=== PATIENT | male | born 1950 | race Caucasian/White ===

== ENCOUNTER 2022-04-08 01:41 | Outpatient (CLI) | payer MEDICARE, MEDICAID, SELFPAY | END 2022-04-08 01:42 | disposition home or self-care (01) | LOC: AMB 04-16 12:33 | PROVIDERS: Visit Provider Family Medicine | DX: R53.1 Weakness (principal) | CPT/HCPCS: A0998 ==

== ENCOUNTER 2022-04-08 03:18 | Outpatient (CLI) | payer MEDICARE, MEDICAID, SELFPAY | END 2022-04-08 03:19 | disposition home or self-care (01) | LOC: AMB 04-16 12:37 | PROVIDERS: Visit Provider Family Medicine | DX: R53.1 Weakness (principal) | CPT/HCPCS: A0998 ==

== ENCOUNTER 2025-03-13 16:02 | Outpatient (CLI) | payer OTHER, SELFPAY | END 2025-03-13 16:03 | disposition home or self-care (01) | LOC: AMB 04-16 15:12 | PROVIDERS: Visit Provider Student in an Organized Health Care Education/Training Program | DX: S89.92XA Unspecified injury of left lower leg, initial encounter (principal); W07.XXXA Fall from chair, initial encounter; Y92.128 Other place in nursing home as the place of occurrence of the external cause | CPT/HCPCS: A0425; A0427 ==

== ENCOUNTER 2025-03-13 16:38 | Inpatient (IN) | payer OTHER, SELFPAY ==
--- OUTSIDE RECORDS SUMMARY | 2021-06-16 18:00 | XMS_ITS | CCD ---
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 Name Role Phone Beto Corie WHITE Primary Care Provider Jeannine vailable Unavailable Chronic Care Management Unavaila ble Summary Purpose DataExchange Insurance Providers Payer name Policy type / Coverage type Covered republican ID Effective Begin Date Effective End Date [place] [id number] Unknown [id number] 1 [place] Medicare Part B [id number] Unknown [id number] Family History Family History data not found Allergies, Adverse Reactions, Alerts Substance Reaction Codes Entered Date Inactivated Date Status NO KNOWN ALLERGIES Unknown 04/25/2021 No Inactiv e Date Active Past Medical History Illness Codes Condition Status Onset Date Resolved Date Alcohol abuse, uncomplicated ICD-10: F10 .10 ICD-9: 305.00 Active 06/12/2021 12/31/2021 Bifascicular block ICD-10: I45.2 ICD-9: 426.53 Active 06/12/2021 07/28/2023 Episode of recurrent major depressive disorder, unspecified depression episode severity ICD-10: F33.9 ICD-9: 296.30 Active 06/12/2021 07/30/2021 Essential hypertension ICD-10: I10 ICD-9: 401.9 Active 06/12/2021 07/30/2021 Hx of ventricular tachycardia ICD-10: Z86.79 ICD-9: V12.59 Active 06/12/2021 11/26/2021 Hypercholesteremia ICD-10: E78.00 ICD-9: 272.0 Active 06/12/2021 07/30/2021 Preventative health care ICD-10: Z00.00 ICD-9: V70.0 Active 06/12/2021 12/31/2021 Primary osteoarthritis of both knees ICD-10: M17.0 ICD-9: 715.16 Active 06/12/2021 07/30/2021 PTSD (post-traumatic stress disorder) ICD-10: F43.10 ICD-9: 309.81 Active 06/12/2021 07/28/2023 Tobacco use disorder ICD-10: F17.200 ICD-9: 305.1 Active 06/12/2021 07/30/2021 Ventricular tachycardia ICD-10: I47.2 ICD-9: 427.1 Active 06/12/2021 09/24/2021 Problems Condition Codes Effective Dates Condition St atus Alcohol abuse, uncomplicated ICD-10: F10 .10 ICD-9: 305.00 06/12/2021 Active Bifascicular block ICD-10: I45.2 ICD-9: 426.53 06/12/2021 Active Episode of recurrent major depressive disorder, unspecified depression episode severity ICD-10: F33.9 ICD-9: 296.30 06/12/2021 Active Essential hypertension ICD-10: I10 ICD-9: 401.9 06/12/2021 Active Hx of ventricular tachycardia ICD-10: Z8 6.79 ICD-9: V12.59 06/12/2021 Active Hypercholesteremia ICD-10: E78.00 ICD-9: 272.0 06/12/2021 Active Preventative health care ICD-10: Z00.00 ICD-9: V70.0 06/12/2021 Active Primary osteoarthritis of both knees ICD -10: M17.0 ICD-9: 715.16 06/12/2021 Active PTSD (post-traumatic stress disorder) ICD-10: F43.10 ICD-9: 309.81 06/12/2021 Active Tobacco use disorder ICD-10: F17.200 ICD-9: 305.1 06/12/2021 Active Ventricular tachycardia ICD-10: I47.2 ICD-9: 427.1 06/12/2021 Active Medications Medication Codes Instructions Start Date Stop Date Status Fill Instructions loperamide 2 mg capsule RxNorm: 851754 Take 1 Capsule(s) Oral Q2H every 2 hours as needed for diarrhea Give 2 tabs after first loose stool and then 1 tab after each loose stool. Not to exceed 8 tabs in 24 hours 06/18/19 22 No Stop Date Active citalopram 20 mg tablet RxNorm: 884794 Take 1 Tablet(s) Oral QD every day 06/18/19 22 023 Inactive losartan 50 mg tablet RxNorm: 405671 Give 1 Tablet(s) Oral QD 06/18/19 22 022 Inactive atorvastatin 20 mg tablet RxNorm: 786503 Take 1 Tablet(s) Oral QD 06/18/19 22 022 Inactive Calcium Antacid 200 mg calcium (500 mg) chewable tablet RxNorm: 673015 Chew 2-4 Tablet(s) Oral as needed Take 2-4 tabs by mouth as needed between meals and at bedtime as needed for heartburn or upset stomach 06/18/19 No Stop Date Active Robitussin Cough-Chest Congestion DM 5 mg-100 mg/5 mL oral liquid RxNorm: 8953064 Take 5-10 Milliliter(s) Oral Q4H every four hours QID - Four Times Daily as needed Take 5-10ml by mouth every 4 hours as needed for cough or congestion. Not to exceed 6 doses in 24 hours 06/18/19 No Stop Date Active ibuprofen 600 mg tablet RxNorm: 753306 Take 1 Tablet(s) Oral QHS every night at bedtime 06/18/19 023 Inactive Aspirin Low Dose 81 mg tablet,delayed release RxNorm: 551653 Take 1 Tablet(s) Oral QD QD - Daily with food 06/18/19 023 Inactive ibuprofen 600 mg tablet RxNorm: 459350 Take 1 and 1/2 Tablet(s) Oral QD as needed Take at least 6 hours from scheduled dose 06/18/19 22 023 Inactive acetaminophen 325 mg capsule RxNorm: 232957 Take 1-2 Tablet(s) Oral Q4-6H every 4-6 hours as needed for pain and elevated temperature. Not to exceed 4000mg in 24 hours 06/18/19 No Stop Date Active hydrochlorothiazide 25 mg tablet RxNorm: 240392 Take 1 Tablet(s) Oral QD 06/18/19 22 022 Inactive aluminum-mag hydroxide-simethicone 200 mg-200 mg-20 mg/5 mL oral susp RxNorm: 863208 Take 5-10 Milliliter(s) Oral QD as needed for nausea one time daily between and at bedtime as needed for heartburn and/ or upset stomach 06/18/19 No Stop Date Active Milk of Magnesia 400 mg/5 mL oral suspension RxNorm: 697630 Take 15-30 Milliliter(s) Oral as needed Take 15-30ml by mouth daily (preferably at bedtime) as needed for constipation. Recommend 8 oz of water after each use. 06/18/19 No Stop Date Active Medication Administered No Medication Administered data Immunizations Vaccine Codes Dose Date Status Covid-19 (Adult) CVX: 02/24/2021 Influenza Unknown 02/24/2021 Covid-19 (Adult) CVX: 207 05/30/2020 Covid-19 (Adult) CVX: 207 05/02/2020 Pneumococcal CVX: 33 04/04/2019 Influenza Unknown 02/01/2019 Pneumococcal CVX: 133 03/30/2018 Medical Equipment No Medical Equipment data Assessments Condition Codes Effective Dates Notes Preventative health care ICD-10: Z00.00 ICD-9: V70.0 06/12/2021 No note found Essential hypertension ICD-10: I10 ICD-9: 401.9 06/12/2021 No note found PTSD (post-traumatic stress disorder) IC D-10: F43.10 ICD-9: 309.81 06/12/2021 No note found Bifascicular block ICD-10: I45.2 ICD-9: 426.53 06/12/2021 No note found Ventricular tachycardia ICD-10: I47.2 ICD-9: 427.1 06/12/2021 No note found Alcohol abuse, uncomplicated ICD-10: F10 .10 ICD-9: 305.00 06/12/2021 No note found Hypercholesteremia ICD-10: E78.00 ICD-9: 272.0 06/12/2021 No note found Episode of recurrent major d epressive disorder, unspecified depression episode severity ICD-10: F33.9 ICD-9: 296.30 06/12/2021 No note found Tobacco use disorder ICD-10: F17.200 ICD-9: 305.1 06/12/2021 No note found Hx of ventricular tachycardia ICD-10: Z8 6.79 ICD-9: V12.59 06/12/2021 No note found Primary osteoarthritis of both knees ICD -10: M17.0 ICD-9: 715.16 06/12/2021 No note found Reason For Visit No Reason For Visit data Results Observation Observation Code Item Item Code Result Date Service Location Lipid Panel (LP) LIPIDPAN CHOLESTEROL, TOTAL 04834-1 167 mg/dL 06/21/19 22 Unknown Lipid Panel (LP) LIPIDPAN HDL CHOLESTEROL 2085-9 30.8 mg /dL 06/21/19 22 Unknown Lipid Panel (LP) LIPIDPAN LDL CHOLESTEROL CALCULATED 33582-7 108 ppm 06/21/19 22 Unknown Lipid Panel (LP) LIPIDPAN TRIGLYCERIDES 2571-8 139.2 mg/dL 06/21/19 22 Unknown Lipid Panel (LP) LIPIDPAN VLDL Cholestero l Calculated 28 ppm 06/21/19 22 Unknown CBC with Differential / Platelets CBCDIFF Baso (Absolute) 0.14 x10E3/uL 06/21/19 22 Unknown CBC with Differential / Platelets CBCDIFF Basos 1.80 % 06/21/19 22 Unknown CBC with Differential / Platelets CBCDIFF Eos 7.8 % 06/21/19 22 Unknown CBC with Differential / Platelets CBCDIFF Eos (Absolute) 0.62 x10E3/uL 06/21/19 22 Unknown CBC with Differential / Platelets CBCDIFF Hematocrit 4544-3 44.5 % 06/21/19 22 Unknown CBC with Differential / Platelets CBCDIFF Hemoglobin 718-7 14.8 g/dL 06/21/19 22 Unknown CBC with Differential / Platelets CBCDIFF LYMPHOCYTES 24.8 % 06/21/19 22 Unknown CBC with Differential / Platelets CBCDIFF Lymphocytes (Absolute) 1.97 x10E3/uL 06/21/19 22 Unknown CBC with Differential / Platelets CBCDIFF MCH 30.7 pg 06/21/19 22 Unknown CBC with Differential / Platelets CBCDIFF MCHC 33.3 g/dL 06/21/19 22 Unknown CBC with Differential / Platelets CBCDIFF MCV 787-2 92.3 % 06/21/19 22 Unknown CBC with Differential / Platelets CBCDIFF Monocytes 8.6 % 06/21/19 22 Unknown CBC with Differential / Platelets CBCDIFF Monocytes (Absolute) 0.68 x10E3/uL 06/21/19 22 Unknown CBC with Differential / Platelets CBCDIFF MPV 18443-4 9.9 fL 06/21/19 22 Unknown CBC with Differential / Platelets CBCDIFF Neutrophils 56.60 % 06/21/19 Unknown CBC with Differential / Platelets CBCDIFF Neutrophils (Absolute) 4.50 x10E3/uL 06/21/19 22 Unknown CBC with Differential / Platelets CBCDIFF Platelets 777-3 272 x10E3/uL 06/21/19 22 Unknown CBC with Differential / Platelets CBCDIFF RBC 4.82 x10^6/UL 06/21/19 22 Unknown CBC with Differential / Platelets CBCDIFF RDW 13.0 %binding 06/21/19 Unknown CBC with Differential / Platelets CBCDIFF WBC 6690-2 7.94 x10E3/uL 06/21/19 22 Unknown Vitamin B12 VITAB12 Vitamin B12 2132-9 283 pg/mL 22 Unknown Hemoglobin A1c HEMOGLOBA Hemoglobin A1c 52021-0 5.7 %A1c 06/21/19 22 Unknown TSH TSH TSH 55568-8 2.18 uIU/mL 06/21/19 22 Unknown Vitamin D, 25-Hydroxy VITAD25 Vitamin D, 25-Hydroxy 81953-2 9 ng/mL 06/21/19 22 Unknown Complete Metabolic Panel (CMP) CMP A/G Ratio 1.7 ppm 06/21/19 22 Unknown Complete Metabolic Panel (CMP) CMP Albumin 1751-7 4.6 g/dL 06/21/19 22 Unknown Complete Metabolic Panel (CMP) CMP Alkaline Phosphatase 99 U/L 06/21/19 22 Unknown Complete Metabolic Panel (CMP) CMP ALT (SGPT) 15 U/L 06/21/19 22 Unknown Complete Metabolic Panel (CMP) CMP AST (SGOT) 21.1 U/L 06/21/19 22 Unknown Complete Metabolic Panel (CMP) CMP BILIRUBIN, TOTAL 1975-2 0.6 mg/dL 06/21/19 22 Unknown Complete Metabolic Panel (CMP) CMP Blood Urea Nitrogen (BUN) 23 mg/dL 06/21/19 22 Unknown Complete Metabolic Panel (CMP) CMP BUN/CREATININE RATIO 20.35 ratio 06/21/19 22 Unknown Complete Metabolic Panel (CMP) CMP Calcium (Ca) 25197-1 9.7 mg/dL 06/21/19 22 Unknown Complete Metabolic Panel (CMP) CMP Carbon Dioxide (ECO2) 30 mEq/L 06/21/19 22 Unknown Complete Metabolic Panel (CMP) CMP Chloride (Cl) 2075-0 99 mmol/L 06/21/19 22 Unknown Complete Metabolic Panel (CMP) CMP Creatinine 2160-0 1.13 mg/dL 06/21/19 22 Unknown Complete Metabolic Panel (CMP) CMP eGFR 69.00 mL/min/1.7 3m2 06/21/19 22 Unknown Complete Metabolic Panel (CMP) CMP eGFR 45832-2 83.00 mL/min/1.7 3m2 06/21/19 22 Unknown Complete Metabolic Panel (CMP) CMP Globulin, Total 2.7 ppm 06/21/19 22 Unknown Complete Metabolic Panel (CMP) CMP Glucose 86 mg/dL 06/21/19 22 Unknown Complete Metabolic Panel (CMP) CMP Potassium (K) 2823-3 4.1 mmol/L 06/21/19 22 Unknown Complete Metabolic Panel (CMP) CMP PROTEIN, TOTAL 2885-2 7.4 g/dL 06/21/19 22 Unknown Complete Metabolic Panel (CMP) CMP Sodium (Na) 2951-2 134 mmol/L 06/21/19 22 Unknown PDFReport PDFReport PDFReport 06/20/19 22 Unknown PHQ-9 81263-5 PHQ9 03590-4 0 06/18/19 22 Unknown PHQ-9 71181-2 PHQ9 08830-4 0 06/18/19 22 Unknown SLUMS SLUMS 45440-6 28 06/18/19 22 Unknown Mini-cog Mini-cog 92708-5 5 06/18/19 22 Unknown Review of Systems No Review of Systems data Physical Exam No Physical Exam data Procedures Procedure Codes Date BEHAV CHNG SMOKING 3-[address]: 2 04103958 CPT-4: 43088 06/12/[address]: 107961749 CPT-4: 50099 06/12/2021 SYS BP LESS 140 CPT-4: G8752 06/12/2021 REAL BP LESS 90 CPT-4: G8754 06/12/2021 FXNL STATUS ASSESSED CPT-4: 1170F 06/12/2021 AMNT PAIN NOTED PAIN PRSNT CPT-4: 1125F 06/12 FALL RISK ASSESSMENT DOCD CPT-4: 3288F 2021 Medicare Annual Wellness Vis it (AWV), Subsequent SNOMED CT: 636027404784300 CPT-4: G0439 06/12/2021 TOBACCO OXIDE FURNACE TENDER NO CHARGE CPT-4: G0436 2021 Vital Signs Date Vital 06/12/2021 Blood Pressure 1: 120/70 Code: 8480-6 Heart Rate 1: 101 bpm Code: 8867-4 Height: 5'10 Code: 8302-2 Respiratory Rate: 18 bpm SpO2: 97% Temperature: 36.2 (C) / 97.1 (F) History of Present Illness No History of Present Illness data Advance Directives No Advance Directive data Encounters Encounter Performer Location Location Address Codes Date (02581) [facility] Diagnosis: Tobacco use disorder[ICD10: F17.200] Diagnosis: Episode of recurrent major depressive disorder, unspecified depression episode severity[ICD10: F33.9] Diagnosis: Bifascicular block[ICD10: I45.2] Diagnosis: Ventricular tachycardia[ICD10: I47.2] Diagnosis: Hx of ventricular tachycardia[ICD10: Z86.79] Diagnosis: Hypercholesteremia[IC D10: E78.00] Diagnosis: PTSD (post-traumatic stress disorder)[ICD10: F43.10] Diagnosis: Alcohol abuse, uncomplicated[ICD10: F10.10] Diagnosis: Essential hypertension[ICD10: I10] Diagnosis: Primary osteoarthritis of both knees[ICD10: M17.0] Diagnosis: Preventative health care[ICD10: Z00.00] Татьяна [address] [address] CPT-4: 31024 06/12/2021 Plan of Care Planned Activity Notes Codes Status Date Patient Education: Patient Medication Summary Completed 06/12/2021 Patient Education: Influenza Vaccine Completed 06/12/2021 Patient Education: Smoking Cessation Completed 06/12/2021 Health Concerns Section Concern Status Date (E87.1-276.1) Hyponatremia Active 11/30 (D69.2-287.2) Senile purpura Active 01/2024 (E55.9-268.9) Vitamin D deficiency Active 07/28/2023 (E78.00-272.0) Hypercholesteremia Active 07/28/2023 (F10.21-303.93) Alcohol dependence in remission Active 07/28/2023 (F17.200-305.1) Tobacco use disorder Active 07/28/2023 (F33.9-296.30) Episode of re current major depressive disorder, unspecified depression episode severity Active 07/28/2023 (F43.10-309.81) PTSD (post-traumatic stress diso rder) Active 07/28/2023 (G44.229-339.12) Chronic tension-type headache, not intractable Active 07/28/2023 (G81.94-342.92) 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 Active 07/28/2023 (G89.29-) Other chronic pain Active 01/2024 (I12.9-403.90) Hypertensive chronic kidney disease with stage 1 through stage 4 chronic kidney disease, or unspecified chronic kidney disease Active 07/28/2023 (J41.0-491.0) Smokers' cough Active 01/2024 (J44.9-496) COPD (chronic obstructive pulmonary disease) Active 07/28/2023 (M17.0-715.16) Primary osteoarthritis of both kn ees Active 07/28/2023 (M25.512-719.41) Chronic left shoulder pain Acti ve 07/28/2023 (N18.2-585.2) Stage 2 chronic kidney disease Act damaris 07/28/2023 (Z00.00-V70.9) Adult general medical exam Active 07/28/2023 (Z13.31-V79.0) Encounter for screening for depre ssion Active 07/28/2023 (Z13.39-V79.8) Encounter for screening examination for other mental health and behavioral disorders Active 07/28/2023 (Z13.9-V82.9) Encounter for screening, unspecifi ed Active 07/28/2023 (Z71.89-V65.49) ACP (advance care planning) Acti ve 07/28/2023 No Related Observations Available Goals Section Goals Value Date COPD is a chronic and progre ssive condition with a guarded prognosis. The treatment goal is to minimize episodes of exacerbation, and the desired outcome is stable respiratory functioning allowing for optimal quality of life. The prognosis is guarded due to the progressive nature of the disease. The patient or their caregiver should notify the primary care team for symptoms of COPD exacerbation including increased difficulty breathing, increased frequency of cough, or increased sputum production. Unknown 07/19/2024 Treatment Goal: Optimize hetal n control, enhance physical / social functioning and comfortDesired Outcome: Quality of life, limited use of narcotics, increased use of non-pharmacologic measures Prognosis: goodThe patient or their caregiver should notify the primary care team of symptoms such as: acute change in pain characteristics Unknown 07/19/2024 Treatment Goal: Optimize hetal n control, enhance physical / social functioning and comfortDesired Outcome: Quality of life, limited use of narcotics, increased use of non-pharmacologic measures Prognosis: goodThe patient or their caregiver should notify the primary care team of symptoms such as: acute change in pain characteristics Unknown 07/19/2024 Treatment Goal: Remain at cu rrent functional status Desired Outcome: Minimal functional decline Prognosis: Good The patient or their caregiver should notify the primary care team of symptoms such as: functional decline warranting PT/OT referral consideration Unknown 07/19/2024 Treatment Goal: Remain in re mission/sobrietyDesired Outcome: No relapse in substance use/abuse.Prognosis: difficult to determine at this timeThe patient or their caregiver should notify the primary care team of symptoms such as: change in behaviors, personality, elopement from GH. Unknown 07/19/2024 Treatment Goal: Maintain appropriate lipid levels, given patient's age, through diet control and medication if warranted.Desired Outcome: Tolerate statin with no/minimal side effects. Reduce risk of cardiovascular complications by controlling lipid levels.Prognosis: GoodThe patient or their caregiver should notify the primary care team of symptoms such as: myalgias Unknown Treatment Goal: Stable physical functional status.Desired Outcome: Maintain mobility, minimal pain with least effective dose of medicationPrognosis: GoodThe patient or their caregiver should notify the primary care team of symptoms such as: increased pain, acute change in mobility, unwillingness to participate in baseline activity Unknown 07/19/2024 Treatment Goal: Maintain blo od pressure at or below goal of 140/90. Avoid hypotension to minimize fall risk.Desired Outcome: BP within goal range, with no adverse side effects Prognosis: Good. The patient or their caregiver should notify the primary care team of symptoms such as: chest pain, palpitations, shortness of breath, lightheadedness, lower extremity edema, falls. Unknown 01/26/2024 Treatment Goal: Minimal depr essive symptoms and optimal daily functioning.Desired Outcome: Improved mood and quality of life on lowest effective dose(s) of anti-depressant Prognosis: GoodThe patient or their caregiver should notify the primary care team of symptoms such as: increased sadness, isolation, reports of suicidal thoughts, self harm. Unknown 01/26/2024 Treatment Goal: Maintain normal vitamin D levelsDesired Outcome: Appropriate serum levels, natural vitamin D when weather permitsPrognosis: GoodThe patient or their caregiver should notify the primary care team of symptoms such as: fatigue, depression S&S Unknown 12/2023 Treatment Goal: Maintain stable renal function. Avoid JOSE LUIS episodes.Desired Outcome: Control BP as appropriate for age,.Avoid nephrotoxic medications. Renal dose medications as appropriate.Prognosis: GoodThe patient or their caregiver should notify the primary care team of symptoms such as: signs of dehydration, fluid overload, urinary changes. Unknown 01/26/2024 Serum sodium WNL. Unknown 12/01/2023 - follow with psych, take me dication as prescribed Unknown 07/28/2023 - medical decisions to be made with Kike and yogesh snowden. Unknown 07/28/2023 - Minimal depressive symptoms and optimal daily functioning. Unknown 07/28/2023 - monitor skin, be aware of bruises and stages of healing Unknown 07/28/2023 - quit smoking Unknown 07/28/2023 - remain up to date on patient wishes Unknown 07/28/2023 - remain up to date on recom mended preventive care Unknown 07/28/2023 - smoking cessation Unknown 07/28/2023 Optimize pain control while minimizing med side effects. Enhance physical / social functioning and comfort Unknown 07/28/2023 Optimize pain control while minimizing med side effects. Enhance physical / social functioning and comfort Unknown 07/28/2023
--- OUTSIDE RECORDS SUMMARY | 2021-07-29 18:00 | XMS_ITS | CCD ---
Author Name Татьяна Figueredo PA-C Address [address] [place] [address] Phone Organization [facility] Phone Care Team Providers Care Game Attendant Name Role Phone Beto Corie WHITE Primary Care Provider Jeannine vailable Unavailable Chronic Care Management Unavaila ble Summary Purpose DataExchange Insurance Providers Payer name Policy type / Coverage type Covered republican ID Effective Begin Date Effective End Date Medicare [place] Medicare Part B [id number] Unknown [id number] [place] Medicare Part B [id number] Unknown [id number] Family History Family History data not found Social History Social History Element Codes Description Effec tive Dates Tobacco history SNOMED CT: 95120724 Current ever y day smoker half pack- 1 pack/daily Started smoking at age 18 06/17/[address]: 790646685 No Alcohol Consumption Hx of consumption 06/17/2021 Allergies, Adverse Reactions, Alerts Substance Reaction Codes Entered Date Inactivated Date Status NO KNOWN ALLERGIES Unknown 04/25/2021 No Inactiv e Date Active * NO KNOWN FOOD ALLERGIES Unknown 06/12/2021 No Inactive Date Active * NO KNOWN ENVIRONMENTAL ALLERGIES Unknown 06/12/2021 No Inactive Date Active Past Medical History Illness Codes Condition Status Onset Date Resolved Date Chronic tension-type headache, not intractable ICD-10: G44.229 ICD-9: 339.12 Active 07/30/2021 08/27/2021 Episode of recurrent major depressive disorder, unspecified depression episode severity ICD-10: F33.9 ICD-9: 296.30 Active 07/30/2021 08/27/2021 Essential hypertension ICD-10: I10 ICD-9: 401.9 Active 07/30/2021 08/27/2021 Hypercholesteremia ICD-10: E78.00 ICD-9: 272.0 Active 07/30/2021 07/29/2022 Primary osteoarthritis of both knees ICD-10: M17.0 ICD-9: 715.16 Active 07/30/2021 08/27/2021 Tobacco use disorder ICD-10: F17.200 ICD-9: 305.1 Active 07/30/2021 08/27/2021 Alcohol abuse, uncomplicated ICD-10: F10 .10 ICD-9: 305.00 Active 06/12/2021 12/31/2021 Bifascicular block ICD-10: I45.2 ICD-9: 426.53 Active 06/12/2021 07/28/2023 Hx of ventricular tachycardia ICD-10: Z86.79 ICD-9: V12.59 Active 06/12/2021 11/26/2021 Preventative health care ICD-10: Z00.00 ICD-9: V70.0 Active 06/12/2021 12/31/2021 PTSD (post-traumatic stress disorder) ICD-10: F43.10 ICD-9: 309.81 Active 06/12/2021 07/28/2023 Ventricular tachycardia ICD-10: I47.2 ICD-9: 427.1 Active 06/12/2021 09/24/2021 Problems Condition Codes Effective Dates Condition St atus Chronic tension-type headach e, not intractable ICD-10: G44.229 ICD-9: 339.12 07/30/2021 Active Episode of recurrent major depressive disorder, unspecified depression episode severity ICD-10: F33.9 ICD-9: 296.30 07/30/2021 Active Essential hypertension ICD-10: I10 ICD-9: 401.9 07/30/2021 Active Hypercholesteremia ICD-10: E78.00 ICD-9: 272.0 07/30/2021 Active Primary osteoarthritis of both knees ICD -10: M17.0 ICD-9: 715.16 07/30/2021 Active Tobacco use disorder ICD-10: F17.200 ICD-9: 305.1 07/30/2021 Active Alcohol abuse, uncomplicated ICD-10: F10 .10 ICD-9: 305.00 06/12/2021 Active Bifascicular block ICD-10: I45.2 ICD-9: 426.53 06/12/2021 Active Hx of ventricular tachycardia ICD-10: Z8 6.79 ICD-9: V12.59 06/12/2021 Active Preventative health care ICD-10: Z00.00 ICD-9: V70.0 06/12/2021 Active PTSD (post-traumatic stress disorder) ICD-10: F43.10 ICD-9: 309.81 06/12/2021 Active Ventricular tachycardia ICD-10: I47.2 ICD-9: 427.1 06/12/2021 Active Medications Medication Codes Instructions Start Date Stop Date Status Fill Instructions Vitamin D2 1,250 mcg (50,000 unit) capsule RxNorm: 6481381 Take 1 Capsule(s) Oral QW once a week TAKE ONCE CAPSULE ONCE WEEKLY 07/31/19 22 023 Inactive or whatever % is covered by insurance loperamide 2 mg capsule RxNorm: 736187 Take 1 Capsule(s) Oral Q2H every 2 hours as needed for diarrhea Give 2 tabs after first loose stool and then 1 tab after each loose stool. Not to exceed 8 tabs in 24 hours 06/18/19 No Stop Date Active citalopram 20 mg tablet RxNorm: 379705 Take 1 Tablet(s) Oral QD every day 06/18/19 22 023 Inactive losartan 50 mg tablet RxNorm: 429009 Give 1 Tablet(s) Oral QD 06/18/19 22 022 Inactive atorvastatin 20 mg tablet RxNorm: 912514 Take 1 Tablet(s) Oral QD 06/18/19 22 022 Inactive Calcium Antacid 200 mg calcium (500 mg) chewable tablet RxNorm: 898940 Chew 2-4 Tablet(s) Oral as needed Take 2-4 tabs by mouth as needed between meals and at bedtime as needed for heartburn or upset stomach 06/18/19 No Stop Date Active Robitussin Cough-Chest Congestion DM 5 mg-100 mg/5 mL oral liquid RxNorm: 8236854 Take 5-10 Milliliter(s) Oral Q4H every four hours QID - Four Times Daily as needed Take 5-10ml by mouth every 4 hours as needed for cough or congestion. Not to exceed 6 doses in 24 hours 06/18/19 22 No Stop Date Active ibuprofen 600 mg tablet RxNorm: 322533 Take 1 Tablet(s) Oral QHS every night at bedtime 06/18/19 22 023 Inactive Aspirin Low Dose 81 mg tablet,delayed release RxNorm: 494729 Take 1 Tablet(s) Oral QD QD - Daily with food 06/18/19 22 023 Inactive ibuprofen 600 mg tablet RxNorm: 493037 Take 1 and 1/2 Tablet(s) Oral QD as needed Take at least 6 hours from scheduled dose 06/18/19 22 023 Inactive acetaminophen 325 mg capsule RxNorm: 047903 Take 1-2 Tablet(s) Oral Q4-6H every 4-6 hours as needed for pain and elevated temperature. Not to exceed 4000mg in 24 hours 06/18/19 No Stop Date Active hydrochlorothiazide 25 mg tablet RxNorm: 791453 Take 1 Tablet(s) Oral QD 06/18/19 22 022 Inactive aluminum-mag hydroxide-simethicone 200 mg-200 mg-20 mg/5 mL oral susp RxNorm: 032066 Take 5-10 Milliliter(s) Oral QD as needed for nausea one time daily between and at bedtime as needed for heartburn and/ or upset stomach 06/18/19 No Stop Date Active Milk of Magnesia 400 mg/5 mL oral suspension RxNorm: 979953 Take 15-30 Milliliter(s) Oral as needed Take 15-30ml by mouth daily (preferably at bedtime) as needed for constipation. Recommend 8 oz of water after each use. 06/18/19 No Stop Date Active Medication Administered No Medication Administered data Immunizations Vaccine Codes Dose Date Status Covid-19 (Adult) CVX: 207 02/24/2021 Influenza Unknown 02/24/2021 Covid-19 (Adult) CVX: 207 05/30/2020 Covid-19 (Adult) CVX: 207 05/02/2020 Pneumococcal CVX: 33 04/04/2019 Influenza Unknown 02/01/2019 Pneumococcal CVX: 133 03/30/2018 Medical Equipment No Medical Equipment data Assessments Condition Codes Effective Dates Notes Chronic tension-type headach e, not intractable ICD-10: G44.229 ICD-9: 339.12 07/30/2021 No note found Episode of recurrent major d epressive disorder, unspecified depression episode severity ICD-10: F33.9 ICD-9: 296.30 07/30/2021 No note found Essential hypertension ICD-10: I10 ICD-9: 401.9 07/30/2021 No note found Primary osteoarthritis of both knees ICD -10: M17.0 ICD-9: 715.16 07/30/2021 No note found Hypercholesteremia ICD-10: E78.00 ICD-9: 272.0 07/30/2021 No note found Tobacco use disorder ICD-10: F17.200 ICD-9: 305.1 07/30/2021 No note found Reason For Visit No Reason For Visit data Review of Systems No Review of Systems data Physical Exam No Physical Exam data Procedures Procedure Codes Date BEHAV CHNG SMOKING 3-[address]: 2 76071777 CPT-4: 88908 07/30/[address]: 004956584 CPT-4: 33423 07/30/2021 SYS BP LESS 140 CPT-4: G8752 07/30/2021 REAL BP LESS 90 CPT-4: G8754 07/30/2021 TOBACCO MOLDER SWEEP NO CHARGE CPT-4: G0436 2021 BEHAV CHNG SMOKING 3-[address]: 2 72660050 CPT-4: 98401 06/12/2021 Vital Signs Date Vital 07/30/2021 Blood Pressure 1: 111/70 Code: 8480-6 Heart Rate 1: 81 bpm Code: 8867-4 Respiratory Rate: 18 bpm SpO2: 96% Temperature: 36.5 (C) / 97.7 (F) History of Present Illness No History of Present Illness data Advance Directives No Advance Directive data Encounters Encounter Performer Location Location Address Codes Date (78184) DOMICIL VISIT EST PAT Diagnosis: Episode of recurrent major depressive disorder, unspecified depression episode severity[ICD10: F33.9] Diagnosis: Essential hypertension[ICD10: I10] Diagnosis: Tobacco use disorder[ICD10: F17.200] Diagnosis: Hypercholesteremia[IC D10: E78.00] Diagnosis: Primary osteoarthritis of both knees[ICD10: M17.0] Diagnosis: Chronic tension-type headache, not intractable[ICD10: G44.229] Татьяна Figueredo [address] [address] CPT-4: 70811 07/30/2021 Plan of Care Planned Activity Notes Codes Status Date Patient Education: Patient Medication Summary Completed 07/30/2021 Patient Education: Influenza Vaccine Completed 07/30/2021 Patient Education: Smoking Cessation Completed 07/30/2021 Health Concerns Section Concern Status Date (E87.1-276.1) [...] - medical decisions to be made with Colin snowden. Unknown 07/28/2023 - Minimal depressive symptoms [...]
--- OUTSIDE RECORDS SUMMARY | 2021-08-28 18:00 | XMS_ITS | CCD ---
Author Name Татьяна Figueredo PA-C Address [address] [place] [address] Phone Organization [facility] Phone Care Team Providers Care Trench Pipe Layer Helper Name Role Phone Bteo Corie WHITE Primary Care Provider Jeannine vailable Unavailable Chronic Care Management Unavaila ble Summary Purpose DataExchange Insurance Providers Payer name Policy type / Coverage type Covered republican ID Effective Begin Date Effective End Date Medicare [place] Medicare Part B [id number] Unknown [id number] 1 [place] Medicare Part B [id number] Unknown [id number] Family History Family History data not found Social History Social History Element Codes Description Effec tive Dates Tobacco history SNOMED CT: 72569572 Current ever y day smoker half pack- 1 pack/daily Started smoking at age 18 06/17/[address]: 399290293 No Alcohol Consumption Hx of consumption 06/17/2021 [...] not intractable ICD-10: G44.229 ICD-9: 339.12 Active 08/27/2021 11/05/2021 Episode of recurrent major depressive disorder, unspecified depression episode severity ICD-10: F33.9 ICD-9: 296.30 Active 08/27/2021 09/24/2021 Essential hypertension ICD-10: I10 ICD-9: 401.9 Active 08/27/2021 09/24/2021 Primary osteoarthritis of both knees ICD-10: M17.0 ICD-9: 715.16 Active 08/27/2021 09/24/2021 Tobacco use disorder ICD-10: F17.200 ICD-9: 305.1 Active 08/27/2021 09/24/2021 Hypercholesteremia ICD-10: E78.00 ICD-9: 272.0 Active 07/30/2021 07/29/2022 Alcohol abuse, uncomplicated ICD-10: F10 .10 ICD-9: [...] e, not intractable ICD-10: G44.229 ICD-9: 339.12 08/27/2021 Active Episode of recurrent major depressive disorder, unspecified depression episode severity ICD-10: F33.9 ICD-9: 296.30 08/27/2021 Active Essential hypertension ICD-10: I10 ICD-9: 401.9 08/27/2021 Active Primary osteoarthritis of both knees ICD -10: M17.0 ICD-9: 715.16 08/27/2021 Active Tobacco use disorder ICD-10: F17.200 ICD-9: 305.1 08/27/2021 Active Hypercholesteremia ICD-10: E78.00 ICD-9: 272.0 07/30/2021 Active Alcohol abuse, uncomplicated ICD-10: F10 [...] D2 1,250 mcg (50,000 unit) capsule RxNorm: 5117643 Take 1 Capsule(s) Oral QW once a week TAKE ONCE CAPSULE ONCE WEEKLY 07/31/19 22 023 Inactive or whatever % is covered by insurance loperamide 2 mg capsule RxNorm: 371387 Take 1 Capsule(s) Oral Q2H every 2 hours as needed for diarrhea Give 2 tabs after first loose stool and then 1 tab after each loose stool. Not to exceed 8 tabs in 24 hours 06/18/19 No Stop Date Active citalopram 20 mg tablet RxNorm: 844592 Take 1 Tablet(s) Oral QD every day 06/18/19 22 023 Inactive losartan 50 mg tablet RxNorm: 020459 Give 1 Tablet(s) Oral QD 06/18/19 22 022 Inactive atorvastatin 20 mg tablet RxNorm: 831405 Take 1 Tablet(s) Oral QD 06/18/19 22 022 Inactive Calcium Antacid 200 mg calcium (500 mg) chewable tablet RxNorm: 346302 Chew 2-4 Tablet(s) Oral as needed Take 2-4 tabs by mouth as needed between meals and at bedtime as needed for heartburn or upset stomach 06/18/19 No Stop Date Active Robitussin Cough-Chest Congestion DM 5 mg-100 mg/5 mL oral liquid RxNorm: 0339876 Take 5-10 Milliliter(s) Oral Q4H every four hours QID - Four Times Daily as needed Take 5-10ml by mouth every 4 hours as needed for cough or congestion. Not to exceed 6 doses in 24 hours 06/18/19 22 No Stop Date Active ibuprofen 600 mg tablet RxNorm: 019047 Take 1 Tablet(s) Oral QHS every night at bedtime 06/18/19 22 023 Inactive Aspirin Low Dose 81 mg tablet,delayed release RxNorm: 703193 Take 1 Tablet(s) Oral QD QD - Daily with food 06/18/19 22 023 Inactive ibuprofen 600 mg tablet RxNorm: 712296 Take 1 and 1/2 Tablet(s) Oral QD as needed Take at least 6 hours from scheduled dose 06/18/19 22 023 Inactive acetaminophen 325 mg capsule RxNorm: 299295 Take 1-2 Tablet(s) Oral Q4-6H every 4-6 hours as needed for pain and elevated temperature. Not to exceed 4000mg in 24 hours 06/18/19 No Stop Date Active hydrochlorothiazide 25 mg tablet RxNorm: 100366 Take 1 Tablet(s) Oral QD 06/18/19 22 022 Inactive aluminum-mag hydroxide-simethicone 200 mg-200 mg-20 mg/5 mL oral susp RxNorm: 512741 Take 5-10 Milliliter(s) Oral QD as needed for nausea one time daily between and at bedtime as needed for heartburn and/ or upset stomach 06/18/19 No Stop Date Active Milk of Magnesia 400 mg/5 mL oral suspension RxNorm: 935980 Take 15-30 Milliliter(s) Oral as needed Take [...] data Assessments Condition Codes Effective Dates Notes Episode of recurrent major d epressive disorder, unspecified depression episode severity ICD-10: F33.9 ICD-9: 296.30 08/27/2021 No note found Essential hypertension ICD-10: I10 ICD-9: 401.9 08/27/2021 No note found Chronic tension-type headach e, not intractable ICD-10: G44.229 ICD-9: 339.12 08/27/2021 No note found Primary osteoarthritis of both knees ICD -10: M17.0 ICD-9: 715.16 08/27/2021 No note found Tobacco use disorder ICD-10: F17.200 ICD-9: 305.1 08/27/2021 No note found Reason For Visit No Reason For Visit data Review of Systems No Review of Systems data Physical Exam No Physical Exam data Procedures Procedure Codes Date BEHAV CHNG SMOKING 3-[address]: 2 75983689 CPT-4: 61483 08/27/2021 SYS BP LESS 140 CPT-4: G8752 08/27/2021 REAL BP LESS 90 CPT-4: G8754 08/27/[address]: 508850345 CPT-4: 83435 08/27/2021 TOBACCO MEAT SELECTOR NO CHARGE CPT-4: G0436 2021 BEHAV CHNG SMOKING 3-[address]: 2 92111593 CPT-4: 75712 07/30/2021 BEHAV CHNG SMOKING 3-[address]: 2 02333606 CPT-4: 15771 06/12/2021 Vital Signs Date Vital 08/27/2021 Blood Pressure 1: 129/83 Code: 8480-6 BMI: 25.5 Code: 88241-9 Heart Rate 1: 95 bpm Code: 8867-4 Height: 5'10 Code: 8302-2 SpO2: 93% Temperature: 36.3 (C) / 97.3 (F) Weight: 177 lbs 6 oz Code: 3141-9 History of Present Illness No History of Present Illness data Advance Directives No Advance Directive data Encounters Encounter Performer Location Location Address Codes Date (35822) DOMICIL VISIT EST PAT Diagnosis: Chronic tension-type headache, not intractable[ICD10: G44.229] Diagnosis: Essential hypertension[ICD10: I10] Diagnosis: Tobacco use disorder[ICD10: F17.200] Diagnosis: Primary osteoarthritis of both knees[ICD10: M17.0] Diagnosis: Episode of recurrent major depressive disorder, unspecified depression episode severity[ICD10: F33.9] Татьяна Figueredo [address] [address] CPT-4: 68995 08/27/2021 Plan of Care Planned Activity Notes Codes Status Date Patient Education: Patient Medication Summary Completed 08/27/2021 Patient Education: Influenza Vaccine Completed 08/27/2021 Patient Education: Smoking Cessation Completed 08/27/2021 Health Concerns Section Concern Status Date (E87.1-276.1) [...]
--- OUTSIDE RECORDS SUMMARY | 2021-09-25 18:00 | XMS_ITS | CCD ---
Author Name Татьяна Figueredo PA-C Address [address] [place] [address] Phone Organization [facility] Phone Care Team Providers Care Concrete Journeyman Name Role Phone Beto Croie WHITE Primary Care Provider Jeannine vailable Unavailable Chronic Care Management Unavaila ble Summary Purpose DataExchange Insurance Providers Payer name Policy type / Coverage type Covered green party ID Effective Begin Date Effective End Date Medicare [place] Part [place] [id number] Unknown [id number] 1 [place] Medicare Part B [id number] Unknown [id number] Family History Family History data not found Social History Social History Element Codes Description Effec tive Dates Tobacco history SNOMED CT: 65144339 Current ever y day smoker half pack- 1 pack/daily Started smoking at age 18 06/17/[address]: 821999974 No Alcohol Consumption Hx of consumption 06/17/2021 Allergies, Adverse Reactions, Alerts Substance Reaction Codes Entered Date Inactivated Date Status NO KNOWN ALLERGIES Unknown 04/25/2021 No Inactiv e Date Active * NO KNOWN FOOD ALLERGIES Unknown 06/12/2021 No Inactive Date Active * NO KNOWN ENVIRONMENTAL ALLERGIES Unknown 06/12/2021 No Inactive Date Active Past Medical History Illness Codes Condition Status Onset Date Resolved Date Episode of recurrent major depressive disorder, unspecified depression episode severity ICD-10: F33.9 ICD-9: 296.30 Active 09/24/2021 11/05/2021 Essential hypertension ICD-10: I10 ICD-9: 401.9 Active 09/24/2021 11/05/2021 Primary osteoarthritis of both knees ICD-10: M17.0 ICD-9: 715.16 Active 09/24/2021 11/05/2021 Tobacco use disorder ICD-10: F17.200 ICD-9: 305.1 Active 09/24/2021 11/05/2021 Ventricular tachycardia ICD-10: I47.2 ICD-9: 427.1 Active 09/24/2021 02/25/2022 Chronic tension-type headache, not intractable ICD-10: G44.229 ICD-9: 339.12 Active 08/27/2021 11/05/2021 Hypercholesteremia ICD-10: E78.00 ICD-9: 272.0 Active 07/30/2021 07/29/2022 Alcohol abuse, uncomplicated ICD-10: F10 .10 ICD-9: 305.00 Active 06/12/2021 12/31/2021 Bifascicular block ICD-10: I45.2 ICD-9: 426.53 Active 06/12/2021 07/28/2023 Hx of ventricular tachycardia ICD-10: Z86.79 ICD-9: V12.59 Active 06/12/2021 11/26/2021 Preventative health care ICD-10: Z00.00 ICD-9: V70.0 Active 06/12/2021 12/31/2021 PTSD (post-traumatic stress disorder) ICD-10: F43.10 ICD-9: 309.81 Active 06/12/2021 07/28/2023 Problems Condition Codes Effective Dates Condition St atus Episode of recurrent major depressive disorder, unspecified depression episode severity ICD-10: F33.9 ICD-9: 296.30 09/24/2021 Active Essential hypertension ICD-10: I10 ICD-9: 401.9 09/24/2021 Active Primary osteoarthritis of both knees ICD -10: M17.0 ICD-9: 715.16 09/24/2021 Active Tobacco use disorder ICD-10: F17.200 ICD-9: 305.1 09/24/2021 Active Ventricular tachycardia ICD-10: I47.2 ICD-9: 427.1 09/24/2021 Active Chronic tension-type headach e, not intractable ICD-10: G44.229 ICD-9: 339.12 08/27/2021 Active Hypercholesteremia ICD-10: E78.00 ICD-9: 272.0 07/30/2021 Active Alcohol abuse, uncomplicated ICD-10: F10 .10 ICD-9: 305.00 06/12/2021 Active Bifascicular block ICD-10: I45.2 ICD-9: 426.53 06/12/2021 Active Hx of ventricular tachycardia ICD-10: Z8 6.79 ICD-9: V12.59 06/12/2021 Active Preventative health care ICD-10: Z00.00 ICD-9: V70.0 06/12/2021 Active PTSD (post-traumatic stress disorder) ICD-10: F43.10 ICD-9: 309.81 06/12/2021 Active Medications Medication Codes Instructions Start Date Stop Date Status Fill Instructions Vitamin D2 1,250 mcg (50,000 unit) capsule RxNorm: 2524945 Take 1 Capsule(s) Oral QW once a week TAKE ONCE CAPSULE ONCE WEEKLY 07/31/19 22 023 Inactive or whatever % is covered by insurance loperamide 2 mg capsule RxNorm: 758454 Take 1 Capsule(s) Oral Q2H every 2 hours as needed for diarrhea Give 2 tabs after first loose stool and then 1 tab after each loose stool. Not to exceed 8 tabs in 24 hours 06/18/19 No Stop Date Active citalopram 20 mg tablet RxNorm: 427384 Take 1 Tablet(s) Oral QD every day 06/18/19 22 023 Inactive losartan 50 mg tablet RxNorm: 005711 Give 1 Tablet(s) Oral QD 06/18/19 22 022 Inactive atorvastatin 20 mg tablet RxNorm: 500763 Take 1 Tablet(s) Oral QD 06/18/19 22 022 Inactive Calcium Antacid 200 mg calcium (500 mg) chewable tablet RxNorm: 955706 Chew 2-4 Tablet(s) Oral as needed Take 2-4 tabs by mouth as needed between meals and at bedtime as needed for heartburn or upset stomach 06/18/19 No Stop Date Active Robitussin Cough-Chest Congestion DM 5 mg-100 mg/5 mL oral liquid RxNorm: 1293759 Take 5-10 Milliliter(s) Oral Q4H every four hours QID - Four Times Daily as needed Take 5-10ml by mouth every 4 hours as needed for cough or congestion. Not to exceed 6 doses in 24 hours 06/18/19 22 No Stop Date Active ibuprofen 600 mg tablet RxNorm: 338861 Take 1 Tablet(s) Oral QHS every night at bedtime 06/18/19 22 023 Inactive Aspirin Low Dose 81 mg tablet,delayed release RxNorm: 048898 Take 1 Tablet(s) Oral QD QD - Daily with food 06/18/19 22 023 Inactive ibuprofen 600 mg tablet RxNorm: 561818 Take 1 and 1/2 Tablet(s) Oral QD as needed Take at least 6 hours from scheduled dose 06/18/19 22 023 Inactive acetaminophen 325 mg capsule RxNorm: 737582 Take 1-2 Tablet(s) Oral Q4-6H every 4-6 hours as needed for pain and elevated temperature. Not to exceed 4000mg in 24 hours 06/18/19 No Stop Date Active aluminum-mag hydroxide-simethicone 200 mg-200 mg-20 mg/5 mL oral susp RxNorm: 141324 Take 5-10 Milliliter(s) Oral QD as needed for nausea one time daily between and at bedtime as needed for heartburn and/ or upset stomach 06/18/19 No Stop Date Active Milk of Magnesia 400 mg/5 mL oral suspension RxNorm: 122477 Take 15-30 Milliliter(s) Oral as needed Take 15-30ml by mouth daily (preferably at bedtime) as needed for constipation. Recommend 8 oz of water after each use. 06/18/19 No Stop Date Active hydrochlorothiazide 25 mg tablet RxNorm: 606517 Take 1 Tablet(s) Oral QD 06/18/19 22 022 Inactive Medication Administered No Medication Administered data Immunizations Vaccine Codes Dose Date Status Covid-19 (Adult) CVX: 207 02/24/2021 Influenza Unknown 02/24/2021 Covid-19 (Adult) CVX: 207 05/30/2020 Covid-19 (Adult) CVX: 207 05/02/2020 Pneumococcal CVX: 33 04/04/2019 Influenza Unknown 02/01/2019 Pneumococcal CVX: 133 03/30/2018 Medical Equipment No Medical Equipment data Assessments Condition Codes Effective Dates Notes Ventricular tachycardia ICD-10: I47.2 ICD-9: 427.1 09/24/2021 No note found Episode of recurrent major d epressive disorder, unspecified depression episode severity ICD-10: F33.9 ICD-9: 296.30 09/24/2021 No note found Primary osteoarthritis of both knees ICD -10: M17.0 ICD-9: 715.16 09/24/2021 No note found Tobacco use disorder ICD-10: F17.200 ICD-9: 305.1 09/24/2021 No note found Essential hypertension ICD-10: I10 ICD-9: 401.9 09/24/2021 No note found Reason For Visit No Reason For Visit data Results Observation Observation Code Item Item Code Result Date S ervice Location PHQ-9 94887-3 PHQ9 32587-9 0 09/24/2021 Unknown PHQ-9 69287-5 PHQ9 80506-0 0 09/24/2021 Unknown Review of Systems No Review of Systems data Physical Exam No Physical Exam data Procedures Procedure Codes Date BEHAV CHNG SMOKING 3-[address]: 2 33066090 CPT-4: 68319 09/24/[address]: 404447842 CPT-4: 14782 09/24/2021 SYS BP LESS 140 CPT-4: G8752 09/24/2021 REAL BP LESS 90 CPT-4: G8754 09/24/2021 PT INELIG NEG SCRN DEPRES SNOMED CT: 428 [id number] CPT-4: G8510 09/24/2021 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 NO CHARGE CPT-4: G0436 2021 BEHAV CHNG SMOKING 3-[address]: 2 60438047 CPT-4: 73881 08/27/2021 BEHAV CHNG SMOKING 3-[address]: 2 26787733 CPT-4: 19504 07/30/2021 BEHAV CHNG SMOKING 3-[address]: 2 00205322 CPT-4: 02480 06/12/2021 Vital Signs Date Vital 09/24/2021 Blood Pressure 1: 116/67 Code: 8480-6 BMI: 25.7 Code: 59317-9 Heart Rate 1: 75 bpm Code: 8867-4 Height: 5'10 Code: 8302-2 Respiratory Rate: 16 bpm SpO2: 97% Temperature: 36.3 (C) / 97.3 (F) Weight: 179 lbs 6 oz Code: 3141-9 History of Present Illness No History of Present Illness data Advance Directives No Advance Directive data Encounters Encounter Performer Location Location Address Codes Date (78153) DOMICIL VISIT EST PAT Diagnosis: Essential hypertension[ICD10: I10] Diagnosis: Episode of recurrent major depressive disorder, unspecified depression episode severity[ICD10: F33.9] Diagnosis: Primary osteoarthritis of both knees[ICD10: M17.0] Diagnosis: Tobacco use disorder[ICD10: F17.200] Diagnosis: Ventricular tachycardia[ICD10: I47.2] Татьянаlacie Figueredo [address] [address] CPT-4: 88612 09/24/2021 Plan of Care Planned Activity Notes Codes Status Date Patient Education: Patient Medication Summary Completed 09/24/2021 Patient Education: Influenza Vaccine Completed 09/24/2021 Patient Education: Smoking Cessation Completed 09/24/2021 Health Concerns Section Concern Status Date (E87.1-276.1) [...]
--- OUTSIDE RECORDS SUMMARY | 2021-10-20 18:00 | XMS_ITS | CCD ---
Author Organization Unknown Care Team Providers Care Microsoft Dynamics Ax Developer Name Role Phone Gogebicgrazyna LOMELINitoCorie Primary Care Provider Jeannine vailable Unavailable Chronic Care Management Unavaila ble Summary Purpose DataExchange Insurance Providers Payer name Policy type / Coverage type Covered alliance party ID Effective Begin Date Effective End Date Medicare [place] Medicare Part B [id number] Unknown [id number] 1 [place] Medicare Part B [id number] Unknown 2022 Family History Family History data not found Social History Social History Element Codes Description Effec tive Dates Tobacco history SNOMED CT: 22073139 Current ever y day smoker half pack- 1 pack/daily Started smoking at age 18 06/17/[address]: 027803842 No Alcohol Consumption Hx of consumption 06/17/2021 [...] Start Date Stop Date Status Fill Instructions atorvastatin 20 mg tablet RxNorm: 419165 Take 1 Tablet(s) Oral QD 10/22/19 22 022 Inactive 2ND REQUEST FOR REFILLS 10/21/21 NEED TODAY PLEASE- THANK YOU losartan 50 mg tablet RxNorm: 723048 Take 1 Tablet(s) Oral QD 10/22/19 22 022 Inactive 2ND REQUEST FOR REFILLS 10/21/21 NEED TODAY PLEASE- THANK YOU Vitamin D2 1,250 mcg (50,000 unit) capsule RxNorm: 0630961 Take 1 Capsule(s) Oral QW once a week TAKE ONCE CAPSULE ONCE WEEKLY 07/31/19 22 023 Inactive or whatever % is covered by insurance loperamide 2 mg capsule RxNorm: 620418 Take 1 Capsule(s) Oral Q2H every 2 hours as needed for diarrhea Give 2 tabs after first loose stool and then 1 tab after each loose stool. Not to exceed 8 tabs in 24 hours 06/18/19 No Stop Date Active citalopram 20 mg tablet RxNorm: 377487 Take 1 Tablet(s) Oral QD every day 06/18/19 22 023 Inactive losartan 50 mg tablet RxNorm: 472331 Give 1 Tablet(s) Oral QD 06/18/19 22 022 Inactive atorvastatin 20 mg tablet RxNorm: 488149 Take 1 Tablet(s) Oral QD 06/18/19 22 022 Inactive Calcium Antacid 200 mg calcium (500 mg) chewable tablet RxNorm: 736765 Chew 2-4 Tablet(s) Oral as needed Take 2-4 tabs by mouth as needed between meals and at bedtime as needed for heartburn or upset stomach 06/18/19 No Stop Date Active Robitussin Cough-Chest Congestion DM 5 mg-100 mg/5 mL oral liquid RxNorm: 5113695 Take 5-10 Milliliter(s) Oral Q4H every four hours QID - Four Times Daily as needed Take 5-10ml by mouth every 4 hours as needed for cough or congestion. Not to exceed 6 doses in 24 hours 06/18/19 No Stop Date Active ibuprofen 600 mg tablet RxNorm: 133823 Take 1 Tablet(s) Oral QHS every night at bedtime 06/18/19 22 023 Inactive Aspirin Low Dose 81 mg tablet,delayed release RxNorm: 679573 Take 1 Tablet(s) Oral QD QD - Daily with food 06/18/19 22 023 Inactive ibuprofen 600 mg tablet RxNorm: 355060 Take 1 and 1/2 Tablet(s) Oral QD as needed Take at least 6 hours from scheduled dose 06/18/19 22 023 Inactive acetaminophen 325 mg capsule RxNorm: 222323 Take 1-2 Tablet(s) Oral Q4-6H every 4-6 hours as needed for pain and elevated temperature. Not to exceed 4000mg in 24 hours 06/18/19 No Stop Date Active aluminum-mag hydroxide-simethicone 200 mg-200 mg-20 mg/5 mL oral susp RxNorm: 407858 Take 5-10 Milliliter(s) Oral QD as needed for nausea one time daily between and at bedtime as needed for heartburn and/ or upset stomach 06/18/19 No Stop Date Active Milk of Magnesia 400 mg/5 mL oral suspension RxNorm: 256330 Take 15-30 Milliliter(s) Oral as needed Take 15-30ml by mouth daily (preferably at bedtime) as needed for constipation. Recommend 8 oz of water after each use. 06/18/19 22 No Stop Date Active hydrochlorothiazide 25 mg tablet RxNorm: 519441 Take 1 Tablet(s) Oral QD 06/18/19 22 022 Inactive Medication Administered No Medication Administered data Immunizations Vaccine Codes Dose Date Status Covid-19 (Adult) Unknown 09/25/2021 Covid-19 (Adult) CVX: 207 02/24/2021 Influenza Unknown 02/24/2021 Covid-19 (Adult) CVX: 207 05/30/2020 Covid-19 (Adult) CVX: 207 05/02/2020 Pneumococcal CVX: 33 04/04/2019 Influenza Unknown 02/01/2019 Pneumococcal CVX: 133 03/30/2018 Medical Equipment No Medical Equipment data Assessments No Assessment data Reason For Visit No Reason For Visit data Review of Systems No Review of Systems data Physical Exam No Physical Exam data Procedures Procedure Codes Date BEHAV CHNG SMOKING 3-[address]: 2 39036635 CPT-4: 68080 09/24/2021 BEHAV CHNG SMOKING 3-[address]: 2 88224311 CPT-4: 73671 08/27/2021 BEHAV CHNG SMOKING 3-[address]: 2 38312482 CPT-4: 69172 07/30/2021 BEHAV CHNG SMOKING 3-[address]: 2 48141139 CPT-4: 33413 06/12/2021 History of Present Illness No History of Present Illness data Advance Directives No Advance Directive data Health Concerns Section Concern Status Date (E87.1-276.1) [...]
--- OUTSIDE RECORDS SUMMARY | 2021-11-05 18:00 | XMS_ITS | CCD ---
Author Name Татьяна Figueredo PA-C Address [address] [place] [address] Phone Organization [facility] Phone Care Team Providers Care Wood Car Builder Name Role Phone Beto Corie WHITE Primary Care Provider Jeannine vailable Unavailable Chronic Care Management Unavaila ble Summary Purpose DataExchange Insurance Providers Payer name Policy type / Coverage type Covered alliance party ID Effective Begin Date Effective End Date [place] Medicare Part B [id number] Unknown [id number] 1 [place] Medicare Part B [id number] Unknown [id number] Family History Family History data not found Social History Social History Element Codes Description Effec tive Dates Tobacco history SNOMED CT: 85027222 Current ever y day smoker half pack- 1 pack/daily Started smoking at age 18 06/17/[address]: 291320887 No Alcohol Consumption Hx of consumption 06/17/2021 [...] not intractable ICD-10: G44.229 ICD-9: 339.12 Active 11/05/2021 11/26/2021 Episode of recurrent major depressive disorder, unspecified depression episode severity ICD-10: F33.9 ICD-9: 296.30 Active 11/05/2021 11/26/2021 Essential hypertension ICD-10: I10 ICD-9: 401.9 Active 11/05/2021 11/26/2021 Primary osteoarthritis of both knees ICD-10: M17.0 ICD-9: 715.16 Active 11/05/2021 01/28/2022 Tobacco use disorder ICD-10: F17.200 ICD-9: 305.1 Active 11/05/2021 11/26/2021 Ventricular tachycardia ICD-10: I47.2 ICD-9: 427.1 Active 09/24/2021 02/25/2022 Hypercholesteremia ICD-10: E78.00 ICD-9: 272.0 Active 07/30/2021 [...] e, not intractable ICD-10: G44.229 ICD-9: 339.12 11/05/2021 Active Episode of recurrent major depressive disorder, unspecified depression episode severity ICD-10: F33.9 ICD-9: 296.30 11/05/2021 Active Essential hypertension ICD-10: I10 ICD-9: 401.9 11/05/2021 Active Primary osteoarthritis of both knees ICD -10: M17.0 ICD-9: 715.16 11/05/2021 Active Tobacco use disorder ICD-10: F17.200 ICD-9: 305.1 11/05/2021 Active Ventricular tachycardia ICD-10: I47.2 ICD-9: 427.1 09/24/2021 Active Hypercholesteremia ICD-10: E78.00 ICD-9: 272.0 07/30/2021 [...] Fill Instructions atorvastatin 20 mg tablet RxNorm: 305915 Take 1 Tablet(s) Oral QD 10/22/19 22 022 Inactive 2ND REQUEST FOR REFILLS 10/21/21 NEED TODAY PLEASE- THANK YOU losartan 50 mg tablet RxNorm: 643073 Take 1 Tablet(s) Oral QD 10/22/19 22 022 Inactive 2ND REQUEST FOR REFILLS 10/21/21 NEED TODAY PLEASE- THANK YOU Vitamin D2 1,250 mcg (50,000 unit) capsule RxNorm: 1294162 Take 1 Capsule(s) Oral QW once a week TAKE ONCE CAPSULE ONCE WEEKLY 07/31/19 22 023 Inactive or whatever % is covered by insurance loperamide 2 mg capsule RxNorm: 724122 Take 1 Capsule(s) Oral Q2H every 2 hours as needed for diarrhea Give 2 tabs after first loose stool and then 1 tab after each loose stool. Not to exceed 8 tabs in 24 hours 06/18/19 No Stop Date Active citalopram 20 mg tablet RxNorm: 482020 Take 1 Tablet(s) Oral QD every day 06/18/19 22 023 Inactive Calcium Antacid 200 mg calcium (500 mg) chewable tablet RxNorm: 508849 Chew 2-4 Tablet(s) Oral as needed Take 2-4 tabs by mouth as needed between meals and at bedtime as needed for heartburn or upset stomach 06/18/19 No Stop Date Active Robitussin Cough-Chest Congestion DM 5 mg-100 mg/5 mL oral liquid RxNorm: 4023849 Take 5-10 Milliliter(s) Oral Q4H every four hours QID - Four Times Daily as needed Take 5-10ml by mouth every 4 hours as needed for cough or congestion. Not to exceed 6 doses in 24 hours 06/18/19 No Stop Date Active ibuprofen 600 mg tablet RxNorm: 767583 Take 1 Tablet(s) Oral QHS every night at bedtime 06/18/19 023 Inactive Aspirin Low Dose 81 mg tablet,delayed release RxNorm: 458737 Take 1 Tablet(s) Oral QD QD - Daily with food 06/18/19 023 Inactive ibuprofen 600 mg tablet RxNorm: 403300 Take 1 and 1/2 Tablet(s) Oral QD as needed Take at least 6 hours from scheduled dose 06/18/19 023 Inactive acetaminophen 325 mg capsule RxNorm: 164664 Take 1-2 Tablet(s) Oral Q4-6H every 4-6 hours as needed for pain and elevated temperature. Not to exceed 4000mg in 24 hours 06/18/19 No Stop Date Active aluminum-mag hydroxide-simethicone 200 mg-200 mg-20 mg/5 mL oral susp RxNorm: 132421 Take 5-10 Milliliter(s) Oral QD as needed for nausea one time daily between and at bedtime as needed for heartburn and/ or upset stomach 06/18/19 No Stop Date Active Milk of Magnesia 400 mg/5 mL oral suspension RxNorm: 002946 Take 15-30 Milliliter(s) Oral as needed Take 15-30ml by mouth daily (preferably at bedtime) as needed for constipation. Recommend 8 oz of water after each use. 06/18/19 No Stop Date Active losartan 50 mg tablet RxNorm: 164986 Give 1 Tablet(s) Oral QD 06/18/19 22 022 Inactive atorvastatin 20 mg tablet RxNorm: 952632 Take 1 Tablet(s) Oral QD 06/18/19 22 022 Inactive hydrochlorothiazide 25 mg tablet RxNorm: 746921 Take 1 Tablet(s) Oral QD 06/18/19 022 Inactive Medication Administered No Medication Administered data Immunizations Vaccine Codes Dose Date Status Covid-19 (Adult) Unknown 09/25/2021 Covid-19 (Adult) CVX: 207 02/24/2021 Influenza Unknown 02/24/2021 Covid-19 (Adult) CVX: 207 05/30/2020 Covid-19 (Adult) CVX: 207 05/02/2020 Pneumococcal CVX: 33 04/04/2019 Influenza Unknown 02/01/2019 Pneumococcal CVX: 133 03/30/2018 Medical Equipment No Medical Equipment data Assessments Condition Codes Effective Dates Notes Essential hypertension ICD-10: I10 ICD-9: 401.9 11/05/2021 No note found Chronic tension-type headach e, not intractable ICD-10: G44.229 ICD-9: 339.12 11/05/2021 No note found Episode of recurrent major d epressive disorder, unspecified depression episode severity ICD-10: F33.9 ICD-9: 296.30 11/05/2021 No note found Tobacco use disorder ICD-10: F17.200 ICD-9: 305.1 11/05/2021 No note found Primary osteoarthritis of both knees ICD -10: M17.0 ICD-9: 715.16 11/05/2021 No note found Reason For Visit No Reason For Visit data Review of Systems No Review of Systems data Physical Exam No Physical Exam data Procedures Procedure Codes Date BEHAV CHNG SMOKING 3-[address]: 2 31418830 CPT-4: 11225 11/05/[address]: 222870521 CPT-4: 72302 11/05/2021 SYS BP LESS 140 CPT-4: G8752 11/05/2021 REAL BP LESS 90 CPT-4: G8754 11/05/2021 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 CPT-4: G0436 2021 BEHAV CHNG SMOKING 3-[address]: 2 41946445 CPT-4: 73903 09/24/2021 BEHAV CHNG SMOKING 3-[address]: 2 93029369 CPT-4: 86412 08/27/2021 BEHAV CHNG SMOKING 3-[address]: 2 09467553 CPT-4: 99077 07/30/2021 BEHAV CHNG SMOKING 3-[address]: 2 41879049 CPT-4: 35964 06/12/2021 Vital Signs Date Vital 11/05/2021 Blood Pressure 1: 125/77 Code: 8480-6 BMI: 25.3 Code: 05268-4 Heart Rate 1: 71 bpm Code: 8867-4 Height: 5'10 Code: 8302-2 Respiratory Rate: 16 bpm Temperature: 36.2 (C) / 97.2 (F) Weight: 176 lbs 2 oz Code: 3141-9 History of Present Illness No History of Present Illness data Advance Directives No Advance Directive data Encounters Encounter Performer Location Location Address Codes Date (04369) DOMICIL VISIT EST PAT Diagnosis: Chronic tension-type headache, not intractable[ICD10: G44.229] Diagnosis: Episode of recurrent major depressive disorder, unspecified depression episode severity[ICD10: F33.9] Diagnosis: Essential hypertension[ICD10: I10] Diagnosis: Tobacco use disorder[ICD10: F17.200] Diagnosis: Primary osteoarthritis of both knees[ICD10: M17.0] Татьяна Figueredo [address] [address] CPT-4: 36414 11/05/2021 Plan of Care Planned Activity Notes Codes Status Date Patient Education: Patient Medication Summary Completed 11/05/2021 Patient Education: Influenza Vaccine Completed 11/05/2021 Patient Education: Smoking Cessation Completed 11/05/2021 Appointment: Татьяна Figueredo WPtel: [address] [place], [place] [id number] F/U 09/24/2021 Health Concerns Section Concern Status Date [...]
--- OUTSIDE RECORDS SUMMARY | 2021-11-26 18:00 | XMS_ITS | CCD ---
Author Name Татьяна Figueredo PA-C Address [address] [place] [address] Phone Organization [facility] Phone Care Team Providers Care Student Development Coordinator Name Role Phone Beto Corie WHITE Primary Care Provider Jeannine vailable Unavailable Chronic Care Management Unavaila ble Summary Purpose DataExchange Insurance Providers Payer name Policy type / Coverage type Covered libertarian ID Effective Begin Date Effective End Date Medicare [place] Medicare Part B [id number] Unknown [id number] 1 Medicaid [place] Medicare Part B [id number] Unknown [id number] Family History Family History data not found Social History Social History Element Codes Description Effec tive Dates Tobacco history SNOMED CT: 59968309 Current ever y day smoker half pack- 1 pack/daily Started smoking at age 18 06/17/[address]: 057162105 No Alcohol Consumption Hx of consumption 06/17/2021 [...] not intractable ICD-10: G44.229 ICD-9: 339.12 Active 11/26/2021 07/29/2022 Episode of recurrent major depressive disorder, unspecified depression episode severity ICD-10: F33.9 ICD-9: 296.30 Active 11/26/2021 12/31/2021 Essential hypertension ICD-10: I10 ICD-9: 401.9 Active 11/26/2021 12/31/2021 Hx of ventricular tachycardia ICD-10: Z86.79 ICD-9: V12.59 Active 11/26/2021 04/23/2022 Tobacco use disorder ICD-10: F17.200 ICD-9: 305.1 Active 11/26/2021 12/31/2021 Primary osteoarthritis of both knees ICD-10: M17.0 ICD-9: 715.16 Active 11/05/2021 01/28/2022 Ventricular tachycardia ICD-10: I47.2 ICD-9: 427.1 Active 09/24/2021 02/25/2022 Hypercholesteremia ICD-10: E78.00 ICD-9: 272.0 Active 07/30/2021 07/29/2022 Alcohol abuse, uncomplicated ICD-10: F10 .10 ICD-9: 305.00 Active 06/12/2021 12/31/2021 Bifascicular block ICD-10: I45.2 ICD-9: 426.53 Active 06/12/2021 07/28/2023 Preventative health care ICD-10: Z00.00 ICD-9: V70.0 Active 06/12/2021 12/31/2021 PTSD (post-traumatic stress disorder) ICD-10: F43.10 ICD-9: 309.81 Active 06/12/2021 07/28/2023 Problems Condition Codes Effective Dates Condition St atus Chronic tension-type headach e, not intractable ICD-10: G44.229 ICD-9: 339.12 11/26/2021 Active Episode of recurrent major depressive disorder, unspecified depression episode severity ICD-10: F33.9 ICD-9: 296.30 11/26/2021 Active Essential hypertension ICD-10: I10 ICD-9: 401.9 11/26/2021 Active Hx of ventricular tachycardia ICD-10: Z8 6.79 ICD-9: V12.59 11/26/2021 Active Tobacco use disorder ICD-10: F17.200 ICD-9: 305.1 11/26/2021 Active Primary osteoarthritis of both knees ICD -10: M17.0 ICD-9: 715.16 11/05/2021 Active Ventricular tachycardia ICD-10: I47.2 ICD-9: 427.1 09/24/2021 Active Hypercholesteremia ICD-10: E78.00 ICD-9: 272.0 07/30/2021 Active Alcohol abuse, uncomplicated ICD-10: F10 .10 ICD-9: 305.00 06/12/2021 Active Bifascicular block ICD-10: I45.2 ICD-9: 426.53 06/12/2021 Active Preventative health care ICD-10: Z00.00 ICD-9: V70.0 06/12/2021 Active PTSD (post-traumatic stress disorder) ICD-10: F43.10 ICD-9: 309.81 06/12/2021 Active Medications Medication Codes Instructions Start Date Stop Date Status Fill Instructions atorvastatin 20 mg tablet RxNorm: 281105 Take 1 Tablet(s) Oral QD 10/22/19 22 022 Inactive 2ND REQUEST FOR REFILLS 10/21/21 NEED TODAY PLEASE- THANK YOU losartan 50 mg tablet RxNorm: 645770 Take 1 Tablet(s) Oral QD 10/22/19 22 022 Inactive 2ND REQUEST FOR REFILLS 10/21/21 NEED TODAY PLEASE- THANK YOU Vitamin D2 1,250 mcg (50,000 unit) capsule RxNorm: 2888948 Take 1 Capsule(s) Oral QW once a week TAKE ONCE CAPSULE ONCE WEEKLY 07/31/19 22 023 Inactive or whatever % is covered by insurance loperamide 2 mg capsule RxNorm: 466910 Take 1 Capsule(s) Oral Q2H every 2 hours as needed for diarrhea Give 2 tabs after first loose stool and then 1 tab after each loose stool. Not to exceed 8 tabs in 24 hours 06/18/19 No Stop Date Active citalopram 20 mg tablet RxNorm: 290868 Take 1 Tablet(s) Oral QD every day 06/18/19 22 023 Inactive Calcium Antacid 200 mg calcium (500 mg) chewable tablet RxNorm: 899761 Chew 2-4 Tablet(s) Oral as needed Take 2-4 tabs by mouth as needed between meals and at bedtime as needed for heartburn or upset stomach 06/18/19 No Stop Date Active Robitussin Cough-Chest Congestion DM 5 mg-100 mg/5 mL oral liquid RxNorm: 5100917 Take 5-10 Milliliter(s) Oral Q4H every four hours QID - Four Times Daily as needed Take 5-10ml by mouth every 4 hours as needed for cough or congestion. Not to exceed 6 doses in 24 hours 06/18/19 No Stop Date Active ibuprofen 600 mg tablet RxNorm: 315498 Take 1 Tablet(s) Oral QHS every night at bedtime 06/18/19 023 Inactive Aspirin Low Dose 81 mg tablet,delayed release RxNorm: 805437 Take 1 Tablet(s) Oral QD QD - Daily with food 06/18/19 023 Inactive ibuprofen 600 mg tablet RxNorm: 466427 Take 1 and 1/2 Tablet(s) Oral QD as needed Take at least 6 hours from scheduled dose 06/18/19 023 Inactive acetaminophen 325 mg capsule RxNorm: 817270 Take 1-2 Tablet(s) Oral Q4-6H every 4-6 hours as needed for pain and elevated temperature. Not to exceed 4000mg in 24 hours 06/18/19 No Stop Date Active aluminum-mag hydroxide-simethicone 200 mg-200 mg-20 mg/5 mL oral susp RxNorm: 449873 Take 5-10 Milliliter(s) Oral QD as needed for nausea one time daily between and at bedtime as needed for heartburn and/ or upset stomach 06/18/19 No Stop Date Active Milk of Magnesia 400 mg/5 mL oral suspension RxNorm: 656267 Take 15-30 Milliliter(s) Oral as needed Take 15-30ml by mouth daily (preferably at bedtime) as needed for constipation. Recommend 8 oz of water after each use. 06/18/19 No Stop Date Active losartan 50 mg tablet RxNorm: 819378 Give 1 Tablet(s) Oral QD 06/18/19 22 022 Inactive atorvastatin 20 mg tablet RxNorm: 699166 Take 1 Tablet(s) Oral QD 06/18/19 22 022 Inactive hydrochlorothiazide 25 mg tablet RxNorm: 578766 Take 1 Tablet(s) Oral QD 06/18/19 022 [...] Notes Essential hypertension ICD-10: I10 ICD-9: 401.9 11/26/2021 No note found Hx of ventricular tachycardia ICD-10: Z8 6.79 ICD-9: V12.59 11/26/2021 No note found Episode of recurrent major d epressive disorder, unspecified depression episode severity ICD-10: F33.9 ICD-9: 296.30 11/26/2021 No note found Chronic tension-type headach e, not intractable ICD-10: G44.229 ICD-9: 339.12 11/26/2021 No note found Tobacco use disorder ICD-10: F17.200 ICD-9: 305.1 11/26/2021 No note found Reason For Visit No Reason For Visit data Review of Systems No Review of Systems data Physical Exam No Physical Exam data Procedures Procedure Codes Date BEHAV CHNG SMOKING 3-[address]: 2 31269975 CPT-4: 24205 11/26/2021 SYS BP LESS 140 CPT-4: G8752 11/26/2021 REAL BP LESS 90 CPT-4: G8754 11/26/[address]: 789600301 CPT-4: 97982 11/26/2021 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 CPT-4: G0436 2021 BEHAV CHNG SMOKING 3-[address]: 2 76913595 CPT-4: 47973 11/05/2021 BEHAV CHNG SMOKING 3-[address]: 2 64370732 CPT-4: 01773 09/24/2021 BEHAV CHNG SMOKING 3-[address]: 2 26885366 CPT-4: 11022 08/27/2021 BEHAV CHNG SMOKING 3-[address]: 2 56604946 CPT-4: 17580 07/30/2021 BEHAV CHNG SMOKING 3-[address]: 2 41576528 CPT-4: 16091 06/12/2021 Vital Signs Date Vital 11/26/2021 Blood Pressure 1: 116/81 Code: 8480-6 BMI: 25.3 Code: 97720-0 Heart Rate 1: 64 bpm Code: 8867-4 Height: 5'10 Code: 8302-2 Respiratory Rate: 18 bpm Temperature: 36.2 (C) / 97.2 (F) Weight: 176 lbs 2 oz Code: 3141-9 History of Present Illness No History of Present Illness data Advance Directives No Advance Directive data Encounters Encounter Performer Location Location Address Codes Date (61308) DOMICIL VISIT EST PAT Diagnosis: Episode of recurrent major depressive disorder, unspecified depression episode severity[ICD10: F33.9] Diagnosis: Essential hypertension[ICD10: I10] Diagnosis: Tobacco use disorder[ICD10: F17.200] Diagnosis: Hx of ventricular tachycardia[ICD10: Z86.79] Diagnosis: Chronic tension-type headache, not intractable[ICD10: G44.229] Татьяна Figueredo [address] [address] CPT-4: 57333 11/26/2021 Plan of Care Planned Activity Notes Codes Status Date Patient Education: Patient Medication Summary Completed 11/26/2021 Patient Education: Influenza Vaccine Completed 11/26/2021 Patient Education: Smoking Cessation Completed 11/26/2021 Appointment: Татьяна Figueredo WPtel: [address] [place], [place] [phone] F/U 09/24/2021 Health Concerns Section Concern Status [...]
--- OUTSIDE RECORDS SUMMARY | 2022-01-01 18:00 | XMS_ITS | CCD ---
Author Name Татьяна Figueredo PA-C Address [address] [place] [address] Phone Organization [facility] Phone Care Team Providers Care Plasterer Spot Name Role Phone Beto Corie WHITE Primary Care Provider Jeannine vailable Unavailable Chronic Care Management Unavaila ble Summary Purpose DataExchange Insurance Providers Payer name Policy type / Coverage type Covered constitution party ID Effective Begin Date Effective End Date Medicare ID Medicare Part B [id number] Unknown [id number] Medicaid ID Medicare Part B [id number] Unknown [id number] Family History Family History data not found Social History Social History Element Codes Description Effec tive Dates Tobacco history SNOMED CT: 60070704 Current ever y day smoker half pack- 1 pack/daily Started smoking at age 18 06/17/[address]: 243430921 No Alcohol Consumption Hx of consumption 06/17/2021 Allergies, Adverse Reactions, Alerts Substance Reaction Codes Entered Date Inactivated Date Status NO KNOWN ALLERGIES Unknown 04/25/2021 No Inactiv e Date Active * NO KNOWN FOOD ALLERGIES Unknown 06/12/2021 No Inactive Date Active * NO KNOWN ENVIRONMENTAL ALLERGIES Unknown 06/12/2021 No Inactive Date Active Past Medical History Illness Codes Condition Status Onset Date Resolved Date 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 ICD-9: 303.93 Active 12/31/2021 02/24/2023 Chronic left shoulder pain ICD-10: M25.5 12 ICD-9: 719.41 Active 12/31/2021 01/28/2022 Encounter for screening for malignant neoplasm of colon ICD-10: Z12.11 ICD-9: V76.51 Active 12/31/2021 02/25/2022 Encounter for screening for malignant neoplasm of rectum ICD-10: Z12.12 ICD-9: V76.41 Active 12/31/2021 07/28/2023 Episode of recurrent major depressive disorder, unspecified depression episode severity ICD-10: F33.9 ICD-9: 296.30 Active 12/31/2021 02/25/2022 Essential hypertension ICD-10: I10 ICD-9: 401.9 Active 12/31/2021 01/28/2022 Other chronic pain ICD-10: G89.29 Active 12/31/2021 Preventative health care ICD-10: Z00.00 ICD-9: V70.0 Active 12/31/2021 06/24/2022 Senile purpura ICD-10: D69.2 ICD-9: 287.2 Active 12/31/2021 04/28/2023 Smokers' cough ICD-10: J41.0 ICD-9: 491.0 Active 12/31/2021 12/30/2022 Tobacco use disorder ICD-10: F17.200 ICD-9: 305.1 Active 12/31/2021 01/28/2022 Alcohol abuse, uncomplicated ICD-10: F10 .10 ICD-9: 305.00 Resolved 12/31/2021 Unknown Chronic tension-type headache, not intractable ICD-10: G44.229 ICD-9: 339.12 Active 11/26/2021 07/29/2022 Hx of ventricular tachycardia ICD-10: Z86.79 ICD-9: V12.59 Active 11/26/2021 04/23/2022 Primary osteoarthritis of both knees ICD-10: M17.0 ICD-9: 715.16 Active 11/05/2021 01/28/2022 Ventricular tachycardia ICD-10: I47.2 ICD-9: 427.1 Active 09/24/2021 02/25/2022 Hypercholesteremia ICD-10: E78.00 ICD-9: 272.0 Active 07/30/2021 07/29/2022 Bifascicular block ICD-10: I45.2 ICD-9: 426.53 Active 06/12/2021 07/28/2023 PTSD (post-traumatic stress disorder) ICD-10: F43.10 ICD-9: 309.81 Active 06/12/2021 07/28/2023 Problems Condition Codes Effective Dates Condition St atus 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 ICD-9: 303.93 12/31/2021 Active Chronic left shoulder pain ICD-10: M25.5 12 ICD-9: 719.41 12/31/2021 Active Encounter for screening for malignant neoplasm of colon ICD-10: Z12.11 ICD-9: V76.51 12/31/2021 Active Encounter for screening for malignant neoplasm of rectum ICD-10: Z12.12 ICD-9: V76.41 12/31/2021 Active Episode of recurrent major depressive disorder, unspecified depression episode severity ICD-10: F33.9 ICD-9: 296.30 12/31/2021 Active Essential hypertension ICD-10: I10 ICD-9: 401.9 12/31/2021 Active Other chronic pain ICD-10: G89.29 12/31/2021 Active Preventative health care ICD-10: Z00.00 ICD-9: V70.0 12/31/2021 Active Senile purpura ICD-10: D69.2 ICD-9: 287.2 12/31/2021 Active Smokers' cough ICD-10: J41.0 ICD-9: 491.0 12/31/2021 Active Tobacco use disorder ICD-10: F17.200 ICD-9: 305.1 12/31/2021 Active Alcohol abuse, uncomplicated ICD-10: F10 .10 ICD-9: 305.00 12/31/2021 Resolved Chronic tension-type headach e, not intractable ICD-10: G44.229 ICD-9: 339.12 11/26/2021 Active Hx of ventricular tachycardia ICD-10: Z8 6.79 ICD-9: V12.59 11/26/2021 Active Primary osteoarthritis of both knees ICD -10: M17.0 ICD-9: 715.16 11/05/2021 Active Ventricular tachycardia ICD-10: I47.2 ICD-9: 427.1 09/24/2021 Active Hypercholesteremia ICD-10: E78.00 ICD-9: 272.0 07/30/2021 Active Bifascicular block ICD-10: I45.2 ICD-9: 426.53 06/12/2021 Active PTSD (post-traumatic stress disorder) ICD-10: F43.10 ICD-9: 309.81 06/12/2021 Active Medications Medication Codes Instructions Start Date Stop Date Status Fill Instructions diclofenac 1 % topical gel RxNorm: 483622 apply 0.5g topically to left shoulder nightly 01/01/20 22 022 Inactive diclofenac 1 % topical gel RxNorm: 809869 Apply 0.5 Gram(s) Topical QHS every night at bedtime apply 0.5g topically to left shoulder nightly 01/01/20 22 022 Inactive atorvastatin 20 mg tablet RxNorm: 471344 Take 1 Tablet(s) Oral QD 10/22/19 22 022 Inactive 2ND REQUEST FOR REFILLS 10/21/21 NEED TODAY PLEASE- THANK YOU losartan 50 mg tablet RxNorm: 785376 Take 1 Tablet(s) Oral QD 10/22/19 22 022 Inactive 2ND REQUEST FOR REFILLS 10/21/21 NEED TODAY PLEASE- THANK YOU Vitamin D2 1,250 mcg (50,000 unit) capsule RxNorm: 4159030 Take 1 Capsule(s) Oral QW once a week TAKE ONCE CAPSULE ONCE WEEKLY 07/31/19 22 023 Inactive or whatever % is covered by insurance loperamide 2 mg capsule RxNorm: 185544 Take 1 Capsule(s) Oral Q2H every 2 hours as needed for diarrhea Give 2 tabs after first loose stool and then 1 tab after each loose stool. Not to exceed 8 tabs in 24 hours 06/18/19 No Stop Date Active citalopram 20 mg tablet RxNorm: 631706 Take 1 Tablet(s) Oral QD every day 06/18/19 22 023 Inactive Calcium Antacid 200 mg calcium (500 mg) chewable tablet RxNorm: 368079 Chew 2-4 Tablet(s) Oral as needed Take 2-4 tabs by mouth as needed between meals and at bedtime as needed for heartburn or upset stomach 06/18/19 No Stop Date Active Robitussin Cough-Chest Congestion DM 5 mg-100 mg/5 mL oral liquid RxNorm: 8109384 Take 5-10 Milliliter(s) Oral Q4H every four hours QID - Four Times Daily as needed Take 5-10ml by mouth every 4 hours as needed for cough or congestion. Not to exceed 6 doses in 24 hours 06/18/19 No Stop Date Active ibuprofen 600 mg tablet RxNorm: 510043 Take 1 Tablet(s) Oral QHS every night at bedtime 06/18/19 22 023 Inactive Aspirin Low Dose 81 mg tablet,delayed release RxNorm: 977690 Take 1 Tablet(s) Oral QD QD - Daily with food 06/18/19 22 023 Inactive ibuprofen 600 mg tablet RxNorm: 779627 Take 1 and 1/2 Tablet(s) Oral QD as needed Take at least 6 hours from scheduled dose 06/18/19 22 023 Inactive acetaminophen 325 mg capsule RxNorm: 023408 Take 1-2 Tablet(s) Oral Q4-6H every 4-6 hours as needed for pain and elevated temperature. Not to exceed 4000mg in 24 hours 06/18/19 No Stop Date Active aluminum-mag hydroxide-simethicone 200 mg-200 mg-20 mg/5 mL oral susp RxNorm: 818733 Take 5-10 Milliliter(s) Oral QD as needed for nausea one time daily between and at bedtime as needed for heartburn and/ or upset stomach 06/18/19 No Stop Date Active Milk of Magnesia 400 mg/5 mL oral suspension RxNorm: 297874 Take 15-30 Milliliter(s) Oral as needed Take 15-30ml by mouth daily (preferably at bedtime) as needed for constipation. Recommend 8 oz of water after each use. 06/18/19 No Stop Date Active losartan 50 mg tablet RxNorm: 631916 Give 1 Tablet(s) Oral QD 06/18/19 22 022 Inactive atorvastatin 20 mg tablet RxNorm: 489226 Take 1 Tablet(s) Oral QD 06/18/19 22 022 Inactive hydrochlorothiazide 25 mg tablet RxNorm: 098933 Take 1 Tablet(s) Oral QD 06/18/19 22 [...] data Assessments Condition Codes Effective Dates Notes Encounter for screening for malignant neoplasm of rectum ICD-10: Z12.12 ICD-9: V76.41 12/31/2021 No note found Preventative health care ICD-10: Z00.00 ICD-9: V70.0 12/31/2021 No note found Tobacco use disorder ICD-10: F17.200 ICD-9: 305.1 12/31/2021 No note found Encounter for screening for malignant neoplasm of colon ICD-10: Z12.11 ICD-9: V76.51 12/31/2021 No note found Smokers' cough ICD-10: J41.0 ICD-9: 491.0 12/31/2021 No note found Senile purpura ICD-10: D69.2 ICD-9: 287.2 12/31/2021 No note found Essential hypertension ICD-10: I10 ICD-9: 401.9 12/31/2021 No note found Episode of recurrent major d epressive disorder, unspecified depression episode severity ICD-10: F33.9 ICD-9: 296.30 12/31/2021 No note found Chronic left shoulder pain ICD-10: M25.5 12 ICD-9: 719.41 12/31/2021 No note found 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 ICD-9: 303.93 12/31/2021 No note found Other chronic pain ICD-10: G89.29 12/31/2021 No note found Alcohol abuse, uncomplicated ICD-10: F10 .10 ICD-9: 305.00 12/31/2021 No note found Reason For Visit No Reason For Visit data Results Observation Observation Code Item Item Code Result Date Service Location CBC without Differential / Platelets [facility] Hematocrit 4544-3 43.0 % 01/11/20 22 Unknown CBC without Differential / Platelets [facility] Hemoglobin 718-7 14.4 g/dL 01/11/20 22 Unknown CBC without Differential / Platelets [facility] MCH 30.8 pg 01/11/20 22 Unknown CBC without Differential / Platelets [facility] RBC 4.68 x10^6/UL 01/11/20 22 Unknown CBC without Differential / Platelets [facility] MCHC 33.5 g/dL 01/11/20 22 Unknown CBC without Differential / Platelets [facility] MCV 787-2 91.9 % 01/11/20 22 Unknown CBC without Differential / Platelets [facility] Platelets 777-3 250 x10E3/uL 01/11/20 22 Unknown CBC without Differential / Platelets [facility] RDW 13.2 %binding 01/11/20 22 Unknown CBC without Differential / Platelets [facility] WBC 6690-2 5.79 x10E3/uL 01/11/20 22 Unknown Prostat Specific Antigen (PSA), Total PSA Prostate Specific Antigen (PSA), Total 22666-1 0.74 ng/mL 01/11/20 22 Unknown Basic Metabolic Panel (BMP) BMP Blood Urea Nitrogen (BUN) 21 mg/dL 01/11/20 22 Unknown Basic Metabolic Panel (BMP) BMP BUN/CREATININE RATIO 21.01 ratio 01/11/20 22 Unknown Basic Metabolic Panel (BMP) BMP Calcium (Ca) 90673-5 9.7 mg/dL 01/11/20 22 Unknown Basic Metabolic Panel (BMP) BMP Carbon Dioxide (ECO2) 24 mmol/L 01/11/20 22 Unknown Basic Metabolic Panel (BMP) BMP Chloride (Cl) 2075-0 108 mmol/L 01/11/20 22 Unknown Basic Metabolic Panel (BMP) BMP Creatinine 2160-0 0.99 mg/dL 01/11/20 22 Unknown Basic Metabolic Panel (BMP) BMP eGFR 80.00 mL/min/1.7 3m2 01/11/20 22 Unknown Basic Metabolic Panel (BMP) BMP eGFR 23333-5 96.00 mL/min/1.7 3m2 01/11/20 22 Unknown Basic Metabolic Panel (BMP) BMP Glucose 87 mg/dL 01/11/20 22 Unknown Basic Metabolic Panel (BMP) BMP Potassium (K) 2823-3 4.7 mmol/L 01/11/20 22 Unknown Basic Metabolic Panel (BMP) BMP Sodium (Na) 2951-2 140 mmol/L 01/11/20 22 Unknown PDFReport PDFReport PDFReport 01/10/20 22 Unknown Review of Systems No Review of Systems data Physical Exam No Physical Exam data Procedures Procedure Codes Date BEHAV CHNG SMOKING 3-[address]: 2 98703904 CPT-4: 60574 12/31/2021 BEHAV CHNG SMOKING > [address]: 2 11590543 CPT-4: 13055 12/31/[address]: 762641249 CPT-4: 07533 12/31/[address]: 644533291 CPT-4: 73845 12/31/2021 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 2021 BEHAV CHNG SMOKING 3-[address]: 2 01417776 CPT-4: 52772 11/26/2021 BEHAV CHNG SMOKING 3-[address]: 2 83811607 CPT-4: 27640 11/05/2021 BEHAV CHNG SMOKING 3-[address]: 2 65768610 CPT-4: 49986 09/24/2021 BEHAV CHNG SMOKING 3-[address]: 2 11000567 CPT-4: 22988 08/27/2021 BEHAV CHNG SMOKING 3-[address]: 2 06352860 CPT-4: 44274 07/30/2021 BEHAV CHNG SMOKING 3-[address]: 2 85839801 CPT-4: 72277 06/12/2021 Vital Signs Date Vital 12/31/2021 Blood Pressure 1: 134/78 Code: 8480-6 BMI: 25.4 Code: 14506-0 Heart Rate 1: 73 bpm Code: 8867-4 Height: 5'10 Code: 8302-2 Temperature: 36.2 (C) / 97.1 (F) Weight: 177 lbs Code: 3141-9 History of Present Illness No History of Present Illness data Advance Directives No Advance Directive data Encounters Encounter Performer Location Location Address Codes Date (34947) DOMICIL VISIT EST PAT Diagnosis: Senile purpura[ICD10: D69.2] Diagnosis: Preventative health care[ICD10: Z00.00] Diagnosis: Episode of recurrent major depressive disorder, unspecified depression episode severity[ICD10: F33.9] Diagnosis: Essential hypertension[ICD10: I10] Diagnosis: Tobacco use disorder[ICD10: F17.200] Diagnosis: Chronic left shoulder pain[ICD10: M25.512] Diagnosis: Other chronic pain[ICD10: G89.29] Diagnosis: Encounter for screening for malignant neoplasm of rectum[ICD10: Z12.12] Diagnosis: Encounter for screening for malignant neoplasm of colon[ICD10: Z12.11] Diagnosis: Alcohol dependence in remission[ICD10: F10.21] Diagnosis: Alcohol abuse, uncomplicated[ICD10: F10.10] Diagnosis: Smokers' cough[ICD10: J41.0] Татьяна Figueredo [address] [address] CPT-4: 26084 12/31/2021 Plan of Care Planned Activity Notes Codes Status Date Patient Education: Patient Medication Summary Completed 12/31/2021 Patient Education: Influenza Vaccine Completed 12/31/2021 Patient Education: Smoking Cessation Completed 12/31/2021 Care Plan: Cologuard Ordered 12/18 Appointment: Татьяна Figueredo WPtel: [address] [place], [place] [phone] F/U 09/24/2021 Health Concerns Section Concern Status [...] to be made with Kike and yogesh snodwen. Unknown 07/28/2023 - Minimal depressive symptoms and [...]
--- OUTSIDE RECORDS SUMMARY | 2022-01-28 18:00 | XMS_ITS | CCD ---
Author Name Татьяна Figueredo PA-C Address [address] [place] [address] [facility] Phone Care Team Providers Care Flight Follower Name Role Phone Toombs Corie WHITE Primary Care Provider Jeannine vailable Unavailable Chronic Care Management Unavaila ble Summary Purpose DataExchange Insurance Providers Payer name Policy type / Coverage type Covered republican ID Effective Begin Date Effective End Date Medicare [place] Medicare Part B [id number] Unknown [id number] [address] [place] Medicare Part B [id number] Unknown [id number] Family History Family History data not found Social History Social History Element Codes Description Effec tive Dates Tobacco history SNOMED CT: 11623062 Current ever y day smoker half pack- 1 pack/daily Started smoking at age 18 06/17/[address]: 782283459 No Alcohol Consumption Hx of consumption 06/17/2021 Allergies, Adverse Reactions, Alerts Substance Reaction Codes Entered Date Inactivated Date Status NO KNOWN ALLERGIES Unknown 04/25/2021 No Inactiv e Date Active * NO KNOWN FOOD ALLERGIES Unknown 06/12/2021 No Inactive Date Active * NO KNOWN ENVIRONMENTAL ALLERGIES Unknown 06/12/2021 No Inactive Date Active Past Medical History Illness Codes Condition Status Onset Date Resolved Date Chronic left shoulder pain ICD-10: M25.5 12 ICD-9: 719.41 Active 01/28/2022 07/28/2023 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 ICD-10: G81.94 ICD-9: 342.92 Active 01/28/2022 04/06/2022 Hypertensive chronic kidney disease with stage 1 through stage 4 chronic kidney disease, or unspecified chronic kidney disease ICD-10: I12.9 ICD-9: 403.90 Active 01/28/2022 02/25/2022 Onychogryposis ICD-10: L60.2 ICD-9: 703.8 Active 01/28/2022 07/28/2023 Primary osteoarthritis of both knees ICD-10: M17.0 ICD-9: 715.16 Active 01/28/2022 02/25/2022 Stage 2 chronic kidney disease ICD-10: N18.2 ICD-9: 585.2 Active 01/28/2022 06/24/2022 Tobacco use disorder ICD-10: F17.200 ICD-9: 305.1 Active 01/28/2022 07/29/2022 Essential hypertension ICD-10: I10 ICD-9: 401.9 Resolved 01/28/2022 Unknown 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 ICD-9: 303.93 Active 12/31/2021 02/24/2023 Encounter for screening for malignant neoplasm of colon ICD-10: Z12.11 ICD-9: V76.51 Active 12/31/2021 02/25/2022 Encounter for screening for malignant neoplasm of rectum ICD-10: Z12.12 ICD-9: V76.41 Active 12/31/2021 07/28/2023 Episode of recurrent major depressive disorder, unspecified depression episode severity ICD-10: F33.9 ICD-9: 296.30 Active 12/31/2021 02/25/2022 Other chronic pain ICD-10: G89.29 Active 12/31/2021 Preventative health care ICD-10: Z00.00 ICD-9: V70.0 Active 12/31/2021 06/24/2022 Senile purpura ICD-10: D69.2 ICD-9: 287.2 Active 12/31/2021 04/28/2023 Smokers' cough ICD-10: J41.0 ICD-9: 491.0 Active 12/31/2021 12/30/2022 Alcohol abuse, uncomplicated ICD-10: F10 .10 ICD-9: 305.00 Resolved 12/31/2021 Unknown Chronic tension-type headache, not intractable ICD-10: G44.229 ICD-9: 339.12 Active 11/26/2021 07/29/2022 Hx of ventricular tachycardia ICD-10: Z86.79 ICD-9: V12.59 Active 11/26/2021 04/23/2022 Ventricular tachycardia ICD-10: I47.2 ICD-9: 427.1 Active 09/24/2021 02/25/2022 Hypercholesteremia ICD-10: E78.00 ICD-9: 272.0 Active 07/30/2021 07/29/2022 Bifascicular block ICD-10: I45.2 ICD-9: 426.53 Active 06/12/2021 07/28/2023 PTSD (post-traumatic stress disorder) ICD-10: F43.10 ICD-9: 309.81 Active 06/12/2021 07/28/2023 Problems Condition Codes Effective Dates Condition St atus Chronic left shoulder pain ICD-10: M25.5 12 ICD-9: 719.41 01/28/2022 Active Hemiparesis of left nondomin ant side due to non-cerebrovascular etiology ICD-10: G81.94 ICD-9: 342.92 01/28/2022 Active Hypertensive chronic kidney disease with stage 1 through stage 4 chronic kidney disease, or unspecified chronic kidney disease ICD-10: I12.9 ICD-9: 403.90 01/28/2022 Active Onychogryposis ICD-10: L60.2 ICD-9: 703.8 01/28/2022 Active Primary osteoarthritis of both knees ICD -10: M17.0 ICD-9: 715.16 01/28/2022 Active Stage 2 chronic kidney disease ICD-10: N 18.2 ICD-9: 585.2 01/28/2022 Active Tobacco use disorder ICD-10: F17.200 ICD-9: 305.1 01/28/2022 Active Essential hypertension ICD-10: I10 ICD-9: 401.9 01/28/2022 Resolved 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 ICD-9: 303.93 12/31/2021 Active Encounter for screening for malignant neoplasm of colon ICD-10: Z12.11 ICD-9: V76.51 12/31/2021 Active Encounter for screening for malignant neoplasm of rectum ICD-10: Z12.12 ICD-9: V76.41 12/31/2021 Active Episode of recurrent major depressive disorder, unspecified depression episode severity ICD-10: F33.9 ICD-9: 296.30 12/31/2021 Active Other chronic pain ICD-10: G89.29 12/31/2021 Active Preventative health care ICD-10: Z00.00 ICD-9: V70.0 12/31/2021 Active Senile purpura ICD-10: D69.2 ICD-9: 287.2 12/31/2021 Active Smokers' cough ICD-10: J41.0 ICD-9: 491.0 12/31/2021 Active Alcohol abuse, uncomplicated ICD-10: F10 .10 ICD-9: 305.00 12/31/2021 Resolved Chronic tension-type headach e, not intractable ICD-10: G44.229 ICD-9: 339.12 11/26/2021 Active Hx of ventricular tachycardia ICD-10: Z8 6.79 ICD-9: V12.59 11/26/2021 Active Ventricular tachycardia ICD-10: I47.2 ICD-9: 427.1 09/24/2021 Active Hypercholesteremia ICD-10: E78.00 ICD-9: 272.0 07/30/2021 Active Bifascicular block ICD-10: I45.2 ICD-9: 426.53 06/12/2021 Active PTSD (post-traumatic stress disorder) ICD-10: F43.10 ICD-9: 309.81 06/12/2021 Active Medications Medication Codes Instructions Start Date Stop Date Status Fill Instructions diclofenac 1 % topical gel RxNorm: 785166 apply 0.5g topically to left shoulder nightly 01/01/20 22 022 Inactive diclofenac 1 % topical gel RxNorm: 346979 Apply 0.5 Gram(s) Topical QHS every night at bedtime apply 0.5g topically to left shoulder nightly 01/01/20 22 Inactive atorvastatin 20 mg tablet RxNorm: 731858 Take 1 Tablet(s) Oral QD 10/22/19 22 022 Inactive 2ND REQUEST FOR REFILLS 10/21/21 NEED TODAY PLEASE- THANK YOU losartan 50 mg tablet RxNorm: 917947 Take 1 Tablet(s) Oral QD 10/22/19 22 022 Inactive 2ND REQUEST FOR REFILLS 10/21/21 NEED TODAY PLEASE- THANK YOU Vitamin D2 1,250 mcg (50,000 unit) capsule RxNorm: 9493595 Take 1 Capsule(s) Oral QW once a week TAKE ONCE CAPSULE ONCE WEEKLY 07/31/19 22 023 Inactive or whatever % is covered by insurance loperamide 2 mg capsule RxNorm: 251130 Take 1 Capsule(s) Oral Q2H every 2 hours as needed for diarrhea Give 2 tabs after first loose stool and then 1 tab after each loose stool. Not to exceed 8 tabs in 24 hours 06/18/19 22 No Stop Date Active citalopram 20 mg tablet RxNorm: 176330 Take 1 Tablet(s) Oral QD every day 06/18/19 22 023 Inactive Calcium Antacid 200 mg calcium (500 mg) chewable tablet RxNorm: 456413 Chew 2-4 Tablet(s) Oral as needed Take 2-4 tabs by mouth as needed between meals and at bedtime as needed for heartburn or upset stomach 06/18/19 No Stop Date Active Robitussin Cough-Chest Congestion DM 5 mg-100 mg/5 mL oral liquid RxNorm: 5286919 Take 5-10 Milliliter(s) Oral Q4H every four hours QID - Four Times Daily as needed Take 5-10ml by mouth every 4 hours as needed for cough or congestion. Not to exceed 6 doses in 24 hours 06/18/19 No Stop Date Active ibuprofen 600 mg tablet RxNorm: 847009 Take 1 Tablet(s) Oral QHS every night at bedtime 06/18/19 22 023 Inactive Aspirin Low Dose 81 mg tablet,delayed release RxNorm: 012085 Take 1 Tablet(s) Oral QD QD - Daily with food 06/18/19 22 023 Inactive ibuprofen 600 mg tablet RxNorm: 172647 Take 1 and 1/2 Tablet(s) Oral QD as needed Take at least 6 hours from scheduled dose 06/18/19 22 023 Inactive acetaminophen 325 mg capsule RxNorm: 902566 Take 1-2 Tablet(s) Oral Q4-6H every 4-6 hours as needed for pain and elevated temperature. Not to exceed 4000mg in 24 hours 06/18/19 22 No Stop Date Active aluminum-mag hydroxide-simethicone 200 mg-200 mg-20 mg/5 mL oral susp RxNorm: 113117 Take 5-10 Milliliter(s) Oral QD as needed for nausea one time daily between and at bedtime as needed for heartburn and/ or upset stomach 06/18/19 No Stop Date Active Milk of Magnesia 400 mg/5 mL oral suspension RxNorm: 216395 Take 15-30 Milliliter(s) Oral as needed Take 15-30ml by mouth daily (preferably at bedtime) as needed for constipation. Recommend 8 oz of water after each use. 06/18/19 No Stop Date Active losartan 50 mg tablet RxNorm: 406558 Give 1 Tablet(s) Oral QD 06/18/19 22 Inactive atorvastatin 20 mg tablet RxNorm: 666496 Take 1 Tablet(s) Oral QD 06/18/19 22 022 Inactive hydrochlorothiazide 25 mg tablet RxNorm: 998750 Take 1 Tablet(s) Oral QD 06/18/19 22 Inactive Medication Administered No Medication Administered data Immunizations Vaccine Codes Dose Date Status Covid-19 (Adult) Unknown 01/27/2022 Covid-19 (Adult) Unknown 09/25/2021 Covid-19 (Adult) CVX: 207 02/24/2021 Influenza Unknown 02/24/2021 Covid-19 (Adult) CVX: 207 05/30/2020 Covid-19 (Adult) CVX: 207 05/02/2020 Pneumococcal CVX: 33 04/04/2019 Influenza Unknown 02/01/2019 Pneumococcal CVX: 133 03/30/2018 Medical Equipment No Medical Equipment data Assessments Condition Codes Effective Dates Notes Chronic left shoulder pain ICD-10: M25.5 12 ICD-9: 719.41 01/28/2022 No note found Hemiparesis of left nondomin ant side due to non-cerebrovascular etiology ICD-10: G81.94 ICD-9: 342.92 01/28/2022 No note found Primary osteoarthritis of both knees ICD -10: M17.0 ICD-9: 715.16 01/28/2022 No note found Hypertensive chronic kidney disease with stage 1 through stage 4 chronic kidney disease, or unspecified chronic kidney disease ICD-10: I12.9 ICD-9: 403.90 01/28/2022 No note found Stage 2 chronic kidney disease ICD-10: N 18.2 ICD-9: 585.2 01/28/2022 No note found Tobacco use disorder ICD-10: F17.200 ICD-9: 305.1 01/28/2022 No note found Onychogryposis ICD-10: L60.2 ICD-9: 703.8 01/28/2022 No note found Reason For Visit No Reason For Visit data Review of Systems No Review of Systems data Physical Exam No Physical Exam data Procedures Procedure Codes Date BEHAV CHNG SMOKING 3-[address]: 2 83465942 CPT-4: 57323 01/28/2022 SYS BP LESS 140 CPT-4: G8752 01/28/2022 REAL BP LESS 90 CPT-4: G8754 01/28/[address]: 887875756 CPT-4: 37923 01/28/2022 Toenail Debridement CPT-4: 70049 01/28/2022 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: 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 2021 AAA Screening US CPT-4: 20099 01/06/2022 BEHAV CHNG SMOKING 3-[address]: 2 81531554 CPT-4: 34015 12/31/2021 BEHAV CHNG SMOKING > [address]: 2 55899518 CPT-4: 98735 12/31/2021 BEHAV CHNG SMOKING 3-[address]: 2 41945749 CPT-4: 17256 11/26/2021 BEHAV CHNG SMOKING 3-[address]: 2 47667918 CPT-4: 62939 11/05/2021 BEHAV CHNG SMOKING 3-[address]: 2 92645842 CPT-4: 55598 09/24/2021 BEHAV CHNG SMOKING 3-[address]: 2 72649670 CPT-4: 21662 08/27/2021 BEHAV CHNG SMOKING 3-[address]: 2 06173339 CPT-4: 51623 07/30/2021 BEHAV CHNG SMOKING 3-[address]: 2 12299045 CPT-4: 80167 06/12/2021 Vital Signs Date Vital 01/28/2022 Blood Pressure 1: 134/88 Code: 8480-6 BMI: 25.0 Code: 20618-8 Heart Rate 1: 87 bpm Code: 8867-4 Height: 5'10 Code: 8302-2 SpO2: 98% Temperature: 36.3 (C) / 97.3 (F) Weight: 174 lbs 2 oz Code: 3141-9 History of Present Illness No History of Present Illness data Advance Directives No Advance Directive data Encounters Encounter Performer Location Location Address Codes Date (51589) DOMICIL VISIT EST PAT Diagnosis: Primary osteoarthritis of both knees[ICD10: M17.0] Diagnosis: Tobacco use disorder[ICD10: F17.200] Diagnosis: 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[ICD10: G81.94] Diagnosis: Hypertensive chronic kidney disease with stage 1 through stage 4 chronic kidney disease, or unspecified chronic kidney disease[ICD10: I12.9] Diagnosis: Stage 2 chronic kidney disease[ICD10: N18.2] Diagnosis: Chronic left shoulder pain[ICD10: M25.512] Diagnosis: Onychogryposis[ICD10: L60.2] Татьяна Figueredo [address] [address] CPT-4: 95305 01/28/2022 Plan of Care Planned Activity Notes Codes Status Date Patient Education: Patient Medication Summary Completed 01/28/2022 Patient Education: Influenza Vaccine Completed 01/28/2022 Patient Education: Smoking Cessation Completed 01/28/2022 Appointment: Татьяна Figueredo WPtel: [address] [place], [place] [phone] F/U 09/24/2021 Health Concerns Section Concern Status [...]
--- OUTSIDE RECORDS SUMMARY | 2022-02-24 18:00 | XMS_ITS | CCD ---
Author Name Татьяна Figueredo PA-C Address [address] [place] [address] Phone Organization [facility] Phone Care Team Providers Care Teletype Or Varitype Keyboard Operator Name Role Phone Beto Corie WHITE Primary Care Provider Jeannine vailable Unavailable Chronic Care Management Unavaila ble Summary Purpose DataExchange Insurance Providers Payer name Policy type / Coverage type Covered libertarian ID Effective Begin Date Effective End Date [place] Medicare Part B [id number] Unknown [id number] 1 Medicaid [place] Medicare Part B [id number] Unknown [id number] Family History Family History data not found Social History Social History Element Codes Description Effec tive Dates Tobacco history SNOMED CT: 60884159 Current ever y day smoker half pack- 1 pack/daily Started smoking at age 18 06/17/[address]: 361508093 No Alcohol Consumption Hx of consumption 06/17/2021 Allergies, Adverse Reactions, Alerts Substance Reaction Codes Entered Date Inactivated Date Status NO KNOWN ALLERGIES Unknown 04/25/2021 No Inactiv e Date Active * NO KNOWN FOOD ALLERGIES Unknown 06/12/2021 No Inactive Date Active * NO KNOWN ENVIRONMENTAL ALLERGIES Unknown 06/12/2021 No Inactive Date Active Past Medical History Illness Codes Condition Status Onset Date Resolved Date Encounter for screening for malignant neoplasm of colon ICD-10: Z12.11 ICD-9: V76.51 Active 02/25/2022 05/06/2022 Episode of recurrent major depressive disorder, unspecified depression episode severity ICD-10: F33.9 ICD-9: 296.30 Active 02/25/2022 08/26/2022 Hypertensive chronic kidney disease with stage 1 through stage 4 chronic kidney disease, or unspecified chronic kidney disease ICD-10: I12.9 ICD-9: 403.90 Active 02/25/2022 06/24/2022 Primary osteoarthritis of both knees ICD-10: M17.0 ICD-9: 715.16 Active 02/25/2022 07/28/2023 Ventricular tachycardia ICD-10: I47.2 ICD-9: 427.1 Active 02/25/2022 04/23/2022 Chronic left shoulder pain ICD-10: M25.5 12 ICD-9: 719.41 Active 01/28/2022 07/28/2023 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 ICD-10: G81.94 ICD-9: 342.92 Active 01/28/2022 04/06/2022 Onychogryposis ICD-10: L60.2 ICD-9: 703.8 Active 01/28/2022 07/28/2023 Stage 2 chronic kidney disease ICD-10: N18.2 ICD-9: 585.2 Active 01/28/2022 06/24/2022 Tobacco use disorder ICD-10: F17.200 ICD-9: 305.1 Active 01/28/2022 07/29/2022 Essential hypertension ICD-10: I10 ICD-9: 401.9 Resolved 01/28/2022 Unknown 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 ICD-9: 303.93 Active 12/31/2021 02/24/2023 Encounter for screening for malignant neoplasm of rectum ICD-10: Z12.12 ICD-9: V76.41 Active 12/31/2021 07/28/2023 Other chronic pain ICD-10: G89.29 Active 12/31/2021 [...] ICD-10: Z86.79 ICD-9: V12.59 Active 11/26/2021 04/23/2022 Hypercholesteremia ICD-10: E78.00 ICD-9: 272.0 Active 07/30/2021 07/29/2022 Bifascicular block ICD-10: I45.2 ICD-9: 426.53 Active 06/12/2021 07/28/2023 PTSD (post-traumatic stress disorder) ICD-10: F43.10 ICD-9: 309.81 Active 06/12/2021 07/28/2023 Problems Condition Codes Effective Dates Condition St atus Encounter for screening for malignant neoplasm of colon ICD-10: Z12.11 ICD-9: V76.51 02/25/2022 Active Episode of recurrent major depressive disorder, unspecified depression episode severity ICD-10: F33.9 ICD-9: 296.30 02/25/2022 Active Hypertensive chronic kidney disease with stage 1 through stage 4 chronic kidney disease, or unspecified chronic kidney disease ICD-10: I12.9 ICD-9: 403.90 02/25/2022 Active Primary osteoarthritis of both knees ICD -10: M17.0 ICD-9: 715.16 02/25/2022 Active Ventricular tachycardia ICD-10: I47.2 ICD-9: 427.1 02/25/2022 Active Chronic left shoulder pain ICD-10: M25.5 12 ICD-9: 719.41 01/28/2022 Active Hemiparesis of left nondomin ant side due to non-cerebrovascular etiology ICD-10: G81.94 ICD-9: 342.92 01/28/2022 Active Onychogryposis ICD-10: L60.2 ICD-9: 703.8 01/28/2022 Active Stage 2 chronic kidney disease ICD-10: N 18.2 ICD-9: 585.2 01/28/2022 Active Tobacco use disorder ICD-10: F17.200 ICD-9: 305.1 01/28/2022 Active Essential hypertension ICD-10: I10 ICD-9: 401.9 01/28/2022 Resolved 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 ICD-9: 303.93 12/31/2021 Active Encounter for screening for malignant neoplasm of rectum ICD-10: Z12.12 ICD-9: V76.41 12/31/2021 Active Other chronic pain ICD-10: G89.29 [...] ICD-10: Z8 6.79 ICD-9: V12.59 11/26/2021 Active Hypercholesteremia ICD-10: E78.00 ICD-9: 272.0 07/30/2021 Active Bifascicular block ICD-10: I45.2 ICD-9: 426.53 06/12/2021 Active PTSD (post-traumatic stress disorder) ICD-10: F43.10 ICD-9: 309.81 06/12/2021 Active Medications Medication Codes Instructions Start Date Stop Date Status Fill Instructions diclofenac 1 % topical gel RxNorm: 392035 apply 0.5g topically to left shoulder nightly 01/01/20 22 Inactive diclofenac 1 % topical gel RxNorm: 052985 Apply 0.5 Gram(s) Topical QHS every night at bedtime apply 0.5g topically to left shoulder nightly 01/01/20 22 Inactive atorvastatin 20 mg tablet RxNorm: 981823 Take 1 Tablet(s) Oral QD 10/22/19 22 022 Inactive 2ND REQUEST FOR REFILLS 10/21/21 NEED TODAY PLEASE- THANK YOU losartan 50 mg tablet RxNorm: 966652 Take 1 Tablet(s) Oral QD 10/22/19 22 Inactive 2ND REQUEST FOR REFILLS 10/21/21 NEED TODAY PLEASE- THANK YOU Vitamin D2 1,250 mcg (50,000 unit) capsule RxNorm: 1680961 Take 1 Capsule(s) Oral QW once a week TAKE ONCE CAPSULE ONCE WEEKLY 07/31/19 22 023 Inactive or whatever % is covered by insurance loperamide 2 mg capsule RxNorm: 803918 Take 1 Capsule(s) Oral Q2H every 2 hours as needed for diarrhea Give 2 tabs after first loose stool and then 1 tab after each loose stool. Not to exceed 8 tabs in 24 hours 06/18/19 22 No Stop Date Active citalopram 20 mg tablet RxNorm: 413360 Take 1 Tablet(s) Oral QD every day 06/18/19 22 023 Inactive Calcium Antacid 200 mg calcium (500 mg) chewable tablet RxNorm: 665343 Chew 2-4 Tablet(s) Oral as needed Take 2-4 tabs by mouth as needed between meals and at bedtime as needed for heartburn or upset stomach 06/18/19 No Stop Date Active Robitussin Cough-Chest Congestion DM 5 mg-100 mg/5 mL oral liquid RxNorm: 0330342 Take 5-10 Milliliter(s) Oral Q4H every four hours QID - Four Times Daily as needed Take 5-10ml by mouth every 4 hours as needed for cough or congestion. Not to exceed 6 doses in 24 hours 06/18/19 No Stop Date Active ibuprofen 600 mg tablet RxNorm: 489700 Take 1 Tablet(s) Oral QHS every night at bedtime 06/18/19 22 023 Inactive Aspirin Low Dose 81 mg tablet,delayed release RxNorm: 890051 Take 1 Tablet(s) Oral QD QD - Daily with food 06/18/19 22 023 Inactive ibuprofen 600 mg tablet RxNorm: 181527 Take 1 and 1/2 Tablet(s) Oral QD as needed Take at least 6 hours from scheduled dose 06/18/19 22 023 Inactive acetaminophen 325 mg capsule RxNorm: 390331 Take 1-2 Tablet(s) Oral Q4-6H every 4-6 hours as needed for pain and elevated temperature. Not to exceed 4000mg in 24 hours 06/18/19 22 No Stop Date Active aluminum-mag hydroxide-simethicone 200 mg-200 mg-20 mg/5 mL oral susp RxNorm: 752912 Take 5-10 Milliliter(s) Oral QD as needed for nausea one time daily between and at bedtime as needed for heartburn and/ or upset stomach 06/18/19 No Stop Date Active Milk of Magnesia 400 mg/5 mL oral suspension RxNorm: 492025 Take 15-30 Milliliter(s) Oral as needed Take 15-30ml by mouth daily (preferably at bedtime) as needed for constipation. Recommend 8 oz of water after each use. 06/18/19 No Stop Date Active losartan 50 mg tablet RxNorm: 741462 Give 1 Tablet(s) Oral QD 06/18/19 22 Inactive atorvastatin 20 mg tablet RxNorm: 884435 Take 1 Tablet(s) Oral QD 06/18/19 22 022 Inactive hydrochlorothiazide 25 mg tablet RxNorm: 984192 Take 1 Tablet(s) Oral QD 06/18/19 22 [...] data Assessments Condition Codes Effective Dates Notes Primary osteoarthritis of both knees ICD -10: M17.0 ICD-9: 715.16 02/25/2022 No note found Hypertensive chronic kidney disease with stage 1 through stage 4 chronic kidney disease, or unspecified chronic kidney disease ICD-10: I12.9 ICD-9: 403.90 02/25/2022 No note found Ventricular tachycardia ICD-10: I47.2 ICD-9: 427.1 02/25/2022 No note found Episode of recurrent major d epressive disorder, unspecified depression episode severity ICD-10: F33.9 ICD-9: 296.30 02/25/2022 No note found Encounter for screening for malignant neoplasm of colon ICD-10: Z12.11 ICD-9: V76.51 02/25/2022 No note found Reason For Visit No Reason For Visit data Review of Systems No Review of Systems data Physical Exam No Physical Exam data Procedures Procedure Codes Date SYS BP LESS 140 CPT-4: G8752 02/25/2022 REAL BP LESS 90 CPT-4: G8754 02/25/2022 BEHAV CHNG SMOKING 3-[address]: 2 91256200 CPT-4: 10676 01/28/2022 AAA Screening US CPT-4: 67310 01/06/2022 BEHAV CHNG SMOKING 3-[address]: 2 93668778 CPT-4: 77145 12/31/2021 BEHAV CHNG SMOKING > [address]: 2 77055084 CPT-4: 32056 12/31/2021 BEHAV CHNG SMOKING 3-[address]: 2 05673911 CPT-4: 41867 11/26/2021 BEHAV CHNG SMOKING 3-[address]: 2 89196983 CPT-4: 56430 11/05/2021 BEHAV CHNG SMOKING 3-[address]: 2 70746878 CPT-4: 03902 09/24/2021 BEHAV CHNG SMOKING 3-[address]: 2 38794385 CPT-4: 87346 08/27/2021 BEHAV CHNG SMOKING 3-[address]: 2 82297889 CPT-4: 92536 07/30/2021 BEHAV CHNG SMOKING 3-[address]: 2 35397488 CPT-4: 61573 06/12/2021 Vital Signs Date Vital 02/25/2022 Blood Pressure 1: 130/76 Code: 8 480-6 Heart Rate 1: 81 bpm Code: 8867-4 History of Present Illness No History of Present Illness data Advance Directives No Advance Directive data Encounters Encounter Performer Location Location Address Codes Date (98729) DOMICIL VISIT EST PAT / modifier Diagnosis: Encounter for screening for malignant neoplasm of colon[ICD10: Z12.11] Diagnosis: Episode of recurrent major depressive disorder, unspecified depression episode severity[ICD10: F33.9] Diagnosis: Hypertensive chronic kidney disease with stage 1 through stage 4 chronic kidney disease, or unspecified chronic kidney disease[ICD10: I12.9] Diagnosis: Ventricular tachycardia[ICD10: I47.2] Diagnosis: Primary osteoarthritis of both knees[ICD10: M17.0] Татьяна Figueredo [address] [address] CPT-4: 39051 02/25/2022 Plan of Care Planned Activity Notes Codes Status Date Appointment: Татьяна Figueredo WPtel: [address] [place], [place] [phone] F/U 09/24/2021 Health Concerns Section Concern Status [...]
--- OUTSIDE RECORDS SUMMARY | 2022-04-05 18:00 | XMS_ITS | CCD ---
Author Name Dm Estrada MD her Address [address] [place] [address] Phone Organization [facility] Phone Care Team Providers Care Chairman And Chief Executive Officer Name Role Phone Beto Corie WHITE Primary Care Provider Jeannine vailable Unavailable Chronic Care Management Unavaila ble Summary Purpose DataExchange Insurance Providers Payer name Policy type / Coverage type Covered republican ID Effective Begin Date Effective End Date Medicare [place] Medicare Part B [id number] Unknown [id number] 1 [place] Medicare Part B [id number] Unknown [id number] Family History Family History data not found Social History Social History Element Codes Description Effec tive Dates Tobacco history SNOMED CT: 39586338 Current ever y day smoker half pack- 1 pack/daily Started smoking at age 18 06/17/[address]: 574465002 No Alcohol Consumption Hx of consumption 06/17/2021 Allergies, Adverse Reactions, Alerts Substance Reaction Codes Entered Date Inactivated Date Status NO KNOWN ALLERGIES Unknown 04/25/2021 No Inactiv e Date Active * NO KNOWN FOOD ALLERGIES Unknown 06/12/2021 No Inactive Date Active * NO KNOWN ENVIRONMENTAL ALLERGIES Unknown 06/12/2021 No Inactive Date Active Past Medical History Illness Codes Condition Status Onset Date Resolved Date 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 ICD-10: G81.94 ICD-9: 342.92 Active 04/06/2022 02/24/2023 Encounter for screening for malignant neoplasm [...] M25.5 12 ICD-9: 719.41 Active 01/28/2022 07/28/2023 Onychogryposis ICD-10: L60.2 ICD-9: 703.8 Active 01/28/2022 [...] Condition Codes Effective Dates Condition [facility] Hemiparesis of left nondomin ant side due to non-cerebrovascular etiology ICD-10: G81.94 ICD-9: 342.92 04/06/2022 Active Encounter for screening for malignant neoplasm [...] ICD-10: M25.5 12 ICD-9: 719.41 01/28/2022 Active Onychogryposis ICD-10: L60.2 ICD-9: 703.8 [...] Instructions diclofenac 1 % topical gel RxNorm: 508458 apply 0.5g topically to left shoulder nightly 01/01/20 22 022 Inactive diclofenac 1 % topical gel RxNorm: 671070 Apply 0.5 Gram(s) Topical QHS every night at bedtime apply 0.5g topically to left shoulder nightly 01/01/20 22 Inactive atorvastatin 20 mg tablet RxNorm: 206708 Take 1 Tablet(s) Oral QD 10/22/19 22 Inactive 2ND REQUEST FOR REFILLS 10/21/21 NEED TODAY PLEASE- THANK YOU losartan 50 mg tablet RxNorm: 196591 Take 1 Tablet(s) Oral QD 10/22/19 22 Inactive 2ND REQUEST FOR REFILLS 10/21/21 NEED TODAY PLEASE- THANK YOU Vitamin D2 1,250 mcg (50,000 unit) capsule RxNorm: 3761258 Take 1 Capsule(s) Oral QW once a week TAKE ONCE CAPSULE ONCE WEEKLY 07/31/19 22 023 Inactive or whatever % is covered by insurance loperamide 2 mg capsule RxNorm: 573826 Take 1 Capsule(s) Oral Q2H every 2 hours as needed for diarrhea Give 2 tabs after first loose stool and then 1 tab after each loose stool. Not to exceed 8 tabs in 24 hours 06/18/19 22 No Stop Date Active citalopram 20 mg tablet RxNorm: 473344 Take 1 Tablet(s) Oral QD every day 06/18/19 22 023 Inactive Calcium Antacid 200 mg calcium (500 mg) chewable tablet RxNorm: 582288 Chew 2-4 Tablet(s) Oral as needed Take 2-4 tabs by mouth as needed between meals and at bedtime as needed for heartburn or upset stomach 06/18/19 No Stop Date Active Robitussin Cough-Chest Congestion DM 5 mg-100 mg/5 mL oral liquid RxNorm: 3471015 Take 5-10 Milliliter(s) Oral Q4H every four hours QID - Four Times Daily as needed Take 5-10ml by mouth every 4 hours as needed for cough or congestion. Not to exceed 6 doses in 24 hours 06/18/19 No Stop Date Active ibuprofen 600 mg tablet RxNorm: 145416 Take 1 Tablet(s) Oral QHS every night at bedtime 06/18/19 22 023 Inactive Aspirin Low Dose 81 mg tablet,delayed release RxNorm: 792047 Take 1 Tablet(s) Oral QD QD - Daily with food 06/18/19 22 023 Inactive ibuprofen 600 mg tablet RxNorm: 612425 Take 1 and 1/2 Tablet(s) Oral QD as needed Take at least 6 hours from scheduled dose 06/18/19 22 023 Inactive acetaminophen 325 mg capsule RxNorm: 551064 Take 1-2 Tablet(s) Oral Q4-6H every 4-6 hours as needed for pain and elevated temperature. Not to exceed 4000mg in 24 hours 06/18/19 22 No Stop Date Active aluminum-mag hydroxide-simethicone 200 mg-200 mg-20 mg/5 mL oral susp RxNorm: 191642 Take 5-10 Milliliter(s) Oral QD as needed for nausea one time daily between and at bedtime as needed for heartburn and/ or upset stomach 06/18/19 No Stop Date Active Milk of Magnesia 400 mg/5 mL oral suspension RxNorm: 934464 Take 15-30 Milliliter(s) Oral as needed Take 15-30ml by mouth daily (preferably at bedtime) as needed for constipation. Recommend 8 oz of water after each use. 06/18/19 No Stop Date Active losartan 50 mg tablet RxNorm: 552390 Give 1 Tablet(s) Oral QD 06/18/19 22 Inactive atorvastatin 20 mg tablet RxNorm: 682162 Take 1 Tablet(s) Oral QD 06/18/19 22 022 Inactive hydrochlorothiazide 25 mg tablet RxNorm: 140255 Take 1 Tablet(s) Oral QD 06/18/19 22 [...] data Assessments Condition Codes Effective Dates Notes Hemiparesis of left nondomin ant side due to non-cerebrovascular etiology ICD-10: G81.94 ICD-9: 342.92 04/06/2022 No note found Reason For Visit No Reason For Visit data Review of Systems No Review of Systems data Physical Exam No Physical Exam data Procedures Procedure Codes Date BEHAV CHNG SMOKING 3-[address]: 2 21075887 CPT-4: 83864 01/28/2022 AAA Screening US CPT-4: 03346 01/06/2022 BEHAV CHNG SMOKING 3-[address]: 2 36639100 CPT-4: 87973 12/31/2021 BEHAV CHNG SMOKING > [address]: 2 23294516 CPT-4: 16919 12/31/2021 BEHAV CHNG SMOKING 3-[address]: 2 86797046 CPT-4: 90375 11/26/2021 BEHAV CHNG SMOKING 3-[address]: 2 13755159 CPT-4: 74712 11/05/2021 BEHAV CHNG SMOKING 3-[address]: 2 94967822 CPT-4: 24676 09/24/2021 BEHAV CHNG SMOKING 3-[address]: 2 10960289 CPT-4: 45474 08/27/2021 BEHAV CHNG SMOKING 3-[address]: 2 48352875 CPT-4: 45143 07/30/2021 BEHAV CHNG SMOKING 3-[address]: 2 32086718 CPT-4: 78059 06/12/2021 History of Present Illness No History of Present Illness data Advance Directives No Advance Directive data Encounters Encounter Performer Location Location Address Codes Date (92976) DOMICIL VISIT EST PAT Diagnosis: Hemiparesis of left nondominant side due to non-cerebrovascula r etiology[ICD10: G81.94] Norma Bell[address] [address] CPT-4: 76190 04/06/2022 Plan of Care Planned Activity Notes Codes Status Date Appointment: Татьяна Figueredo WPtel: [address] [place], [place] [phone] F/U 09/24/2021 Health Concerns Section Concern Status [...]
--- OUTSIDE RECORDS SUMMARY | 2022-04-22 18:00 | XMS_ITS | CCD ---
Author Name Vikas Reddy PA-C Address [address] [place] [address] Phone Organization [facility] Phone Care Team Providers Care Inspector Subassembly Name Role Phone [place] Corie WHITE Primary Care Provider Jeannine vailable Unavailable Chronic Care Management Unavaila ble Summary Purpose DataExchange Insurance Providers Payer name Policy type / Coverage type Covered constitution party ID Effective Begin Date Effective End Date Medicare [place] Medicare Part B [id number] Unknown [id number] 1 Medicaid [place] Medicare Part B [id number] Unknown [id number] Family History Family History data not found Social History Social History Element Codes Description Effec tive Dates Tobacco history SNOMED CT: 98524096 Current ever y day smoker half pack- 1 pack/daily Started smoking at age 18 06/17/[address]: 796974880 No Alcohol Consumption Hx of consumption 06/17/2021 Allergies, Adverse Reactions, Alerts Substance Reaction Codes Entered Date Inactivated Date Status NO KNOWN ALLERGIES Unknown 04/25/2021 No Inactiv e Date Active * NO KNOWN FOOD ALLERGIES Unknown 06/12/2021 No Inactive Date Active * NO KNOWN ENVIRONMENTAL ALLERGIES Unknown 06/12/2021 No Inactive Date Active Past Medical History Illness Codes Condition Status Onset Date Resolved Date Personal history of other diseases of the circulatory system ICD-10: Z86.79 ICD-9: V12.59 Active 04/23/2022 07/28/2023 Ventricular tachycardia ICD-10: I47.2 ICD-9: 427.1 Resolved 04/23/2022 Unknown Hemiparesis of left nondominant side due to [...] ICD-10: M17.0 ICD-9: 715.16 Active 02/25/2022 07/28/2023 Chronic left shoulder pain ICD-10: M25.5 12 [...] ICD-10: G44.229 ICD-9: 339.12 Active 11/26/2021 07/29/2022 Hypercholesteremia ICD-10: E78.00 ICD-9: 272.0 Active 07/30/2021 07/29/2022 Bifascicular block ICD-10: I45.2 ICD-9: 426.53 Active 06/12/2021 07/28/2023 PTSD (post-traumatic stress disorder) ICD-10: F43.10 ICD-9: 309.81 Active 06/12/2021 07/28/2023 Problems Condition Codes Effective Dates Condition [facility] Personal history of other di seases of the circulatory system ICD-10: Z86.79 ICD-9: V12.59 04/23/2022 Active Ventricular tachycardia ICD-10: I47.2 ICD-9: 427.1 04/23/2022 Resolved Hemiparesis of left nondomin ant side due [...] ICD -10: M17.0 ICD-9: 715.16 02/25/2022 Active Chronic left shoulder pain ICD-10: [...] intractable ICD-10: G44.229 ICD-9: 339.12 11/26/2021 Active Hypercholesteremia ICD-10: E78.00 ICD-9: 272.0 07/30/2021 Active Bifascicular block ICD-10: I45.2 ICD-9: 426.53 06/12/2021 Active PTSD (post-traumatic stress disorder) ICD-10: F43.10 ICD-9: 309.81 06/12/2021 Active Medications Medication Codes Instructions Start Date Stop Date Status Fill Instructions diclofenac 1 % topical gel RxNorm: 291986 apply 0.5g topically to left shoulder nightly 01/01/20 22 022 Inactive diclofenac 1 % topical gel RxNorm: 504585 Apply 0.5 Gram(s) Topical QHS every night at bedtime apply 0.5g topically to left shoulder nightly 01/01/20 22 Inactive atorvastatin 20 mg tablet RxNorm: 533184 Take 1 Tablet(s) Oral QD 10/22/19 22 022 Inactive 2ND REQUEST FOR REFILLS 10/21/21 NEED TODAY PLEASE- THANK YOU losartan 50 mg tablet RxNorm: 325801 Take 1 Tablet(s) Oral QD 10/22/19 22 022 Inactive 2ND REQUEST FOR REFILLS 10/21/21 NEED TODAY PLEASE- THANK YOU Vitamin D2 1,250 mcg (50,000 unit) capsule RxNorm: 2522258 Take 1 Capsule(s) Oral QW once a week TAKE ONCE CAPSULE ONCE WEEKLY 07/31/19 22 023 Inactive or whatever % is covered by insurance loperamide 2 mg capsule RxNorm: 821680 Take 1 Capsule(s) Oral Q2H every 2 hours as needed for diarrhea Give 2 tabs after first loose stool and then 1 tab after each loose stool. Not to exceed 8 tabs in 24 hours 06/18/19 No Stop Date Active citalopram 20 mg tablet RxNorm: 195710 Take 1 Tablet(s) Oral QD every day 06/18/19 22 023 Inactive Calcium Antacid 200 mg calcium (500 mg) chewable tablet RxNorm: 083016 Chew 2-4 Tablet(s) Oral as needed Take 2-4 tabs by mouth as needed between meals and at bedtime as needed for heartburn or upset stomach 06/18/19 No Stop Date Active Robitussin Cough-Chest Congestion DM 5 mg-100 mg/5 mL oral liquid RxNorm: 6206549 Take 5-10 Milliliter(s) Oral Q4H every four hours QID - Four Times Daily as needed Take 5-10ml by mouth every 4 hours as needed for cough or congestion. Not to exceed 6 doses in 24 hours 06/18/19 No Stop Date Active ibuprofen 600 mg tablet RxNorm: 335283 Take 1 Tablet(s) Oral QHS every night at bedtime 06/18/19 22 023 Inactive Aspirin Low Dose 81 mg tablet,delayed release RxNorm: 331194 Take 1 Tablet(s) Oral QD QD - Daily with food 06/18/19 22 023 Inactive ibuprofen 600 mg tablet RxNorm: 652381 Take 1 and 1/2 Tablet(s) Oral QD as needed Take at least 6 hours from scheduled dose 06/18/19 22 023 Inactive acetaminophen 325 mg capsule RxNorm: 189055 Take 1-2 Tablet(s) Oral Q4-6H every 4-6 hours as needed for pain and elevated temperature. Not to exceed 4000mg in 24 hours 06/18/19 No Stop Date Active aluminum-mag hydroxide-simethicone 200 mg-200 mg-20 mg/5 mL oral susp RxNorm: 098446 Take 5-10 Milliliter(s) Oral QD as needed for nausea one time daily between and at bedtime as needed for heartburn and/ or upset stomach 06/18/19 No Stop Date Active Milk of Magnesia 400 mg/5 mL oral suspension RxNorm: 193666 Take 15-30 Milliliter(s) Oral as needed Take 15-30ml by mouth daily (preferably at bedtime) as needed for constipation. Recommend 8 oz of water after each use. 06/18/19 No Stop Date Active losartan 50 mg tablet RxNorm: 275400 Give 1 Tablet(s) Oral QD 06/18/19 22 022 Inactive atorvastatin 20 mg tablet RxNorm: 915337 Take 1 Tablet(s) Oral QD 06/18/19 22 022 Inactive hydrochlorothiazide 25 mg tablet RxNorm: 006194 Take 1 Tablet(s) Oral QD 06/18/19 22 [...] data Assessments Condition Codes Effective Dates Notes Personal history of other di seases of the circulatory system ICD-10: Z86.79 ICD-9: V12.59 04/23/2022 No note found Reason For Visit No Reason For Visit data Review of Systems No Review of Systems data Physical Exam No Physical Exam data Procedures Procedure Codes Date BEHAV CHNG SMOKING 3-[address]: 2 34277706 CPT-4: 11540 01/28/2022 AAA Screening US CPT-4: 87922 01/06/2022 BEHAV CHNG SMOKING 3-[address]: 2 93740331 CPT-4: 97374 12/31/2021 BEHAV CHNG SMOKING > [address]: 2 34278737 CPT-4: 49980 12/31/2021 BEHAV CHNG SMOKING 3-[address]: 2 02431470 CPT-4: 55522 11/26/2021 BEHAV CHNG SMOKING 3-[address]: 2 37377580 CPT-4: 12422 11/05/2021 BEHAV CHNG SMOKING 3-[address]: 2 52397603 CPT-4: 67004 09/24/2021 BEHAV CHNG SMOKING 3-[address]: 2 64173757 CPT-4: 94093 08/27/2021 BEHAV CHNG SMOKING 3-[address]: 2 43692160 CPT-4: 74564 07/30/2021 BEHAV CHNG SMOKING 3-[address]: 2 04560931 CPT-4: 58801 06/12/2021 History of Present Illness No History of Present Illness data Advance Directives No Advance Directive data Plan of Care Planned Activity Notes Codes Status Date Appointment: Татьяна Figueredo WPtel: [address] [place], [place] [phone] F/U 09/24/2021 Health Concerns Section Concern Status [...] pain characteristics Unknown 07/19/2024 Treatment Goal: Optimize hetla n control, enhance physical / social functioning [...]
--- OUTSIDE RECORDS SUMMARY | 2022-05-18 18:00 | XMS_ITS | CCD ---
Author Name Dm Estrada MD her Address [address] [place] [address] Phone Organization [facility] Phone Care Team Providers Care Diversity Intern Name Role Phone Beto Corie WHITE Primary Care Provider Jeannine vailable Unavailable Chronic Care Management Unavaila ble Summary Purpose DataExchange Insurance Providers Payer name Policy type / Coverage type Covered green party ID Effective Begin Date Effective End Date Medicare [place] Medicare Part B [id number] Unknown [id number] 1 Medicaid [place] Medicare Part B [id number] Unknown [id number] Family History Family History data not found Social History Social History Element Codes Description Effec tive Dates Tobacco history SNOMED CT: 67987324 Current ever y day smoker half pack- 1 pack/daily Started smoking at age 18 06/17/[address]: 885596833 No Alcohol Consumption Hx of consumption 06/17/2021 Allergies, Adverse Reactions, Alerts Substance Reaction Codes Entered Date Inactivated Date Status NO KNOWN ALLERGIES Unknown 04/25/2021 No Inactiv e Date Active * NO KNOWN FOOD ALLERGIES Unknown 06/12/2021 No Inactive Date Active * NO KNOWN ENVIRONMENTAL ALLERGIES Unknown 06/12/2021 No Inactive Date Active Past Medical History Illness Codes Condition Status Onset Date Resolved Date COPD (chronic obstructive pulmonary disease) ICD-10: J44.9 ICD-9: 496 Active 05/06/2022 06/24/2022 Encounter for screening for malignant neoplasm of colon ICD-10: Z12.11 ICD-9: V76.51 Active 05/06/2022 07/28/2023 Personal history of other diseases of the circulatory system ICD-10: Z86.79 ICD-9: V12.59 Active 04/23/2022 07/28/2023 Ventricular tachycardia ICD-10: I47.2 ICD-9: 427.1 Resolved 04/23/2022 Unknown 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 ICD-10: G81.94 ICD-9: 342.92 Active 04/06/2022 02/24/2023 Episode of recurrent major depressive disorder, unspecified [...] Condition Codes Effective Dates Condition [facility] COPD (chronic obstructive pu lmonary disease) ICD-10: J44.9 ICD-9: 496 05/06/2022 Active Encounter for screening for malignant neoplasm of colon ICD-10: Z12.11 ICD-9: V76.51 05/06/2022 Active Personal history of other di seases of the circulatory system ICD-10: Z86.79 ICD-9: V12.59 04/23/2022 Active Ventricular tachycardia ICD-10: I47.2 ICD-9: 427.1 04/23/2022 Resolved Hemiparesis of left nondomin ant side due to non-cerebrovascular etiology ICD-10: G81.94 ICD-9: 342.92 04/06/2022 Active Episode of recurrent major depressive disorder, [...] Instructions diclofenac 1 % topical gel RxNorm: 214578 apply 0.5g topically to left shoulder nightly 01/01/20 22 022 Inactive diclofenac 1 % topical gel RxNorm: 972360 Apply 0.5 Gram(s) Topical QHS every night at bedtime apply 0.5g topically to left shoulder nightly 01/01/20 22 Inactive atorvastatin 20 mg tablet RxNorm: 180292 Take 1 Tablet(s) Oral QD 10/22/19 22 07/05/2 022 Inactive 2ND REQUEST FOR REFILLS 10/21/21 NEED TODAY PLEASE- THANK YOU losartan 50 mg tablet RxNorm: 196537 Take 1 Tablet(s) Oral QD 10/22/19 22 022 Inactive 2ND REQUEST FOR REFILLS 10/21/21 NEED TODAY PLEASE- THANK YOU Vitamin D2 1,250 mcg (50,000 unit) capsule RxNorm: 2969929 Take 1 Capsule(s) Oral QW once a week TAKE ONCE CAPSULE ONCE WEEKLY 07/31/19 22 023 Inactive or whatever % is covered by insurance loperamide 2 mg capsule RxNorm: 268788 Take 1 Capsule(s) Oral Q2H every 2 hours as needed for diarrhea Give 2 tabs after first loose stool and then 1 tab after each loose stool. Not to exceed 8 tabs in 24 hours 06/18/19 No Stop Date Active citalopram 20 mg tablet RxNorm: 369976 Take 1 Tablet(s) Oral QD every day 06/18/19 023 Inactive Calcium Antacid 200 mg calcium (500 mg) chewable tablet RxNorm: 786927 Chew 2-4 Tablet(s) Oral as needed Take 2-4 tabs by mouth as needed between meals and at bedtime as needed for heartburn or upset stomach 06/18/19 No Stop Date Active Robitussin Cough-Chest Congestion DM 5 mg-100 mg/5 mL oral liquid RxNorm: 6737648 Take 5-10 Milliliter(s) Oral Q4H every four hours QID - Four Times Daily as needed Take 5-10ml by mouth every 4 hours as needed for cough or congestion. Not to exceed 6 doses in 24 hours 06/18/19 No Stop Date Active ibuprofen 600 mg tablet RxNorm: 230649 Take 1 Tablet(s) Oral QHS every night at bedtime 06/18/19 023 Inactive Aspirin Low Dose 81 mg tablet,delayed release RxNorm: 702204 Take 1 Tablet(s) Oral QD QD - Daily with food 06/18/19 22 023 Inactive ibuprofen 600 mg tablet RxNorm: 399538 Take 1 and 1/2 Tablet(s) Oral QD as needed Take at least 6 hours from scheduled dose 06/18/19 22 023 Inactive acetaminophen 325 mg capsule RxNorm: 410440 Take 1-2 Tablet(s) Oral Q4-6H every 4-6 hours as needed for pain and elevated temperature. Not to exceed 4000mg in 24 hours 06/18/19 No Stop Date Active aluminum-mag hydroxide-simethicone 200 mg-200 mg-20 mg/5 mL oral susp RxNorm: 231651 Take 5-10 Milliliter(s) Oral QD as needed for nausea one time daily between and at bedtime as needed for heartburn and/ or upset stomach 06/18/19 No Stop Date Active Milk of Magnesia 400 mg/5 mL oral suspension RxNorm: 544894 Take 15-30 Milliliter(s) Oral as needed Take 15-30ml by mouth daily (preferably at bedtime) as needed for constipation. Recommend 8 oz of water after each use. 06/18/19 No Stop Date Active losartan 50 mg tablet RxNorm: 651376 Give 1 Tablet(s) Oral QD 06/18/19 022 Inactive atorvastatin 20 mg tablet RxNorm: 862459 Take 1 Tablet(s) Oral QD 06/18/19 022 Inactive hydrochlorothiazide 25 mg tablet RxNorm: 586435 Take 1 Tablet(s) Oral QD 06/18/19 022 [...] data Assessments Condition Codes Effective Dates Notes COPD (chronic obstructive pu lmonary disease) ICD-10: J44.9 ICD-9: 496 05/06/2022 No note found Encounter for screening for malignant neoplasm of colon ICD-10: Z12.11 ICD-9: V76.51 05/06/2022 No note found Reason For Visit No Reason For Visit data Review of Systems No Review of Systems data Physical Exam No Physical Exam data Procedures Procedure Codes Date SYS BP LESS 140 CPT-4: G8752 05/06/2022 REAL BP LESS 90 CPT-4: G8754 05/06/2022 TOBACCO SCALP TREATMENT SPECIALIST NO CHARGE CPT-4: G0436 2022 BEHAV CHNG SMOKING 3-[address]: 2 73725888 CPT-4: 74053 01/28/2022 AAA Screening US CPT-4: 11595 01/06/2022 BEHAV CHNG SMOKING 3-[address]: 2 30165999 CPT-4: 86850 12/31/2021 BEHAV CHNG SMOKING > [address]: 2 90880933 CPT-4: 87870 12/31/2021 BEHAV CHNG SMOKING 3-[address]: 2 38137956 CPT-4: 46978 11/26/2021 BEHAV CHNG SMOKING 3-[address]: 2 75404081 CPT-4: 75446 11/05/2021 BEHAV CHNG SMOKING 3-[address]: 2 81080963 CPT-4: 31728 09/24/2021 BEHAV CHNG SMOKING 3-[address]: 2 18837377 CPT-4: 17400 08/27/2021 BEHAV CHNG SMOKING 3-[address]: 2 46344613 CPT-4: 78172 07/30/2021 BEHAV CHNG SMOKING 3-[address]: 2 34866806 CPT-4: 31503 06/12/2021 Vital Signs Date Vital 05/06/2022 Blood Pressure 1: 12 Code: 8480-6 Heart Rate 1: 78 bpm Code: 8867-4 SpO2: 94% History of Present Illness No History of Present Illness data Advance Directives No Advance Directive data Encounters Encounter Performer Location Location Address Codes Date () Home or Residence Visit Est Pt - Moderate Level, 40 mins Diagnosis: COPD (chronic obstructive pulmonary disease)[ICD10: J44.9] Diagnosis: Encounter for screening for malignant neoplasm of colon[ICD10: Z12.11] Norma Estrada [address] [address] CPT-4: 69759 05/06/2022 Plan of Care Planned Activity Notes Codes Status Date Patient Education: Patient Medication Summary Completed 05/06/2022 Patient Education: Influenza Vaccine Completed 05/06/2022 Patient Education: Smoking Cessation Completed 05/06/2022 Appointment: Татьяна Figueredo WPtel: [address] F/U 09/24/2021 Health Concerns Section Concern Status [...]
--- OUTSIDE RECORDS SUMMARY | 2022-06-24 18:00 | XMS_ITS | CCD ---
Author Name Татьяна Figueredo PA-C Address [address] [facility] [address] [place] [address] Phone Organization [facility] Phone Care Team Providers Care Pairer Inspector Name Role Phone Beto oCrie WHITE Primary Care Provider Jeannine vailable Unavailable Chronic Care Management Unavaila ble Summary Purpose DataExchange Insurance Providers Payer name Policy type / Coverage type Covered republican ID Effective Begin Date Effective End Date [place] Part B [id number] Unknown [id number] 1 [place] B [id number] Unknown [id number] Family History Family History data not found Social History Social History Element Codes Description Effec tive Dates Tobacco history SNOMED CT: 83187310 Current ever y day smoker half pack- 1 pack/daily Started smoking at age 18 06/17/[address]: 227449250 No Alcohol Consumption Hx of consumption 06/17/2021 [...] pulmonary disease) ICD-10: J44.9 ICD-9: 496 Active 06/24/2022 12/30/2022 Hypertensive chronic kidney disease with stage 1 through stage 4 chronic kidney disease, or unspecified chronic kidney disease ICD-10: I12.9 ICD-9: 403.90 Active 06/24/2022 07/29/2022 Preventative health care ICD-10: Z00.00 ICD-9: V70.0 Active 06/24/2022 07/28/2023 Stage 2 chronic kidney disease ICD-10: N18.2 ICD-9: 585.2 Active 06/24/2022 07/29/2022 Encounter for screening for malignant neoplasm of [...] ICD-10: F33.9 ICD-9: 296.30 Active 02/25/2022 08/26/2022 Primary osteoarthritis of both knees ICD-10: M17.0 ICD-9: 715.16 Active 02/25/2022 07/28/2023 Chronic left shoulder pain ICD-10: M25.5 12 ICD-9: 719.41 Active 01/28/2022 07/28/2023 Onychogryposis ICD-10: L60.2 ICD-9: 703.8 Active 01/28/2022 07/28/2023 Tobacco use disorder ICD-10: F17.200 ICD-9: 305.1 Active 01/28/2022 07/29/2022 Essential hypertension ICD-10: I10 ICD-9: 401.9 Resolved 01/28/2022 Unknown 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 ICD-9: 303.93 Active 12/31/2021 02/24/2023 Encounter for screening for malignant neoplasm of rectum ICD-10: Z12.12 ICD-9: V76.41 Active 12/31/2021 07/28/2023 Other chronic pain ICD-10: G89.29 Active 12/31/2021 Senile purpura ICD-10: D69.2 ICD-9: 287.2 Active [...] pu lmonary disease) ICD-10: J44.9 ICD-9: 496 06/24/2022 Active Hypertensive chronic kidney disease with stage 1 through stage 4 chronic kidney disease, or unspecified chronic kidney disease ICD-10: I12.9 ICD-9: 403.90 06/24/2022 Active Preventative health care ICD-10: Z00.00 ICD-9: V70.0 06/24/2022 Active Stage 2 chronic kidney disease ICD-10: N 18.2 ICD-9: 585.2 06/24/2022 Active Encounter for screening for malignant neoplasm [...] severity ICD-10: F33.9 ICD-9: 296.30 02/25/2022 Active Primary osteoarthritis of both knees ICD -10: M17.0 ICD-9: 715.16 02/25/2022 Active Chronic left shoulder pain ICD-10: M25.5 12 ICD-9: 719.41 01/28/2022 Active Onychogryposis ICD-10: L60.2 ICD-9: 703.8 01/28/2022 Active Tobacco use disorder ICD-10: F17.200 ICD-9: 305.1 01/28/2022 Active Essential hypertension ICD-10: I10 ICD-9: 401.9 01/28/2022 Resolved 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 ICD-9: 303.93 12/31/2021 Active Encounter for screening for malignant neoplasm of rectum ICD-10: Z12.12 ICD-9: V76.41 12/31/2021 Active Other chronic pain ICD-10: G89.29 12/31/2021 Active Senile purpura ICD-10: D69.2 ICD-9: [...] Start Date Stop Date Status Fill Instructions Shingrix (PF) 50 mcg/0.5 mL intramuscular suspension, kit RxNorm: 7833196 ADMINISTER 2-DOSE SERIES PER CDC GUIDELINES Take UAD per CDC guidelines 06/26/19 23 023 Inactive diclofenac 1 % topical gel RxNorm: 502420 apply 0.5g topically to left shoulder nightly 01/01/20 22 022 Inactive diclofenac 1 % topical gel RxNorm: 470391 Apply 0.5 Gram(s) Topical QHS every night at bedtime apply 0.5g topically to left shoulder nightly 01/01/20 22 022 Inactive atorvastatin 20 mg tablet RxNorm: 198472 Take 1 Tablet(s) Oral QD 10/22/19 22 022 Inactive 2ND REQUEST FOR REFILLS 10/21/21 NEED TODAY PLEASE- THANK YOU losartan 50 mg tablet RxNorm: 897525 Take 1 Tablet(s) Oral QD 10/22/19 22 022 Inactive 2ND REQUEST FOR REFILLS 10/21/21 NEED TODAY PLEASE- THANK YOU Vitamin D2 1,250 mcg (50,000 unit) capsule RxNorm: 1446304 Take 1 Capsule(s) Oral QW once a week TAKE ONCE CAPSULE ONCE WEEKLY 07/31/19 22 023 Inactive or whatever % is covered by insurance loperamide 2 mg capsule RxNorm: 717334 Take 1 Capsule(s) Oral Q2H every 2 hours as needed for diarrhea Give 2 tabs after first loose stool and then 1 tab after each loose stool. Not to exceed 8 tabs in 24 hours 06/18/19 No Stop Date Active citalopram 20 mg tablet RxNorm: 657099 Take 1 Tablet(s) Oral QD every day 06/18/19 023 Inactive Calcium Antacid 200 mg calcium (500 mg) chewable tablet RxNorm: 298021 Chew 2-4 Tablet(s) Oral as needed Take 2-4 tabs by mouth as needed between meals and at bedtime as needed for heartburn or upset stomach 06/18/19 No Stop Date Active Robitussin Cough-Chest Congestion DM 5 mg-100 mg/5 mL oral liquid RxNorm: 5734362 Take 5-10 Milliliter(s) Oral Q4H every four hours QID - Four Times Daily as needed Take 5-10ml by mouth every 4 hours as needed for cough or congestion. Not to exceed 6 doses in 24 hours 06/18/19 No Stop Date Active ibuprofen 600 mg tablet RxNorm: 739719 Take 1 Tablet(s) Oral QHS every night at bedtime 06/18/19 22 023 Inactive Aspirin Low Dose 81 mg tablet,delayed release RxNorm: 547253 Take 1 Tablet(s) Oral QD QD - Daily with food 06/18/19 22 023 Inactive ibuprofen 600 mg tablet RxNorm: 918057 Take 1 and 1/2 Tablet(s) Oral QD as needed Take at least 6 hours from scheduled dose 06/18/19 22 023 Inactive acetaminophen 325 mg capsule RxNorm: 515850 Take 1-2 Tablet(s) Oral Q4-6H every 4-6 hours as needed for pain and elevated temperature. Not to exceed 4000mg in 24 hours 06/18/19 No Stop Date Active aluminum-mag hydroxide-simethicone 200 mg-200 mg-20 mg/5 mL oral susp RxNorm: 801005 Take 5-10 Milliliter(s) Oral QD as needed for nausea one time daily between and at bedtime as needed for heartburn and/ or upset stomach 06/18/19 No Stop Date Active Milk of Magnesia 400 mg/5 mL oral suspension RxNorm: 148667 Take 15-30 Milliliter(s) Oral as needed Take 15-30ml by mouth daily (preferably at bedtime) as needed for constipation. Recommend 8 oz of water after each use. 06/18/19 No Stop Date Active losartan 50 mg tablet RxNorm: 913984 Give 1 Tablet(s) Oral QD 06/18/19 22 022 Inactive atorvastatin 20 mg tablet RxNorm: 438100 Take 1 Tablet(s) Oral QD 06/18/19 22 022 Inactive hydrochlorothiazide 25 mg tablet RxNorm: 140016 Take 1 Tablet(s) Oral QD 06/18/19 22 [...] pu lmonary disease) ICD-10: J44.9 ICD-9: 496 06/24/2022 No note found Hypertensive chronic kidney disease with stage 1 through stage 4 chronic kidney disease, or unspecified chronic kidney disease ICD-10: I12.9 ICD-9: 403.90 06/24/2022 No note found Preventative health care ICD-10: Z00.00 ICD-9: V70.0 06/24/2022 No note found Stage 2 chronic kidney disease ICD-10: N 18.2 ICD-9: 585.2 06/24/2022 No note found Reason For Visit No Reason For Visit data Results Observation Observation Code Item Item Code Result Date Service Location TSH Reflex to FT4 TSHRFT4 TSH 53707-6 2.00 uIU/mL 06/28/19 Unknown Hemoglobin A1c HEMOGLOBA Hemoglobin A1c 01296-9 5.7 %A1c 06/28/19 Unknown Lipid Panel (LP) LIPIDPAN CHOLESTEROL, TOTAL 42056-6 141 mg/dL 06/28/19 Unknown Lipid Panel (LP) LIPIDPAN HDL CHOLESTEROL 2085-9 35.4 mg /dL 06/28/19 Unknown Lipid Panel (LP) LIPIDPAN LDL CHOLESTEROL CALCULATED 62729-2 93 06/28/19 Unknown Lipid Panel (LP) LIPIDPAN TRIGLYCERIDES 2571-8 63 mg/dL 06/28/19 Unknown Lipid Panel (LP) LIPIDPAN VLDL Cholestero l Calculated 13 06/28/19 Unknown CBC with Differential / Platelets CBCDIFF Baso (Absolute) 0.05 x10E3/uL 06/28/19 Unknown CBC with Differential / Platelets CBCDIFF Basos 0.80 % 06/28/19 Unknown CBC with Differential / Platelets CBCDIFF Eos 6.1 % 06/28/19 Unknown CBC with Differential / Platelets CBCDIFF Eos (Absolute) 0.36 x10E3/uL 06/28/19 Unknown CBC with Differential / Platelets CBCDIFF Hematocrit 4544-3 45.4 % 06/28/19 Unknown CBC with Differential / Platelets CBCDIFF Hemoglobin 718-7 15.0 g/dL 06/28/19 Unknown CBC with Differential / Platelets CBCDIFF LYMPHOCYTES 30.3 % 06/28/19 Unknown CBC with Differential / Platelets CBCDIFF Lymphocytes (Absolute) 1.80 x10E3/uL 06/28/19 Unknown CBC with Differential / Platelets CBCDIFF MCH 31.3 pg 06/28/19 23 Unknown CBC with Differential / Platelets CBCDIFF MCHC 33.0 g/dL 06/28/19 Unknown CBC with Differential / Platelets CBCDIFF MCV 787-2 94.6 % 06/28/19 23 Unknown CBC with Differential / Platelets CBCDIFF Monocytes 9.6 % 06/28/19 Unknown CBC with Differential / Platelets CBCDIFF Monocytes (Absolute) 0.57 x10E3/uL 06/28/19 23 Unknown CBC with Differential / Platelets CBCDIFF MPV 12895-4 10.1 fL 06/28/19 Unknown CBC with Differential / Platelets CBCDIFF Neutrophils 53.00 % 06/28/19 Unknown CBC with Differential / Platelets CBCDIFF Neutrophils (Absolute) 3.16 x10E3/uL 06/28/19 23 Unknown CBC with Differential / Platelets CBCDIFF Platelets 777-3 245 x10E3/uL 06/28/19 23 Unknown CBC with Differential / Platelets CBCDIFF RBC 4.80 x10^6/UL 06/28/19 23 Unknown CBC with Differential / Platelets CBCDIFF RDW 13.3 %binding 06/28/19 Unknown CBC with Differential / Platelets CBCDIFF WBC 6690-2 5.95 x10E3/uL 06/28/19 23 Unknown Vitamin D, 25-Hydroxy VITAD25 Vitamin D, 25-Hydroxy 59087-6 94 ng/mL 06/28/19 23 Unknown Anti-HCV ANTIHCV Anti-HCV 0.06 index 06/28/19 23 Unknown HIV Combo HIVCOMBO HIV Combo 0.22 index 06/28/19 23 Unknown Vitamin B12 VITAB12 Vitamin B12 2132-9 409 pg/mL 23 Unknown PDFReport PDFReport PDFReport 06/27/19 23 Unknown SLUMS SLUMS 75346-4 22 06/26/19 23 Unknown PHQ-9 79696-6 PHQ9 86763-7 0 06/26/19 23 Unknown PHQ-9 00373-2 PHQ9 04288-9 0 06/26/19 23 Unknown Review of Systems No Review of Systems data Physical Exam No Physical Exam data Procedures Procedure Codes Date SYS BP LESS 140 CPT-4: G8752 06/24/2022 REAL BP LESS 90 CPT-4: G8754 06/24/2022 FXNL STATUS ASSESSED CPT-4: 1170F 06/24/2022 AMNT PAIN NOTED NONE PRSNT CPT-4: 1126F 06/24 FALL RISK ASSESSMENT DOCD CPT-4: 3288F 2022 Medicare Annual Wellness Vis it (AWV), Subsequent SNOMED CT: [id number] CPT-4: G0439 06/24/2022 PT INELIG NEG SCRN DEPRES SNOMED CT: 428 [id number] CPT-4: G8510 06/24/2022 [employer] NO CHARGE CPT-4: G0436 2022 BEHAV [facility]NG SMOKING 3-[address]: 2 45301898 CPT-4: 82252 01/28/2022 AAA Screening US CPT-4: 85205 01/06/2022 BEHAV CHNG SMOKING 3-[address]: 2 81026058 CPT-4: 16783 12/31/2021 BEHAV CHNG SMOKING > [address]: 2 44356243 CPT-4: 96094 12/31/2021 BEHAV CHNG SMOKING 3-[address]: 2 43057303 CPT-4: 45502 11/26/2021 BEHAV CHNG SMOKING 3-[address]: 2 64972258 CPT-4: 47966 11/05/2021 BEHAV CHNG SMOKING 3-[address]: 2 13842152 CPT-4: 76796 09/24/2021 BEHAV CHNG SMOKING 3-[address]: 2 83959548 CPT-4: 04604 08/27/2021 BEHAV CHNG SMOKING 3-[address]: 2 11656000 CPT-4: 49756 07/30/2021 BEHAV CHNG SMOKING 3-[address]: 2 03404747 CPT-4: 95379 06/12/2021 Vital Signs Date Vital 06/24/2022 Blood Pressure 1: 135/83 Code: 8480-6 BMI: 24.6 Code: 78548-3 Heart Rate 1: 68 bpm Code: 8867-4 Height: 5'10 Code: 8302-2 Weight: 171 lbs 6 oz Code: 3141-9 History of Present Illness No History of Present Illness data Advance Directives No Advance Directive data Encounters Encounter Performer Location Location Address Codes Date ([address]) Home or Residence Visit Est Pt - Moderate Level, 40 mins Diagnosis: COPD (chronic obstructive pulmonary disease)[ICD10: J44.9] Diagnosis: Hypertensive chronic kidney disease with stage 1 through stage 4 chronic kidney disease, or unspecified chronic kidney disease[ICD10: I12.9] Diagnosis: Preventative health care[ICD10: Z00.00] Diagnosis: Stage 2 chronic kidney disease[ICD10: N18.2] Татьяна Figueredo [address] [address] CPT-4: 55024 06/24/2022 Plan of Care Planned Activity Notes Codes Status Date Patient Education: Patient Medication Summary Completed 06/24/2022 Patient Education: Influenza Vaccine Completed 06/24/2022 Patient Education: Smoking Cessation Completed 06/24/2022 Appointment: Татьяна Figueredo WPtel: [address] [place], [place] [phone] F/U 09/24/2021 Health Concerns Section Concern Status [...]
--- OUTSIDE RECORDS SUMMARY | 2022-07-21 18:00 | XMS_ITS | CCD ---
Author Organization Unknown Care Team Providers Care Courtroom Reporter Name Role Phone Upshurgrazyna LOMELINitoCorie Primary Care Provider Jeannine vailable Unavailable Chronic Care Management Unavaila ble Summary Purpose DataExchange Insurance Providers Payer name Policy type / Coverage type Covered constitution party ID Effective Begin Date Effective End Date [employer] Commercial Insurance [id number] [place]kn own [place] [id number] Unk nown Family History Family History data not found Social History Social History Element Codes Description Effec tive Dates Tobacco history SNOMED CT: 68461866 Current ever y day smoker half pack- 1 pack/daily Started smoking at age 18 06/17/[address]: 652468380 No Alcohol Consumption Hx of consumption 06/17/2021 [...] Start Date Stop Date Status Fill Instructions cholecalciferol (vitamin D3) 1,250 mcg (50,000 unit) capsule RxNorm: 340317 TAKE 1 CAPSULE BY MOUTH WEEKLY ON Wednesday07/23/19 23 023 Inactive Shingrix (PF) 50 mcg/0.5 mL intramuscular suspension, kit RxNorm: 1866409 ADMINISTER 2-DOSE SERIES PER CDC GUIDELINES Take UAD per CDC guidelines 06/26/19 23 023 Inactive diclofenac 1 % topical gel RxNorm: 843136 apply 0.5g topically to left shoulder nightly 01/01/20 22 022 Inactive diclofenac 1 % topical gel RxNorm: 495535 Apply 0.5 Gram(s) Topical QHS every night at bedtime apply 0.5g topically to left shoulder nightly 01/01/20 22 022 Inactive atorvastatin 20 mg tablet RxNorm: 985263 Take 1 Tablet(s) Oral QD 10/22/19 22 022 Inactive 2ND REQUEST FOR REFILLS 10/21/21 NEED TODAY PLEASE- THANK YOU losartan 50 mg tablet RxNorm: 914954 Take 1 Tablet(s) Oral QD 10/22/19 22 022 Inactive 2ND REQUEST FOR REFILLS 10/21/21 NEED TODAY PLEASE- THANK YOU Vitamin D2 1,250 mcg (50,000 unit) capsule RxNorm: 8868479 Take 1 Capsule(s) Oral QW once a week TAKE ONCE CAPSULE ONCE WEEKLY 07/31/19 22 023 Inactive or whatever % is covered by insurance loperamide 2 mg capsule RxNorm: 485825 Take 1 Capsule(s) Oral Q2H every 2 hours as needed for diarrhea Give 2 tabs after first loose stool and then 1 tab after each loose stool. Not to exceed 8 tabs in 24 hours 06/18/19 No Stop Date Active citalopram 20 mg tablet RxNorm: 604522 Take 1 Tablet(s) Oral QD every day 06/18/19 22 023 Inactive Calcium Antacid 200 mg calcium (500 mg) chewable tablet RxNorm: 472551 Chew 2-4 Tablet(s) Oral as needed Take 2-4 tabs by mouth as needed between meals and at bedtime as needed for heartburn or upset stomach 06/18/19 No Stop Date Active Robitussin Cough-Chest Congestion DM 5 mg-100 mg/5 mL oral liquid RxNorm: 5750430 Take 5-10 Milliliter(s) Oral Q4H every four hours QID - Four Times Daily as needed Take 5-10ml by mouth every 4 hours as needed for cough or congestion. Not to exceed 6 doses in 24 hours 06/18/19 No Stop Date Active ibuprofen 600 mg tablet RxNorm: 837152 Take 1 Tablet(s) Oral QHS every night at bedtime 06/18/19 22 023 Inactive Aspirin Low Dose 81 mg tablet,delayed release RxNorm: 659880 Take 1 Tablet(s) Oral QD QD - Daily with food 06/18/19 22 023 Inactive ibuprofen 600 mg tablet RxNorm: 067584 Take 1 and 1/2 Tablet(s) Oral QD as needed Take at least 6 hours from scheduled dose 06/18/19 023 Inactive acetaminophen 325 mg capsule RxNorm: 924433 Take 1-2 Tablet(s) Oral Q4-6H every 4-6 hours as needed for pain and elevated temperature. Not to exceed 4000mg in 24 hours 06/18/19 No Stop Date Active aluminum-mag hydroxide-simethicone 200 mg-200 mg-20 mg/5 mL oral susp RxNorm: 088146 Take 5-10 Milliliter(s) Oral QD as needed for nausea one time daily between and at bedtime as needed for heartburn and/ or upset stomach 06/18/19 No Stop Date Active Milk of Magnesia 400 mg/5 mL oral suspension RxNorm: 831276 Take 15-30 Milliliter(s) Oral as needed Take 15-30ml by mouth daily (preferably at bedtime) as needed for constipation. Recommend 8 oz of water after each use. 06/18/19 No Stop Date Active losartan 50 mg tablet RxNorm: 106499 Give 1 Tablet(s) Oral QD 06/18/19 22 022 Inactive atorvastatin 20 mg tablet RxNorm: 678714 Take 1 Tablet(s) Oral QD 06/18/19 22 022 Inactive hydrochlorothiazide 25 mg tablet RxNorm: 292313 Take 1 Tablet(s) Oral QD 06/18/19 022 [...] Exam data Procedures Procedure Codes Date [facility] SMO[facility] 3-[address]: 2 05222171 CPT-4: 55711 01/28/2022 AAA Screening [place] CPT-4: 87087 01/06/2022 BEHAV CHNG SMOKING 3-[address]: 2 71011343 CPT-4: 09470 12/31/2021 BEHAV CHNG SMOKING > [address]: 2 12552444 CPT-4: 03611 12/31/2021 BEHAV CHNG SMOKING 3-[address]: 2 02944926 CPT-4: 53225 11/26/2021 BEHAV CHNG SMOKING 3-[address]: 2 02448738 CPT-4: 65881 11/05/2021 BEHAV CHNG SMOKING 3-[address]: 2 51394944 CPT-4: 34140 09/24/2021 BEHAV CHNG SMOKING 3-[address]: 2 45420663 CPT-4: 93157 08/27/2021 BEHAV CHNG SMOKING 3-[address]: 2 19565253 CPT-4: 32601 07/30/2021 BEHAV CHNG SMOKING 3-[address]: 2 36291700 CPT-4: 22884 06/12/2021 History of Present Illness No History [...]
--- OUTSIDE RECORDS SUMMARY | 2022-07-28 18:00 | XMS_ITS | CCD ---
Author Name Татьяна Figueredo PA-C Address [address] [place] [address] Phone Organization [facility] Phone Care Team Providers Care Judicial Clerk Name Role Phone Beto Corie WHITE Primary Care Provider Jeannine vailable Unavailable Chronic Care Management Unavaila ble Summary Purpose DataExchange Insurance Providers Payer name Policy type / Coverage type Covered libertarian ID Effective Begin Date Effective End Date Ucare Commercial Insurance [id number] Unkn own Medicaid [place] Commercial Insurance [id number] Unk nown Family History Family History data not found Social History Social History Element Codes Description Effec tive Dates Tobacco history SNOMED CT: 67842119 Current ever y day smoker half pack- 1 pack/daily Started smoking at age 18 06/17/[address]: 709527448 No Alcohol Consumption Hx of consumption 06/17/2021 [...] not intractable ICD-10: G44.229 ICD-9: 339.12 Active 07/29/2022 08/26/2022 Hypercholesteremia ICD-10: E78.00 ICD-9: 272.0 Active 07/29/2022 07/28/2023 Hypertensive chronic kidney disease with stage 1 through stage 4 chronic kidney disease, or unspecified chronic kidney disease ICD-10: I12.9 ICD-9: 403.90 Active 07/29/2022 08/26/2022 Stage 2 chronic kidney disease ICD-10: N18.2 ICD-9: 585.2 Active 07/29/2022 07/28/2023 Tobacco use disorder ICD-10: F17.200 ICD-9: 305.1 Active 07/29/2022 07/28/2023 Vitamin D deficiency ICD-10: E55.9 ICD-9: 268.9 Active 07/29/2022 07/28/2023 COPD (chronic obstructive pulmonary disease) ICD-10: J44.9 ICD-9: 496 Active 06/24/2022 12/30/2022 Preventative health care ICD-10: Z00.00 ICD-9: V70.0 Active 06/24/2022 07/28/2023 Encounter for screening for malignant neoplasm of [...] ICD-10: L60.2 ICD-9: 703.8 Active 01/28/2022 07/28/2023 Essential hypertension ICD-10: I10 ICD-9: 401.9 Resolved [...] F10 .10 ICD-9: 305.00 Resolved 12/31/2021 Unknown Bifascicular block ICD-10: I45.2 ICD-9: 426.53 Active 06/12/2021 07/28/2023 PTSD (post-traumatic stress disorder) ICD-10: F43.10 ICD-9: 309.81 Active 06/12/2021 07/28/2023 Problems Condition Codes Effective Dates Condition St atus Chronic tension-type headach e, not intractable ICD-10: G44.229 ICD-9: 339.12 07/29/2022 Active Hypercholesteremia ICD-10: E78.00 ICD-9: 272.0 07/29/2022 Active Hypertensive chronic kidney disease with stage 1 through stage 4 chronic kidney disease, or unspecified chronic kidney disease ICD-10: I12.9 ICD-9: 403.90 07/29/2022 Active Stage 2 chronic kidney disease ICD-10: N 18.2 ICD-9: 585.2 07/29/2022 Active Tobacco use disorder ICD-10: F17.200 ICD-9: 305.1 07/29/2022 Active Vitamin D deficiency ICD-10: E55.9 ICD-9: 268.9 07/29/2022 Active COPD (chronic obstructive pu lmonary disease) ICD-10: J44.9 ICD-9: 496 06/24/2022 Active Preventative health care ICD-10: Z00.00 ICD-9: V70.0 06/24/2022 Active Encounter for screening for malignant [...] Onychogryposis ICD-10: L60.2 ICD-9: 703.8 01/28/2022 Active Essential hypertension ICD-10: I10 ICD-9: [...] ICD-10: F10 .10 ICD-9: 305.00 12/31/2021 Resolved Bifascicular block ICD-10: I45.2 ICD-9: 426.53 06/12/2021 Active PTSD (post-traumatic stress disorder) ICD-10: F43.10 ICD-9: 309.81 06/12/2021 Active Medications Medication Codes Instructions Start Date Stop Date Status Fill Instructions Vitamin D2 1,250 mcg (50,000 unit) capsule RxNorm: 2955353 TAKE ONCE CAPSULE ONCE MONTHLY 07/30/19 23 025 Inactive d/c once weekly, start once monthly cholecalciferol (vitamin D3) 1,250 mcg (50,000 unit) capsule RxNorm: 847756 TAKE 1 CAPSULE BY MOUTH WEEKLY ON Wednesday07/23/19 23 023 Inactive Shingrix (PF) 50 mcg/0.5 mL intramuscular suspension, kit RxNorm: 8797978 ADMINISTER 2-DOSE SERIES PER CDC GUIDELINES Take UAD per CDC guidelines 06/26/19 023 Inactive diclofenac 1 % topical gel RxNorm: 001687 apply 0.5g topically to left shoulder nightly 01/01/20 22 022 Inactive diclofenac 1 % topical gel RxNorm: 122494 Apply 0.5 Gram(s) Topical QHS every night at bedtime apply 0.5g topically to left shoulder nightly 01/01/20 22 022 Inactive atorvastatin 20 mg tablet RxNorm: 619114 Take 1 Tablet(s) Oral QD 10/22/19 22 022 Inactive 2ND REQUEST FOR REFILLS 10/21/21 NEED TODAY PLEASE- THANK YOU losartan 50 mg tablet RxNorm: 479144 Take 1 Tablet(s) Oral QD 10/22/19 22 022 Inactive 2ND REQUEST FOR REFILLS 10/21/21 NEED TODAY PLEASE- THANK YOU Vitamin D2 1,250 mcg (50,000 unit) capsule RxNorm: 2934450 Take 1 Capsule(s) Oral QW once a week TAKE ONCE CAPSULE ONCE WEEKLY 07/31/19 22 023 Inactive or whatever % is covered by insurance loperamide 2 mg capsule RxNorm: 380789 Take 1 Capsule(s) Oral Q2H every 2 hours as needed for diarrhea Give 2 tabs after first loose stool and then 1 tab after each loose stool. Not to exceed 8 tabs in 24 hours 06/18/19 No Stop Date Active citalopram 20 mg tablet RxNorm: 623368 Take 1 Tablet(s) Oral QD every day 06/18/19 22 023 Inactive Calcium Antacid 200 mg calcium (500 mg) chewable tablet RxNorm: 327093 Chew 2-4 Tablet(s) Oral as needed Take 2-4 tabs by mouth as needed between meals and at bedtime as needed for heartburn or upset stomach 06/18/19 No Stop Date Active Robitussin Cough-Chest Congestion DM 5 mg-100 mg/5 mL oral liquid RxNorm: 6684872 Take 5-10 Milliliter(s) Oral Q4H every four hours QID - Four Times Daily as needed Take 5-10ml by mouth every 4 hours as needed for cough or congestion. Not to exceed 6 doses in 24 hours 06/18/19 No Stop Date Active ibuprofen 600 mg tablet RxNorm: 899633 Take 1 Tablet(s) Oral QHS every night at bedtime 06/18/19 22 023 Inactive Aspirin Low Dose 81 mg tablet,delayed release RxNorm: 152176 Take 1 Tablet(s) Oral QD QD - Daily with food 06/18/19 22 023 Inactive acetaminophen 325 mg capsule RxNorm: 447159 Take 1-2 Tablet(s) Oral Q4-6H every 4-6 hours as needed for pain and elevated temperature. Not to exceed 4000mg in 24 hours 06/18/19 No Stop Date Active aluminum-mag hydroxide-simethicone 200 mg-200 mg-20 mg/5 mL oral susp RxNorm: 641700 Take 5-10 Milliliter(s) Oral QD as needed for nausea one time daily between and at bedtime as needed for heartburn and/ or upset stomach 06/18/19 No Stop Date Active Milk of Magnesia 400 mg/5 mL oral suspension RxNorm: 245325 Take 15-30 Milliliter(s) Oral as needed Take 15-30ml by mouth daily (preferably at bedtime) as needed for constipation. Recommend 8 oz of water after each use. 06/18/19 No Stop Date Active losartan 50 mg tablet RxNorm: 678954 Give 1 Tablet(s) Oral QD 06/18/19 22 022 Inactive atorvastatin 20 mg tablet RxNorm: 304845 Take 1 Tablet(s) Oral QD 06/18/19 22 022 Inactive ibuprofen 600 mg tablet RxNorm: 283657 Take 1 and 1/2 Tablet(s) Oral QD as needed Take at least 6 hours from scheduled dose 06/18/19 22 023 Inactive hydrochlorothiazide 25 mg tablet RxNorm: 131982 Take 1 Tablet(s) Oral QD 06/18/19 22 [...] data Assessments Condition Codes Effective Dates Notes Stage 2 chronic kidney disease ICD-10: N 18.2 ICD-9: 585.2 07/29/2022 No note found Vitamin D deficiency ICD-10: E55.9 ICD-9: 268.9 07/29/2022 No note found Tobacco use disorder ICD-10: F17.200 ICD-9: 305.1 07/29/2022 No note found Chronic tension-type headach e, not intractable ICD-10: G44.229 ICD-9: 339.12 07/29/2022 No note found Hypertensive chronic kidney disease with stage 1 through stage 4 chronic kidney disease, or unspecified chronic kidney disease ICD-10: I12.9 ICD-9: 403.90 07/29/2022 No note found Hypercholesteremia ICD-10: E78.00 ICD-9: 272.0 07/29/2022 No note found Reason For Visit No Reason For Visit data Review of Systems No Review of Systems data Physical Exam No Physical Exam data Procedures Procedure Codes Date BEHAV CHNG SMOKING 3-[address]: 2 71571319 CPT-4: 49725 07/29/[address]: 185007376 CPT-4: 77671 07/29/2022 SYS BP LESS 140 CPT-4: G8752 07/29/2022 REAL BP LESS 90 CPT-4: G8754 07/29/2022 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 CPT-4: G0436 2022 BEHAV CHNG SMOKING 3-[address]: 2 40455994 CPT-4: 23058 01/28/2022 AAA Screening US CPT-4: 38101 01/06/2022 BEHAV CHNG SMOKING 3-[address]: 2 28905704 CPT-4: 51206 12/31/2021 BEHAV CHNG SMOKING > [address]: 2 36412533 CPT-4: 91353 12/31/2021 BEHAV CHNG SMOKING 3-[address]: 2 80134910 CPT-4: 13368 11/26/2021 BEHAV CHNG SMOKING 3-[address]: 2 48817424 CPT-4: 22493 11/05/2021 BEHAV CHNG SMOKING 3-[address]: 2 79258313 CPT-4: 39343 09/24/2021 BEHAV CHNG SMOKING 3-[address]: 2 50549482 CPT-4: 58807 08/27/2021 BEHAV CHNG SMOKING 3-[address]: 2 29094095 CPT-4: 03613 07/30/2021 BEHAV CHNG SMOKING 3-[address]: 2 51317466 CPT-4: 62181 06/12/2021 Vital Signs Date Vital 07/29/2022 Blood Pressure 1: 110/70 Code: 8480-6 BMI: 24.6 Code: 96573-0 Heart Rate 1: 87 bpm Code: 8867-4 Height: 5'10 Code: 8302-2 Temperature: 36.3 (C) / 97.3 (F) Weight: 171 lbs 6 oz Code: 3141-9 History of Present Illness No History of Present Illness data Advance Directives No Advance Directive data Encounters Encounter Performer Location Location Address Codes Date () Home or Residence Visit Est Pt - Moderate Level, 40 mins Diagnosis: Chronic tension-type headache, not intractable[ICD10: G44.229] Diagnosis: Hypertensive chronic kidney disease with stage 1 through stage 4 chronic kidney disease, or unspecified chronic kidney disease[ICD10: I12.9] Diagnosis: Tobacco use disorder[ICD10: F17.200] Diagnosis: Vitamin D deficiency[ICD10: E55.9] Diagnosis: Stage 2 chronic kidney disease[ICD10: N18.2] Diagnosis: Hypercholesteremia[I CD10: E78.00] Татьяна Figueredo [address] [address] CPT-4: 83261 07/29/2022 Plan of Care Planned Activity Notes Codes Status Date Patient Education: Patient Medication Summary Completed 07/29/2022 Patient Education: Influenza Vaccine Completed 07/29/2022 Patient Education: Smoking Cessation Completed 07/29/2022 Appointment: Татьяна Figueredo: [address] [place], [place] [id number] F/U 09/24/2021 Health Concerns Section Concern Status [...]
--- OUTSIDE RECORDS SUMMARY | 2022-08-25 18:00 | XMS_ITS | CCD ---
Author Name Татьяна Figueredo PA-C Address [address] [place] [address] Phone Organization [facility] Phone Care Team Providers Care Transformation Lead Name Role Phone Beto Corie WHITE Primary Care Provider Jeannine vailable Unavailable Chronic Care Management Unavaila ble Summary Purpose DataExchange Insurance Providers Payer name Policy type / Coverage type Covered republican ID Effective Begin Date Effective End Date U[employer] Commercial Insurance [id number] Unkn own Medicaid [place] Commercial Insurance [id number] Unk nown Family History Family History data not found Social History Social History Element Codes Description Effec tive Dates Tobacco history SNOMED CT: 63044193 Current ever y day smoker half pack- 1 pack/daily Started smoking at age 18 06/17/[address]: 607707340 No Alcohol Consumption Hx of consumption 06/17/2021 [...] not intractable ICD-10: G44.229 ICD-9: 339.12 Active 08/26/2022 07/28/2023 Episode of recurrent major depressive disorder, unspecified depression episode severity ICD-10: F33.9 ICD-9: 296.30 Active 08/26/2022 07/28/2023 Hypertensive chronic kidney disease with stage 1 through stage 4 chronic kidney disease, or unspecified chronic kidney disease ICD-10: I12.9 ICD-9: 403.90 Active 08/26/2022 10/28/2022 Hypercholesteremia ICD-10: E78.00 ICD-9: 272.0 Active 07/29/2022 07/28/2023 Stage 2 chronic kidney disease ICD-10: [...] ICD-10: G81.94 ICD-9: 342.92 Active 04/06/2022 02/24/2023 Primary osteoarthritis of both knees ICD-10: M17.0 [...] e, not intractable ICD-10: G44.229 ICD-9: 339.12 08/26/2022 Active Episode of recurrent major depressive disorder, unspecified depression episode severity ICD-10: F33.9 ICD-9: 296.30 08/26/2022 Active Hypertensive chronic kidney disease with stage 1 through stage 4 chronic kidney disease, or unspecified chronic kidney disease ICD-10: I12.9 ICD-9: 403.90 08/26/2022 Active Hypercholesteremia ICD-10: E78.00 ICD-9: 272.0 07/29/2022 Active Stage 2 chronic kidney disease [...] etiology ICD-10: G81.94 ICD-9: 342.92 04/06/2022 Active Primary osteoarthritis of both knees ICD [...] D2 1,250 mcg (50,000 unit) capsule RxNorm: 3836824 TAKE ONCE CAPSULE ONCE MONTHLY 07/30/19 23 025 Inactive d/c once weekly, start once monthly cholecalciferol (vitamin D3) 1,250 mcg (50,000 unit) capsule RxNorm: 694460 TAKE 1 CAPSULE BY MOUTH WEEKLY ON Wednesday07/23/19 23 023 Inactive Shingrix (PF) 50 mcg/0.5 mL intramuscular suspension, kit RxNorm: 7594989 ADMINISTER 2-DOSE SERIES PER CDC GUIDELINES Take UAD per CDC guidelines 06/26/19 023 Inactive diclofenac 1 % topical gel RxNorm: 279298 apply 0.5g topically to left shoulder nightly 01/01/20 22 022 Inactive diclofenac 1 % topical gel RxNorm: 737473 Apply 0.5 Gram(s) Topical QHS every night at bedtime apply 0.5g topically to left shoulder nightly 01/01/20 22 022 Inactive atorvastatin 20 mg tablet RxNorm: 350314 Take 1 Tablet(s) Oral QD 10/22/19 22 022 Inactive 2ND REQUEST FOR REFILLS 10/21/21 NEED TODAY PLEASE- THANK YOU losartan 50 mg tablet RxNorm: 523999 Take 1 Tablet(s) Oral QD 10/22/19 22 022 Inactive 2ND REQUEST FOR REFILLS 10/21/21 NEED TODAY PLEASE- THANK YOU Vitamin D2 1,250 mcg (50,000 unit) capsule RxNorm: 5210801 Take 1 Capsule(s) Oral QW once a week TAKE ONCE CAPSULE ONCE WEEKLY 07/31/19 22 023 Inactive or whatever % is covered by insurance loperamide 2 mg capsule RxNorm: 871634 Take 1 Capsule(s) Oral Q2H every 2 hours as needed for diarrhea Give 2 tabs after first loose stool and then 1 tab after each loose stool. Not to exceed 8 tabs in 24 hours 06/18/19 No Stop Date Active citalopram 20 mg tablet RxNorm: 621128 Take 1 Tablet(s) Oral QD every day 06/18/19 22 023 Inactive Calcium Antacid 200 mg calcium (500 mg) chewable tablet RxNorm: 227616 Chew 2-4 Tablet(s) Oral as needed Take 2-4 tabs by mouth as needed between meals and at bedtime as needed for heartburn or upset stomach 06/18/19 No Stop Date Active Robitussin Cough-Chest Congestion DM 5 mg-100 mg/5 mL oral liquid RxNorm: 6361176 Take 5-10 Milliliter(s) Oral Q4H every four hours QID - Four Times Daily as needed Take 5-10ml by mouth every 4 hours as needed for cough or congestion. Not to exceed 6 doses in 24 hours 06/18/19 No Stop Date Active ibuprofen 600 mg tablet RxNorm: 201520 Take 1 Tablet(s) Oral QHS every night at bedtime 06/18/19 22 023 Inactive Aspirin Low Dose 81 mg tablet,delayed release RxNorm: 320850 Take 1 Tablet(s) Oral QD QD - Daily with food 06/18/19 22 023 Inactive acetaminophen 325 mg capsule RxNorm: 238496 Take 1-2 Tablet(s) Oral Q4-6H every 4-6 hours as needed for pain and elevated temperature. Not to exceed 4000mg in 24 hours 06/18/19 No Stop Date Active aluminum-mag hydroxide-simethicone 200 mg-200 mg-20 mg/5 mL oral susp RxNorm: 899226 Take 5-10 Milliliter(s) Oral QD as needed for nausea one time daily between and at bedtime as needed for heartburn and/ or upset stomach 06/18/19 No Stop Date Active Milk of Magnesia 400 mg/5 mL oral suspension RxNorm: 575880 Take 15-30 Milliliter(s) Oral as needed Take 15-30ml by mouth daily (preferably at bedtime) as needed for constipation. Recommend 8 oz of water after each use. 06/18/19 No Stop Date Active losartan 50 mg tablet RxNorm: 640962 Give 1 Tablet(s) Oral QD 06/18/19 22 022 Inactive atorvastatin 20 mg tablet RxNorm: 996798 Take 1 Tablet(s) Oral QD 06/18/19 22 022 Inactive ibuprofen 600 mg tablet RxNorm: 576591 Take 1 and 1/2 Tablet(s) Oral QD as needed Take at least 6 hours from scheduled dose 06/18/19 22 023 Inactive hydrochlorothiazide 25 mg tablet RxNorm: 017593 Take 1 Tablet(s) Oral QD 06/18/19 22 [...] data Assessments Condition Codes Effective Dates Notes Hypertensive chronic kidney disease with stage 1 through stage 4 chronic kidney disease, or unspecified chronic kidney disease ICD-10: I12.9 ICD-9: 403.90 08/26/2022 No note found Episode of recurrent major d epressive disorder, unspecified depression episode severity ICD-10: F33.9 ICD-9: 296.30 08/26/2022 No note found Chronic tension-type headach e, not intractable ICD-10: G44.229 ICD-9: 339.12 08/26/2022 No note found Reason For Visit No Reason For Visit data Review of Systems No Review of Systems data Physical Exam No Physical Exam data Procedures Procedure Codes Date SYS BP LESS 140 CPT-4: G8752 08/26/2022 REAL BP LESS 90 CPT-4: G8754 08/26/2022 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 CPT-4: G0436 2022 BEHAV CHNG SMOKING 3-[address]: 2 80864910 CPT-4: 30376 07/29/2022 BEHAV CHNG SMOKING 3-[address]: 2 89076381 CPT-4: 90515 01/28/2022 AAA Screening CPT-4: 72783 01/06/2022 BEHAV CHNG SMOKING 3-[address]: 2 28883377 CPT-4: 71367 12/31/2021 BEHAV CHNG SMOKING > [address]: 2 51855766 CPT-4: 72132 12/31/2021 BEHAV CHNG SMOKING 3-[address]: 2 62222359 CPT-4: 57057 11/26/2021 BEHAV CHNG SMOKING 3-[address]: 2 18294631 CPT-4: 44909 11/05/2021 BEHAV CHNG SMOKING 3-[address]: 2 42300298 CPT-4: 36845 09/24/2021 BEHAV CHNG SMOKING 3-[address]: 2 13089238 CPT-4: 29204 08/27/2021 BEHAV CHNG SMOKING 3-[address]: 2 15073114 CPT-4: 21303 07/30/2021 BEHAV CHNG SMOKING 3-[address]: 2 63967622 CPT-4: 53555 06/12/2021 Vital Signs Date Vital 08/26/2022 Blood Pressure 1: 133/88 Code: 8480-6 Heart Rate 1: 67 bpm Code: 8867-4 Height: 5'10 Code: 8302-2 Respiratory Rate: 14 bpm Temperature: 36.3 (C) / 97.3 (F) Weight: Code: 3141-9 History of Present Illness No History of Present Illness data Advance Directives No Advance Directive data Encounters Encounter Performer Location Location Address Codes Date ([address]) Home or Residence Visit Est Pt - Moderate Level, 40 mins Diagnosis: Chronic tension-type headache, not intractable[ICD10: G44.229] Diagnosis: Episode of recurrent major depressive disorder, unspecified depression episode severity[ICD10: F33.9] Diagnosis: Hypertensive chronic kidney disease with stage 1 through stage 4 chronic kidney disease, or unspecified chronic kidney disease[ICD10: I12.9] Татьяна Figueredo [address] [address] CPT-4: 00870 08/26/2022 Plan of Care Planned Activity Notes Codes Status Date Patient Education: Patient Medication Summary Completed 08/26/2022 Patient Education: Influenza Vaccine Completed 08/26/2022 Patient Education: Smoking Cessation Completed 08/26/2022 Appointment: Татьяна Figueredo WPtel: [address] [place], [place] [phone] F/U 09/24/2021 Health Concerns Section Concern Status [...]
--- OUTSIDE RECORDS SUMMARY | 2022-10-01 18:00 | XMS_ITS | CCD ---
Author Organization Unknown Care Team Providers Care Atmospheric Technician Name Role Phone Vintongrazyna CRUMPMarjorieCamdenCorie Primary Care Provider Jeannine vailable Unavailable Chronic Care Management Unavaila ble Summary Purpose DataExchange Insurance Providers Payer name Policy type / Coverage type Covered constitution party ID Effective Begin Date Effective End Date Ucare Commercial Insurance [id number] Unkn own Medicaid [place] Commercial Insurance [id number] Unk nown Family History Family History data not found Social History Social History Element Codes Description Effec tive Dates Tobacco history SNOMED CT: 04970955 Current ever y day smoker half pack- 1 pack/daily Started smoking at age 18 06/17/[address]: 176605290 No Alcohol Consumption Hx of consumption 06/17/2021 [...] Start Date Stop Date Status Fill Instructions ibuprofen 400 mg tablet RxNorm: 409293 Take 1-1/2 Tablet(s) Oral QD as needed (at least 6 hours from scheduled dose) 10/01/19 23 024 Inactive Vitamin D2 1,250 mcg (50,000 unit) capsule RxNorm: 7043321 TAKE ONCE CAPSULE ONCE MONTHLY 07/30/19 23 025 Inactive d/c once weekly, start once monthly cholecalciferol (vitamin D3) 1,250 mcg (50,000 unit) capsule RxNorm: 980870 TAKE 1 CAPSULE BY MOUTH WEEKLY ON Wednesday07/23/19 23 023 Inactive Shingrix (PF) 50 mcg/0.5 mL intramuscular suspension, kit RxNorm: 0220303 ADMINISTER 2-DOSE SERIES PER CDC GUIDELINES Take UAD per CDC guidelines 06/26/19 23 023 Inactive diclofenac 1 % topical gel RxNorm: 432411 apply 0.5g topically to left shoulder nightly 01/01/20 22 022 Inactive diclofenac 1 % topical gel RxNorm: 263442 Apply 0.5 Gram(s) Topical QHS every night at bedtime apply 0.5g topically to left shoulder nightly 01/01/20 22 022 Inactive atorvastatin 20 mg tablet RxNorm: 623626 Take 1 Tablet(s) Oral QD 10/22/19 22 022 Inactive 2ND REQUEST FOR REFILLS 10/21/21 NEED TODAY PLEASE- THANK YOU losartan 50 mg tablet RxNorm: 002744 Take 1 Tablet(s) Oral QD 10/22/19 22 022 Inactive 2ND REQUEST FOR REFILLS 10/21/21 NEED TODAY PLEASE- THANK YOU Vitamin D2 1,250 mcg (50,000 unit) capsule RxNorm: 6764983 Take 1 Capsule(s) Oral QW once a week TAKE ONCE CAPSULE ONCE WEEKLY 07/31/19 22 023 Inactive or whatever % is covered by insurance loperamide 2 mg capsule RxNorm: 789823 Take 1 Capsule(s) Oral Q2H every 2 hours as needed for diarrhea Give 2 tabs after first loose stool and then 1 tab after each loose stool. Not to exceed 8 tabs in 24 hours 06/18/19 No Stop Date Active citalopram 20 mg tablet RxNorm: 029696 Take 1 Tablet(s) Oral QD every day 06/18/19 22 023 Inactive Calcium Antacid 200 mg calcium (500 mg) chewable tablet RxNorm: 840399 Chew 2-4 Tablet(s) Oral as needed Take 2-4 tabs by mouth as needed between meals and at bedtime as needed for heartburn or upset stomach 06/18/19 No Stop Date Active Robitussin Cough-Chest Congestion DM 5 mg-100 mg/5 mL oral liquid RxNorm: 4052971 Take 5-10 Milliliter(s) Oral Q4H every four hours QID - Four Times Daily as needed Take 5-10ml by mouth every 4 hours as needed for cough or congestion. Not to exceed 6 doses in 24 hours 06/18/19 No Stop Date Active ibuprofen 600 mg tablet RxNorm: 996614 Take 1 Tablet(s) Oral QHS every night at bedtime 06/18/19 22 023 Inactive Aspirin Low Dose 81 mg tablet,delayed release RxNorm: 800163 Take 1 Tablet(s) Oral QD QD - Daily with food 06/18/19 22 023 Inactive acetaminophen 325 mg capsule RxNorm: 864645 Take 1-2 Tablet(s) Oral Q4-6H every 4-6 hours as needed for pain and elevated temperature. Not to exceed 4000mg in 24 hours 06/18/19 No Stop Date Active aluminum-mag hydroxide-simethicone 200 mg-200 mg-20 mg/5 mL oral susp RxNorm: 037343 Take 5-10 Milliliter(s) Oral QD as needed for nausea one time daily between and at bedtime as needed for heartburn and/ or upset stomach 06/18/19 No Stop Date Active Milk of Magnesia 400 mg/5 mL oral suspension RxNorm: 140151 Take 15-30 Milliliter(s) Oral as needed Take 15-30ml by mouth daily (preferably at bedtime) as needed for constipation. Recommend 8 oz of water after each use. 06/18/19 No Stop Date Active losartan 50 mg tablet RxNorm: 414297 Give 1 Tablet(s) Oral QD 06/18/19 22 022 Inactive atorvastatin 20 mg tablet RxNorm: 536127 Take 1 Tablet(s) Oral QD 06/18/19 22 022 Inactive ibuprofen 600 mg tablet RxNorm: 330127 Take 1 and 1/2 Tablet(s) Oral QD as needed Take at least 6 hours from scheduled dose 06/18/19 22 023 Inactive hydrochlorothiazide 25 mg tablet RxNorm: 324300 Take 1 Tablet(s) Oral QD 06/18/19 22 [...] CHNG SMOKING 3-[address]: 2 78156512 CPT-4: 98330 07/29/2022 BEHAV CHNG SMOKING 3-[address]: 2 98774959 CPT-4: 85891 01/28/2022 AAA Screening CPT-4: 87733 01/06/2022 BEHAV CHNG SMOKING 3-[address]: 2 79252302 CPT-4: 36210 12/31/2021 BEHAV CHNG SMOKING > [address]: 2 07353603 CPT-4: 85850 12/31/2021 BEHAV CHNG SMOKING 3-[address]: 2 75194456 CPT-4: 36098 11/26/2021 BEHAV CHNG SMOKING 3-[address]: 2 70433945 CPT-4: 34316 11/05/2021 BEHAV CHNG SMOKING 3-[address]: 2 59959716 CPT-4: 01777 09/24/2021 BEHAV CHNG SMOKING 3-[address]: 2 09487162 CPT-4: 53551 08/27/2021 BEHAV CHNG SMOKING 3-[address]: 2 71094823 CPT-4: 04397 07/30/2021 BEHAV CHNG SMOKING 3-[address]: 2 83220854 CPT-4: 84719 06/12/2021 History of Present Illness No History [...]
--- OUTSIDE RECORDS SUMMARY | 2022-10-13 18:00 | XMS_ITS | CCD ---
Author Organization Unknown Care Team Providers Care Assembler Piano Name Role Phone Calhoungrazyna CRUMPMarjorieCamdenCorie Primary Care Provider Jeannine vailable Unavailable Chronic Care Management Unavaila ble Summary Purpose DataExchange Insurance Providers Payer name Policy type / Coverage type Covered green party ID Effective Begin Date Effective End Date Ucare Commercial Insurance [id number] Unkn own Medicaid [place] Commercial Insurance [id number] Unk nown Family History Family History data not found Social History Social History Element Codes Description Effec tive Dates Tobacco history SNOMED CT: 15369446 Current ever y day smoker half pack- 1 pack/daily Started smoking at age 18 06/17/[address]: 311620022 No Alcohol Consumption Hx of consumption 06/17/2021 [...] Fill Instructions atorvastatin 20 mg tablet RxNorm: 523566 Take 1 Tablet(s) Oral QD 10/15/19 23 024 Inactive 10/13/2022 PROACTIVE REFILL REQUEST FOR NEXT CYCLE PLEASE THANK YOU RX has/will before cycle date losartan 50 mg tablet RxNorm: 980110 Take 1 Tablet(s) Oral QD 10/15/19 23 023 Inactive 10/13/2022 PROACTIVE REFILL REQUEST FOR NEXT CYCLE PLEASE THANK YOU RX has/will before cycle date ibuprofen 400 mg tablet RxNorm: 117303 Take 1-1/2 Tablet(s) Oral QD as needed (at least 6 hours from scheduled dose) 10/01/19 23 024 Inactive Vitamin D2 1,250 mcg (50,000 unit) capsule RxNorm: 9330308 TAKE ONCE CAPSULE ONCE MONTHLY 07/30/19 23 025 Inactive d/c once weekly, start once monthly cholecalciferol (vitamin D3) 1,250 mcg (50,000 unit) capsule RxNorm: 119176 TAKE 1 CAPSULE BY MOUTH WEEKLY ON Wednesday07/23/19 23 023 Inactive Shingrix (PF) 50 mcg/0.5 mL intramuscular suspension, kit RxNorm: 2249650 ADMINISTER 2-DOSE SERIES PER CDC GUIDELINES Take UAD per CDC guidelines 06/26/19 23 023 Inactive diclofenac 1 % topical gel RxNorm: 307152 apply 0.5g topically to left shoulder nightly 01/01/20 22 022 Inactive diclofenac 1 % topical gel RxNorm: 196516 Apply 0.5 Gram(s) Topical QHS every night at bedtime apply 0.5g topically to left shoulder nightly 01/01/20 22 022 Inactive atorvastatin 20 mg tablet RxNorm: 661122 Take 1 Tablet(s) Oral QD 10/22/19 22 022 Inactive 2ND REQUEST FOR REFILLS 10/21/21 NEED TODAY PLEASE- THANK YOU losartan 50 mg tablet RxNorm: 757336 Take 1 Tablet(s) Oral QD 10/22/19 22 022 Inactive 2ND REQUEST FOR REFILLS 10/21/21 NEED TODAY PLEASE- THANK YOU Vitamin D2 1,250 mcg (50,000 unit) capsule RxNorm: 3478873 Take 1 Capsule(s) Oral QW once a week TAKE ONCE CAPSULE ONCE WEEKLY 07/31/19 22 023 Inactive or whatever % is covered by insurance loperamide 2 mg capsule RxNorm: 428993 Take 1 Capsule(s) Oral Q2H every 2 hours as needed for diarrhea Give 2 tabs after first loose stool and then 1 tab after each loose stool. Not to exceed 8 tabs in 24 hours 06/18/19 22 No Stop Date Active citalopram 20 mg tablet RxNorm: 146912 Take 1 Tablet(s) Oral QD every day 06/18/19 22 023 Inactive Calcium Antacid 200 mg calcium (500 mg) chewable tablet RxNorm: 753908 Chew 2-4 Tablet(s) Oral as needed Take 2-4 tabs by mouth as needed between meals and at bedtime as needed for heartburn or upset stomach 06/18/19 No Stop Date Active Robitussin Cough-Chest Congestion DM 5 mg-100 mg/5 mL oral liquid RxNorm: 3276699 Take 5-10 Milliliter(s) Oral Q4H every four hours QID - Four Times Daily as needed Take 5-10ml by mouth every 4 hours as needed for cough or congestion. Not to exceed 6 doses in 24 hours 06/18/19 22 No Stop Date Active ibuprofen 600 mg tablet RxNorm: 124713 Take 1 Tablet(s) Oral QHS every night at bedtime 06/18/19 22 023 Inactive Aspirin Low Dose 81 mg tablet,delayed release RxNorm: 958706 Take 1 Tablet(s) Oral QD QD - Daily with food 06/18/19 023 Inactive acetaminophen 325 mg capsule RxNorm: 446886 Take 1-2 Tablet(s) Oral Q4-6H every 4-6 hours as needed for pain and elevated temperature. Not to exceed 4000mg in 24 hours 06/18/19 22 No Stop Date Active aluminum-mag hydroxide-simethicone 200 mg-200 mg-20 mg/5 mL oral susp RxNorm: 127186 Take 5-10 Milliliter(s) Oral QD as needed for nausea one time daily between and at bedtime as needed for heartburn and/ or upset stomach 06/18/19 22 No Stop Date Active Milk of Magnesia 400 mg/5 mL oral suspension RxNorm: 509471 Take 15-30 Milliliter(s) Oral as needed Take 15-30ml by mouth daily (preferably at bedtime) as needed for constipation. Recommend 8 oz of water after each use. 06/18/19 22 No Stop Date Active losartan 50 mg tablet RxNorm: 322357 Give 1 Tablet(s) Oral QD 06/18/19 22 022 Inactive atorvastatin 20 mg tablet RxNorm: 807531 Take 1 Tablet(s) Oral QD 06/18/19 22 022 Inactive ibuprofen 600 mg tablet RxNorm: 726341 Take 1 and 1/2 Tablet(s) Oral QD as needed Take at least 6 hours from scheduled dose 06/18/19 22 023 Inactive hydrochlorothiazide 25 mg tablet RxNorm: 788042 Take 1 Tablet(s) Oral QD 06/18/19 22 [...] CHNG SMOKING 3-[address]: 2 62215560 CPT-4: 33643 07/29/2022 BEHAV CHNG SMOKING 3-[address]: 2 94195746 CPT-4: 12210 01/28/2022 AAA Screening US CPT-4: 05529 01/06/2022 BEHAV CHNG SMOKING 3-[address]: 2 42357682 CPT-4: 03194 12/31/2021 BEHAV CHNG SMOKING > [address]: 2 11994890 CPT-4: 17493 12/31/2021 BEHAV CHNG SMOKING 3-[address]: 2 86535051 CPT-4: 38093 11/26/2021 BEHAV CHNG SMOKING 3-[address]: 2 77771239 CPT-4: 88409 11/05/2021 BEHAV CHNG SMOKING 3-[address]: 2 58582122 CPT-4: 99316 09/24/2021 BEHAV CHNG SMOKING 3-[address]: 2 03140735 CPT-4: 93117 08/27/2021 BEHAV CHNG SMOKING 3-[address]: 2 59326219 CPT-4: 98420 07/30/2021 BEHAV CHNG SMOKING 3-[address]: 2 40614030 CPT-4: 14643 06/12/2021 History of Present Illness No History [...]
--- OUTSIDE RECORDS SUMMARY | 2022-10-28 18:00 | XMS_ITS | CCD ---
Author Name Татьяна Figueredo PA-C Address [address] [place] [address] Phone Organization [facility] Phone Care Team Providers Care Pulp House Supervisor Name Role Phone Beto Corie WHITE Primary Care Provider Jeannine vailable Unavailable Chronic Care Management Unavaila ble Summary Purpose DataExchange Insurance Providers Payer name Policy type / Coverage type Covered constitution party ID Effective Begin Date Effective End Date Ucare Commercial Insurance [id number] Unkn own Medicaid [place] Commercial Insurance [id number] Unk nown Family History Family History data not found Social History Social History Element Codes Description Effec tive Dates Tobacco history SNOMED CT: 79040321 Current ever y day smoker half pack- 1 pack/daily Started smoking at age 18 06/17/[address]: 736212828 No Alcohol Consumption Hx of consumption 06/17/2021 Allergies, Adverse Reactions, Alerts Substance Reaction Codes Entered Date Inactivated Date Status NO KNOWN ALLERGIES Unknown 04/25/2021 No Inactiv e Date Active * NO KNOWN FOOD ALLERGIES Unknown 06/12/2021 No Inactive Date Active * NO KNOWN ENVIRONMENTAL ALLERGIES Unknown 06/12/2021 No Inactive Date Active Past Medical History Illness Codes Condition Status Onset Date Resolved Date Hypertensive chronic kidney disease with stage 1 through stage 4 chronic kidney disease, or unspecified chronic kidney disease ICD-10: I12.9 ICD-9: 403.90 Active 10/28/2022 07/28/2023 Other chronic pain ICD-10: G89.29 Active 10/28/2022 Chronic tension-type headache, not intractable ICD-10: G44.229 ICD-9: 339.12 Active 08/26/2022 07/28/2023 Episode of recurrent major depressive disorder, unspecified depression episode severity ICD-10: F33.9 ICD-9: 296.30 Active 08/26/2022 07/28/2023 Hypercholesteremia ICD-10: E78.00 ICD-9: 272.0 Active 07/29/2022 [...] ICD-10: Z12.12 ICD-9: V76.41 Active 12/31/2021 07/28/2023 Senile purpura ICD-10: D69.2 ICD-9: 287.2 Active 12/31/2021 04/28/2023 Smokers' cough ICD-10: J41.0 ICD-9: 491.0 Active 12/31/2021 12/30/2022 Alcohol abuse, uncomplicated ICD-10: F10 .10 ICD-9: 305.00 Resolved 12/31/2021 Unknown Bifascicular block ICD-10: I45.2 ICD-9: 426.53 Active 06/12/2021 07/28/2023 PTSD (post-traumatic stress disorder) ICD-10: F43.10 ICD-9: 309.81 Active 06/12/2021 07/28/2023 Problems Condition Codes Effective Dates Condition St atus Hypertensive chronic kidney disease with stage 1 through stage 4 chronic kidney disease, or unspecified chronic kidney disease ICD-10: I12.9 ICD-9: 403.90 10/28/2022 Active Other chronic pain ICD-10: G89.29 10/28/2022 Active Chronic tension-type headach e, not intractable ICD-10: G44.229 ICD-9: 339.12 08/26/2022 Active Episode of recurrent major depressive disorder, unspecified depression episode severity ICD-10: F33.9 ICD-9: 296.30 08/26/2022 Active Hypercholesteremia ICD-10: E78.00 ICD-9: 272.0 [...] rectum ICD-10: Z12.12 ICD-9: V76.41 12/31/2021 Active Senile purpura ICD-10: D69.2 ICD-9: 287.2 12/31/2021 Active Smokers' cough ICD-10: J41.0 ICD-9: 491.0 12/31/2021 Active Alcohol abuse, uncomplicated ICD-10: F10 .10 ICD-9: 305.00 12/31/2021 Resolved Bifascicular block ICD-10: I45.2 ICD-9: 426.53 06/12/2021 Active PTSD (post-traumatic stress disorder) ICD-10: F43.10 ICD-9: 309.81 06/12/2021 Active Medications Medication Codes Instructions Start Date Stop Date Status Fill Instructions acetaminophen 500 mg tablet RxNorm: 681249 Take 1 Tablet(s) Oral QHS every night at bedtime 10/29/19 23 023 Inactive d/c ibuprofen atorvastatin 20 mg tablet RxNorm: 480640 Take 1 Tablet(s) Oral QD 10/15/19 23 024 Inactive 10/13/2022 PROACTIVE REFILL REQUEST FOR NEXT CYCLE PLEASE THANK YOU RX has/will before cycle date losartan 50 mg tablet RxNorm: 279836 Take 1 Tablet(s) Oral QD 10/15/19 23 023 Inactive 10/13/2022 PROACTIVE REFILL REQUEST FOR NEXT CYCLE PLEASE THANK YOU RX has/will before cycle date ibuprofen 400 mg tablet RxNorm: 876572 Take 1-1/2 Tablet(s) Oral QD as needed (at least 6 hours from scheduled dose) 10/01/19 23 024 Inactive Vitamin D2 1,250 mcg (50,000 unit) capsule RxNorm: 8794431 TAKE ONCE CAPSULE ONCE MONTHLY 07/30/19 23 025 Inactive d/c once weekly, start once monthly cholecalciferol (vitamin D3) 1,250 mcg (50,000 unit) capsule RxNorm: 597353 TAKE 1 CAPSULE BY MOUTH WEEKLY ON Wednesday07/23/19 23 023 Inactive Shingrix (PF) 50 mcg/0.5 mL intramuscular suspension, kit RxNorm: 9814540 ADMINISTER 2-DOSE SERIES PER CDC GUIDELINES Take UAD per CDC guidelines 06/26/19 23 023 Inactive diclofenac 1 % topical gel RxNorm: 897094 apply 0.5g topically to left shoulder nightly 01/01/20 22 022 Inactive diclofenac 1 % topical gel RxNorm: 136619 Apply 0.5 Gram(s) Topical QHS every night at bedtime apply 0.5g topically to left shoulder nightly 01/01/20 22 022 Inactive atorvastatin 20 mg tablet RxNorm: 942498 Take 1 Tablet(s) Oral QD 10/22/19 22 022 Inactive 2ND REQUEST FOR REFILLS 10/21/21 NEED TODAY PLEASE- THANK YOU losartan 50 mg tablet RxNorm: 396138 Take 1 Tablet(s) Oral QD 10/22/19 22 022 Inactive 2ND REQUEST FOR REFILLS 10/21/21 NEED TODAY PLEASE- THANK YOU Vitamin D2 1,250 mcg (50,000 unit) capsule RxNorm: 8875648 Take 1 Capsule(s) Oral QW once a week TAKE ONCE CAPSULE ONCE WEEKLY 07/31/19 22 023 Inactive or whatever % is covered by insurance loperamide 2 mg capsule RxNorm: 875029 Take 1 Capsule(s) Oral Q2H every 2 hours as needed for diarrhea Give 2 tabs after first loose stool and then 1 tab after each loose stool. Not to exceed 8 tabs in 24 hours 06/18/19 22 No Stop Date Active citalopram 20 mg tablet RxNorm: 965708 Take 1 Tablet(s) Oral QD every day 06/18/19 22 023 Inactive Calcium Antacid 200 mg calcium (500 mg) chewable tablet RxNorm: 462294 Chew 2-4 Tablet(s) Oral as needed Take 2-4 tabs by mouth as needed between meals and at bedtime as needed for heartburn or upset stomach 06/18/19 No Stop Date Active Robitussin Cough-Chest Congestion DM 5 mg-100 mg/5 mL oral liquid RxNorm: 6738435 Take 5-10 Milliliter(s) Oral Q4H every four hours QID - Four Times Daily as needed Take 5-10ml by mouth every 4 hours as needed for cough or congestion. Not to exceed 6 doses in 24 hours 06/18/19 No Stop Date Active Aspirin Low Dose 81 mg tablet,delayed release RxNorm: 998485 Take 1 Tablet(s) Oral QD QD - Daily with food 06/18/19 22 023 Inactive acetaminophen 325 mg capsule RxNorm: 538055 Take 1-2 Tablet(s) Oral Q4-6H every 4-6 hours as needed for pain and elevated temperature. Not to exceed 4000mg in 24 hours 06/18/19 22 No Stop Date Active aluminum-mag hydroxide-simethicone 200 mg-200 mg-20 mg/5 mL oral susp RxNorm: 888357 Take 5-10 Milliliter(s) Oral QD as needed for nausea one time daily between and at bedtime as needed for heartburn and/ or upset stomach 06/18/19 22 No Stop Date Active Milk of Magnesia 400 mg/5 mL oral suspension RxNorm: 527172 Take 15-30 Milliliter(s) Oral as needed Take 15-30ml by mouth daily (preferably at bedtime) as needed for constipation. Recommend 8 oz of water after each use. 06/18/19 No Stop Date Active losartan 50 mg tablet RxNorm: 018498 Give 1 Tablet(s) Oral QD 06/18/19 22 022 Inactive atorvastatin 20 mg tablet RxNorm: 851017 Take 1 Tablet(s) Oral QD 06/18/19 22 022 Inactive ibuprofen 600 mg tablet RxNorm: 261337 Take 1 Tablet(s) Oral QHS every night at bedtime 06/18/19 22 023 Inactive ibuprofen 600 mg tablet RxNorm: 205490 Take 1 and 1/2 Tablet(s) Oral QD as needed Take at least 6 hours from scheduled dose 06/18/19 Inactive hydrochlorothiazide 25 mg tablet RxNorm: 767919 Take 1 Tablet(s) Oral QD 06/18/19 022 [...] chronic kidney disease ICD-10: I12.9 ICD-9: 403.90 10/28/2022 No note found Other chronic pain ICD-10: G89.29 10/28/2022 No note found Reason For Visit No Reason For Visit data Review of Systems No Review of Systems data Physical Exam No Physical Exam data Procedures Procedure Codes Date SYS BP LESS 140 CPT-4: G8752 10/28/2022 REAL BP LESS 90 CPT-4: G8754 10/28/2022 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 CPT-4: G0436 2022 BEHAV CHNG SMOKING 3-[address]: 2 81707099 CPT-4: 27855 07/29/2022 BEHAV CHNG SMOKING 3-[address]: 2 68017788 CPT-4: 97363 01/28/2022 AAA Screening US CPT-4: 13304 01/06/2022 BEHAV CHNG SMOKING 3-[address]: 2 21089247 CPT-4: 79850 12/31/2021 BEHAV CHNG SMOKING > [address]: 2 51987588 CPT-4: 81830 12/31/2021 BEHAV CHNG SMOKING 3-[address]: 2 61502623 CPT-4: 78970 11/26/2021 BEHAV CHNG SMOKING 3-[address]: 2 88129455 CPT-4: 38204 11/05/2021 BEHAV CHNG SMOKING 3-[address]: 2 22112390 CPT-4: 19127 09/24/2021 BEHAV CHNG SMOKING 3-[address]: 2 56636323 CPT-4: 65439 08/27/2021 BEHAV CHNG SMOKING 3-[address]: 2 95644932 CPT-4: 28443 07/30/2021 BEHAV CHNG SMOKING 3-[address]: 2 72072113 CPT-4: 72507 06/12/2021 Vital Signs Date Vital 10/28/2022 Blood Pressure 1: 118/73 Code: 8480-6 BMI: 24.6 Code: 84326-1 Heart Rate 1: 73 bpm Code: 8867-4 Height: 5'10 Code: 8302-2 Weight: 171 lbs 3 oz Code: 3141-9 History of Present Illness No History of Present Illness data Advance Directives No Advance Directive data Encounters Encounter Performer Location Location Address Codes Date ([address]) Home or Residence Visit Est Pt - Moderate Level, 40 mins Diagnosis: Hypertensive chronic kidney disease with stage 1 through stage 4 chronic kidney disease, or unspecified chronic kidney disease[ICD10: I12.9] Diagnosis: Other chronic pain[ICD10: G89.29] Татьяна Figueredo [address] [address] CPT-4: 25382 10/28/2022 Plan of Care Planned Activity Notes Codes Status Date Patient Education: Patient Medication Summary Completed 10/28/2022 Patient Education: Influenza Vaccine Completed 10/28/2022 Patient Education: Smoking Cessation Completed 10/28/2022 Appointment: Figueredo Татьяна WPtel: [address] [place], [place] [id number] F/U 09/24/2021 Health Concerns Section Concern Status [...]
--- OUTSIDE RECORDS SUMMARY | 2022-11-25 18:00 | XMS_ITS | CCD ---
Author Organization Unknown Care Team Providers Care Product Development Technician Name Role Phone [facility]. Landrygrazyna CRUMPMarjorie Corie Primary Care Provider Jeannine vailable Unavailable Chronic Care Management Unavaila ble Summary Purpose DataExchange Insurance Providers Payer name Policy type / Coverage type Covered libertarian ID Effective Begin Date Effective End Date [employer] Commercial Insurance [id number] Unkn own Medicaid [place] Commercial Insurance [id number] Unk nown Family History Family History data not found Social History Social History Element Codes Description Effec tive Dates Tobacco history SNOMED CT: 69163028 Current ever y day smoker half pack- 1 pack/daily Started smoking at age 18 06/17/[address]: 981901622 No Alcohol Consumption Hx of consumption 06/17/2021 [...] Fill Instructions acetaminophen 500 mg tablet RxNorm: 730942 Take 1 Tablet(s) Oral QHS every night at bedtime 10/29/19 23 023 Inactive d/c ibuprofen atorvastatin 20 mg tablet RxNorm: 834636 Take 1 Tablet(s) Oral QD 10/15/19 23 024 Inactive 10/13/2022 PROACTIVE REFILL REQUEST FOR NEXT CYCLE PLEASE THANK YOU RX has/will before cycle date losartan 50 mg tablet RxNorm: 170053 Take 1 Tablet(s) Oral QD 10/15/19 23 023 Inactive 10/13/2022 PROACTIVE REFILL REQUEST FOR NEXT CYCLE PLEASE THANK YOU RX has/will before cycle date ibuprofen 400 mg tablet RxNorm: 361556 Take 1-1/2 Tablet(s) Oral QD as needed (at least 6 hours from scheduled dose) 10/01/19 23 024 Inactive Vitamin D2 1,250 mcg (50,000 unit) capsule RxNorm: 4414065 TAKE ONCE CAPSULE ONCE MONTHLY 07/30/19 23 025 Inactive d/c once weekly, start once monthly cholecalciferol (vitamin D3) 1,250 mcg (50,000 unit) capsule RxNorm: 319571 TAKE 1 CAPSULE BY MOUTH WEEKLY ON Wednesday07/23/19 23 023 Inactive Shingrix (PF) 50 mcg/0.5 mL intramuscular suspension, kit RxNorm: 8525679 ADMINISTER 2-DOSE SERIES PER CDC GUIDELINES Take UAD per CDC guidelines 06/26/19 23 023 Inactive diclofenac 1 % topical gel RxNorm: 176700 apply 0.5g topically to left shoulder nightly 01/01/20 22 022 Inactive diclofenac 1 % topical gel RxNorm: 355460 Apply 0.5 Gram(s) Topical QHS every night at bedtime apply 0.5g topically to left shoulder nightly 01/01/20 22 022 Inactive atorvastatin 20 mg tablet RxNorm: 837450 Take 1 Tablet(s) Oral QD 10/22/19 22 022 Inactive 2ND REQUEST FOR REFILLS 10/21/21 NEED TODAY PLEASE- THANK YOU losartan 50 mg tablet RxNorm: 984810 Take 1 Tablet(s) Oral QD 10/22/19 22 022 Inactive 2ND REQUEST FOR REFILLS 10/21/21 NEED TODAY PLEASE- THANK YOU Vitamin D2 1,250 mcg (50,000 unit) capsule RxNorm: 8420146 Take 1 Capsule(s) Oral QW once a week TAKE ONCE CAPSULE ONCE WEEKLY 07/31/19 22 023 Inactive or whatever % is covered by insurance loperamide 2 mg capsule RxNorm: 514801 Take 1 Capsule(s) Oral Q2H every 2 hours as needed for diarrhea Give 2 tabs after first loose stool and then 1 tab after each loose stool. Not to exceed 8 tabs in 24 hours 06/18/19 No Stop Date Active citalopram 20 mg tablet RxNorm: 299883 Take 1 Tablet(s) Oral QD every day 06/18/19 22 023 Inactive Calcium Antacid 200 mg calcium (500 mg) chewable tablet RxNorm: 414050 Chew 2-4 Tablet(s) Oral as needed Take 2-4 tabs by mouth as needed between meals and at bedtime as needed for heartburn or upset stomach 06/18/19 No Stop Date Active Robitussin Cough-Chest Congestion DM 5 mg-100 mg/5 mL oral liquid RxNorm: 7586272 Take 5-10 Milliliter(s) Oral Q4H every four hours QID - Four Times Daily as needed Take 5-10ml by mouth every 4 hours as needed for cough or congestion. Not to exceed 6 doses in 24 hours 06/18/19 No Stop Date Active Aspirin Low Dose 81 mg tablet,delayed release RxNorm: 350085 Take 1 Tablet(s) Oral QD QD - Daily with food 06/18/19 023 Inactive acetaminophen 325 mg capsule RxNorm: 663664 Take 1-2 Tablet(s) Oral Q4-6H every 4-6 hours as needed for pain and elevated temperature. Not to exceed 4000mg in 24 hours 06/18/19 No Stop Date Active aluminum-mag hydroxide-simethicone 200 mg-200 mg-20 mg/5 mL oral susp RxNorm: 571236 Take 5-10 Milliliter(s) Oral QD as needed for nausea one time daily between and at bedtime as needed for heartburn and/ or upset stomach 06/18/19 No Stop Date Active Milk of Magnesia 400 mg/5 mL oral suspension RxNorm: 737369 Take 15-30 Milliliter(s) Oral as needed Take 15-30ml by mouth daily (preferably at bedtime) as needed for constipation. Recommend 8 oz of water after each use. 06/18/19 22 No Stop Date Active losartan 50 mg tablet RxNorm: 475354 Give 1 Tablet(s) Oral QD 06/18/19 22 022 Inactive atorvastatin 20 mg tablet RxNorm: 554466 Take 1 Tablet(s) Oral QD 06/18/19 22 022 Inactive ibuprofen 600 mg tablet RxNorm: 575063 Take 1 Tablet(s) Oral QHS every night at bedtime 06/18/19 22 023 Inactive ibuprofen 600 mg tablet RxNorm: 825370 Take 1 and 1/2 Tablet(s) Oral QD as needed Take at least 6 hours from scheduled dose 06/18/19 22 023 Inactive hydrochlorothiazide 25 mg tablet RxNorm: 745986 Take 1 Tablet(s) Oral QD 06/18/19 22 [...] CHNG SMOKING 3-[address]: 2 19875789 CPT-4: 73870 07/29/2022 BEHAV CHNG SMOKING 3-[address]: 2 75370145 CPT-4: 75774 01/28/2022 AAA Screening US CPT-4: 16660 01/06/2022 BEHAV CHNG SMOKING 3-[address]: 2 05041333 CPT-4: 84844 12/31/2021 BEHAV CHNG SMOKING > [address]: 2 06561591 CPT-4: 63994 12/31/2021 BEHAV CHNG SMOKING 3-[address]: 2 71463859 CPT-4: 06172 11/26/2021 BEHAV CHNG SMOKING 3-[address]: 2 99763984 CPT-4: 13993 11/05/2021 BEHAV CHNG SMOKING 3-[address]: 2 24351350 CPT-4: 04075 09/24/2021 BEHAV CHNG SMOKING 3-[address]: 2 34148258 CPT-4: 06293 08/27/2021 BEHAV CHNG SMOKING 3-[address]: 2 91577035 CPT-4: 51577 07/30/2021 BEHAV CHNG SMOKING 3-[address]: 2 40525491 CPT-4: 14603 06/12/2021 History of Present Illness No History [...]
--- OUTSIDE RECORDS SUMMARY | 2022-12-31 18:00 | XMS_ITS | CCD ---
Author Organization Unknown Care Team Providers Care Hobber Name Role Phone Adairgrazyna CRUMPMarjorieCamdenCorie Primary Care Provider Jeannine vailable Unavailable Chronic Care Management Unavaila ble Summary Purpose DataExchange Insurance Providers Payer name Policy type / Coverage type Covered democrat ID Effective Begin Date Effective End Date [employer] Commercial Insurance [id number] Unkn own [place] Commercial Insurance [id number] Unk nown Family History Family History data not found Social History Social History Element Codes Description Effec tive Dates Tobacco history SNOMED CT: 83193477 Current ever y day smoker half pack- 1 pack/daily Started smoking at age 18 06/17/[address]: 504636234 No Alcohol Consumption Hx of consumption 06/17/2021 [...] pulmonary disease) ICD-10: J44.9 ICD-9: 496 Active 12/30/2022 04/28/2023 Smokers' cough ICD-10: J41.0 ICD-9: 491.0 Active 12/30/2022 07/28/2023 Hypertensive chronic kidney disease with stage [...] ICD-10: E55.9 ICD-9: 268.9 Active 07/29/2022 07/28/2023 Preventative health care ICD-10: Z00.00 ICD-9: [...] ICD-10: D69.2 ICD-9: 287.2 Active 12/31/2021 04/28/2023 Alcohol abuse, uncomplicated ICD-10: F10 .10 ICD-9: 305.00 Resolved 12/31/2021 Unknown Bifascicular block ICD-10: I45.2 ICD-9: 426.53 Active 06/12/2021 07/28/2023 PTSD (post-traumatic stress disorder) ICD-10: F43.10 ICD-9: 309.81 Active 06/12/2021 07/28/2023 Problems Condition Codes Effective Dates Condition St atus COPD (chronic obstructive pu lmonary disease) ICD-10: J44.9 ICD-9: 496 12/30/2022 Active Smokers' cough ICD-10: J41.0 ICD-9: 491.0 12/30/2022 Active Hypertensive chronic kidney disease with stage [...] deficiency ICD-10: E55.9 ICD-9: 268.9 07/29/2022 Active Preventative health care ICD-10: Z00.00 ICD-9: [...] purpura ICD-10: D69.2 ICD-9: 287.2 12/31/2021 Active Alcohol abuse, uncomplicated ICD-10: F10 .10 ICD-9: 305.00 12/31/2021 Resolved Bifascicular block ICD-10: I45.2 ICD-9: 426.53 06/12/2021 Active PTSD (post-traumatic stress disorder) ICD-10: F43.10 ICD-9: 309.81 06/12/2021 Active Medications Medication Codes Instructions Start Date Stop Date Status Fill Instructions citalopram 20 mg tablet RxNorm: 030691 Take 1 Tablet(s) Oral QD 01/02/20 23 024 Inactive 01/01/2023 PROACTIVE REFILL REQUEST FOR NEXT CYCLE PLEASE THANK YOU RX has/will before cycle date aspirin 81 mg tablet,delayed release RxNorm: 083417 TAKE 1 TABLET BY MOUTH DAILY WITH FOOD 01/02/20 023 Inactive 01/01/2023 PROACTIVE REFILL REQUEST FOR NEXT CYCLE PLEASE THANK YOU RX has/will before cycle date acetaminophen 500 mg tablet RxNorm: 821844 Take 1 Tablet(s) Oral QHS every night at bedtime 10/29/19 23 023 Inactive d/c ibuprofen atorvastatin 20 mg tablet RxNorm: 111830 Take 1 Tablet(s) Oral QD 10/15/19 23 024 Inactive 10/13/2022 PROACTIVE REFILL REQUEST FOR NEXT CYCLE PLEASE THANK YOU RX has/will before cycle date losartan 50 mg tablet RxNorm: 429839 Take 1 Tablet(s) Oral QD 10/15/19 23 023 Inactive 10/13/2022 PROACTIVE REFILL REQUEST FOR NEXT CYCLE PLEASE THANK YOU RX has/will before cycle date ibuprofen 400 mg tablet RxNorm: 982373 Take 1-1/2 Tablet(s) Oral QD as needed (at least 6 hours from scheduled dose) 10/01/19 23 024 Inactive Vitamin D2 1,250 mcg (50,000 unit) capsule RxNorm: 6555958 TAKE ONCE CAPSULE ONCE MONTHLY 07/30/19 23 025 Inactive d/c once weekly, start once monthly cholecalciferol (vitamin D3) 1,250 mcg (50,000 unit) capsule RxNorm: 121617 TAKE 1 CAPSULE BY MOUTH WEEKLY ON Wednesday07/23/19 23 023 Inactive Shingrix (PF) 50 mcg/0.5 mL intramuscular suspension, kit RxNorm: 7809701 ADMINISTER 2-DOSE SERIES PER CDC GUIDELINES Take UAD per CDC guidelines 06/26/19 23 023 Inactive diclofenac 1 % topical gel RxNorm: 724281 apply 0.5g topically to left shoulder nightly 01/01/20 22 022 Inactive diclofenac 1 % topical gel RxNorm: 241787 Apply 0.5 Gram(s) Topical QHS every night at bedtime apply 0.5g topically to left shoulder nightly 01/01/20 22 022 Inactive atorvastatin 20 mg tablet RxNorm: 005070 Take 1 Tablet(s) Oral QD 10/22/19 22 022 Inactive 2ND REQUEST FOR REFILLS 10/21/21 NEED TODAY PLEASE- THANK YOU losartan 50 mg tablet RxNorm: 200645 Take 1 Tablet(s) Oral QD 10/22/19 022 Inactive 2ND REQUEST FOR REFILLS 10/21/21 NEED TODAY PLEASE- THANK YOU Vitamin D2 1,250 mcg (50,000 unit) capsule RxNorm: 5693715 Take 1 Capsule(s) Oral QW once a week TAKE ONCE CAPSULE ONCE WEEKLY 07/31/19 22 023 Inactive or whatever % is covered by insurance loperamide 2 mg capsule RxNorm: 964764 Take 1 Capsule(s) Oral Q2H every 2 hours as needed for diarrhea Give 2 tabs after first loose stool and then 1 tab after each loose stool. Not to exceed 8 tabs in 24 hours 06/18/19 No Stop Date Active citalopram 20 mg tablet RxNorm: 457974 Take 1 Tablet(s) Oral QD every day 06/18/19 22 023 Inactive Calcium Antacid 200 mg calcium (500 mg) chewable tablet RxNorm: 042375 Chew 2-4 Tablet(s) Oral as needed Take 2-4 tabs by mouth as needed between meals and at bedtime as needed for heartburn or upset stomach 06/18/19 No Stop Date Active Robitussin Cough-Chest Congestion DM 5 mg-100 mg/5 mL oral liquid RxNorm: 1268197 Take 5-10 Milliliter(s) Oral Q4H every four hours QID - Four Times Daily as needed Take 5-10ml by mouth every 4 hours as needed for cough or congestion. Not to exceed 6 doses in 24 hours 06/18/19 No Stop Date Active Aspirin Low Dose 81 mg tablet,delayed release RxNorm: 933021 Take 1 Tablet(s) Oral QD QD - Daily with food 06/18/19 023 Inactive acetaminophen 325 mg capsule RxNorm: 604484 Take 1-2 Tablet(s) Oral Q4-6H every 4-6 hours as needed for pain and elevated temperature. Not to exceed 4000mg in 24 hours 06/18/19 22 No Stop Date Active aluminum-mag hydroxide-simethicone 200 mg-200 mg-20 mg/5 mL oral susp RxNorm: 557829 Take 5-10 Milliliter(s) Oral QD as needed for nausea one time daily between and at bedtime as needed for heartburn and/ or upset stomach 06/18/19 No Stop Date Active Milk of Magnesia 400 mg/5 mL oral suspension RxNorm: 956644 Take 15-30 Milliliter(s) Oral as needed Take 15-30ml by mouth daily (preferably at bedtime) as needed for constipation. Recommend 8 oz of water after each use. 06/18/19 No Stop Date Active losartan 50 mg tablet RxNorm: 647181 Give 1 Tablet(s) Oral QD 06/18/19 22 022 Inactive atorvastatin 20 mg tablet RxNorm: 747935 Take 1 Tablet(s) Oral QD 06/18/19 22 022 Inactive ibuprofen 600 mg tablet RxNorm: 748299 Take 1 Tablet(s) Oral QHS every night at bedtime 06/18/19 22 023 Inactive ibuprofen 600 mg tablet RxNorm: 991776 Take 1 and 1/2 Tablet(s) Oral QD as needed Take at least 6 hours from scheduled dose 06/18/19 22 023 Inactive hydrochlorothiazide 25 mg tablet RxNorm: 830960 Take 1 Tablet(s) Oral QD 06/18/19 22 [...] CHNG SMOKING 3-[address]: 2 20006578 CPT-4: 79405 07/29/2022 BEHAV CHNG SMOKING 3-[address]: 2 81375733 CPT-4: 00144 01/28/2022 AAA Screening CPT-4: 80520 01/06/2022 BEHAV CHNG SMOKING 3-[address]: 2 48003159 CPT-4: 41302 12/31/2021 BEHAV CHNG SMOKING > [address]: 2 33520535 CPT-4: 01542 12/31/2021 BEHAV CHNG SMOKING 3-[address]: 2 54578825 CPT-4: 89002 11/26/2021 BEHAV CHNG SMOKING 3-[address]: 2 32495171 CPT-4: 98320 11/05/2021 BEHAV CHNG SMOKING 3-[address]: 2 10468448 CPT-4: 99892 09/24/2021 BEHAV CHNG SMOKING 3-[address]: 2 68665893 CPT-4: 85008 08/27/2021 BEHAV CHNG SMOKING 3-[address]: 2 52905478 CPT-4: 88108 07/30/2021 BEHAV CHNG SMOKING 3-[address]: 2 96318395 CPT-4: 96157 06/12/2021 History of Present Illness No History [...]
--- OUTSIDE RECORDS SUMMARY | 2023-01-03 18:00 | XMS_ITS | CCD ---
Author Name Madi LEWIS Loco Address [address] [place] [address] Phone Organization [facility] Phone Care Team Providers Care Metal Neutralizer Name Role Phone Betograzyna LOMELINito Corie Primary Care Provider Jeannine vailable Unavailable Chronic Care Management Unavaila ble Summary Purpose DataExchange Insurance Providers Payer name Policy type / Coverage type Covered republican ID Effective Begin Date Effective End Date [employer] Commercial Insurance [id number] Unkn own Medicaid [place] Commercial Insurance [id number] Unk nown Family History Family History data not found Social History Social History Element Codes Description Effec tive Dates Tobacco history SNOMED CT: 04934903 Current ever y day smoker half pack- 1 pack/daily Started smoking at age 18 06/17/[address]: 810958524 No Alcohol Consumption Hx of consumption 06/17/2021 [...] Fill Instructions acetaminophen 500 mg tablet RxNorm: 139497 Take 1 Tablet(s) Oral QHS every night at bedtime 10/29/19 23 023 Inactive d/c ibuprofen atorvastatin 20 mg tablet RxNorm: 661489 Take 1 Tablet(s) Oral QD 10/15/19 23 024 Inactive 10/13/2022 PROACTIVE REFILL REQUEST FOR NEXT CYCLE PLEASE THANK YOU RX has/will before cycle date losartan 50 mg tablet RxNorm: 111719 Take 1 Tablet(s) Oral QD 10/15/19 23 023 Inactive 10/13/2022 PROACTIVE REFILL REQUEST FOR NEXT CYCLE PLEASE THANK YOU RX has/will before cycle date ibuprofen 400 mg tablet RxNorm: 195358 Take 1-1/2 Tablet(s) Oral QD as needed (at least 6 hours from scheduled dose) 10/01/19 23 024 Inactive Vitamin D2 1,250 mcg (50,000 unit) capsule RxNorm: 2797706 TAKE ONCE CAPSULE ONCE MONTHLY 07/30/19 23 025 Inactive d/c once weekly, start once monthly cholecalciferol (vitamin D3) 1,250 mcg (50,000 unit) capsule RxNorm: 710553 TAKE 1 CAPSULE BY MOUTH WEEKLY ON Wednesday07/23/19 23 023 Inactive Shingrix (PF) 50 mcg/0.5 mL intramuscular suspension, kit RxNorm: 2446319 ADMINISTER 2-DOSE SERIES PER CDC GUIDELINES Take UAD per CDC guidelines 06/26/19 23 023 Inactive diclofenac 1 % topical gel RxNorm: 662383 apply 0.5g topically to left shoulder nightly 01/01/20 22 022 Inactive diclofenac 1 % topical gel RxNorm: 010024 Apply 0.5 Gram(s) Topical QHS every night at bedtime apply 0.5g topically to left shoulder nightly 01/01/20 22 022 Inactive atorvastatin 20 mg tablet RxNorm: 537516 Take 1 Tablet(s) Oral QD 10/22/19 22 022 Inactive 2ND REQUEST FOR REFILLS 10/21/21 NEED TODAY PLEASE- THANK YOU losartan 50 mg tablet RxNorm: 342046 Take 1 Tablet(s) Oral QD 10/22/19 22 022 Inactive 2ND REQUEST FOR REFILLS 10/21/21 NEED TODAY PLEASE- THANK YOU Vitamin D2 1,250 mcg (50,000 unit) capsule RxNorm: 5490821 Take 1 Capsule(s) Oral QW once a week TAKE ONCE CAPSULE ONCE WEEKLY 07/31/19 22 023 Inactive or whatever % is covered by insurance loperamide 2 mg capsule RxNorm: 317446 Take 1 Capsule(s) Oral Q2H every 2 hours as needed for diarrhea Give 2 tabs after first loose stool and then 1 tab after each loose stool. Not to exceed 8 tabs in 24 hours 06/18/19 No Stop Date Active citalopram 20 mg tablet RxNorm: 505115 Take 1 Tablet(s) Oral QD every day 06/18/19 22 023 Inactive Calcium Antacid 200 mg calcium (500 mg) chewable tablet RxNorm: 776678 Chew 2-4 Tablet(s) Oral as needed Take 2-4 tabs by mouth as needed between meals and at bedtime as needed for heartburn or upset stomach 06/18/19 No Stop Date Active Robitussin Cough-Chest Congestion DM 5 mg-100 mg/5 mL oral liquid RxNorm: 3738699 Take 5-10 Milliliter(s) Oral Q4H every four hours QID - Four Times Daily as needed Take 5-10ml by mouth every 4 hours as needed for cough or congestion. Not to exceed 6 doses in 24 hours 06/18/19 No Stop Date Active Aspirin Low Dose 81 mg tablet,delayed release RxNorm: 684399 Take 1 Tablet(s) Oral QD QD - Daily with food 06/18/19 22 023 Inactive acetaminophen 325 mg capsule RxNorm: 598387 Take 1-2 Tablet(s) Oral Q4-6H every 4-6 hours as needed for pain and elevated temperature. Not to exceed 4000mg in 24 hours 06/18/19 No Stop Date Active aluminum-mag hydroxide-simethicone 200 mg-200 mg-20 mg/5 mL oral susp RxNorm: 836542 Take 5-10 Milliliter(s) Oral QD as needed for nausea one time daily between and at bedtime as needed for heartburn and/ or upset stomach 06/18/19 No Stop Date Active Milk of Magnesia 400 mg/5 mL oral suspension RxNorm: 162184 Take 15-30 Milliliter(s) Oral as needed Take 15-30ml by mouth daily (preferably at bedtime) as needed for constipation. Recommend 8 oz of water after each use. 06/18/19 No Stop Date Active losartan 50 mg tablet RxNorm: 257886 Give 1 Tablet(s) Oral QD 06/18/19 22 022 Inactive atorvastatin 20 mg tablet RxNorm: 521577 Take 1 Tablet(s) Oral QD 06/18/19 22 022 Inactive ibuprofen 600 mg tablet RxNorm: 228112 Take 1 Tablet(s) Oral QHS every night at bedtime 06/18/19 22 023 Inactive ibuprofen 600 mg tablet RxNorm: 473896 Take 1 and 1/2 Tablet(s) Oral QD as needed Take at least 6 hours from scheduled dose 06/18/19 023 Inactive hydrochlorothiazide 25 mg tablet RxNorm: 179646 Take 1 Tablet(s) Oral QD 06/18/19 22 [...] lmonary disease) ICD-10: J44.9 ICD-9: 496 12/30/2022 No note found Smokers' cough ICD-10: J41.0 ICD-9: 491.0 12/30/2022 No note found Reason For Visit No Reason For Visit data Review of Systems No Review of Systems data Physical Exam No Physical Exam data Procedures Procedure Codes Date SYST BP LT 130 MM HG CPT-4: 3074F 12/30/2022 DIAST BP <80 MM HG CPT-4: 3078F 12/30/2022 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 CPT-4: G0436 2022 BEHAV CHNG SMOKING 3-[address]: 2 89895759 CPT-4: 14343 07/29/2022 BEHAV CHNG SMOKING 3-[address]: 2 44441258 CPT-4: 88494 01/28/2022 AAA Screening US CPT-4: 61418 01/06/2022 BEHAV CHNG SMOKING 3-[address]: 2 86749376 CPT-4: 67938 12/31/2021 BEHAV CHNG SMOKING > [address]: 2 24678896 CPT-4: 66650 12/31/2021 BEHAV CHNG SMOKING 3-[address]: 2 71905575 CPT-4: 30198 11/26/2021 BEHAV CHNG SMOKING 3-[address]: 2 74901019 CPT-4: 23323 11/05/2021 BEHAV CHNG SMOKING 3-[address]: 2 54894781 CPT-4: 73171 09/24/2021 BEHAV CHNG SMOKING 3-[address]: 2 60099353 CPT-4: 93909 08/27/2021 BEHAV CHNG SMOKING 3-[address]: 2 99720772 CPT-4: 36429 07/30/2021 BEHAV CHNG SMOKING 3-[address]: 2 66302019 CPT-4: 47108 06/12/2021 Vital Signs Date Vital 12/30/2022 Blood Pressure 1: 110/71 Code: 8480-6 Heart Rate 1: 90 bpm Code: 8867-4 Height: 5'10 Code: 8302-2 Respiratory Rate: 14 bpm History of Present Illness No History of Present Illness data Advance Directives No Advance Directive data Encounters Encounter Performer Location Location Address Codes Date ([id number]) Home or Residence Visit Est Pt - Moderate Level, 40 mins Diagnosis: COPD (chronic obstructive pulmonary disease)[ICD10: J44.9] Diagnosis: Smokers' cough[ICD10: J41.0] Loco Barraza [address] [address] CPT-4: 86928 12/30/2022 Plan of Care Planned Activity Notes Codes Status Date Patient Education: Patient Medication Summary Completed 12/30/2022 Patient Education: Influenza Vaccine Completed 12/30/2022 Patient Education: Smoking Cessation Completed 12/30/2022 Appointment: Татьяна Figueredo WPtel: [address] [place], [place] [phone] F/U 09/24/2021 Health Concerns Section Concern Status [...]
--- OUTSIDE RECORDS SUMMARY | 2023-02-28 18:00 | XMS_ITS | CCD ---
Author Name Madi LEWISLoco Address [address] [place] [address] Phone Organization [facility] Phone Care Team Providers Care Predator Control Trapper Name Role Phone Beto CINDY Corie Primary Care Provider Jeannine vailable Unavailable Chronic Care Management Unavaila ble Summary Purpose DataExchange Insurance Providers Payer name Policy type / Coverage type Covered democrat ID Effective Begin Date Effective End Date U[employer] Commercial Insurance [id number] Unkn own [place] Commercial Insurance [id number] Unk nown Family History Family History data not found Social History Social History Element Codes Description Effec tive Dates Tobacco history SNOMED CT: 29967985 Current ever y day smoker half pack- 1 pack/daily Started smoking at age 18 06/17/[address]: 404771192 No Alcohol Consumption Hx of consumption 06/17/2021 [...] in remission ICD-10: F10.21 ICD-9: 303.93 Active 02/24/2023 07/28/2023 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 ICD-10: G81.94 ICD-9: 342.92 Active 02/24/2023 07/28/2023 COPD (chronic obstructive pulmonary disease) ICD-10: [...] ICD-10: I47.2 ICD-9: 427.1 Resolved 04/23/2022 Unknown Primary osteoarthritis of both knees ICD-10: M17.0 ICD-9: 715.16 Active 02/25/2022 07/28/2023 Chronic left shoulder pain ICD-10: M25.5 12 ICD-9: 719.41 Active 01/28/2022 07/28/2023 Onychogryposis ICD-10: L60.2 ICD-9: 703.8 Active 01/28/2022 07/28/2023 Essential hypertension ICD-10: I10 ICD-9: 401.9 Resolved 01/28/2022 Unknown Encounter for screening for malignant neoplasm of [...] dependence in remission ICD-10: F10.21 ICD-9: 303.93 02/24/2023 Active Hemiparesis of left nondomin ant side due to non-cerebrovascular etiology ICD-10: G81.94 ICD-9: 342.92 02/24/2023 Active COPD (chronic obstructive pu lmonary disease) [...] tachycardia ICD-10: I47.2 ICD-9: 427.1 04/23/2022 Resolved Primary osteoarthritis of both knees ICD -10: M17.0 ICD-9: 715.16 02/25/2022 Active Chronic left shoulder pain ICD-10: M25.5 12 ICD-9: 719.41 01/28/2022 Active Onychogryposis ICD-10: L60.2 ICD-9: 703.8 01/28/2022 Active Essential hypertension ICD-10: I10 ICD-9: 401.9 01/28/2022 Resolved Encounter for screening for malignant neoplasm of [...] Fill Instructions citalopram 20 mg tablet RxNorm: 945768 Take 1 Tablet(s) Oral QD 01/02/20 23 024 Inactive 01/01/2023 PROACTIVE REFILL REQUEST FOR NEXT CYCLE PLEASE THANK YOU RX has/will before cycle date aspirin 81 mg tablet,delayed release RxNorm: 051268 TAKE 1 TABLET BY MOUTH DAILY WITH FOOD 01/02/20 23 023 Inactive 01/01/2023 PROACTIVE REFILL REQUEST FOR NEXT CYCLE PLEASE THANK YOU RX has/will before cycle date acetaminophen 500 mg tablet RxNorm: 286638 Take 1 Tablet(s) Oral QHS every night at bedtime 10/29/19 23 023 Inactive d/c ibuprofen atorvastatin 20 mg tablet RxNorm: 797017 Take 1 Tablet(s) Oral QD 10/15/19 23 024 Inactive 10/13/2022 PROACTIVE REFILL REQUEST FOR NEXT CYCLE PLEASE THANK YOU RX has/will before cycle date losartan 50 mg tablet RxNorm: 239396 Take 1 Tablet(s) Oral QD 10/15/19 23 023 Inactive 10/13/2022 PROACTIVE REFILL REQUEST FOR NEXT CYCLE PLEASE THANK YOU RX has/will before cycle date ibuprofen 400 mg tablet RxNorm: 580529 Take 1-1/2 Tablet(s) Oral QD as needed (at least 6 hours from scheduled dose) 10/01/19 23 024 Inactive Vitamin D2 1,250 mcg (50,000 unit) capsule RxNorm: 6761313 TAKE ONCE CAPSULE ONCE MONTHLY 07/30/19 23 025 Inactive d/c once weekly, start once monthly cholecalciferol (vitamin D3) 1,250 mcg (50,000 unit) capsule RxNorm: 800823 TAKE 1 CAPSULE BY MOUTH WEEKLY ON Wednesday07/23/19 23 023 Inactive Shingrix (PF) 50 mcg/0.5 mL intramuscular suspension, kit RxNorm: 1492106 ADMINISTER 2-DOSE SERIES PER CDC GUIDELINES Take UAD per CDC guidelines 06/26/19 23 023 Inactive diclofenac 1 % topical gel RxNorm: 187812 apply 0.5g topically to left shoulder nightly 01/01/20 22 022 Inactive diclofenac 1 % topical gel RxNorm: 317869 Apply 0.5 Gram(s) Topical QHS every night at bedtime apply 0.5g topically to left shoulder nightly 01/01/20 22 022 Inactive atorvastatin 20 mg tablet RxNorm: 178698 Take 1 Tablet(s) Oral QD 10/22/19 22 022 Inactive 2ND REQUEST FOR REFILLS 10/21/21 NEED TODAY PLEASE- THANK YOU losartan 50 mg tablet RxNorm: 010722 Take 1 Tablet(s) Oral QD 10/22/19 22 022 Inactive 2ND REQUEST FOR REFILLS 10/21/21 NEED TODAY PLEASE- THANK YOU Vitamin D2 1,250 mcg (50,000 unit) capsule RxNorm: 6342112 Take 1 Capsule(s) Oral QW once a week TAKE ONCE CAPSULE ONCE WEEKLY 07/31/19 22 023 Inactive or whatever % is covered by insurance loperamide 2 mg capsule RxNorm: 777230 Take 1 Capsule(s) Oral Q2H every 2 hours as needed for diarrhea Give 2 tabs after first loose stool and then 1 tab after each loose stool. Not to exceed 8 tabs in 24 hours 06/18/19 22 No Stop Date Active Calcium Antacid 200 mg calcium (500 mg) chewable tablet RxNorm: 099097 Chew 2-4 Tablet(s) Oral as needed Take 2-4 tabs by mouth as needed between meals and at bedtime as needed for heartburn or upset stomach 06/18/19 22 No Stop Date Active Robitussin Cough-Chest Congestion DM 5 mg-100 mg/5 mL oral liquid RxNorm: 0051004 Take 5-10 Milliliter(s) Oral Q4H every four hours QID - Four Times Daily as needed Take 5-10ml by mouth every 4 hours as needed for cough or congestion. Not to exceed 6 doses in 24 hours 06/18/19 22 No Stop Date Active acetaminophen 325 mg capsule RxNorm: 672149 Take 1-2 Tablet(s) Oral Q4-6H every 4-6 hours as needed for pain and elevated temperature. Not to exceed 4000mg in 24 hours 06/18/19 22 No Stop Date Active aluminum-mag hydroxide-simethicone 200 mg-200 mg-20 mg/5 mL oral susp RxNorm: 010414 Take 5-10 Milliliter(s) Oral QD as needed for nausea one time daily between and at bedtime as needed for heartburn and/ or upset stomach 06/18/19 22 No Stop Date Active Milk of Magnesia 400 mg/5 mL oral suspension RxNorm: 380633 Take 15-30 Milliliter(s) Oral as needed Take 15-30ml by mouth daily (preferably at bedtime) as needed for constipation. Recommend 8 oz of water after each use. 06/18/19 No Stop Date Active citalopram 20 mg tablet RxNorm: 460905 Take 1 Tablet(s) Oral QD every day 06/18/19 22 023 Inactive losartan 50 mg tablet RxNorm: 127512 Give 1 Tablet(s) Oral QD 06/18/19 22 022 Inactive atorvastatin 20 mg tablet RxNorm: 262239 Take 1 Tablet(s) Oral QD 06/18/19 22 022 Inactive ibuprofen 600 mg tablet RxNorm: 556112 Take 1 Tablet(s) Oral QHS every night at bedtime 06/18/19 22 023 Inactive Aspirin Low Dose 81 mg tablet,delayed release RxNorm: 449623 Take 1 Tablet(s) Oral QD QD - Daily with food 06/18/19 22 023 Inactive ibuprofen 600 mg tablet RxNorm: 307689 Take 1 and 1/2 Tablet(s) Oral QD as needed Take at least 6 hours from scheduled dose 06/18/19 22 023 Inactive hydrochlorothiazide 25 mg tablet RxNorm: 252063 Take 1 Tablet(s) Oral QD 06/18/19 22 022 Inactive Medication Administered No Medication Administered data Immunizations Vaccine Codes Dose Date Status Covid-19 (Adult) Unknown 02/01/2023 Covid-19 (Adult) Unknown 01/27/2022 Covid-19 (Adult) Unknown 09/25/2021 Covid-19 (Adult) CVX: 207 02/24/2021 Influenza Unknown 02/24/2021 Covid-19 (Adult) CVX: 207 05/30/2020 Covid-19 (Adult) CVX: 207 05/02/2020 Pneumococcal CVX: 33 04/04/2019 Influenza Unknown 02/01/2019 Pneumococcal CVX: 133 03/30/2018 Medical Equipment No Medical Equipment data Assessments Condition Codes Effective Dates Notes 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 ICD-9: 303.93 02/24/2023 No note found Hemiparesis of left nondomin ant side due to non-cerebrovascular etiology ICD-10: G81.94 ICD-9: 342.92 02/24/2023 No note found Reason For Visit No Reason For Visit data Review of Systems No Review of Systems data Physical Exam No Physical Exam data Procedures Procedure Codes Date SYST BP LT 130 MM HG CPT-4: 3074F 02/24/2023 DIAST BP <80 MM HG CPT-4: 3078F 02/24/2023 BEHAV CHNG SMOKING 3-[address]: 2 19553660 CPT-4: 29717 07/29/2022 BEHAV CHNG SMOKING 3-[address]: 2 72916098 CPT-4: 31706 01/28/2022 AAA Screening US CPT-4: 35919 01/06/2022 BEHAV CHNG SMOKING 3-[address]: 2 81949799 CPT-4: 37069 12/31/2021 BEHAV CHNG SMOKING > [address]: 2 09073669 CPT-4: 55373 12/31/2021 BEHAV CHNG SMOKING 3-[address]: 2 83733327 CPT-4: 97600 11/26/2021 BEHAV CHNG SMOKING 3-[address]: 2 59779051 CPT-4: 34399 11/05/2021 BEHAV CHNG SMOKING 3-[address]: 2 91383641 CPT-4: 84986 09/24/2021 BEHAV CHNG SMOKING 3-[address]: 2 83800746 CPT-4: 07523 08/27/2021 BEHAV CHNG SMOKING 3-[address]: 2 83587204 CPT-4: 07171 07/30/2021 BEHAV CHNG SMOKING 3-[address]: 2 86318444 CPT-4: 06775 06/12/2021 Vital Signs Date Vital 02/24/2023 Blood Pressure 1: 121/73 Code: 8480-6 BMI: 23.6 Code: 24250-2 Heart Rate 1: 84 bpm Code: 8867-4 Height: 5'10 Code: 8302-2 Respiratory Rate: 18 bpm SpO2: 92% Temperature: 36.3 (C) / 97.3 (F) Weight: 164 lbs 6 oz Code: 3141-9 History of Present Illness No History of Present Illness data Advance Directives No Advance Directive data Encounters Encounter Performer Location Location Address Codes Date ([id number]) Home or Residence Visit Est Pt - Low Level, 30 mins Diagnosis: Alcohol dependence in remission[ICD10: F10.21] Diagnosis: Hemiparesis of left nondominant side due to non-cerebrovascula r etiology[ICD10: G81.94] Loco Barraza [facility] [address] [place] [phone] CPT-4: 37341 02/24/2023 Plan of Care Planned Activity Notes Codes Status Date Patient Education: Patient Medication Summary Completed 02/24/2023 Patient Education: Influenza Complet ed 02/24/2023 Patient Education: Smoking Cessation Completed 02/24/2023 Appointment: Татьяна Figueredo WPtel: [address] [place], [place] [phone] F/U 09/24/2021 Health Concerns Section Concern Status [...] decisions to be made with Kike and yoegsh [place]. Unknown 07/28/2023 - Minimal depressive symptoms [...]
--- OUTSIDE RECORDS SUMMARY | 2023-05-02 18:00 | XMS_ITS | CCD ---
Author Name Madi LEWISLoco Address [address] [place] [address] Phone Organization [facility] Phone Care Team Providers Care Quality Internship Name Role Phone Beto CINDY Corie Primary Care Provider Jeannine vailable Unavailable Chronic Care Management Unavaila ble Summary Purpose DataExchange Insurance Providers Payer name Policy type / Coverage type Covered constitution party ID Effective Begin Date Effective End Date U[employer] Commercial Insurance [id number] Unkn own Medicaid [place] Commercial Insurance [id number] Unk nown Family History Family History data not found Social History Social History Element Codes Description Effec tive Dates Tobacco history SNOMED CT: 16921789 Current ever y day smoker half pack- 1 pack/daily Started smoking at age 18 06/17/[address]: 625774704 No Alcohol Consumption Hx of consumption 06/17/2021 [...] pulmonary disease) ICD-10: J44.9 ICD-9: 496 Active 04/28/2023 07/28/2023 Senile purpura ICD-10: D69.2 ICD-9: 287.2 Active 04/28/2023 07/28/2023 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 ICD-9: 303.93 Active 02/24/2023 07/28/2023 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 ICD-10: G81.94 ICD-9: 342.92 Active 02/24/2023 07/28/2023 Smokers' cough ICD-10: J41.0 ICD-9: 491.0 Active [...] ICD-10: Z12.12 ICD-9: V76.41 Active 12/31/2021 07/28/2023 Alcohol abuse, uncomplicated ICD-10: F10 .10 ICD-9: 305.00 Resolved 12/31/2021 Unknown Bifascicular block ICD-10: I45.2 ICD-9: 426.53 Active 06/12/2021 07/28/2023 PTSD (post-traumatic stress disorder) ICD-10: F43.10 ICD-9: 309.81 Active 06/12/2021 07/28/2023 Problems Condition Codes Effective Dates Condition St atus COPD (chronic obstructive pu lmonary disease) ICD-10: J44.9 ICD-9: 496 04/28/2023 Active Senile purpura ICD-10: D69.2 ICD-9: 287.2 04/28/2023 Active 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 ICD-9: 303.93 02/24/2023 Active Hemiparesis of left nondomin ant side due to non-cerebrovascular etiology ICD-10: G81.94 ICD-9: 342.92 02/24/2023 Active Smokers' cough ICD-10: J41.0 ICD-9: 491.0 [...] rectum ICD-10: Z12.12 ICD-9: V76.41 12/31/2021 Active Alcohol abuse, uncomplicated ICD-10: F10 .10 ICD-9: 305.00 12/31/2021 Resolved Bifascicular block ICD-10: I45.2 ICD-9: 426.53 06/12/2021 Active PTSD (post-traumatic stress disorder) ICD-10: F43.10 ICD-9: 309.81 06/12/2021 Active Medications Medication Codes Instructions Start Date Stop Date Status Fill Instructions citalopram 20 mg tablet RxNorm: 553280 Take 1 Tablet(s) Oral QD 01/02/20 23 024 Inactive 01/01/2023 PROACTIVE REFILL REQUEST FOR NEXT CYCLE PLEASE THANK YOU RX has/will before cycle date aspirin 81 mg tablet,delayed release RxNorm: 668135 TAKE 1 TABLET BY MOUTH DAILY WITH FOOD 01/02/20 23 023 Inactive 01/01/2023 PROACTIVE REFILL REQUEST FOR NEXT CYCLE PLEASE THANK YOU RX has/will before cycle date acetaminophen 500 mg tablet RxNorm: 438833 Take 1 Tablet(s) Oral QHS every night at bedtime 10/29/19 23 023 Inactive d/c ibuprofen atorvastatin 20 mg tablet RxNorm: 468368 Take 1 Tablet(s) Oral QD 10/15/19 23 024 Inactive 10/13/2022 PROACTIVE REFILL REQUEST FOR NEXT CYCLE PLEASE THANK YOU RX has/will before cycle date losartan 50 mg tablet RxNorm: 158113 Take 1 Tablet(s) Oral QD 10/15/19 23 023 Inactive 10/13/2022 PROACTIVE REFILL REQUEST FOR NEXT CYCLE PLEASE THANK YOU RX has/will before cycle date ibuprofen 400 mg tablet RxNorm: 529068 Take 1-1/2 Tablet(s) Oral QD as needed (at least 6 hours from scheduled dose) 10/01/19 23 024 Inactive Vitamin D2 1,250 mcg (50,000 unit) capsule RxNorm: 3493174 TAKE ONCE CAPSULE ONCE MONTHLY 07/30/19 23 025 Inactive d/c once weekly, start once monthly cholecalciferol (vitamin D3) 1,250 mcg (50,000 unit) capsule RxNorm: 188515 TAKE 1 CAPSULE BY MOUTH WEEKLY ON Wednesday07/23/19 23 023 Inactive Shingrix (PF) 50 mcg/0.5 mL intramuscular suspension, kit RxNorm: 4888335 ADMINISTER 2-DOSE SERIES PER CDC GUIDELINES Take UAD per CDC guidelines 06/26/19 23 023 Inactive diclofenac 1 % topical gel RxNorm: 488000 apply 0.5g topically to left shoulder nightly 01/01/20 22 022 Inactive diclofenac 1 % topical gel RxNorm: 214786 Apply 0.5 Gram(s) Topical QHS every night at bedtime apply 0.5g topically to left shoulder nightly 01/01/20 22 022 Inactive atorvastatin 20 mg tablet RxNorm: 915723 Take 1 Tablet(s) Oral QD 10/22/19 22 022 Inactive 2ND REQUEST FOR REFILLS 10/21/21 NEED TODAY PLEASE- THANK YOU losartan 50 mg tablet RxNorm: 684467 Take 1 Tablet(s) Oral QD 10/22/19 22 022 Inactive 2ND REQUEST FOR REFILLS 10/21/21 NEED TODAY PLEASE- THANK YOU Vitamin D2 1,250 mcg (50,000 unit) capsule RxNorm: 7582950 Take 1 Capsule(s) Oral QW once a week TAKE ONCE CAPSULE ONCE WEEKLY 07/31/19 22 023 Inactive or whatever % is covered by insurance loperamide 2 mg capsule RxNorm: 784053 Take 1 Capsule(s) Oral Q2H every 2 hours as needed for diarrhea Give 2 tabs after first loose stool and then 1 tab after each loose stool. Not to exceed 8 tabs in 24 hours 06/18/19 22 No Stop Date Active Calcium Antacid 200 mg calcium (500 mg) chewable tablet RxNorm: 975224 Chew 2-4 Tablet(s) Oral as needed Take 2-4 tabs by mouth as needed between meals and at bedtime as needed for heartburn or upset stomach 06/18/19 22 No Stop Date Active Robitussin Cough-Chest Congestion DM 5 mg-100 mg/5 mL oral liquid RxNorm: 5161712 Take 5-10 Milliliter(s) Oral Q4H every four hours QID - Four Times Daily as needed Take 5-10ml by mouth every 4 hours as needed for cough or congestion. Not to exceed 6 doses in 24 hours 06/18/19 22 No Stop Date Active acetaminophen 325 mg capsule RxNorm: 005808 Take 1-2 Tablet(s) Oral Q4-6H every 4-6 hours as needed for pain and elevated temperature. Not to exceed 4000mg in 24 hours 06/18/19 22 No Stop Date Active aluminum-mag hydroxide-simethicone 200 mg-200 mg-20 mg/5 mL oral susp RxNorm: 698807 Take 5-10 Milliliter(s) Oral QD as needed for nausea one time daily between and at bedtime as needed for heartburn and/ or upset stomach 06/18/19 22 No Stop Date Active Milk of Magnesia 400 mg/5 mL oral suspension RxNorm: 673596 Take 15-30 Milliliter(s) Oral as needed Take 15-30ml by mouth daily (preferably at bedtime) as needed for constipation. Recommend 8 oz of water after each use. 06/18/19 No Stop Date Active citalopram 20 mg tablet RxNorm: 639300 Take 1 Tablet(s) Oral QD every day 06/18/19 22 023 Inactive losartan 50 mg tablet RxNorm: 535590 Give 1 Tablet(s) Oral QD 06/18/19 22 022 Inactive atorvastatin 20 mg tablet RxNorm: 295092 Take 1 Tablet(s) Oral QD 06/18/19 22 022 Inactive ibuprofen 600 mg tablet RxNorm: 836403 Take 1 Tablet(s) Oral QHS every night at bedtime 06/18/19 22 023 Inactive Aspirin Low Dose 81 mg tablet,delayed release RxNorm: 651736 Take 1 Tablet(s) Oral QD QD - Daily with food 06/18/19 22 023 Inactive ibuprofen 600 mg tablet RxNorm: 996659 Take 1 and 1/2 Tablet(s) Oral QD as needed Take at least 6 hours from scheduled dose 06/18/19 22 023 Inactive hydrochlorothiazide 25 mg tablet RxNorm: 259899 Take 1 Tablet(s) Oral QD 06/18/19 22 [...] pu lmonary disease) ICD-10: J44.9 ICD-9: 496 04/28/2023 No note found Senile purpura ICD-10: D69.2 ICD-9: 287.2 04/28/2023 No note found Reason For Visit No Reason For Visit data Review of Systems No Review of Systems data Physical Exam No Physical Exam data Procedures Procedure Codes Date BEHAV CHNG SMOKING 3-[address]: 2 95747141 CPT-4: 63324 07/29/2022 BEHAV CHNG SMOKING 3-[address]: 2 78621175 CPT-4: 68997 01/28/2022 AAA Screening CPT-4: 11921 01/06/2022 BEHAV CHNG SMOKING 3-[address]: 2 08729355 CPT-4: 30038 12/31/2021 BEHAV CHNG SMOKING > [address]: 2 21731200 CPT-4: 53815 12/31/2021 BEHAV CHNG SMOKING 3-[address]: 2 09462529 CPT-4: 12662 11/26/2021 BEHAV CHNG SMOKING 3-[address]: 2 80175201 CPT-4: 82958 11/05/2021 BEHAV CHNG SMOKING 3-[address]: 2 00540674 CPT-4: 84386 09/24/2021 BEHAV CHNG SMOKING 3-[address]: 2 63514306 CPT-4: 93756 08/27/2021 BEHAV CHNG SMOKING 3-[address]: 2 11617327 CPT-4: 62387 07/30/2021 BEHAV CHNG SMOKING 3-[address]: 2 06673161 CPT-4: 43042 06/12/2021 History of Present Illness No History of Present Illness data Advance Directives No Advance Directive data Encounters Encounter Performer Location Location Address Codes Date ([address]) Home or Residence Visit Est Pt - Moderate Level, 40 mins Diagnosis: Senile purpura[ICD10: D69.2] Diagnosis: COPD (chronic obstructive pulmonary disease)[ICD10: J44.9] Loco Barraza [address] [phone] CPT-4: 27846 04/28/2023 Plan of Care Planned Activity Notes Codes Status Date Appointment: Татьяна Figueredo WPtel: [address] [place], [place] [phone] F/U 09/24/2021 Health Concerns Section Concern Status [...]
[2025-03-13] VITALS (19 sets, daily range): BP systolic 121–182; BP diastolic 82–96; PULSE 80–110; RESP 16–20; TEMP 36.5–36.7; O2SAT 70–96; BMI 23.3; BMI 23.6
--- OUTSIDE RECORDS SUMMARY | 2025-03-13 16:42 | XMS_ITS | CCD ---
Author Name Ayanna Carranza Address [address] [facility] [address] [place] [address] Phone Organization [facility] Phone Care Team Providers Care Technician Support Association Name Role Phone Beto WHITE McKenzie Primary Care Provider Jeannine vailable Unavailable Chronic Care Management Unavaila ble Summary Purpose DataExchange Insurance Providers Payer name Policy type / Coverage type Covered libertarian ID Effective Begin Date Effective End Date [employer] Commercial Insurance [id number] Unkn own Medicaid [place] Commercial Insurance [id number] Unk nown Family History Family History data not found Social History Social History Element Codes Description Effec tive Dates Marital status Unknown Single 07/28/2023 Living arrangements Unknown Assisted Living 07/[address]: 84797066 Current ever y day smoker 07/28/[address]: 756733486 No Alcohol Consum ption 07/28/2023 Sexually Active? Unknown No 07/28/2023 Children Unknown No Children 07/28/2023 Patient Health Status Self Assessment Unknown Good 07/28/2023 Oral health Unknown Has not seen Den want in the last 12 months 07/28/2023 Do you worry about access to food? Unknown No 07/28/2023 Seatbelt safety Unknown Wears seatbelt 07/28/2023 Illicit Drug History Unknown Has never u sed illegal drugs 07/28/2023 Do you feel safe in your home? Unknown Yes 07/28/[address]: 69985095 Current ever y day smoker half pack- 1 pack/daily Started smoking at age 18 06/17/[address]: 750479664 No Alcohol Consumption Hx of consumption 06/17/2021 [...] episode severity ICD-10: F33.9 ICD-9: 296.30 Active 01/26/2024 07/19/2024 Hypertensive chronic kidney disease with stage 1 through stage 4 chronic kidney disease, or unspecified chronic kidney disease ICD-10: I12.9 ICD-9: 403.90 Active 01/26/2024 03/29/2024 Stage 2 chronic kidney disease ICD-10: N18.2 ICD-9: 585.2 Active 01/26/2024 03/29/2024 Vitamin D deficiency ICD-10: E55.9 ICD-9: 268.9 Active 01/26/2024 07/19/2024 Chronic left shoulder pain ICD-10: M25.5 12 ICD-9: 719.41 Active 12/01/2023 07/19/2024 Chronic tension-type headache, not intractable ICD-10: G44.229 ICD-9: 339.12 Active 12/01/2023 03/29/2024 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 ICD-10: G81.94 ICD-9: 342.92 Active 12/01/2023 07/19/2024 Hyponatremia ICD-10: E87.1 ICD-9: 276.1 Active 12/01/2023 03/29/2024 Primary osteoarthritis of both knees ICD-10: M17.0 ICD-9: 715.16 Active 12/01/2023 07/19/2024 Tobacco use disorder ICD-10: F17.200 ICD-9: 305.1 Active 12/01/2023 Unknown Hypercholesteremia ICD-10: E78.00 ICD-9: 272.0 Active 09/22/2023 07/19/2024 PTSD (post-traumatic stress disorder) ICD-10: F43.10 ICD-9: 309.81 Active 09/22/2023 09/27/2024 ACP (advance care planning) ICD-10: Z71. 89 ICD-9: V65.49 Resolved 09/22/2023 09/27/2024 Adult general medical exam ICD-10: Z00.0 0 ICD-9: V70.9 Resolved 09/22/2023 Unknown Encounter for screening examination for other mental health and behavioral disorders ICD-10: Z13.39 ICD-9: V79.8 Resolved 09/22/2023 Unknown Encounter for screening for depression ICD-10: Z13.31 ICD-9: V79.0 Resolved 09/22/2023 Unknown Encounter for screening, unspecified ICD-10: Z13.9 ICD-9: V82.9 Resolved 09/22/2023 Unknown Advanced care planning - to document end of life discussions Unknown Active 07/28/2023 Unknown 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 ICD-9: 303.93 Active 07/28/2023 07/19/2024 COPD (chronic obstructive pulmonary disease) ICD-10: J44.9 ICD-9: 496 Active 07/28/2023 07/19/2024 Other chronic pain ICD-10: G89.29 Active 07/28/2023 Senile purpura ICD-10: D69.2 ICD-9: 287.2 Active 07/28/2023 09/27/2024 Smokers' cough ICD-10: J41.0 ICD-9: 491.0 Active 07/28/2023 09/27/2024 Bifascicular block ICD-10: I45.2 ICD-9: 426.53 Resolved 07/28/2023 Unknown Encounter for screening for malignant neoplasm of rectum ICD-10: Z12.12 ICD-9: V76.41 Resolved 07/28/2023 Unknown Encounter for screening for malignant neoplasm of colon ICD-10: Z12.11 ICD-9: V76.51 Resolved 07/28/2023 Unknown Onychogryposis ICD-10: L60.2 ICD-9: 703.8 Resolved 07/28/2023 Unknown Personal history of other diseases of the circulatory system ICD-10: Z86.79 ICD-9: V12.59 Resolved 07/28/2023 Unknown Preventative health care ICD-10: Z00.00 ICD-9: V70.0 Resolved 07/28/2023 09/27/2024 Ventricular tachycardia ICD-10: I47.2 ICD-9: 427.1 Resolved 04/23/2022 Unknown Essential hypertension ICD-10: I10 ICD-9: 401.9 Resolved 01/28/2022 Unknown Alcohol abuse, uncomplicated ICD-10: F10.10 ICD-9: 305.00 Resolved 12/31/2021 Unknown Problems Condition Codes Effective Dates Condition St atus Episode of recurrent major depressive disorder, unspecified depression episode severity ICD-10: F33.9 ICD-9: 296.30 01/26/2024 Active Hypertensive chronic kidney disease with stage 1 through stage 4 chronic kidney disease, or unspecified chronic kidney disease ICD-10: I12.9 ICD-9: 403.90 01/26/2024 Active Stage 2 chronic kidney disease ICD-10: N 18.2 ICD-9: 585.2 01/26/2024 Active Vitamin D deficiency ICD-10: E55.9 ICD-9: 268.9 01/26/2024 Active Chronic left shoulder pain ICD-10: M25.5 12 ICD-9: 719.41 12/01/2023 Active Chronic tension-type headach e, not intractable ICD-10: G44.229 ICD-9: 339.12 12/01/2023 Active Hemiparesis of left nondomin ant side due to non-cerebrovascular etiology ICD-10: G81.94 ICD-9: 342.92 12/01/2023 Active Hyponatremia ICD-10: E87.1 ICD-9: 276.1 12/01/2023 Active Primary osteoarthritis of both knees ICD -10: M17.0 ICD-9: 715.16 12/01/2023 Active Tobacco use disorder ICD-10: F17.200 ICD-9: 305.1 12/01/2023 Active Hypercholesteremia ICD-10: E78.00 ICD-9: 272.0 09/22/2023 Active PTSD (post-traumatic stress disorder) ICD-10: F43.10 ICD-9: 309.81 09/22/2023 Active ACP (advance care planning) ICD-10: Z71. 89 ICD-9: V65.49 09/22/2023 Resolved Adult general medical exam ICD-10: Z00.0 0 ICD-9: V70.9 09/22/2023 Resolved Encounter for screening exam ination for other mental health and behavioral disorders ICD-10: Z13.39 ICD-9: V79.8 09/22/2023 Resolved Encounter for screening for depression ICD-10: Z13.31 ICD-9: V79.0 09/22/2023 Resolved Encounter for screening, unspecified ICD -10: Z13.9 ICD-9: V82.9 09/22/2023 Resolved Advanced care planning - to document end of life discussions Unknown 07/28/2023 Active 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 ICD-9: 303.93 07/28/2023 Active COPD (chronic obstructive pu lmonary disease) ICD-10: J44.9 ICD-9: 496 07/28/2023 Active Other chronic pain ICD-10: G89.29 07/28/2023 Active Senile purpura ICD-10: D69.2 ICD-9: 287.2 07/28/2023 Active Smokers' cough ICD-10: J41.0 ICD-9: 491.0 07/28/2023 Active Bifascicular block ICD-10: I45.2 ICD-9: 426.53 07/28/2023 Resolved Encounter for screening for malignant neoplasm of rectum ICD-10: Z12.12 ICD-9: V76.41 07/28/2023 Resolved Encounter for screening for malignant neoplasm of colon ICD-10: Z12.11 ICD-9: V76.51 07/28/2023 Resolved Onychogryposis ICD-10: L60.2 ICD-9: 703.8 07/28/2023 Resolved Personal history of other di seases of the circulatory system ICD-10: Z86.79 ICD-9: V12.59 07/28/2023 Resolved Preventative health care ICD-10: Z00.00 ICD-9: V70.0 07/28/2023 Resolved Ventricular tachycardia ICD-10: I47.2 ICD-9: 427.1 04/23/2022 Resolved Essential hypertension ICD-10: I10 ICD-9: 401.9 01/28/2022 Resolved Alcohol abuse, uncomplicated ICD-10: F10 .10 ICD-9: 305.00 12/31/2021 Resolved Medications Medication Codes Instructions Start Date Stop Date Status Fill Instructions Vitamin D3 10 mcg (400 unit) tablet RxNorm: 969680 Take 1 Tablet(s) Oral QD 01/26/20 24 024 Inactive Vitamin D3 10 mcg (400 unit) tablet RxNorm: 670340 Take 1 Tablet(s) Oral QD 01/26/20 24 024 Inactive citalopram 20 mg tablet RxNorm: 006133 Take 1 Tablet(s) Oral QD 12/31/19 24 025 Inactive 12/31/2023 PROACTIVE REFILL REQUEST FOR NEXT CYCLE PLEASE THANK YOU RX has/will before cycle date aspirin 81 mg tablet,delayed release RxNorm: 481753 Take 1 Tablet(s) Oral QD WITH FOOD 12/31/19 24 024 Inactive 12/31/2023 PROACTIVE REFILL REQUEST FOR NEXT CYCLE PLEASE THANK YOU RX has/will before cycle date atorvastatin 20 mg tablet RxNorm: 762419 Take 1 Tablet(s) Oral QD 10/14/19 24 025 Inactive 10/14/2023 PROACTIVE REFILL REQUEST FOR NEXT CYCLE PLEASE THANK YOU RX has/will before cycle date. losartan 50 mg tablet RxNorm: 982598 Take 1 Tablet(s) Oral QD 10/14/19 24 024 Inactive 10/14/2023 PROACTIVE REFILL REQUEST FOR NEXT CYCLE PLEASE THANK YOU RX has/will before cycle date. acetaminophen 500 mg tablet RxNorm: 308678 Take 1 Tablet(s) Oral QHS every night at bedtime 08/17/19 24 024 Inactive 08/17/2023 PROACTIVE REFILL REQUEST FOR NEXT CYCLE PLEASE THANK YOU citalopram 20 mg tablet RxNorm: 961466 Take 1 Tablet(s) Oral QD 01/02/20 23 024 Inactive 01/01/2023 PROACTIVE REFILL REQUEST FOR NEXT CYCLE PLEASE THANK YOU RX has/will before cycle date aspirin 81 mg tablet,delayed release RxNorm: 093635 TAKE 1 TABLET BY MOUTH DAILY WITH FOOD 01/02/20 23 023 Inactive 01/01/2023 PROACTIVE REFILL REQUEST FOR NEXT CYCLE PLEASE THANK YOU RX has/will before cycle date acetaminophen 500 mg tablet RxNorm: 957944 Take 1 Tablet(s) Oral QHS every night at bedtime 10/29/19 23 023 Inactive d/c ibuprofen atorvastatin 20 mg tablet RxNorm: 202633 Take 1 Tablet(s) Oral QD 10/15/19 23 024 Inactive 10/13/2022 PROACTIVE REFILL REQUEST FOR NEXT CYCLE PLEASE THANK YOU RX has/will before cycle date losartan 50 mg tablet RxNorm: 272860 Take 1 Tablet(s) Oral QD 10/15/19 23 023 Inactive 10/13/2022 PROACTIVE REFILL REQUEST FOR NEXT CYCLE PLEASE THANK YOU RX has/will before cycle date ibuprofen 400 mg tablet RxNorm: 156403 Take 1-1/2 Tablet(s) Oral QD as needed (at least 6 hours from scheduled dose) 10/01/19 23 024 Inactive Vitamin D2 1,250 mcg (50,000 unit) capsule RxNorm: 8994972 TAKE ONCE CAPSULE ONCE MONTHLY 07/30/19 23 025 Inactive d/c once weekly, start once monthly cholecalciferol (vitamin D3) 1,250 mcg (50,000 unit) capsule RxNorm: 816028 TAKE 1 CAPSULE BY MOUTH WEEKLY ON Wednesday07/23/19 23 023 Inactive Shingrix (PF) 50 mcg/0.5 mL intramuscular suspension, kit RxNorm: 8291836 ADMINISTER 2-DOSE SERIES PER CDC GUIDELINES Take UAD per CDC guidelines 06/26/19 23 023 Inactive diclofenac 1 % topical gel RxNorm: 103448 apply 0.5g topically to left shoulder nightly 01/01/20 22 022 Inactive diclofenac 1 % topical gel RxNorm: 199438 Apply 0.5 Gram(s) Topical QHS every night at bedtime apply 0.5g topically to left shoulder nightly 01/01/20 22 022 Inactive atorvastatin 20 mg tablet RxNorm: 335426 Take 1 Tablet(s) Oral QD 10/22/19 22 022 Inactive 2ND REQUEST FOR REFILLS 10/21/21 NEED TODAY PLEASE- THANK YOU losartan 50 mg tablet RxNorm: 350704 Take 1 Tablet(s) Oral QD 10/22/19 22 022 Inactive 2ND REQUEST FOR REFILLS 10/21/21 NEED TODAY PLEASE- THANK YOU Vitamin D2 1,250 mcg (50,000 unit) capsule RxNorm: 2150841 Take 1 Capsule(s) Oral QW once a week TAKE ONCE CAPSULE ONCE WEEKLY 07/31/19 023 Inactive or whatever % is covered by insurance loperamide 2 mg capsule RxNorm: 657578 Take 1 Capsule(s) Oral Q2H every 2 hours as needed for diarrhea Give 2 tabs after first loose stool and then 1 tab after each loose stool. Not to exceed 8 tabs in 24 hours 06/18/19 22 No Stop Date Active Calcium Antacid 200 mg calcium (500 mg) chewable tablet RxNorm: 486300 Chew 2-4 Tablet(s) Oral as needed Take 2-4 tabs by mouth as needed between meals and at bedtime as needed for heartburn or upset stomach 06/18/19 22 No Stop Date Active Robitussin Cough-Chest Congestion DM 5 mg-100 mg/5 mL oral liquid RxNorm: 7738532 Take 5-10 Milliliter(s) Oral Q4H every four hours QID - Four Times Daily as needed Take 5-10ml by mouth every 4 hours as needed for cough or congestion. Not to exceed 6 doses in 24 hours 06/18/19 22 No Stop Date Active acetaminophen 325 mg capsule RxNorm: 501411 Take 1-2 Tablet(s) Oral Q4-6H every 4-6 hours as needed for pain and elevated temperature. Not to exceed 4000mg in 24 hours 06/18/19 22 No Stop Date Active aluminum-mag hydroxide-simethicone 200 mg-200 mg-20 mg/5 mL oral susp RxNorm: 394428 Take 5-10 Milliliter(s) Oral QD as needed for nausea one time daily between and at bedtime as needed for heartburn and/ or upset stomach 06/18/19 22 No Stop Date Active Milk of Magnesia 400 mg/5 mL oral suspension RxNorm: 389588 Take 15-30 Milliliter(s) Oral as needed Take 15-30ml by mouth daily (preferably at bedtime) as needed for constipation. Recommend 8 oz of water after each use. 06/18/19 22 No Stop Date Active citalopram 20 mg tablet RxNorm: 918558 Take 1 Tablet(s) Oral QD every day 03/01/ 023 Inactive losartan 50 mg tablet RxNorm: 715521 Give 1 Tablet(s) Oral QD 06/18/19 22 Inactive atorvastatin 20 mg tablet RxNorm: 198794 Take 1 Tablet(s) Oral QD 06/18/19 22 022 Inactive ibuprofen 600 mg tablet RxNorm: 365580 Take 1 Tablet(s) Oral QHS every night at bedtime 06/18/19 023 Inactive Aspirin Low Dose 81 mg tablet,delayed release RxNorm: 182429 Take 1 Tablet(s) Oral QD QD - Daily with food 06/18/19 22 023 Inactive ibuprofen 600 mg tablet RxNorm: 095249 Take 1 and 1/2 Tablet(s) Oral QD as needed Take at least 6 hours from scheduled dose 06/18/19 Inactive hydrochlorothiazide 25 mg tablet RxNorm: 949274 Take 1 Tablet(s) Oral QD 06/18/19 Inactive Medication Administered No Medication Administered data Immunizations Vaccine Codes Dose Date Status Covid-19 (Adult) Unknown 01/25/2024 Influenza Unknown 01/25/2024 Covid-19 (Adult) Unknown 07/29/2023 Pneumococcal CVX: 216 07/29/2023 Covid-19 (Adult) Unknown 02/01/2023 Covid-19 (Adult) Unknown 01/27/2022 Covid-19 (Adult) Unknown 09/25/2021 Covid-19 (Adult) CVX: 207 02/24/2021 Influenza Unknown 02/24/2021 Covid-19 (Adult) CVX: 207 05/30/2020 Covid-19 (Adult) CVX: 207 05/02/2020 Pneumococcal CVX: 33 04/04/2019 Influenza Unknown 02/01/2019 Pneumococcal CVX: 133 03/30/2018 Medical Equipment No Medical Equipment data Assessments Condition Codes Effective Dates Notes Stage 2 chronic kidney disease ICD-10: N 18.2 ICD-9: 585.2 01/26/2024 No note found Hypertensive chronic kidney disease with stage 1 through stage 4 chronic kidney disease, or unspecified chronic kidney disease ICD-10: I12.9 ICD-9: 403.90 01/26/2024 No note found Episode of recurrent major d epressive disorder, unspecified depression episode severity ICD-10: F33.9 ICD-9: 296.30 01/26/2024 No note found Vitamin D deficiency ICD-10: E55.9 ICD-9: 268.9 01/26/2024 No note found Reason For Visit No Reason For Visit data Review of Systems No Review of Systems data Physical Exam No Physical Exam data Procedures Procedure Codes Date HG A1C LEVEL LT 7.0% CPT-4: 3044F 01/26/2024 SYST BP LT 130 MM HG CPT-4: 3074F 01/26/2024 DIAST BP <80 MM HG CPT-4: 3078F 01/26/2024 BEHAV CHNG SMOKING 3-[address]: 2 79124503 CPT-4: 53717 07/29/2022 BEHAV CHNG SMOKING 3-[address]: 2 07940061 CPT-4: 71368 01/28/2022 AAA Screening US CPT-4: 90759 01/06/2022 BEHAV CHNG SMOKING 3-[address]: 2 70746963 CPT-4: 09479 12/31/2021 BEHAV CHNG SMOKING > [address]: 2 90456911 CPT-4: 99418 12/31/2021 BEHAV CHNG SMOKING 3-[address]: 2 85289075 CPT-4: 67136 11/26/2021 BEHAV CHNG SMOKING 3-[address]: 2 62389188 CPT-4: 24914 11/05/2021 BEHAV CHNG SMOKING 3-[address]: 2 04299914 CPT-4: 57338 09/24/2021 BEHAV CHNG SMOKING 3-[address]: 2 40141125 CPT-4: 63844 08/27/2021 BEHAV CHNG SMOKING 3-[address]: 2 04842140 CPT-4: 03114 07/30/2021 BEHAV CHNG SMOKING 3-[address]: 2 63874270 CPT-4: 21674 06/12/2021 Vital Signs Date Vital 01/26/2024 Blood Pressure 1: 120/72 Code: 8480-6 Heart Rate 1: 88 bpm Code: 8867-4 SpO2: 95% Temperature: 36.8 (C) / 98.2 (F) Functional Status Functional / Cognitive Codes Status Result Ef fective Dates Functional Assessment Unknown ADL - Dressing Independen t 07/28/2023 Functional Assessment Unknown ADL - Feeding Independent 07/28/2023 Functional Assessment Unknown ADL - Toileting Independe nt 07/28/2023 Functional Assessment Unknown ADL - Bathing Independent 07/28/2023 Functional Assessment Unknown ADL - Grooming Independen t 07/28/2023 Functional Assessment Unknown ADL - Physical Ambulation Independent 07/28/2023 Functional Assessment Unknown iADL - Mod e of Transportation Dependent 07/28/2023 Functional Assessment Unknown iADL - Managing Medicatio n Dependent 07/28/2023 Functional Assessment Unknown Other: Nicole pping, Finances, Housekeeping, Independent 07/28/2023 History of Present Illness No History of Present Illness data Advance Directives Filename Date DAVIDSON Hui 07/28/2023 Encounters Encounter Performer Location Location Address Codes Date ([id number]) Home or Residence Visit Est Pt - Moderate Level, 40 mins Diagnosis: Vitamin D deficiency[ICD10: E55.9] Diagnosis: Episode of recurrent major depressive disorder, unspecified depression episode severity[ICD10: F33.9] Diagnosis: Hypertensive chronic kidney disease with stage 1 through stage 4 chronic kidney disease, or unspecified chronic kidney disease[ICD10: I12.9] Diagnosis: Stage 2 chronic kidney disease[ICD10: N18.2] [address] [id number] CPT-4: 02898 01/26/2024 Plan of Care Planned Activity Notes Codes Status Date Appointment: Татьяна Figueredo WPtel: [address] [place], [place] [id number] F/U 09/24/2021 Health Concerns Section Concern Status [...]
--- OUTSIDE RECORDS SUMMARY | 2025-03-13 16:42 | XMS_ITS | CCD ---
Author Name Ayanna Carranza Address [address] [place] [address] Phone Organization [facility] Phone Care Team Providers Care Distribution Lineman Name Role Phone Beto WHITE McKenzie Primary Care Provider Jeannine vailable Unavailable Chronic Care Management Unavaila ble Summary Purpose DataExchange Insurance Providers Payer name Policy type / Coverage type Covered green party ID Effective Begin Date Effective End Date [employer] Commercial Insurance [id number] Unkn own Medicaid [place] Commercial Insurance [id number] Unk nown Family History Family History data not found Social History Social History Element Codes Description Effec tive Dates Marital status Unknown Single 07/28/2023 Living arrangements Unknown Assisted Living 07/[address]: 05296690 Current ever y day smoker 07/28/[address]: 456356479 No Alcohol Consum ption 07/28/2023 Sexually Active? [...] Unknown Yes 07/28/[address]: 05824595 Current ever y day smoker half pack- 1 pack/daily Started smoking at age 18 06/17/[address]: 936034313 No Alcohol Consumption Hx of consumption 06/17/2021 [...] kidney disease ICD-10: I12.9 ICD-9: 403.90 Active 05/29/2024 07/19/2024 Hyponatremia ICD-10: E87.1 ICD-9: 276.1 Active 05/29/2024 09/27/2024 Stage 2 chronic kidney disease ICD-10: N18.2 ICD-9: 585.2 Active 05/29/2024 09/27/2024 Chronic tension-type headache, not intractable ICD-10: G44.229 ICD-9: 339.12 Active 03/29/2024 07/19/2024 Episode of recurrent major depressive disorder, unspecified depression episode severity ICD-10: F33.9 ICD-9: 296.30 Active 01/26/2024 07/19/2024 Vitamin D deficiency ICD-10: E55.9 ICD-9: 268.9 Active 01/26/2024 07/19/2024 Chronic left shoulder pain ICD-10: M25.5 12 ICD-9: 719.41 Active 12/01/2023 07/19/2024 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 ICD-10: G81.94 ICD-9: 342.92 Active 12/01/2023 07/19/2024 Primary osteoarthritis of both knees ICD-10: M17.0 [...] chronic kidney disease ICD-10: I12.9 ICD-9: 403.90 05/29/2024 Active Hyponatremia ICD-10: E87.1 ICD-9: 276.1 05/29/2024 Active Stage 2 chronic kidney disease ICD-10: N 18.2 ICD-9: 585.2 05/29/2024 Active Chronic tension-type headach e, not intractable ICD-10: G44.229 ICD-9: 339.12 03/29/2024 Active Episode of recurrent major depressive disorder, unspecified depression episode severity ICD-10: F33.9 ICD-9: 296.30 01/26/2024 Active Vitamin D deficiency ICD-10: E55.9 ICD-9: 268.9 01/26/2024 Active Chronic left shoulder pain ICD-10: M25.5 12 ICD-9: 719.41 12/01/2023 Active Hemiparesis of left nondomin ant side due to non-cerebrovascular etiology ICD-10: G81.94 ICD-9: 342.92 12/01/2023 Active Primary osteoarthritis of both knees [...] D3 10 mcg (400 unit) tablet RxNorm: 973417 Take 1 Tablet(s) Oral QD 01/26/20 24 024 Inactive Vitamin D3 10 mcg (400 unit) tablet RxNorm: 015932 Take 1 Tablet(s) Oral QD 01/26/20 24 024 Inactive citalopram 20 mg tablet RxNorm: 225647 Take 1 Tablet(s) Oral QD 12/31/19 24 025 Inactive 12/31/2023 PROACTIVE REFILL REQUEST FOR NEXT CYCLE PLEASE THANK YOU RX has/will before cycle date aspirin 81 mg tablet,delayed release RxNorm: 144189 Take 1 Tablet(s) Oral QD WITH FOOD 12/31/19 24 024 Inactive 12/31/2023 PROACTIVE REFILL REQUEST FOR NEXT CYCLE PLEASE THANK YOU RX has/will before cycle date atorvastatin 20 mg tablet RxNorm: 797118 Take 1 Tablet(s) Oral QD 10/14/19 24 025 Inactive 10/14/2023 PROACTIVE REFILL REQUEST FOR NEXT CYCLE PLEASE THANK YOU RX has/will before cycle date. losartan 50 mg tablet RxNorm: 968372 Take 1 Tablet(s) Oral QD 10/14/19 24 024 Inactive 10/14/2023 PROACTIVE REFILL REQUEST FOR NEXT CYCLE PLEASE THANK YOU RX has/will before cycle date. acetaminophen 500 mg tablet RxNorm: 970469 Take 1 Tablet(s) Oral QHS every night at bedtime 08/17/19 24 024 Inactive 08/17/2023 PROACTIVE REFILL REQUEST FOR NEXT CYCLE PLEASE THANK YOU citalopram 20 mg tablet RxNorm: 985684 Take 1 Tablet(s) Oral QD 01/02/20 23 024 Inactive 01/01/2023 PROACTIVE REFILL REQUEST FOR NEXT CYCLE PLEASE THANK YOU RX has/will before cycle date aspirin 81 mg tablet,delayed release RxNorm: 048799 TAKE 1 TABLET BY MOUTH DAILY WITH FOOD 01/02/20 23 023 Inactive 01/01/2023 PROACTIVE REFILL REQUEST FOR NEXT CYCLE PLEASE THANK YOU RX has/will before cycle date acetaminophen 500 mg tablet RxNorm: 726486 Take 1 Tablet(s) Oral QHS every night at bedtime 10/29/19 23 023 Inactive d/c ibuprofen atorvastatin 20 mg tablet RxNorm: 772110 Take 1 Tablet(s) Oral QD 10/15/19 23 024 Inactive 10/13/2022 PROACTIVE REFILL REQUEST FOR NEXT CYCLE PLEASE THANK YOU RX has/will before cycle date losartan 50 mg tablet RxNorm: 790700 Take 1 Tablet(s) Oral QD 10/15/19 23 023 Inactive 10/13/2022 PROACTIVE REFILL REQUEST FOR NEXT CYCLE PLEASE THANK YOU RX has/will before cycle date ibuprofen 400 mg tablet RxNorm: 413472 Take 1-1/2 Tablet(s) Oral QD as needed (at least 6 hours from scheduled dose) 10/01/19 23 024 Inactive Vitamin D2 1,250 mcg (50,000 unit) capsule RxNorm: 2398163 TAKE ONCE CAPSULE ONCE MONTHLY 07/30/19 23 025 Inactive d/c once weekly, start once monthly cholecalciferol (vitamin D3) 1,250 mcg (50,000 unit) capsule RxNorm: 814939 TAKE 1 CAPSULE BY MOUTH WEEKLY ON Wednesday07/23/19 23 023 Inactive Shingrix (PF) 50 mcg/0.5 mL intramuscular suspension, kit RxNorm: 5444037 ADMINISTER 2-DOSE SERIES PER CDC GUIDELINES Take UAD per CDC guidelines 06/26/19 23 023 Inactive diclofenac 1 % topical gel RxNorm: 416078 apply 0.5g topically to left shoulder nightly 01/01/20 22 022 Inactive diclofenac 1 % topical gel RxNorm: 819981 Apply 0.5 Gram(s) Topical QHS every night at bedtime apply 0.5g topically to left shoulder nightly 01/01/20 22 022 Inactive atorvastatin 20 mg tablet RxNorm: 817269 Take 1 Tablet(s) Oral QD 10/22/19 22 022 Inactive 2ND REQUEST FOR REFILLS 10/21/21 NEED TODAY PLEASE- THANK YOU losartan 50 mg tablet RxNorm: 701665 Take 1 Tablet(s) Oral QD 10/22/19 22 022 Inactive 2ND REQUEST FOR REFILLS 10/21/21 NEED TODAY PLEASE- THANK YOU Vitamin D2 1,250 mcg (50,000 unit) capsule RxNorm: 6016940 Take 1 Capsule(s) Oral QW once a week TAKE ONCE CAPSULE ONCE WEEKLY 07/31/19 023 Inactive or whatever % is covered by insurance loperamide 2 mg capsule RxNorm: 348034 Take 1 Capsule(s) Oral Q2H every 2 hours as needed for diarrhea Give 2 tabs after first loose stool and then 1 tab after each loose stool. Not to exceed 8 tabs in 24 hours 06/18/19 22 No Stop Date Active Calcium Antacid 200 mg calcium (500 mg) chewable tablet RxNorm: 825756 Chew 2-4 Tablet(s) Oral as needed Take 2-4 tabs by mouth as needed between meals and at bedtime as needed for heartburn or upset stomach 06/18/19 22 No Stop Date Active Robitussin Cough-Chest Congestion DM 5 mg-100 mg/5 mL oral liquid RxNorm: 8943067 Take 5-10 Milliliter(s) Oral Q4H every four hours QID - Four Times Daily as needed Take 5-10ml by mouth every 4 hours as needed for cough or congestion. Not to exceed 6 doses in 24 hours 06/18/19 22 No Stop Date Active acetaminophen 325 mg capsule RxNorm: 644107 Take 1-2 Tablet(s) Oral Q4-6H every 4-6 hours as needed for pain and elevated temperature. Not to exceed 4000mg in 24 hours 06/18/19 22 No Stop Date Active aluminum-mag hydroxide-simethicone 200 mg-200 mg-20 mg/5 mL oral susp RxNorm: 805592 Take 5-10 Milliliter(s) Oral QD as needed for nausea one time daily between and at bedtime as needed for heartburn and/ or upset stomach 06/18/19 22 No Stop Date Active Milk of Magnesia 400 mg/5 mL oral suspension RxNorm: 512559 Take 15-30 Milliliter(s) Oral as needed Take 15-30ml by mouth daily (preferably at bedtime) as needed for constipation. Recommend 8 oz of water after each use. 06/18/19 22 No Stop Date Active citalopram 20 mg tablet RxNorm: 833521 Take 1 Tablet(s) Oral QD every day 03/01/ 023 Inactive losartan 50 mg tablet RxNorm: 670181 Give 1 Tablet(s) Oral QD 06/18/19 22 022 Inactive atorvastatin 20 mg tablet RxNorm: 684122 Take 1 Tablet(s) Oral QD 06/18/19 22 022 Inactive ibuprofen 600 mg tablet RxNorm: 081066 Take 1 Tablet(s) Oral QHS every night at bedtime 06/18/19 023 Inactive Aspirin Low Dose 81 mg tablet,delayed release RxNorm: 918113 Take 1 Tablet(s) Oral QD QD - Daily with food 06/18/19 22 023 Inactive ibuprofen 600 mg tablet RxNorm: 444723 Take 1 and 1/2 Tablet(s) Oral QD as needed Take at least 6 hours from scheduled dose 06/18/19 22 Inactive hydrochlorothiazide 25 mg tablet RxNorm: 564110 Take 1 Tablet(s) Oral QD 06/18/19 Inactive [...] data Assessments Condition Codes Effective Dates Notes Hyponatremia ICD-10: E87.1 ICD-9: 276.1 05/29/2024 No note found Stage 2 chronic kidney disease ICD-10: N 18.2 ICD-9: 585.2 05/29/2024 No note found Hypertensive chronic kidney disease with stage 1 through stage 4 chronic kidney disease, or unspecified chronic kidney disease ICD-10: I12.9 ICD-9: 403.90 05/29/2024 No note found Reason For Visit No Reason For Visit data Review of Systems No Review of Systems data Physical Exam No Physical Exam data Procedures Procedure Codes Date SYST BP LT 130 MM HG CPT-4: 3074F 05/29/2024 DIAST BP <80 MM HG CPT-4: 3078F 05/29/2024 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 CPT-4: G0436 2024 BEHAV CHNG SMOKING 3-[address]: 2 28458173 CPT-4: 25450 07/29/2022 BEHAV CHNG SMOKING 3-[address]: 2 91148722 CPT-4: 90835 01/28/2022 AAA Screening US CPT-4: 83153 01/06/2022 BEHAV CHNG SMOKING 3-[address]: 2 65715522 CPT-4: 74116 12/31/2021 BEHAV CHNG SMOKING > [address]: 2 72855925 CPT-4: 07930 12/31/2021 BEHAV CHNG SMOKING 3-[address]: 2 38382686 CPT-4: 59863 11/26/2021 BEHAV CHNG SMOKING 3-[address]: 2 29176839 CPT-4: 25166 11/05/2021 BEHAV CHNG SMOKING 3-[address]: 2 98226089 CPT-4: 17715 09/24/2021 BEHAV CHNG SMOKING 3-[address]: 2 42966928 CPT-4: 61563 08/27/2021 BEHAV CHNG SMOKING 3-[address]: 2 21628187 CPT-4: 60565 07/30/2021 BEHAV CHNG SMOKING 3-[address]: 2 67747072 CPT-4: 61527 06/12/2021 Vital Signs Date Vital 05/29/2024 Blood Pressure 1: 12 4/78 Code: 8480-6 Heart Rate 1: 78 bpm Code: 8867-4 Temperature: 36.9 (C) / 98.4 (F) Functional Status Functional / Cognitive Codes [...] Encounter Performer Location Location Address Codes Date ([address]143) Home or Residence Visit Est Pt - Moderate Level, 40 mins Diagnosis: Hypertensive chronic kidney disease with stage 1 through stage 4 chronic kidney disease, or unspecified chronic kidney disease[ICD10: I12.9] Diagnosis: Hyponatremia[ICD10: E87.1] Diagnosis: Stage 2 chronic kidney disease[ICD10: N18.2] [address] [address] CPT-4: 16340 05/29/2024 Plan of Care Planned Activity Notes Codes Status Date Patient Education: Patient Medication Summary Completed 05/29/2024 Patient Education: Influenza Complet ed 05/29/2024 Patient Education: Smoking Cessation Completed 05/29/2024 Appointment: Татьяна Figueredo WPtel: [address] [place], [place] [id number] F/U 09/24/2021 Health Concerns Section Concern Status [...]
--- OUTSIDE RECORDS SUMMARY | 2025-03-13 16:43 | XMS_ITS | CCD ---
Author Name Ayanna Carranza Address [address] [place] [address] Phone Organization [facility] Phone Care Team Providers Care Pathology Laboratory Technologist Name Role Phone Beto WHITE Corie Primary Care Provider Jeannine vailable Unavailable Chronic Care Management Unavaila ble Summary Purpose DataExchange Insurance Providers Payer name Policy type / Coverage type Covered green party ID Effective Begin Date Effective End Date [employer] Commercial Insurance [id number] Unkn own Medicaid [place] Commercial Insurance [id number] Unk nown Family History Family History data not found Social History Social History Element Codes Description Effec tive Dates Caregiver Assessment Unknown Healthcare POA on fi le 07/19/2024 Marital status Unknown Single 07/28/2023 Living arrangements Unknown Assisted Living 07/[address]: 21343931 Current ever y day smoker 07/28/[address]: 641185153 No Alcohol Consum ption 07/28/2023 Sexually Active? Unknown No 07/28/2023 Children Unknown No Children 07/28/2023 Patient Health Status Self Assessment Unknown Good 07/28/2023 Oral health Unknown Has not seen Den tist in the last 12 months 07/28/2023 Do you worry about access to food? Unknown No 07/28/2023 Seatbelt safety Unknown Wears seatbelt 07/28/2023 Illicit Drug History Unknown Has never u sed illegal drugs 07/28/2023 Do you feel safe in your home? Unknown Yes 07/28/[address]: 33826054 Current ever y day smoker half pack- 1 pack/daily Started smoking at age 18 06/17/[address]: 222046591 No Alcohol Consumption Hx of consumption 06/17/2021 [...] pain ICD-10: M25.5 12 ICD-9: 719.41 Active 01/24/2025 Unknown Chronic tension-type headache, not intractable ICD-10: G44.229 ICD-9: 339.12 Active 01/24/2025 Unknown Episode of recurrent major depressive disorder, unspecified depression episode severity ICD-10: F33.9 ICD-9: 296.30 Active 01/24/2025 Unknown Hypercholesteremia ICD-10: E78.00 ICD-9: 272.0 Active 11/29/2024 Unknown Hypertensive chronic kidney disease with stage 1 through stage 4 chronic kidney disease, or unspecified chronic kidney disease ICD-10: I12.9 ICD-9: 403.90 Active 11/29/2024 Unknown Stage 2 chronic kidney disease ICD-10: N18.2 ICD-9: 585.2 Active 11/29/2024 Unknown Vitamin D deficiency ICD-10: E55.9 ICD-9: 268.9 Active 11/29/2024 Unknown ACP (advance care planning) SNOMED CT: 141322767 ICD-10: Z71.89 ICD-9: V65.49 Active 09/27/2024 Unknown 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 ICD-9: 303.93 Active 09/27/2024 Unknown COPD (chronic obstructive pulmonary disease) ICD-10: J44.9 ICD-9: 496 Active 09/27/2024 Unknown Encounter for preventive care SNOMED CT: 407863086 ICD-10: Z00.00 ICD-9: V70.0 Active 09/27/2024 Unknown 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 ICD-10: G81.94 ICD-9: 342.92 Active 09/27/2024 Unknown Hyponatremia ICD-10: E87.1 ICD-9: 276.1 Active 09/27/2024 Unknown Other chronic pain ICD-10: G89.29 Active 09/27/2024 Un known Primary osteoarthritis of both knees ICD-10: M17.0 ICD-9: 715.16 Active 09/27/2024 Unknown PTSD (post-traumatic stress disorder) ICD-10: F43.10 ICD-9: 309.81 Active 09/27/2024 Unknown Senile purpura ICD-10: D69.2 ICD-9: 287.2 Active 09/27/2024 Unknown Smokers' cough ICD-10: J41.0 ICD-9: 491.0 Active 09/27/2024 Unknown Screening for diabetes mellitus SNOMED CT: 575004882 ICD-10: Z13.1 ICD-9: V77.1 Resolved 09/27/2024 Unknown Tobacco use disorder ICD-10: F17.200 ICD-9: 305.1 Active 12/01/2023 Unknown Adult general medical exam ICD-10: Z00.0 0 [...] of life discussions Unknown Active 07/28/2023 Unknown Bifascicular block ICD-10: I45.2 ICD-9: 426.53 Resolved 07/28/2023 Unknown Encounter for screening for malignant neoplasm of rectum ICD-10: Z12.12 ICD-9: V76.41 Resolved 07/28/2023 Unknown Encounter for screening for malignant neoplasm of colon ICD-10: Z12.11 ICD-9: V76.51 Resolved 07/28/2023 Unknown Onychogryposis ICD-10: L60.2 ICD-9: 703.8 Resolved 07/28/2023 Unknown Personal history of other diseases of the circulatory system ICD-10: Z86.79 ICD-9: V12.59 Resolved 07/28/2023 Unknown Ventricular tachycardia ICD-10: I47.2 ICD-9: 427.1 Resolved 04/23/2022 Unknown Essential hypertension ICD-10: I10 ICD-9: 401.9 Resolved 01/28/2022 Unknown Alcohol abuse, uncomplicated ICD-10: F10.10 ICD-9: 305.00 Resolved 12/31/2021 Unknown Problems Condition Codes Effective Dates Condition St atus Chronic left shoulder pain ICD-10: M25.5 12 ICD-9: 719.41 01/24/2025 Active Chronic tension-type headach e, not intractable ICD-10: G44.229 ICD-9: 339.12 01/24/2025 Active Episode of recurrent major depressive disorder, unspecified depression episode severity ICD-10: F33.9 ICD-9: 296.30 01/24/2025 Active Hypercholesteremia ICD-10: E78.00 ICD-9: 272.0 11/29/2024 Active Hypertensive chronic kidney disease with stage 1 through stage 4 chronic kidney disease, or unspecified chronic kidney disease ICD-10: I12.9 ICD-9: 403.90 11/29/2024 Active Stage 2 chronic kidney disease ICD-10: N 18.2 ICD-9: 585.2 11/29/2024 Active Vitamin D deficiency ICD-10: E55.9 ICD-9: 268.9 11/29/2024 Active ACP (advance care planning) SNOMED CT: 3 02110634 ICD-10: Z71.89 ICD-9: V65.49 09/27/2024 Active 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 ICD-9: 303.93 09/27/2024 Active COPD (chronic obstructive pulmonary disease) ICD-10: J44.9 ICD-9: 496 09/27/2024 Active Encounter for preventive care SNOMED CT: 493608120 ICD-10: Z00.00 ICD-9: V70.0 09/27/2024 Active Hemiparesis of left nondomin ant side due to non-cerebrovascular etiology ICD-10: G81.94 ICD-9: 342.92 09/27/2024 Active Hyponatremia ICD-10: E87.1 ICD-9: 276.1 09/27/2024 Active Other chronic pain ICD-10: G89.29 09/27/2024 Active Primary osteoarthritis of juan th knees ICD-10: M17.0 ICD-9: 715.16 09/27/2024 Active PTSD (post-traumatic stress disorder) ICD-10: F43.10 ICD-9: 309.81 09/27/2024 Active Senile purpura ICD-10: D69.2 ICD-9: 287.2 09/27/2024 Active Smokers' cough ICD-10: J41.0 ICD-9: 491.0 09/27/2024 Active Screening for diabetes mellitus SNOMED C T: 888698039 ICD-10: Z13.1 ICD-9: V77.1 09/27/2024 Resolved Tobacco use disorder ICD-10: F17.200 ICD-9: 305.1 12/01/2023 Active Adult general medical exam ICD-10: Z00.0 0 ICD-9: V70.9 09/22/2023 Resolved Encounter for screening examination for other mental health and behavioral disorders ICD-10: Z13.39 ICD-9: V79.8 09/22/2023 Resolved Encounter for screening for depression ICD-10: Z13.31 ICD-9: V79.0 09/22/2023 Resolved Encounter for screening, unspecified ICD-10: Z13.9 ICD-9: V82.9 09/22/2023 Resolved Advanced care planning - to document end of life discussions Unknown 07/28/2023 Active Bifascicular block ICD-10: I45.2 ICD-9: 426.53 07/28/2023 Resolved Encounter for screening for malignant neoplasm of rectum ICD-10: Z12.12 ICD-9: V76.41 07/28/2023 Resolved Encounter for screening for malignant neoplasm of colon ICD-10: Z12.11 ICD-9: V76.51 07/28/2023 Resolved Onychogryposis ICD-10: L60.2 ICD-9: 703.8 07/28/2023 Resolved Personal history of other diseases of the circulatory system ICD-10: Z86.79 ICD-9: V12.59 07/28/2023 Resolved Ventricular tachycardia ICD-10: I47.2 ICD-9: 427.1 04/23/2022 Resolved Essential hypertension ICD-10: I10 ICD-9: 401.9 01/28/2022 Resolved Alcohol abuse, uncomplicated ICD-10: F10 .10 ICD-9: 305.00 12/31/2021 Resolved Medications Medication Codes Instructions Start Date Stop Date Status Fill Instructions aspirin 81 mg tablet,delayed release RxNorm: 948429 Take 1 Tablet(s) Oral QD WITH FOOD 01/16/20 25 Active 01/15/2025 RX HAS REFILLS NEEDED PLEASE THANK YOU citalopram 20 mg tablet RxNorm: 000985 Take 1 Tablet(s) Oral QD 01/16/20 25 026 Active 01/15/2025 RX HAS REFILLS NEEDED PLEASE THANK YOU Vitamin D3 10 mcg (400 unit) tablet RxNorm: 580735 Take 1 Tablet(s) Oral QD 01/04/20 25 Active losartan 50 mg tablet RxNorm: 627616 Take 1 Tablet(s) Oral QD 10/13/19 25 026 Active 10/12/2024 PROACTIVE REFILL REQUEST FOR NEXT CYCLE PLEASE THANK YOU RX has/will before cycle date. atorvastatin 20 mg tablet RxNorm: 794303 Take 1 Tablet(s) Oral QD 10/13/19 25 026 Active 10/12/2024 PROACTIVE REFILL REQUEST FOR NEXT CYCLE PLEASE THANK YOU RX has/will before cycle date. acetaminophen 500 mg tablet RxNorm: 486629 Take 1 Tablet(s) Oral QHS every night at bedtime 08/16/19 25 026 Active 08/15/2024 PROACTIVE REFILL REQUEST FOR NEXT CYCLE PLEASE THANK YOU RX has/will before cycle date ibuprofen 200 mg tablet RxNorm: 204809 Take 1-2 Tablet(s) Oral Q4-6H every 4-6 hours as needed 07/20/19 25 No Stop Date Active diphenhydramine 12.5 mg/5 mL oral liquid RxNorm: 9571235 Take 5-10ml Milliliter(s) Oral Q8H every 8 hours as needed for cough/congestio n 07/20/19 25 No Stop Date Active Vitamin D3 10 mcg (400 unit) tablet RxNorm: 665866 Take 1 Tablet(s) Oral QD 01/26/20 24 024 Inactive Vitamin D3 10 mcg (400 unit) tablet RxNorm: 286744 Take 1 Tablet(s) Oral QD 01/26/20 24 024 Inactive citalopram 20 mg tablet RxNorm: 597551 Take 1 Tablet(s) Oral QD 12/31/19 24 025 Inactive 12/31/2023 PROACTIVE REFILL REQUEST FOR NEXT CYCLE PLEASE THANK YOU RX has/will before cycle date aspirin 81 mg tablet,delayed release RxNorm: 879058 Take 1 Tablet(s) Oral QD WITH FOOD 12/31/19 24 024 Inactive 12/31/2023 PROACTIVE REFILL REQUEST FOR NEXT CYCLE PLEASE THANK YOU RX has/will before cycle date losartan 50 mg tablet RxNorm: 861408 Take 1 Tablet(s) Oral QD 10/14/19 24 024 Inactive 10/14/2023 PROACTIVE REFILL REQUEST FOR NEXT CYCLE PLEASE THANK YOU RX has/will before cycle date. atorvastatin 20 mg tablet RxNorm: 446016 Take 1 Tablet(s) Oral QD 10/14/19 24 025 Inactive 10/14/2023 PROACTIVE REFILL REQUEST FOR NEXT CYCLE PLEASE THANK YOU RX has/will before cycle date. acetaminophen 500 mg tablet RxNorm: 523007 Take 1 Tablet(s) Oral QHS every night at bedtime 08/17/19 24 024 Inactive 08/17/2023 PROACTIVE REFILL REQUEST FOR NEXT CYCLE PLEASE THANK YOU citalopram 20 mg tablet RxNorm: 608561 Take 1 Tablet(s) Oral QD 01/02/20 23 024 Inactive 01/01/2023 PROACTIVE REFILL REQUEST FOR NEXT CYCLE PLEASE THANK YOU RX has/will before cycle date aspirin 81 mg tablet,delayed release RxNorm: 086116 TAKE 1 TABLET BY MOUTH DAILY WITH FOOD 01/02/20 23 023 Inactive 01/01/2023 PROACTIVE REFILL REQUEST FOR NEXT CYCLE PLEASE THANK YOU RX has/will before cycle date acetaminophen 500 mg tablet RxNorm: 135676 Take 1 Tablet(s) Oral QHS every night at bedtime 10/29/19 23 023 Inactive d/c ibuprofen atorvastatin 20 mg tablet RxNorm: 450978 Take 1 Tablet(s) Oral QD 10/15/19 23 024 Inactive 10/13/2022 PROACTIVE REFILL REQUEST FOR NEXT CYCLE PLEASE THANK YOU RX has/will before cycle date losartan 50 mg tablet RxNorm: 421122 Take 1 Tablet(s) Oral QD 10/15/19 23 023 Inactive 10/13/2022 PROACTIVE REFILL REQUEST FOR NEXT CYCLE PLEASE THANK YOU RX has/will before cycle date ibuprofen 400 mg tablet RxNorm: 462554 Take 1-1/2 Tablet(s) Oral QD as needed (at least 6 hours from scheduled dose) 10/01/19 23 024 Inactive Vitamin D2 1,250 mcg (50,000 unit) capsule RxNorm: 3994673 TAKE ONCE CAPSULE ONCE MONTHLY 07/30/19 23 025 Inactive d/c once weekly, start once monthly cholecalciferol (vitamin D3) 1,250 mcg (50,000 unit) capsule RxNorm: 655198 TAKE 1 CAPSULE BY MOUTH WEEKLY ON Wednesday07/23/19 23 023 Inactive Shingrix (PF) 50 mcg/0.5 mL intramuscular suspension, kit RxNorm: 5024691 ADMINISTER 2-DOSE SERIES PER CDC GUIDELINES Take UAD per CDC guidelines 06/26/19 23 023 Inactive diclofenac 1 % topical gel RxNorm: 631242 apply 0.5g topically to left shoulder nightly 01/01/20 22 022 Inactive diclofenac 1 % topical gel RxNorm: 855090 Apply 0.5 Gram(s) Topical QHS every night at bedtime apply 0.5g topically to left shoulder nightly 01/01/20 22 022 Inactive atorvastatin 20 mg tablet RxNorm: 608245 Take 1 Tablet(s) Oral QD 10/22/19 22 022 Inactive 2ND REQUEST FOR REFILLS 10/21/21 NEED TODAY PLEASE- THANK YOU losartan 50 mg tablet RxNorm: 053438 Take 1 Tablet(s) Oral QD 10/22/19 22 022 Inactive 2ND REQUEST FOR REFILLS 10/21/21 NEED TODAY PLEASE- THANK YOU Vitamin D2 1,250 mcg (50,000 unit) capsule RxNorm: 1654794 Take 1 Capsule(s) Oral QW once a week TAKE ONCE CAPSULE ONCE WEEKLY 07/31/19 22 023 Inactive or whatever % is covered by insurance loperamide 2 mg capsule RxNorm: 545799 Take 1 Capsule(s) Oral Q2H every 2 hours as needed for diarrhea Give 2 tabs after first loose stool and then 1 tab after each loose stool. Not to exceed 8 tabs in 24 hours 06/18/19 22 No Stop Date Active Calcium Antacid 200 mg calcium (500 mg) chewable tablet RxNorm: 477203 Chew 2-4 Tablet(s) Oral as needed Take 2-4 tabs by mouth as needed between meals and at bedtime as needed for heartburn or upset stomach 06/18/19 22 No Stop Date Active Robitussin Cough-Chest Congestion DM 5 mg-100 mg/5 mL oral liquid RxNorm: 9392893 Take 5-10 Milliliter(s) Oral Q4H every four hours QID - Four Times Daily as needed Take 5-10ml by mouth every 4 hours as needed for cough or congestion. Not to exceed 6 doses in 24 hours 06/18/19 22 No Stop Date Active acetaminophen 325 mg capsule RxNorm: 368191 Take 1-2 Tablet(s) Oral Q4-6H every 4-6 hours as needed for pain and elevated temperature. Not to exceed 4000mg in 24 hours 06/18/19 22 No Stop Date Active aluminum-mag hydroxide-simethicone 200 mg-200 mg-20 mg/5 mL oral susp RxNorm: 509978 Take 5-10 Milliliter(s) Oral QD as needed for nausea one time daily between and at bedtime as needed for heartburn and/ or upset stomach 06/18/19 No Stop Date Active Milk of Magnesia 400 mg/5 mL oral suspension RxNorm: 420222 Take 15-30 Milliliter(s) Oral as needed Take 15-30ml by mouth daily (preferably at bedtime) as needed for constipation. Recommend 8 oz of water after each use. 06/18/19 22 No Stop Date Active citalopram 20 mg tablet RxNorm: 200017 Take 1 Tablet(s) Oral QD every day 06/18/19 22 023 Inactive losartan 50 mg tablet RxNorm: 543478 Give 1 Tablet(s) Oral QD 06/18/19 22 022 Inactive atorvastatin 20 mg tablet RxNorm: 277855 Take 1 Tablet(s) Oral QD 06/18/19 22 022 Inactive ibuprofen 600 mg tablet RxNorm: 021491 Take 1 Tablet(s) Oral QHS every night at bedtime 06/18/19 22 023 Inactive Aspirin Low Dose 81 mg tablet,delayed release RxNorm: 255636 Take 1 Tablet(s) Oral QD QD - Daily with food 06/18/19 22 023 Inactive ibuprofen 600 mg tablet RxNorm: 401929 Take 1 and 1/2 Tablet(s) Oral QD as needed Take at least 6 hours from scheduled dose 06/18/19 22 023 Inactive hydrochlorothiazide 25 mg tablet RxNorm: 694310 Take 1 Tablet(s) Oral QD 06/18/19 22 [...] depression episode severity ICD-10: F33.9 ICD-9: 296.30 01/24/2025 No note found Chronic left shoulder pain ICD-10: M25.5 12 ICD-9: 719.41 01/24/2025 No note found Chronic tension-type headach e, not intractable ICD-10: G44.229 ICD-9: 339.12 01/24/2025 No note found Reason For Visit No Reason For Visit data Review of Systems No Review of Systems data Physical Exam No Physical Exam data Procedures Procedure Codes Date SYST BP GE 130 - 139MM HG CPT-4: 3075F 2024 DIAST BP 80-89 MM HG CPT-4: 3079F 01/24/2025 TOBACCO Education CPT-4: TOBACCO 01/24/2025 BEHAV CHNG SMOKING 3-[address]: 2 28904627 CPT-4: 39086 07/29/2022 BEHAV CHNG SMOKING 3-[address]: 2 88362114 CPT-4: 19170 01/28/2022 AAA Screening US CPT-4: 63812 01/06/2022 BEHAV CHNG SMOKING 3-[address]: 2 25698943 CPT-4: 89739 12/31/2021 BEHAV CHNG SMOKING > [address]: 2 09226207 CPT-4: 82615 12/31/2021 BEHAV CHNG SMOKING 3-[address]: 2 60236628 CPT-4: 33228 11/26/2021 BEHAV CHNG SMOKING 3-[address]: 2 17577122 CPT-4: 31526 11/05/2021 BEHAV CHNG SMOKING 3-[address]: 2 66209029 CPT-4: 33762 09/24/2021 BEHAV CHNG SMOKING 3-[address]: 2 82950593 CPT-4: 94862 08/27/2021 BEHAV CHNG SMOKING 3-[address]: 2 63209129 CPT-4: 36717 07/30/2021 BEHAV CHNG SMOKING 3-[address]: 2 52325552 CPT-4: 72444 06/12/2021 Vital Signs Date Vital 01/24/2025 Blood Pressure 1: 135/88 Code: 8480-6 BMI: NaN Code: 69125-4 Heart Rate 1: 77 bpm Code: 8867-4 Height: 5'9 Code: 8302-2 Respiratory Rate: 18 bpm SpO2: 93% Temperature: 36.7 (C) / 98.0 (F) Weight: 158 lbs 6 oz Code: 3141-9 Functional Status Functional / Cognitive Codes Status [...] Encounter Performer Location Location Address Codes Date (29233) Home Visit - Est Pt, moderate Diagnosis: Chronic left shoulder pain[ICD10: M25.512] Diagnosis: Chronic tension-type headache, not intractable[ICD10: G44.229] Diagnosis: Episode of recurrent major depressive disorder, unspecified depression episode severity[ICD10: F33.9] Corie Pérez [address] [address] CPT-4: 54690 01/24/2025 Plan of Care Planned Activity Notes Codes Status Date Patient Education: Patient Medication Summary Completed 01/24/2025 Patient Education: Influenza Complet ed 01/24/2025 Patient Education: Smoking Cessation Completed 01/24/2025 Appointment: Juliana Pérez WPtel: [address] [place], [place] [phone] F/U 07/19/2024 Appointment: Татьяна Figueredo WPtel: [address] [place], [place] [id number] F/U 09/24/2021 Health Concerns Section Concern Status [...]
--- OUTSIDE RECORDS SUMMARY | 2025-03-13 16:45 | XMS_ITS | CCD ---
Author Organization Unknown Care Team Providers Care Cardiopulmonary Supervisor Name Role Phone Beto NIEVESMoy Corie Primary Care Provider Jeannine vailable Unavailable Chronic Care Management Unavaila ble Summary Purpose DataExchange Insurance Providers Payer name Policy type / Coverage type Covered libertarian ID Effective Begin Date Effective End Date Ucare Commercial Insurance [id number] Unkn own Medicaid [place] Commercial Insurance [id number] Unk nown Family History Family History data not found Social History Social History Element Codes Description Effec tive Dates Caregiver Assessment Unknown Healthcare POA on fi le 07/19/2024 Marital status Unknown Single 07/28/2023 Living arrangements Unknown Assisted Living 07/[address]: 74562740 Current ever y day smoker 07/28/[address]: 505236376 No Alcohol Consum ption 07/28/2023 Sexually Active? [...] Unknown Yes 07/28/[address]: 95914865 Current ever y day smoker half pack- 1 pack/daily Started smoking at age 18 06/17/[address]: 597319390 No Alcohol Consumption Hx of consumption 06/17/2021 Allergies, Adverse Reactions, Alerts Substance Reaction Codes Entered Date Inactivated Date Status NO KNOWN ALLERGIES Unknown 04/25/2021 No Inactiv e Date Active * NO KNOWN FOOD ALLERGIES Unknown 06/12/2021 No Inactive Date Active * NO KNOWN ENVIRONMENTAL ALLERGIES Unknown 06/12/2021 No Inactive Date Active Past Medical History Illness Codes Condition Status Onset Date Resolved Date ACP (advance care planning) SNOMED CT: 214278217 ICD-10: Z71.89 ICD-9: V65.49 Active 09/27/2024 Unknown 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 ICD-9: 303.93 Active 09/27/2024 Unknown Chronic left shoulder pain ICD-10: M25.5 12 ICD-9: 719.41 Active 09/27/2024 01/24/2025 Chronic tension-type headache, not intractable ICD-10: G44.229 ICD-9: 339.12 Active 09/27/2024 01/24/2025 COPD (chronic obstructive pulmonary disease) ICD-10: J44.9 ICD-9: 496 Active 09/27/2024 Unknown Encounter for preventive care SNOMED CT: 232607029 ICD-10: Z00.00 ICD-9: V70.0 Active 09/27/2024 Unknown Episode of recurrent major depressive disorder, unspecified depression episode severity ICD-10: F33.9 ICD-9: 296.30 Active 09/27/2024 01/24/2025 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 ICD-10: G81.94 ICD-9: 342.92 Active 09/27/2024 Unknown Hypercholesteremia ICD-10: E78.00 ICD-9: 272.0 Active 09/27/2024 11/29/2024 Hypertensive chronic kidney disease with stage 1 through stage 4 chronic kidney disease, or unspecified chronic kidney disease ICD-10: I12.9 ICD-9: 403.90 Active 09/27/2024 11/29/2024 Hyponatremia ICD-10: E87.1 ICD-9: 276.1 Active 09/27/2024 Unknown Other chronic pain ICD-10: G89.29 Active 09/27/2024 Un known Primary osteoarthritis of both knees ICD-10: M17.0 ICD-9: 715.16 Active 09/27/2024 Unknown PTSD (post-traumatic stress disorder) ICD-10: F43.10 ICD-9: 309.81 Active 09/27/2024 Unknown Senile purpura ICD-10: D69.2 ICD-9: 287.2 Active 09/27/2024 Unknown Smokers' cough ICD-10: J41.0 ICD-9: 491.0 Active 09/27/2024 Unknown Stage 2 chronic kidney disease ICD-10: N18.2 ICD-9: 585.2 Active 09/27/2024 11/29/2024 Vitamin D deficiency ICD-10: E55.9 ICD-9: 268.9 Active 09/27/2024 11/29/2024 Screening for diabetes mellitus SNOMED CT: 518408634 ICD-10: Z13.1 ICD-9: V77.1 Resolved 09/27/2024 Unknown [...] Condition Codes Effective Dates Condition [facility] ACP (advance care planning) SNOMED CT: 3 11458805 ICD-10: Z71.89 ICD-9: V65.49 09/27/2024 Active 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 ICD-9: 303.93 09/27/2024 Active Chronic left shoulder pain ICD-10: M25.5 12 ICD-9: 719.41 09/27/2024 Active Chronic tension-type headach e, not intractable ICD-10: G44.229 ICD-9: 339.12 09/27/2024 Active COPD (chronic obstructive pulmonary disease) ICD-10: J44.9 ICD-9: 496 09/27/2024 Active Encounter for preventive care SNOMED CT: 748883395 ICD-10: Z00.00 ICD-9: V70.0 09/27/2024 Active Episode of recurrent major depressive disorder, unspecified depression episode severity ICD-10: F33.9 ICD-9: 296.30 09/27/2024 Active Hemiparesis of left nondomin ant side due to non-cerebrovascular etiology ICD-10: G81.94 ICD-9: 342.92 09/27/2024 Active Hypercholesteremia ICD-10: E78.00 ICD-9: 272.0 09/27/2024 Active Hypertensive chronic kidney disease with stage 1 through stage 4 chronic kidney disease, or unspecified chronic kidney disease ICD-10: I12.9 ICD-9: 403.90 09/27/2024 Active Hyponatremia ICD-10: E87.1 ICD-9: 276.1 09/27/2024 Active Other chronic pain ICD-10: G89.29 09/27/2024 Active Primary osteoarthritis of juan th knees ICD-10: M17.0 ICD-9: 715.16 09/27/2024 Active PTSD (post-traumatic stress disorder) ICD-10: F43.10 ICD-9: 309.81 09/27/2024 Active Senile purpura ICD-10: D69.2 ICD-9: 287.2 09/27/2024 Active Smokers' cough ICD-10: J41.0 ICD-9: 491.0 09/27/2024 Active Stage 2 chronic kidney disease ICD-10: N 18.2 ICD-9: 585.2 09/27/2024 Active Vitamin D deficiency ICD-10: E55.9 ICD-9: 268.9 09/27/2024 Active Screening for diabetes mellitus SNOMED C T: 690678954 ICD-10: Z13.1 ICD-9: V77.1 09/27/2024 Resolved Tobacco [...] Start Date Stop Date Status Fill Instructions losartan 50 mg tablet RxNorm: 547463 Take 1 Tablet(s) Oral QD 10/13/19 25 026 Active 10/12/2024 PROACTIVE REFILL REQUEST FOR NEXT CYCLE PLEASE THANK YOU RX has/will before cycle date. atorvastatin 20 mg tablet RxNorm: 219957 Take 1 Tablet(s) Oral QD 10/13/19 25 026 Active 10/12/2024 PROACTIVE REFILL REQUEST FOR NEXT CYCLE PLEASE THANK YOU RX has/will before cycle date. acetaminophen 500 mg tablet RxNorm: 193070 Take 1 Tablet(s) Oral QHS every night at bedtime 08/16/19 25 026 Active 08/15/2024 PROACTIVE REFILL REQUEST FOR NEXT CYCLE PLEASE THANK YOU RX has/will before cycle date ibuprofen 200 mg tablet RxNorm: 697334 Take 1-2 Tablet(s) Oral Q4-6H every 4-6 hours as needed 07/20/19 25 No Stop Date Active diphenhydramine 12.5 mg/5 mL oral liquid RxNorm: 1495758 Take 5-10ml Milliliter(s) Oral Q8H every 8 hours as needed for cough/congestio n 07/20/19 25 No Stop Date Active Vitamin D3 10 mcg (400 unit) tablet RxNorm: 947382 Take 1 Tablet(s) Oral QD 01/26/20 24 024 Inactive Vitamin D3 10 mcg (400 unit) tablet RxNorm: 274585 Take 1 Tablet(s) Oral QD 01/26/20 24 024 Inactive citalopram 20 mg tablet RxNorm: 788521 Take 1 Tablet(s) Oral QD 12/31/19 24 025 Inactive 12/31/2023 PROACTIVE REFILL REQUEST FOR NEXT CYCLE PLEASE THANK YOU RX has/will before cycle date aspirin 81 mg tablet,delayed release RxNorm: 919635 Take 1 Tablet(s) Oral QD WITH FOOD 12/31/19 24 024 Inactive 12/31/2023 PROACTIVE REFILL REQUEST FOR NEXT CYCLE PLEASE THANK YOU RX has/will before cycle date losartan 50 mg tablet RxNorm: 829080 Take 1 Tablet(s) Oral QD 10/14/19 24 024 Inactive 10/14/2023 PROACTIVE REFILL REQUEST FOR NEXT CYCLE PLEASE THANK YOU RX has/will before cycle date. atorvastatin 20 mg tablet RxNorm: 272689 Take 1 Tablet(s) Oral QD 10/14/19 24 025 Inactive 10/14/2023 PROACTIVE REFILL REQUEST FOR NEXT CYCLE PLEASE THANK YOU RX has/will before cycle date. acetaminophen 500 mg tablet RxNorm: 203748 Take 1 Tablet(s) Oral QHS every night at bedtime 08/17/19 24 024 Inactive 08/17/2023 PROACTIVE REFILL REQUEST FOR NEXT CYCLE PLEASE THANK YOU citalopram 20 mg tablet RxNorm: 341267 Take 1 Tablet(s) Oral QD 01/02/20 23 024 Inactive 01/01/2023 PROACTIVE REFILL REQUEST FOR NEXT CYCLE PLEASE THANK YOU RX has/will before cycle date aspirin 81 mg tablet,delayed release RxNorm: 811761 TAKE 1 TABLET BY MOUTH DAILY WITH FOOD 01/02/20 23 023 Inactive 01/01/2023 PROACTIVE REFILL REQUEST FOR NEXT CYCLE PLEASE THANK YOU RX has/will before cycle date acetaminophen 500 mg tablet RxNorm: 042074 Take 1 Tablet(s) Oral QHS every night at bedtime 10/29/19 23 023 Inactive d/c ibuprofen atorvastatin 20 mg tablet RxNorm: 139004 Take 1 Tablet(s) Oral QD 10/15/19 23 024 Inactive 10/13/2022 PROACTIVE REFILL REQUEST FOR NEXT CYCLE PLEASE THANK YOU RX has/will before cycle date losartan 50 mg tablet RxNorm: 625284 Take 1 Tablet(s) Oral QD 10/15/19 23 023 Inactive 10/13/2022 PROACTIVE REFILL REQUEST FOR NEXT CYCLE PLEASE THANK YOU RX has/will before cycle date ibuprofen 400 mg tablet RxNorm: 697741 Take 1-1/2 Tablet(s) Oral QD as needed (at least 6 hours from scheduled dose) 10/01/19 23 024 Inactive Vitamin D2 1,250 mcg (50,000 unit) capsule RxNorm: 2595883 TAKE ONCE CAPSULE ONCE MONTHLY 07/30/19 23 025 Inactive d/c once weekly, start once monthly cholecalciferol (vitamin D3) 1,250 mcg (50,000 unit) capsule RxNorm: 421463 TAKE 1 CAPSULE BY MOUTH WEEKLY ON Wednesday07/23/19 23 023 Inactive Shingrix (PF) 50 mcg/0.5 mL intramuscular suspension, kit RxNorm: 1990795 ADMINISTER 2-DOSE SERIES PER CDC GUIDELINES Take UAD per CDC guidelines 06/26/19 23 023 Inactive diclofenac 1 % topical gel RxNorm: 599337 apply 0.5g topically to left shoulder nightly 01/01/20 22 022 Inactive diclofenac 1 % topical gel RxNorm: 754670 Apply 0.5 Gram(s) Topical QHS every night at bedtime apply 0.5g topically to left shoulder nightly 01/01/20 22 022 Inactive atorvastatin 20 mg tablet RxNorm: 368549 Take 1 Tablet(s) Oral QD 10/22/19 22 022 Inactive 2ND REQUEST FOR REFILLS 10/21/21 NEED TODAY PLEASE- THANK YOU losartan 50 mg tablet RxNorm: 569913 Take 1 Tablet(s) Oral QD 10/22/19 22 022 Inactive 2ND REQUEST FOR REFILLS 10/21/21 NEED TODAY PLEASE- THANK YOU Vitamin D2 1,250 mcg (50,000 unit) capsule RxNorm: 2447564 Take 1 Capsule(s) Oral QW once a week TAKE ONCE CAPSULE ONCE WEEKLY 07/31/19 22 023 Inactive or whatever % is covered by insurance loperamide 2 mg capsule RxNorm: 210273 Take 1 Capsule(s) Oral Q2H every 2 hours as needed for diarrhea Give 2 tabs after first loose stool and then 1 tab after each loose stool. Not to exceed 8 tabs in 24 hours 06/18/19 No Stop Date Active Calcium Antacid 200 mg calcium (500 mg) chewable tablet RxNorm: 315508 Chew 2-4 Tablet(s) Oral as needed Take 2-4 tabs by mouth as needed between meals and at bedtime as needed for heartburn or upset stomach 06/18/19 No Stop Date Active Robitussin Cough-Chest Congestion DM 5 mg-100 mg/5 mL oral liquid RxNorm: 7911773 Take 5-10 Milliliter(s) Oral Q4H every four hours QID - Four Times Daily as needed Take 5-10ml by mouth every 4 hours as needed for cough or congestion. Not to exceed 6 doses in 24 hours 06/18/19 No Stop Date Active acetaminophen 325 mg capsule RxNorm: 254693 Take 1-2 Tablet(s) Oral Q4-6H every 4-6 hours as needed for pain and elevated temperature. Not to exceed 4000mg in 24 hours 06/18/19 No Stop Date Active aluminum-mag hydroxide-simethicone 200 mg-200 mg-20 mg/5 mL oral susp RxNorm: 214547 Take 5-10 Milliliter(s) Oral QD as needed for nausea one time daily between and at bedtime as needed for heartburn and/ or upset stomach 06/18/19 No Stop Date Active Milk of Magnesia 400 mg/5 mL oral suspension RxNorm: 628350 Take 15-30 Milliliter(s) Oral as needed Take 15-30ml by mouth daily (preferably at bedtime) as needed for constipation. Recommend 8 oz of water after each use. 06/18/19 No Stop Date Active citalopram 20 mg tablet RxNorm: 939738 Take 1 Tablet(s) Oral QD every day 06/18/19 023 Inactive losartan 50 mg tablet RxNorm: 911654 Give 1 Tablet(s) Oral QD 06/18/19 22 022 Inactive atorvastatin 20 mg tablet RxNorm: 226016 Take 1 Tablet(s) Oral QD 06/18/19 22 022 Inactive ibuprofen 600 mg tablet RxNorm: 192534 Take 1 Tablet(s) Oral QHS every night at bedtime 06/18/19 023 Inactive Aspirin Low Dose 81 mg tablet,delayed release RxNorm: 111704 Take 1 Tablet(s) Oral QD QD - Daily with food 06/18/19 22 023 Inactive ibuprofen 600 mg tablet RxNorm: 632875 Take 1 and 1/2 Tablet(s) Oral QD as needed Take at least 6 hours from scheduled dose 06/18/19 22 023 Inactive hydrochlorothiazide 25 mg tablet RxNorm: 444025 Take 1 Tablet(s) Oral QD 06/18/19 22 [...] CHNG SMOKING 3-[address]: 2 01672563 CPT-4: 32471 07/29/2022 BEHAV CHNG SMOKING 3-[address]: 2 37965771 CPT-4: 94951 01/28/2022 AAA Screening US CPT-4: 03606 01/06/2022 BEHAV CHNG SMOKING 3-[address]: 2 80361732 CPT-4: 81953 12/31/2021 BEHAV CHNG SMOKING > [address]: 2 77442972 CPT-4: 76849 12/31/2021 BEHAV CHNG SMOKING 3-[address]: 2 22289688 CPT-4: 18472 11/26/2021 BEHAV CHNG SMOKING 3-[address]: 2 50303216 CPT-4: 00102 11/05/2021 BEHAV CHNG SMOKING 3-[address]: 2 43786659 CPT-4: 23235 09/24/2021 BEHAV CHNG SMOKING 3-[address]: 2 38735259 CPT-4: 10989 08/27/2021 BEHAV CHNG SMOKING 3-[address]: 2 18234495 CPT-4: 79384 07/30/2021 BEHAV CHNG SMOKING 3-[address]: 2 77955903 CPT-4: 62498 06/12/2021 Functional Status Functional / Cognitive Codes Status [...] Advance Directives Filename Date DAVIDSON Hui 07/28/2023 Health Concerns Section Concern Status Date (E87.1-276.1) [...]
--- OUTSIDE RECORDS SUMMARY | 2025-03-13 16:46 | XMS_ITS | CCD ---
Author Organization Unknown Care Team Providers Care Manufacturing Operations Manager Name Role Phone Beto LOMELINitoCorie Primary Care Provider Jeannine vailable Unavailable Chronic Care Management Unavaila ble Summary Purpose DataExchange Insurance Providers Payer name Policy type / Coverage type Covered alliance party ID Effective Begin Date Effective End Date Ucare Commercial Insurance [id number] Unkn own Medicaid [place] Commercial Insurance [id number] Unk nown Family History Family History data not found Social History Social History Element Codes Description Effec tive Dates Marital status Unknown Single 07/28/2023 Living arrangements Unknown Assisted Living 07/[address]: 46446418 Current ever y day smoker 07/28/[address]: 698409782 No Alcohol Consum ption 07/28/2023 Sexually Active? [...] Unknown Yes 07/28/[address]: 59015845 Current ever y day smoker half pack- 1 pack/daily Started smoking at age 18 06/17/[address]: 202291178 No Alcohol Consumption Hx of consumption 06/17/2021 [...] episode severity ICD-10: F33.9 ICD-9: 296.30 Active 09/22/2023 01/26/2024 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 ICD-10: G81.94 ICD-9: 342.92 Active 09/22/2023 12/01/2023 Hypercholesteremia ICD-10: E78.00 ICD-9: 272.0 Active 09/22/2023 07/19/2024 Hypertensive chronic kidney disease with stage 1 through stage 4 chronic kidney disease, or unspecified chronic kidney disease ICD-10: I12.9 ICD-9: 403.90 Active 09/22/2023 01/26/2024 PTSD (post-traumatic stress disorder) ICD-10: F43.10 ICD-9: 309.81 Active 09/22/2023 09/27/2024 Stage 2 chronic kidney disease ICD-10: N18.2 ICD-9: 585.2 Active 09/22/2023 01/26/2024 ACP (advance care planning) ICD-10: Z71. 89 [...] ICD-10: F10.21 ICD-9: 303.93 Active 07/28/2023 07/19/2024 Chronic left shoulder pain ICD-10: M25.5 12 ICD-9: 719.41 Active 07/28/2023 12/01/2023 Chronic tension-type headache, not intractable ICD-10: G44.229 ICD-9: 339.12 Active 07/28/2023 12/01/2023 COPD (chronic obstructive pulmonary disease) ICD-10: J44.9 ICD-9: 496 Active 07/28/2023 07/19/2024 Other chronic pain ICD-10: G89.29 Active 07/28/2023 Primary osteoarthritis of both knees ICD-10: M17.0 ICD-9: 715.16 Active 07/28/2023 12/01/2023 Senile purpura ICD-10: D69.2 ICD-9: 287.2 Active 07/28/2023 09/27/2024 Smokers' cough ICD-10: J41.0 ICD-9: 491.0 Active 07/28/2023 09/27/2024 Tobacco use disorder ICD-10: F17.200 ICD-9: 305.1 Active 07/28/2023 12/01/2023 Vitamin D deficiency ICD-10: E55.9 ICD-9: 268.9 Active 07/28/2023 01/18/2024 Bifascicular block ICD-10: I45.2 ICD-9: 426.53 Resolved [...] depression episode severity ICD-10: F33.9 ICD-9: 296.30 09/22/2023 Active Hemiparesis of left nondomin ant side due to non-cerebrovascular etiology ICD-10: G81.94 ICD-9: 342.92 09/22/2023 Active Hypercholesteremia ICD-10: E78.00 ICD-9: 272.0 09/22/2023 Active Hypertensive chronic kidney disease with stage 1 through stage 4 chronic kidney disease, or unspecified chronic kidney disease ICD-10: I12.9 ICD-9: 403.90 09/22/2023 Active PTSD (post-traumatic stress disorder) ICD-10: F43.10 ICD-9: 309.81 09/22/2023 Active Stage 2 chronic kidney disease ICD-10: N 18.2 ICD-9: 585.2 09/22/2023 Active ACP (advance care planning) ICD-10: [...] remission ICD-10: F10.21 ICD-9: 303.93 07/28/2023 Active Chronic left shoulder pain ICD-10: M25.5 12 ICD-9: 719.41 07/28/2023 Active Chronic tension-type headach e, not intractable ICD-10: G44.229 ICD-9: 339.12 07/28/2023 Active COPD (chronic obstructive pu lmonary disease) ICD-10: J44.9 ICD-9: 496 07/28/2023 Active Other chronic pain ICD-10: G89.29 07/28/2023 Active Primary osteoarthritis of both knees ICD -10: M17.0 ICD-9: 715.16 07/28/2023 Active Senile purpura ICD-10: D69.2 ICD-9: 287.2 07/28/2023 Active Smokers' cough ICD-10: J41.0 ICD-9: 491.0 07/28/2023 Active Tobacco use disorder ICD-10: F17.200 ICD-9: 305.1 07/28/2023 Active Vitamin D deficiency ICD-10: E55.9 ICD-9: 268.9 07/28/2023 Active Bifascicular block ICD-10: I45.2 ICD-9: [...] Fill Instructions losartan 50 mg tablet RxNorm: 569253 Take 1 Tablet(s) Oral QD 10/14/19 24 024 Inactive 10/14/2023 PROACTIVE REFILL REQUEST FOR NEXT CYCLE PLEASE THANK YOU RX has/will before cycle date. atorvastatin 20 mg tablet RxNorm: 232505 Take 1 Tablet(s) Oral QD 10/14/19 24 025 Inactive 10/14/2023 PROACTIVE REFILL REQUEST FOR NEXT CYCLE PLEASE THANK YOU RX has/will before cycle date. acetaminophen 500 mg tablet RxNorm: 528478 Take 1 Tablet(s) Oral QHS every night at bedtime 08/17/19 24 024 Inactive 08/17/2023 PROACTIVE REFILL REQUEST FOR NEXT CYCLE PLEASE THANK YOU citalopram 20 mg tablet RxNorm: 361462 Take 1 Tablet(s) Oral QD 01/02/20 23 024 Inactive 01/01/2023 PROACTIVE REFILL REQUEST FOR NEXT CYCLE PLEASE THANK YOU RX has/will before cycle date aspirin 81 mg tablet,delayed release RxNorm: 742281 TAKE 1 TABLET BY MOUTH DAILY WITH FOOD 01/02/20 23 023 Inactive 01/01/2023 PROACTIVE REFILL REQUEST FOR NEXT CYCLE PLEASE THANK YOU RX has/will before cycle date acetaminophen 500 mg tablet RxNorm: 674453 Take 1 Tablet(s) Oral QHS every night at bedtime 10/29/19 23 023 Inactive d/c ibuprofen atorvastatin 20 mg tablet RxNorm: 829013 Take 1 Tablet(s) Oral QD 10/15/19 23 024 Inactive 10/13/2022 PROACTIVE REFILL REQUEST FOR NEXT CYCLE PLEASE THANK YOU RX has/will before cycle date losartan 50 mg tablet RxNorm: 865186 Take 1 Tablet(s) Oral QD 10/15/19 23 023 Inactive 10/13/2022 PROACTIVE REFILL REQUEST FOR NEXT CYCLE PLEASE THANK YOU RX has/will before cycle date ibuprofen 400 mg tablet RxNorm: 194376 Take 1-1/2 Tablet(s) Oral QD as needed (at least 6 hours from scheduled dose) 10/01/19 23 024 Inactive Vitamin D2 1,250 mcg (50,000 unit) capsule RxNorm: 5751868 TAKE ONCE CAPSULE ONCE MONTHLY 07/30/19 23 025 Inactive d/c once weekly, start once monthly cholecalciferol (vitamin D3) 1,250 mcg (50,000 unit) capsule RxNorm: 833669 TAKE 1 CAPSULE BY MOUTH WEEKLY ON Wednesday07/23/19 23 023 Inactive Shingrix (PF) 50 mcg/0.5 mL intramuscular suspension, kit RxNorm: 0065080 ADMINISTER 2-DOSE SERIES PER CDC GUIDELINES Take UAD per CDC guidelines 06/26/19 23 023 Inactive diclofenac 1 % topical gel RxNorm: 062148 apply 0.5g topically to left shoulder nightly 01/01/20 22 022 Inactive diclofenac 1 % topical gel RxNorm: 033736 Apply 0.5 Gram(s) Topical QHS every night at bedtime apply 0.5g topically to left shoulder nightly 01/01/20 22 022 Inactive atorvastatin 20 mg tablet RxNorm: 943929 Take 1 Tablet(s) Oral QD 10/22/19 22 022 Inactive 2ND REQUEST FOR REFILLS 10/21/21 NEED TODAY PLEASE- THANK YOU losartan 50 mg tablet RxNorm: 231894 Take 1 Tablet(s) Oral QD 10/22/19 22 022 Inactive 2ND REQUEST FOR REFILLS 10/21/21 NEED TODAY PLEASE- THANK YOU Vitamin D2 1,250 mcg (50,000 unit) capsule RxNorm: 7395136 Take 1 Capsule(s) Oral QW once a week TAKE ONCE CAPSULE ONCE WEEKLY 07/31/19 22 023 Inactive or whatever % is covered by insurance loperamide 2 mg capsule RxNorm: 812909 Take 1 Capsule(s) Oral Q2H every 2 hours as needed for diarrhea Give 2 tabs after first loose stool and then 1 tab after each loose stool. Not to exceed 8 tabs in 24 hours 06/18/19 No Stop Date Active Calcium Antacid 200 mg calcium (500 mg) chewable tablet RxNorm: 627968 Chew 2-4 Tablet(s) Oral as needed Take 2-4 tabs by mouth as needed between meals and at bedtime as needed for heartburn or upset stomach 06/18/19 No Stop Date Active Robitussin Cough-Chest Congestion DM 5 mg-100 mg/5 mL oral liquid RxNorm: 5642027 Take 5-10 Milliliter(s) Oral Q4H every four hours QID - Four Times Daily as needed Take 5-10ml by mouth every 4 hours as needed for cough or congestion. Not to exceed 6 doses in 24 hours 06/18/19 No Stop Date Active acetaminophen 325 mg capsule RxNorm: 262678 Take 1-2 Tablet(s) Oral Q4-6H every 4-6 hours as needed for pain and elevated temperature. Not to exceed 4000mg in 24 hours 06/18/19 No Stop Date Active aluminum-mag hydroxide-simethicone 200 mg-200 mg-20 mg/5 mL oral susp RxNorm: 716349 Take 5-10 Milliliter(s) Oral QD as needed for nausea one time daily between and at bedtime as needed for heartburn and/ or upset stomach 06/18/19 No Stop Date Active Milk of Magnesia 400 mg/5 mL oral suspension RxNorm: 756488 Take 15-30 Milliliter(s) Oral as needed Take 15-30ml by mouth daily (preferably at bedtime) as needed for constipation. Recommend 8 oz of water after each use. 06/18/19 No Stop Date Active citalopram 20 mg tablet RxNorm: 837254 Take 1 Tablet(s) Oral QD every day 06/18/19 22 023 Inactive losartan 50 mg tablet RxNorm: 128630 Give 1 Tablet(s) Oral QD 06/18/19 22 022 Inactive atorvastatin 20 mg tablet RxNorm: 481766 Take 1 Tablet(s) Oral QD 06/18/19 22 022 Inactive ibuprofen 600 mg tablet RxNorm: 553084 Take 1 Tablet(s) Oral QHS every night at bedtime 06/18/19 22 023 Inactive Aspirin Low Dose 81 mg tablet,delayed release RxNorm: 930521 Take 1 Tablet(s) Oral QD QD - Daily with food 06/18/19 22 023 Inactive ibuprofen 600 mg tablet RxNorm: 976129 Take 1 and 1/2 Tablet(s) Oral QD as needed Take at least 6 hours from scheduled dose 06/18/19 22 023 Inactive hydrochlorothiazide 25 mg tablet RxNorm: 811284 Take 1 Tablet(s) Oral QD 06/18/19 22 022 Inactive Medication Administered No Medication Administered data Immunizations Vaccine Codes Dose Date Status Covid-19 (Adult) Unknown 07/29/2023 Pneumococcal CVX: 216 [...] CHNG SMOKING 3-[address]: 2 97336053 CPT-4: 63699 07/29/2022 BEHAV CHNG SMOKING 3-[address]: 2 31782773 CPT-4: 92401 01/28/2022 AAA Screening CPT-4: 84660 01/06/2022 BEHAV CHNG SMOKING 3-[address]: 2 49668057 CPT-4: 51613 12/31/2021 BEHAV CHNG SMOKING > [address]: 2 27523722 CPT-4: 87868 12/31/2021 BEHAV CHNG SMOKING 3-[address]: 2 01703531 CPT-4: 89029 11/26/2021 BEHAV CHNG SMOKING 3-[address]: 2 82158906 CPT-4: 20280 11/05/2021 BEHAV CHNG SMOKING 3-[address]: 2 86854752 CPT-4: 66241 09/24/2021 BEHAV CHNG SMOKING 3-[address]: 2 03755436 CPT-4: 64979 08/27/2021 BEHAV CHNG SMOKING 3-[address]: 2 40580082 CPT-4: 28562 07/30/2021 BEHAV CHNG SMOKING 3-[address]: 2 66897816 CPT-4: 14381 06/12/2021 Functional Status Functional / Cognitive Codes [...]
--- OUTSIDE RECORDS SUMMARY | 2025-03-13 16:46 | XMS_ITS | CCD ---
Author Name Ayanna Carranza Address [address] [place] [address] Phone Organization [facility] Phone Care Team Providers Care Certified Social Workers In Health Care Name Role Phone Beto WHITE McKenzie Primary Care Provider Jeannine vailable Unavailable Chronic Care Management Unavaila ble Summary Purpose DataExchange Insurance Providers Payer name Policy type / Coverage type Covered alliance party ID Effective Begin Date Effective End Date [employer] Commercial Insurance [id number] Unkn own [place] Commercial Insurance [id number] Unk nown Family History Family History data not found Social History Social History Element Codes Description Effec tive Dates Marital status Unknown Single 07/28/2023 Living arrangements Unknown Assisted Living 07/[address]: 88576724 Current ever y day smoker 07/28/[address]: 823877415 No Alcohol Consum ption 07/28/2023 Sexually Active? [...] Unknown Yes 07/28/[address]: 66504767 Current ever y day smoker half pack- 1 pack/daily Started smoking at age 18 06/17/[address]: 065438298 No Alcohol Consumption Hx of consumption 06/17/2021 Allergies, Adverse Reactions, Alerts Substance Reaction Codes Entered Date Inactivated Date Status NO KNOWN ALLERGIES Unknown 04/25/2021 No Inactiv e Date Active * NO KNOWN FOOD ALLERGIES Unknown 06/12/2021 No Inactive Date Active * NO KNOWN ENVIRONMENTAL ALLERGIES Unknown 06/12/2021 No Inactive Date Active Past Medical History Illness Codes Condition Status Onset Date Resolved Date Vitamin D deficiency ICD-10: E55.9 ICD-9: 268.9 Active 01/18/2024 01/26/2024 Chronic left shoulder pain ICD-10: M25.5 12 [...] ICD-10: F17.200 ICD-9: 305.1 Active 12/01/2023 Unknown Episode of recurrent major depressive disorder, unspecified depression episode severity ICD-10: F33.9 ICD-9: 296.30 Active 09/22/2023 01/26/2024 Hypercholesteremia ICD-10: E78.00 ICD-9: 272.0 Active 09/22/2023 [...] Condition Codes Effective Dates Condition St atus Vitamin D deficiency ICD-10: E55.9 ICD-9: 268.9 01/18/2024 Active Chronic left shoulder pain ICD-10: M25.5 [...] disorder ICD-10: F17.200 ICD-9: 305.1 12/01/2023 Active Episode of recurrent major depressive disorder, unspecified depression episode severity ICD-10: F33.9 ICD-9: 296.30 09/22/2023 Active Hypercholesteremia ICD-10: E78.00 ICD-9: 272.0 [...] Fill Instructions citalopram 20 mg tablet RxNorm: 156324 Take 1 Tablet(s) Oral QD 12/31/19 24 025 Inactive 12/31/2023 PROACTIVE REFILL REQUEST FOR NEXT CYCLE PLEASE THANK YOU RX has/will before cycle date aspirin 81 mg tablet,delayed release RxNorm: 677148 Take 1 Tablet(s) Oral QD WITH FOOD 12/31/19 24 024 Inactive 12/31/2023 PROACTIVE REFILL REQUEST FOR NEXT CYCLE PLEASE THANK YOU RX has/will before cycle date atorvastatin 20 mg tablet RxNorm: 733875 Take 1 Tablet(s) Oral QD 10/14/19 24 025 Inactive 10/14/2023 PROACTIVE REFILL REQUEST FOR NEXT CYCLE PLEASE THANK YOU RX has/will before cycle date. losartan 50 mg tablet RxNorm: 282731 Take 1 Tablet(s) Oral QD 10/14/19 24 024 Inactive 10/14/2023 PROACTIVE REFILL REQUEST FOR NEXT CYCLE PLEASE THANK YOU RX has/will before cycle date. acetaminophen 500 mg tablet RxNorm: 327536 Take 1 Tablet(s) Oral QHS every night at bedtime 08/17/19 24 024 Inactive 08/17/2023 PROACTIVE REFILL REQUEST FOR NEXT CYCLE PLEASE THANK YOU citalopram 20 mg tablet RxNorm: 400558 Take 1 Tablet(s) Oral QD 01/02/20 23 024 Inactive 01/01/2023 PROACTIVE REFILL REQUEST FOR NEXT CYCLE PLEASE THANK YOU RX has/will before cycle date aspirin 81 mg tablet,delayed release RxNorm: 806303 TAKE 1 TABLET BY MOUTH DAILY WITH FOOD 01/02/20 23 023 Inactive 01/01/2023 PROACTIVE REFILL REQUEST FOR NEXT CYCLE PLEASE THANK YOU RX has/will before cycle date acetaminophen 500 mg tablet RxNorm: 005314 Take 1 Tablet(s) Oral QHS every night at bedtime 10/29/19 23 023 Inactive d/c ibuprofen atorvastatin 20 mg tablet RxNorm: 379826 Take 1 Tablet(s) Oral QD 10/15/19 23 024 Inactive 10/13/2022 PROACTIVE REFILL REQUEST FOR NEXT CYCLE PLEASE THANK YOU RX has/will before cycle date losartan 50 mg tablet RxNorm: 350352 Take 1 Tablet(s) Oral QD 10/15/19 23 023 Inactive 10/13/2022 PROACTIVE REFILL REQUEST FOR NEXT CYCLE PLEASE THANK YOU RX has/will before cycle date ibuprofen 400 mg tablet RxNorm: 100325 Take 1-1/2 Tablet(s) Oral QD as needed (at least 6 hours from scheduled dose) 10/01/19 23 024 Inactive Vitamin D2 1,250 mcg (50,000 unit) capsule RxNorm: 2117448 TAKE ONCE CAPSULE ONCE MONTHLY 07/30/19 23 025 Inactive d/c once weekly, start once monthly cholecalciferol (vitamin D3) 1,250 mcg (50,000 unit) capsule RxNorm: 907720 TAKE 1 CAPSULE BY MOUTH WEEKLY ON Wednesday07/23/19 23 023 Inactive Shingrix (PF) 50 mcg/0.5 mL intramuscular suspension, kit RxNorm: 0584490 ADMINISTER 2-DOSE SERIES PER CDC GUIDELINES Take UAD per CDC guidelines 06/26/19 23 023 Inactive diclofenac 1 % topical gel RxNorm: 703868 apply 0.5g topically to left shoulder nightly 01/01/20 22 022 Inactive diclofenac 1 % topical gel RxNorm: 648171 Apply 0.5 Gram(s) Topical QHS every night at bedtime apply 0.5g topically to left shoulder nightly 01/01/20 22 022 Inactive atorvastatin 20 mg tablet RxNorm: 901569 Take 1 Tablet(s) Oral QD 10/22/19 22 022 Inactive 2ND REQUEST FOR REFILLS 10/21/21 NEED TODAY PLEASE- THANK YOU losartan 50 mg tablet RxNorm: 929159 Take 1 Tablet(s) Oral QD 10/22/19 22 022 Inactive 2ND REQUEST FOR REFILLS 10/21/21 NEED TODAY PLEASE- THANK YOU Vitamin D2 1,250 mcg (50,000 unit) capsule RxNorm: 4409707 Take 1 Capsule(s) Oral QW once a week TAKE ONCE CAPSULE ONCE WEEKLY 07/31/19 22 023 Inactive or whatever % is covered by insurance loperamide 2 mg capsule RxNorm: 946453 Take 1 Capsule(s) Oral Q2H every 2 hours as needed for diarrhea Give 2 tabs after first loose stool and then 1 tab after each loose stool. Not to exceed 8 tabs in 24 hours 06/18/19 22 No Stop Date Active Calcium Antacid 200 mg calcium (500 mg) chewable tablet RxNorm: 665969 Chew 2-4 Tablet(s) Oral as needed Take 2-4 tabs by mouth as needed between meals and at bedtime as needed for heartburn or upset stomach 06/18/19 No Stop Date Active Robitussin Cough-Chest Congestion DM 5 mg-100 mg/5 mL oral liquid RxNorm: 2937454 Take 5-10 Milliliter(s) Oral Q4H every four hours QID - Four Times Daily as needed Take 5-10ml by mouth every 4 hours as needed for cough or congestion. Not to exceed 6 doses in 24 hours 06/18/19 No Stop Date Active acetaminophen 325 mg capsule RxNorm: 854102 Take 1-2 Tablet(s) Oral Q4-6H every 4-6 hours as needed for pain and elevated temperature. Not to exceed 4000mg in 24 hours 06/18/19 22 No Stop Date Active aluminum-mag hydroxide-simethicone 200 mg-200 mg-20 mg/5 mL oral susp RxNorm: 984949 Take 5-10 Milliliter(s) Oral QD as needed for nausea one time daily between and at bedtime as needed for heartburn and/ or upset stomach 06/18/19 No Stop Date Active Milk of Magnesia 400 mg/5 mL oral suspension RxNorm: 888915 Take 15-30 Milliliter(s) Oral as needed Take 15-30ml by mouth daily (preferably at bedtime) as needed for constipation. Recommend 8 oz of water after each use. 06/18/19 No Stop Date Active citalopram 20 mg tablet RxNorm: 934739 Take 1 Tablet(s) Oral QD every day 06/18/19 22 023 Inactive losartan 50 mg tablet RxNorm: 997381 Give 1 Tablet(s) Oral QD 06/18/19 22 022 Inactive atorvastatin 20 mg tablet RxNorm: 154965 Take 1 Tablet(s) Oral QD 06/18/19 22 022 Inactive ibuprofen 600 mg tablet RxNorm: 205469 Take 1 Tablet(s) Oral QHS every night at bedtime 06/18/19 22 023 Inactive Aspirin Low Dose 81 mg tablet,delayed release RxNorm: 533728 Take 1 Tablet(s) Oral QD QD - Daily with food 06/18/19 22 023 Inactive ibuprofen 600 mg tablet RxNorm: 032596 Take 1 and 1/2 Tablet(s) Oral QD as needed Take at least 6 hours from scheduled dose 06/18/19 22 023 Inactive hydrochlorothiazide 25 mg tablet RxNorm: 155349 Take 1 Tablet(s) Oral QD 06/18/19 22 [...] data Assessments Condition Codes Effective Dates Notes Vitamin D deficiency ICD-10: E55.9 ICD-9: 268.9 01/18/2024 No note found Reason For Visit No Reason For Visit data Results Observation Observation Code Item Item Code Result Date S ervice Location Vitamin D, 25-Hydroxy VITAD25 Vitamin D, 25-Hydroxy 02510-1 33 ng/mL 4 Unknown PDFReport PDFReport PDFReport 4 Unknown Review of Systems No Review of Systems data Physical Exam No Physical Exam data Procedures Procedure Codes Date BEHAV CHNG SMOKING 3-[address]: 2 07371057 CPT-4: 59849 07/29/2022 BEHAV CHNG SMOKING 3-[address]: 2 56483829 CPT-4: 65555 01/28/2022 AAA Screening CPT-4: 72867 01/06/2022 BEHAV CHNG SMOKING 3-[address]: 2 82737711 CPT-4: 58065 12/31/2021 BEHAV CHNG SMOKING > [address]: 2 08518235 CPT-4: 20394 12/31/2021 BEHAV CHNG SMOKING 3-[address]: 2 02850628 CPT-4: 20648 11/26/2021 BEHAV CHNG SMOKING 3-[address]: 2 65653104 CPT-4: 32174 11/05/2021 BEHAV CHNG SMOKING 3-[address]: 2 96393675 CPT-4: 99094 09/24/2021 BEHAV CHNG SMOKING 3-[address]: 2 17568409 CPT-4: 58918 08/27/2021 BEHAV CHNG SMOKING 3-[address]: 2 54037011 CPT-4: 38395 07/30/2021 BEHAV CHNG SMOKING 3-[address]: 2 86743786 CPT-4: 10091 06/12/2021 Functional Status Functional / Cognitive Codes [...] Illness data Advance Directives Filename Date DAVIDSON Stokes Cristiangrisel 07/28/2023 Plan of Care Planned Activity Notes Codes Status Date Patient Education: Patient Medication Summary Completed 01/18/2024 Appointment: Татьяна Figueredo WPtel: [address] [place], [place] [id number] F/U 09/24/2021 Health Concerns Section Concern Status [...] - medical decisions to be made with Kkie and yogesh snowden. Unknown 07/28/2023 - Minimal [...]
--- OUTSIDE RECORDS SUMMARY | 2025-03-13 16:48 | XMS_ITS | CCD ---
Author Organization Unknown Care Team Providers Care Field Cane Scale Clerk Name Role Phone Beto LOMELINitoCorie Primary Care Provider Jeannine vailable Unavailable Chronic Care Management Unavaila ble Summary Purpose DataExchange Insurance Providers Payer name Policy type / Coverage type Covered constitution party ID Effective Begin Date Effective End Date [employer] Commercial Insurance [id number] Unkn own [place] [id number] Unk nown Family History Family History data not found Social History Social History Element Codes Description Effec tive Dates Marital status Unknown Single 07/28/2023 Living arrangements Unknown Assisted Living 07/[address]: 13701189 Current ever y day smoker 07/28/[address]: 107457047 No Alcohol Consum ption 07/28/2023 Sexually Active? [...] Unknown Yes 07/28/[address]: 84496797 Current ever y day smoker half pack- 1 pack/daily Started smoking at age 18 06/17/[address]: 537223399 No Alcohol Consumption Hx of consumption 06/17/2021 Allergies, Adverse Reactions, Alerts Substance Reaction Codes Entered Date Inactivated Date Status NO KNOWN ALLERGIES Unknown 04/25/2021 No Inactiv e Date Active * NO KNOWN FOOD ALLERGIES Unknown 06/12/2021 No Inactive Date Active * NO KNOWN ENVIRONMENTAL ALLERGIES Unknown 06/12/2021 No Inactive Date Active Past Medical History Illness Codes Condition Status Onset Date Resolved Date Advanced care planning - to document end of life discussions Unknown Active 07/28/2023 Unknown ACP (advance care planning) ICD-10: Z71. 89 ICD-9: V65.49 Active 07/28/2023 09/22/2023 Adult general medical exam ICD-10: Z00.0 0 ICD-9: V70.9 Active 07/28/2023 09/22/2023 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 ICD-9: 303.93 Active 07/28/2023 07/19/2024 Chronic left shoulder pain ICD-10: M25.5 12 ICD-9: 719.41 Active 07/28/2023 12/01/2023 Chronic tension-type headache, not intractable ICD-10: G44.229 ICD-9: 339.12 Active 07/28/2023 12/01/2023 COPD (chronic obstructive pulmonary disease) ICD-10: J44.9 ICD-9: 496 Active 07/28/2023 07/19/2024 Encounter for screening examination for other mental health and behavioral disorders ICD-10: Z13.39 ICD-9: V79.8 Active 07/28/2023 09/22/2023 Encounter for screening for depression ICD-10: Z13.31 ICD-9: V79.0 Active 07/28/2023 09/22/2023 Encounter for screening, unspecified ICD-10: Z13.9 ICD-9: V82.9 Active 07/28/2023 09/22/2023 Episode of recurrent major depressive disorder, unspecified depression episode severity ICD-10: F33.9 ICD-9: 296.30 Active 07/28/2023 09/22/2023 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 ICD-10: G81.94 ICD-9: 342.92 Active 07/28/2023 09/22/2023 Hypercholesteremia ICD-10: E78.00 ICD-9: 272.0 Active 07/28/2023 09/22/2023 Hypertensive chronic kidney disease with stage 1 through stage 4 chronic kidney disease, or unspecified chronic kidney disease ICD-10: I12.9 ICD-9: 403.90 Active 07/28/2023 09/22/2023 Other chronic pain ICD-10: G89.29 Active 07/28/2023 Primary osteoarthritis of both knees ICD-10: M17.0 ICD-9: 715.16 Active 07/28/2023 12/01/2023 PTSD (post-traumatic stress disorder) ICD-10: F43.10 ICD-9: 309.81 Active 07/28/2023 09/22/2023 Senile purpura ICD-10: D69.2 ICD-9: 287.2 Active 07/28/2023 09/27/2024 Smokers' cough ICD-10: J41.0 ICD-9: 491.0 Active 07/28/2023 09/27/2024 Stage 2 chronic kidney disease ICD-10: N18.2 ICD-9: 585.2 Active 07/28/2023 09/22/2023 Tobacco use disorder ICD-10: F17.200 ICD-9: 305.1 [...] Condition Codes Effective Dates Condition St atus Advanced care planning - to document end of life discussions Unknown 07/28/2023 Active ACP (advance care planning) ICD-10: Z71. 89 ICD-9: V65.49 07/28/2023 Active Adult general medical exam ICD-10: Z00.0 0 ICD-9: V70.9 07/28/2023 Active 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 ICD-9: 303.93 07/28/2023 Active Chronic left shoulder pain ICD-10: M25.5 12 ICD-9: 719.41 07/28/2023 Active Chronic tension-type headach e, not intractable ICD-10: G44.229 ICD-9: 339.12 07/28/2023 Active COPD (chronic obstructive pu lmonary disease) ICD-10: J44.9 ICD-9: 496 07/28/2023 Active Encounter for screening exam ination for other mental health and behavioral disorders ICD-10: Z13.39 ICD-9: V79.8 07/28/2023 Active Encounter for screening for depression ICD-10: Z13.31 ICD-9: V79.0 07/28/2023 Active Encounter for screening, unspecified ICD -10: Z13.9 ICD-9: V82.9 07/28/2023 Active Episode of recurrent major depressive disorder, unspecified depression episode severity ICD-10: F33.9 ICD-9: 296.30 07/28/2023 Active Hemiparesis of left nondomin ant side due to non-cerebrovascular etiology ICD-10: G81.94 ICD-9: 342.92 07/28/2023 Active Hypercholesteremia ICD-10: E78.00 ICD-9: 272.0 07/28/2023 Active Hypertensive chronic kidney disease with stage 1 through stage 4 chronic kidney disease, or unspecified chronic kidney disease ICD-10: I12.9 ICD-9: 403.90 07/28/2023 Active Other chronic pain ICD-10: G89.29 07/28/2023 Active Primary osteoarthritis of both knees ICD -10: M17.0 ICD-9: 715.16 07/28/2023 Active PTSD (post-traumatic stress disorder) ICD-10: F43.10 ICD-9: 309.81 07/28/2023 Active Senile purpura ICD-10: D69.2 ICD-9: 287.2 07/28/2023 Active Smokers' cough ICD-10: J41.0 ICD-9: 491.0 07/28/2023 Active Stage 2 chronic kidney disease ICD-10: N 18.2 ICD-9: 585.2 07/28/2023 Active Tobacco use disorder ICD-10: F17.200 [...] Fill Instructions acetaminophen 500 mg tablet RxNorm: 075196 Take 1 Tablet(s) Oral QHS every night at bedtime 08/17/19 24 024 Inactive 08/17/2023 PROACTIVE REFILL REQUEST FOR NEXT CYCLE PLEASE THANK YOU citalopram 20 mg tablet RxNorm: 675204 Take 1 Tablet(s) Oral QD 01/02/20 23 024 Inactive 01/01/2023 PROACTIVE REFILL REQUEST FOR NEXT CYCLE PLEASE THANK YOU RX has/will before cycle date aspirin 81 mg tablet,delayed release RxNorm: 974407 TAKE 1 TABLET BY MOUTH DAILY WITH FOOD 01/02/20 23 023 Inactive 01/01/2023 PROACTIVE REFILL REQUEST FOR NEXT CYCLE PLEASE THANK YOU RX has/will before cycle date acetaminophen 500 mg tablet RxNorm: 862347 Take 1 Tablet(s) Oral QHS every night at bedtime 10/29/19 23 023 Inactive d/c ibuprofen atorvastatin 20 mg tablet RxNorm: 372212 Take 1 Tablet(s) Oral QD 10/15/19 23 024 Inactive 10/13/2022 PROACTIVE REFILL REQUEST FOR NEXT CYCLE PLEASE THANK YOU RX has/will before cycle date losartan 50 mg tablet RxNorm: 767019 Take 1 Tablet(s) Oral QD 10/15/19 23 023 Inactive 10/13/2022 PROACTIVE REFILL REQUEST FOR NEXT CYCLE PLEASE THANK YOU RX has/will before cycle date ibuprofen 400 mg tablet RxNorm: 372885 Take 1-1/2 Tablet(s) Oral QD as needed (at least 6 hours from scheduled dose) 10/01/19 23 024 Inactive Vitamin D2 1,250 mcg (50,000 unit) capsule RxNorm: 1314264 TAKE ONCE CAPSULE ONCE MONTHLY 07/30/19 23 025 Inactive d/c once weekly, start once monthly cholecalciferol (vitamin D3) 1,250 mcg (50,000 unit) capsule RxNorm: 574306 TAKE 1 CAPSULE BY MOUTH WEEKLY ON Wednesday07/23/19 23 023 Inactive Shingrix (PF) 50 mcg/0.5 mL intramuscular suspension, kit RxNorm: 4244627 ADMINISTER 2-DOSE SERIES PER CDC GUIDELINES Take UAD per CDC guidelines 06/26/19 23 023 Inactive diclofenac 1 % topical gel RxNorm: 564180 apply 0.5g topically to left shoulder nightly 01/01/20 22 022 Inactive diclofenac 1 % topical gel RxNorm: 541399 Apply 0.5 Gram(s) Topical QHS every night at bedtime apply 0.5g topically to left shoulder nightly 01/01/20 22 022 Inactive atorvastatin 20 mg tablet RxNorm: 492928 Take 1 Tablet(s) Oral QD 10/22/19 22 022 Inactive 2ND REQUEST FOR REFILLS 10/21/21 NEED TODAY PLEASE- THANK YOU losartan 50 mg tablet RxNorm: 807021 Take 1 Tablet(s) Oral QD 10/22/19 22 022 Inactive 2ND REQUEST FOR REFILLS 10/21/21 NEED TODAY PLEASE- THANK YOU Vitamin D2 1,250 mcg (50,000 unit) capsule RxNorm: 7080230 Take 1 Capsule(s) Oral QW once a week TAKE ONCE CAPSULE ONCE WEEKLY 07/31/19 22 023 Inactive or whatever % is covered by insurance loperamide 2 mg capsule RxNorm: 453161 Take 1 Capsule(s) Oral Q2H every 2 hours as needed for diarrhea Give 2 tabs after first loose stool and then 1 tab after each loose stool. Not to exceed 8 tabs in 24 hours 06/18/19 22 No Stop Date Active Calcium Antacid 200 mg calcium (500 mg) chewable tablet RxNorm: 253257 Chew 2-4 Tablet(s) Oral as needed Take 2-4 tabs by mouth as needed between meals and at bedtime as needed for heartburn or upset stomach 06/18/19 No Stop Date Active Robitussin Cough-Chest Congestion DM 5 mg-100 mg/5 mL oral liquid RxNorm: 0340832 Take 5-10 Milliliter(s) Oral Q4H every four hours QID - Four Times Daily as needed Take 5-10ml by mouth every 4 hours as needed for cough or congestion. Not to exceed 6 doses in 24 hours 06/18/19 22 No Stop Date Active acetaminophen 325 mg capsule RxNorm: 015124 Take 1-2 Tablet(s) Oral Q4-6H every 4-6 hours as needed for pain and elevated temperature. Not to exceed 4000mg in 24 hours 06/18/19 22 No Stop Date Active aluminum-mag hydroxide-simethicone 200 mg-200 mg-20 mg/5 mL oral susp RxNorm: 337632 Take 5-10 Milliliter(s) Oral QD as needed for nausea one time daily between and at bedtime as needed for heartburn and/ or upset stomach 06/18/19 No Stop Date Active Milk of Magnesia 400 mg/5 mL oral suspension RxNorm: 483620 Take 15-30 Milliliter(s) Oral as needed Take 15-30ml by mouth daily (preferably at bedtime) as needed for constipation. Recommend 8 oz of water after each use. 06/18/19 No Stop Date Active citalopram 20 mg tablet RxNorm: 660474 Take 1 Tablet(s) Oral QD every day 06/18/19 22 023 Inactive losartan 50 mg tablet RxNorm: 130290 Give 1 Tablet(s) Oral QD 06/18/19 22 022 Inactive atorvastatin 20 mg tablet RxNorm: 395635 Take 1 Tablet(s) Oral QD 06/18/19 22 022 Inactive ibuprofen 600 mg tablet RxNorm: 297570 Take 1 Tablet(s) Oral QHS every night at bedtime 06/18/19 22 023 Inactive Aspirin Low Dose 81 mg tablet,delayed release RxNorm: 994930 Take 1 Tablet(s) Oral QD QD - Daily with food 06/18/19 22 023 Inactive ibuprofen 600 mg tablet RxNorm: 517643 Take 1 and 1/2 Tablet(s) Oral QD as needed Take at least 6 hours from scheduled dose 06/18/19 22 023 Inactive hydrochlorothiazide 25 mg tablet RxNorm: 467954 Take 1 Tablet(s) Oral QD 06/18/19 22 [...] CHNG SMOKING 3-[address]: 2 31893604 CPT-4: 18476 07/29/2022 BEHAV CHNG SMOKING 3-[address]: 2 12593233 CPT-4: 84158 01/28/2022 AAA Screening US CPT-4: 69837 01/06/2022 BEHAV CHNG SMOKING 3-[address]: 2 20920658 CPT-4: 13982 12/31/2021 BEHAV CHNG SMOKING > [address]: 2 51515072 CPT-4: 90075 12/31/2021 BEHAV CHNG SMOKING 3-[address]: 2 70196473 CPT-4: 49061 11/26/2021 BEHAV CHNG SMOKING 3-[address]: 2 15664062 CPT-4: 04928 11/05/2021 BEHAV CHNG SMOKING 3-[address]: 2 49848626 CPT-4: 65786 09/24/2021 BEHAV CHNG SMOKING 3-[address]: 2 73271683 CPT-4: 51447 08/27/2021 BEHAV CHNG SMOKING 3-[address]: 2 98466631 CPT-4: 56706 07/30/2021 BEHAV CHNG SMOKING 3-[address]: 2 13550915 CPT-4: 02036 06/12/2021 Functional Status Functional / Cognitive Codes [...]
--- OUTSIDE RECORDS SUMMARY | 2025-03-13 16:48 | XMS_ITS | CCD ---
Author Name Ayanna Carranza Address [address] [facility] [address] [place] [address] Phone Organization [facility] Phone Care Team Providers Care Costing Analyst Name Role Phone Beto WHITE Corie Primary Care Provider Jeannine vailable Unavailable Chronic Care Management Unavaila ble Summary Purpose DataExchange Insurance Providers Payer name Policy type / Coverage type Covered democrat ID Effective Begin Date Effective End Date U[employer] Commercial Insurance [id number] Unkn own Medicaid [place] Commercial Insurance [id number] Unk nown Family History Family History data not found Social History Social History Element Codes Description Effec tive Dates Caregiver Assessment Unknown Healthcare POA on fi le 07/19/2024 Marital status Unknown Single 07/28/2023 Living arrangements Unknown Assisted Living 07/[address]: 29905562 Current ever y day smoker 07/28/[address]: 886733860 No Alcohol Consum ption 07/28/2023 Sexually Active? [...] Unknown Yes 07/28/[address]: 63964303 Current ever y day smoker half pack- 1 pack/daily Started smoking at age 18 06/17/[address]: 712870994 No Alcohol Consumption Hx of consumption 06/17/2021 [...] in remission ICD-10: F10.21 ICD-9: 303.93 Active 07/19/2024 09/27/2024 Chronic left shoulder pain ICD-10: M25.5 12 ICD-9: 719.41 Active 07/19/2024 09/27/2024 Chronic tension-type headache, not intractable ICD-10: G44.229 ICD-9: 339.12 Active 07/19/2024 09/27/2024 COPD (chronic obstructive pulmonary disease) ICD-10: J44.9 ICD-9: 496 Active 07/19/2024 09/27/2024 Episode of recurrent major depressive disorder, unspecified depression episode severity ICD-10: F33.9 ICD-9: 296.30 Active 07/19/2024 09/27/2024 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 ICD-10: G81.94 ICD-9: 342.92 Active 07/19/2024 09/27/2024 Hypercholesteremia ICD-10: E78.00 ICD-9: 272.0 Active 07/19/2024 09/27/2024 Hypertensive chronic kidney disease with stage 1 through stage 4 chronic kidney disease, or unspecified chronic kidney disease ICD-10: I12.9 ICD-9: 403.90 Active 07/19/2024 09/27/2024 Primary osteoarthritis of both knees ICD-10: M17.0 ICD-9: 715.16 Active 07/19/2024 09/27/2024 Screening for diabetes mellitus SNOMED CT: 177907553 ICD-10: Z13.1 ICD-9: V77.1 Active 07/19/2024 09/27/2024 Vitamin D deficiency ICD-10: E55.9 ICD-9: 268.9 Active 07/19/2024 09/27/2024 Hyponatremia ICD-10: E87.1 ICD-9: 276.1 Active 05/29/2024 09/27/2024 Stage 2 chronic kidney disease ICD-10: N18.2 ICD-9: 585.2 Active 05/29/2024 09/27/2024 Tobacco use disorder ICD-10: F17.200 ICD-9: 305.1 Active 12/01/2023 Unknown PTSD (post-traumatic stress disorder) ICD-10: F43.10 ICD-9: 309.81 Active 09/22/2023 09/27/2024 ACP (advance care planning) ICD-10: Z71.89 ICD-9: V65.49 Resolved 09/22/2023 09/27/2024 Adult general [...] of life discussions Unknown Active 07/28/2023 Unknown Other chronic pain ICD-10: G89.29 Active 07/28/2023 [...] dependence in remission ICD-10: F10.21 ICD-9: 303.93 07/19/2024 Active Chronic left shoulder pain ICD-10: M25.5 12 ICD-9: 719.41 07/19/2024 Active Chronic tension-type headach e, not intractable ICD-10: G44.229 ICD-9: 339.12 07/19/2024 Active COPD (chronic obstructive pulmonary disease) ICD-10: J44.9 ICD-9: 496 07/19/2024 Active Episode of recurrent major depressive disorder, unspecified depression episode severity ICD-10: F33.9 ICD-9: 296.30 07/19/2024 Active Hemiparesis of left nondomin ant side due to non-cerebrovascular etiology ICD-10: G81.94 ICD-9: 342.92 07/19/2024 Active Hypercholesteremia ICD-10: E78.00 ICD-9: 272.0 07/19/2024 Active Hypertensive chronic kidney disease with stage 1 through stage 4 chronic kidney disease, or unspecified chronic kidney disease ICD-10: I12.9 ICD-9: 403.90 07/19/2024 Active Primary osteoarthritis of juan th knees ICD-10: M17.0 ICD-9: 715.16 07/19/2024 Active Screening for diabetes mellitus SNOMED C T: [id number] ICD-10: Z13.1 ICD-9: V77.1 07/19/2024 Active Vitamin D deficiency ICD-10: E55.9 ICD-9: 268.9 07/19/2024 Active Hyponatremia ICD-10: E87.1 ICD-9: 276.1 05/29/2024 Active Stage 2 chronic kidney disease ICD-10: N 18.2 ICD-9: 585.2 05/29/2024 Active Tobacco use disorder ICD-10: F17.200 ICD-9: 305.1 12/01/2023 Active PTSD (post-traumatic stress disorder) ICD-10: F43.10 [...] end of life discussions Unknown 07/28/2023 Active Other chronic pain ICD-10: G89.29 [...] Date Stop Date Status Fill Instructions ibuprofen 200 mg tablet RxNorm: 072204 Take 1-2 Tablet(s) Oral Q4-6H every 4-6 hours as needed 07/20/19 25 No Stop Date Active diphenhydramine 12.5 mg/5 mL oral liquid RxNorm: 3148948 Take 5-10ml Milliliter(s) Oral Q8H every 8 hours as needed for cough/congestio n 07/20/19 25 No Stop Date Active Vitamin D3 10 mcg (400 unit) tablet RxNorm: 909418 Take 1 Tablet(s) Oral QD 01/26/20 24 024 Inactive Vitamin D3 10 mcg (400 unit) tablet RxNorm: 904578 Take 1 Tablet(s) Oral QD 01/26/20 24 024 Inactive citalopram 20 mg tablet RxNorm: 381610 Take 1 Tablet(s) Oral QD 12/31/19 24 025 Inactive 12/31/2023 PROACTIVE REFILL REQUEST FOR NEXT CYCLE PLEASE THANK YOU RX has/will before cycle date aspirin 81 mg tablet,delayed release RxNorm: 828357 Take 1 Tablet(s) Oral QD WITH FOOD 12/31/19 24 024 Inactive 12/31/2023 PROACTIVE REFILL REQUEST FOR NEXT CYCLE PLEASE THANK YOU RX has/will before cycle date atorvastatin 20 mg tablet RxNorm: 078904 Take 1 Tablet(s) Oral QD 10/14/19 24 025 Inactive 10/14/2023 PROACTIVE REFILL REQUEST FOR NEXT CYCLE PLEASE THANK YOU RX has/will before cycle date. losartan 50 mg tablet RxNorm: 766894 Take 1 Tablet(s) Oral QD 10/14/19 24 024 Inactive 10/14/2023 PROACTIVE REFILL REQUEST FOR NEXT CYCLE PLEASE THANK YOU RX has/will before cycle date. acetaminophen 500 mg tablet RxNorm: 034422 Take 1 Tablet(s) Oral QHS every night at bedtime 08/17/19 24 024 Inactive 08/17/2023 PROACTIVE REFILL REQUEST FOR NEXT CYCLE PLEASE THANK YOU citalopram 20 mg tablet RxNorm: 288165 Take 1 Tablet(s) Oral QD 01/02/20 23 024 Inactive 01/01/2023 PROACTIVE REFILL REQUEST FOR NEXT CYCLE PLEASE THANK YOU RX has/will before cycle date aspirin 81 mg tablet,delayed release RxNorm: 470863 TAKE 1 TABLET BY MOUTH DAILY WITH FOOD 01/02/20 23 023 Inactive 01/01/2023 PROACTIVE REFILL REQUEST FOR NEXT CYCLE PLEASE THANK YOU RX has/will before cycle date acetaminophen 500 mg tablet RxNorm: 109225 Take 1 Tablet(s) Oral QHS every night at bedtime 10/29/19 23 023 Inactive d/c ibuprofen atorvastatin 20 mg tablet RxNorm: 120864 Take 1 Tablet(s) Oral QD 10/15/19 23 024 Inactive 10/13/2022 PROACTIVE REFILL REQUEST FOR NEXT CYCLE PLEASE THANK YOU RX has/will before cycle date losartan 50 mg tablet RxNorm: 817361 Take 1 Tablet(s) Oral QD 10/15/19 23 023 Inactive 10/13/2022 PROACTIVE REFILL REQUEST FOR NEXT CYCLE PLEASE THANK YOU RX has/will before cycle date ibuprofen 400 mg tablet RxNorm: 180571 Take 1-1/2 Tablet(s) Oral QD as needed (at least 6 hours from scheduled dose) 10/01/19 23 024 Inactive Vitamin D2 1,250 mcg (50,000 unit) capsule RxNorm: 5367008 TAKE ONCE CAPSULE ONCE MONTHLY 07/30/19 23 025 Inactive d/c once weekly, start once monthly cholecalciferol (vitamin D3) 1,250 mcg (50,000 unit) capsule RxNorm: 194111 TAKE 1 CAPSULE BY MOUTH WEEKLY ON Wednesday07/23/19 23 023 Inactive Shingrix (PF) 50 mcg/0.5 mL intramuscular suspension, kit RxNorm: 4347840 ADMINISTER 2-DOSE SERIES PER CDC GUIDELINES Take UAD per CDC guidelines 06/26/19 23 023 Inactive diclofenac 1 % topical gel RxNorm: 899106 apply 0.5g topically to left shoulder nightly 01/01/20 22 022 Inactive diclofenac 1 % topical gel RxNorm: 004708 Apply 0.5 Gram(s) Topical QHS every night at bedtime apply 0.5g topically to left shoulder nightly 01/01/20 22 022 Inactive atorvastatin 20 mg tablet RxNorm: 902935 Take 1 Tablet(s) Oral QD 10/22/19 22 022 Inactive 2ND REQUEST FOR REFILLS 10/21/21 NEED TODAY PLEASE- THANK YOU losartan 50 mg tablet RxNorm: 243487 Take 1 Tablet(s) Oral QD 10/22/19 22 022 Inactive 2ND REQUEST FOR REFILLS 10/21/21 NEED TODAY PLEASE- THANK YOU Vitamin D2 1,250 mcg (50,000 unit) capsule RxNorm: 0416870 Take 1 Capsule(s) Oral QW once a week TAKE ONCE CAPSULE ONCE WEEKLY 07/31/19 22 023 Inactive or whatever % is covered by insurance loperamide 2 mg capsule RxNorm: 443556 Take 1 Capsule(s) Oral Q2H every 2 hours as needed for diarrhea Give 2 tabs after first loose stool and then 1 tab after each loose stool. Not to exceed 8 tabs in 24 hours 06/18/19 No Stop Date Active Calcium Antacid 200 mg calcium (500 mg) chewable tablet RxNorm: 743363 Chew 2-4 Tablet(s) Oral as needed Take 2-4 tabs by mouth as needed between meals and at bedtime as needed for heartburn or upset stomach 06/18/19 No Stop Date Active Robitussin Cough-Chest Congestion DM 5 mg-100 mg/5 mL oral liquid RxNorm: 1393406 Take 5-10 Milliliter(s) Oral Q4H every four hours QID - Four Times Daily as needed Take 5-10ml by mouth every 4 hours as needed for cough or congestion. Not to exceed 6 doses in 24 hours 06/18/19 22 No Stop Date Active acetaminophen 325 mg capsule RxNorm: 941495 Take 1-2 Tablet(s) Oral Q4-6H every 4-6 hours as needed for pain and elevated temperature. Not to exceed 4000mg in 24 hours 06/18/19 No Stop Date Active aluminum-mag hydroxide-simethicone 200 mg-200 mg-20 mg/5 mL oral susp RxNorm: 623189 Take 5-10 Milliliter(s) Oral QD as needed for nausea one time daily between and at bedtime as needed for heartburn and/ or upset stomach 06/18/19 No Stop Date Active Milk of Magnesia 400 mg/5 mL oral suspension RxNorm: 230809 Take 15-30 Milliliter(s) Oral as needed Take 15-30ml by mouth daily (preferably at bedtime) as needed for constipation. Recommend 8 oz of water after each use. 06/18/19 No Stop Date Active citalopram 20 mg tablet RxNorm: 837304 Take 1 Tablet(s) Oral QD every day 06/18/19 22 023 Inactive losartan 50 mg tablet RxNorm: 791340 Give 1 Tablet(s) Oral QD 06/18/19 22 022 Inactive atorvastatin 20 mg tablet RxNorm: 417571 Take 1 Tablet(s) Oral QD 06/18/19 22 022 Inactive ibuprofen 600 mg tablet RxNorm: 379675 Take 1 Tablet(s) Oral QHS every night at bedtime 06/18/19 22 023 Inactive Aspirin Low Dose 81 mg tablet,delayed release RxNorm: 691119 Take 1 Tablet(s) Oral QD QD - Daily with food 06/18/19 22 023 Inactive ibuprofen 600 mg tablet RxNorm: 590499 Take 1 and 1/2 Tablet(s) Oral QD as needed Take at least 6 hours from scheduled dose 06/18/19 22 023 Inactive hydrochlorothiazide 25 mg tablet RxNorm: 944620 Take 1 Tablet(s) Oral QD 06/18/19 22 [...] both knees ICD -10: M17.0 ICD-9: 715.16 07/19/2024 No note found 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 ICD-9: 303.93 07/19/2024 No note found Hemiparesis of left nondomin ant side due to non-cerebrovascular etiology ICD-10: G81.94 ICD-9: 342.92 07/19/2024 No note found Chronic left shoulder pain ICD-10: M25.5 12 ICD-9: 719.41 07/19/2024 No note found Vitamin D deficiency ICD-10: E55.9 ICD-9: 268.9 07/19/2024 No note found Hypercholesteremia ICD-10: E78.00 ICD-9: 272.0 07/19/2024 No note found Hypertensive chronic kidney disease with stage 1 through stage 4 chronic kidney disease, or unspecified chronic kidney disease ICD-10: I12.9 ICD-9: 403.90 07/19/2024 No note found Episode of recurrent major d epressive disorder, unspecified depression episode severity ICD-10: F33.9 ICD-9: 296.30 07/19/2024 No note found COPD (chronic obstructive pu lmonary disease) ICD-10: J44.9 ICD-9: 496 07/19/2024 No note found Chronic tension-type headach e, not intractable ICD-10: G44.229 ICD-9: 339.12 07/19/2024 No note found Screening for diabetes mellitus SNOMED: 069443660 ICD-10: Z13.1 ICD-9: V77.1 07/19/2024 No note found Reason For Visit No Reason For Visit data Results Observation Observation Code Item Item Code Result Date S ervice Location PHQ-9 53423-3 PHQ9 56947-4 1 07/19/2024 Unknown Review of Systems No Review of Systems data Physical Exam No Physical Exam data Procedures Procedure Codes Date SYST BP GE 130 - 139MM HG CPT-4: 3075F 2024 DIAST BP <80 MM HG CPT-4: 3078F 07/19/2024 PT INELIG NEG SCRN DEPRES SNOMED CT: 428 [id number] CPT-4: G8510 07/19/2024 TOBACCO Education CPT-4: TOBACCO 07/19/2024 BEHAV CHNG SMOKING 3-[address]: 2 76608949 CPT-4: 50165 07/29/2022 BEHAV CHNG SMOKING 3-[address]: 2 07923130 CPT-4: 75858 01/28/2022 AAA Screening CPT-4: 64953 01/06/2022 BEHAV CHNG SMOKING 3-[address]: 2 07028058 CPT-4: 63217 12/31/2021 BEHAV CHNG SMOKING > [address]: 2 64364331 CPT-4: 98682 12/31/2021 BEHAV CHNG SMOKING 3-[address]: 2 87161597 CPT-4: 83702 11/26/2021 BEHAV CHNG SMOKING 3-[address]: 2 83706019 CPT-4: 87293 11/05/2021 BEHAV CHNG SMOKING 3-[address]: 2 63550237 CPT-4: 38961 09/24/2021 BEHAV CHNG SMOKING 3-[address]: 2 20652890 CPT-4: 74495 08/27/2021 BEHAV CHNG SMOKING 3-[address]: 2 53662869 CPT-4: 12210 07/30/2021 BEHAV CHNG SMOKING 3-[address]: 2 02776302 CPT-4: 55968 06/12/2021 Vital Signs Date Vital 07/19/2024 Blood Pressure 1: 131/77 Code: 8480-6 BMI: NaN Code: 66202-4 Heart Rate 1: 69 bpm Code: 8867-4 Height: 5'9 Code: 8302-2 Weight: 154 lbs Code: 3141-9 Functional Status Functional / Cognitive [...] Encounter Performer Location Location Address Codes Date (09521) Home Visit - Est Pt, moderate Diagnosis: Episode of recurrent major depressive disorder, unspecified depression episode severity[ICD10: F33.9] Diagnosis: Hypercholesteremia[I CD10: E78.00] Diagnosis: Hypertensive chronic kidney disease with stage 1 through stage 4 chronic kidney disease, or unspecified chronic kidney disease[ICD10: I12.9] Diagnosis: Vitamin D deficiency[ICD10: E55.9] Diagnosis: Alcohol dependence in remission[ICD10: F10.21] Diagnosis: Chronic left shoulder pain[ICD10: M25.512] Diagnosis: Chronic tension-type headache, not intractable[ICD10: G44.229] Diagnosis: COPD (chronic obstructive pulmonary disease)[ICD10: J44.9] Diagnosis: 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[ICD10: G81.94] Diagnosis: Primary osteoarthritis of both knees[ICD10: M17.0] Diagnosis: Screening for diabetes mellitus[SNOMED: 495348713] [address] [address] CPT-4: 12564 Plan of Care Planned Activity Notes Codes Status Date Patient Education: Patient Medication Summary Completed 07/19/2024 Patient Education: Influenza Complet ed 07/19/2024 Patient Education: Smoking Cessation Completed 07/19/2024 Appointment: Татьяна Figueredo WPtel: [phone] F/U 09/24/2021 Health Concerns Section Concern Status [...]
--- OUTSIDE RECORDS SUMMARY | 2025-03-13 16:49 | XMS_ITS | CCD ---
Author Name Ayanna Carranza Address [address] [facility] [address] [place] [address] [facility] Phone Care Team Providers Care First Breaker Feeder Name Role Phone Beto WHITE McKenzie Primary Care Provider Jeannine vailable Unavailable Chronic Care Management Unavaila ble Summary Purpose DataExchange Insurance Providers Payer name Policy type / Coverage type Covered constitution party ID Effective Begin Date Effective End Date [employer] Commercial Insurance [id number] Unkn own Medicaid [place] Commercial Insurance [id number] Unk nown Family History Family History data not found Social History Social History Element Codes Description Effec tive Dates Marital status Unknown Single 07/28/2023 Living arrangements Unknown Assisted Living 07/[address]: 24678745 Current ever y day smoker 07/28/[address]: 848557185 No Alcohol Consum ption 07/28/2023 Sexually Active? [...] Unknown Yes 07/28/[address]: 46914212 Current ever y day smoker half pack- 1 pack/daily Started smoking at age 18 06/17/[address]: 948865486 No Alcohol Consumption Hx of consumption 06/17/2021 [...] Fill Instructions acetaminophen 500 mg tablet RxNorm: 739610 Take 1 Tablet(s) Oral QHS every night at bedtime 08/17/19 24 024 Inactive 08/17/2023 PROACTIVE REFILL REQUEST FOR NEXT CYCLE PLEASE THANK YOU citalopram 20 mg tablet RxNorm: 011683 Take 1 Tablet(s) Oral QD 01/02/20 23 024 Inactive 01/01/2023 PROACTIVE REFILL REQUEST FOR NEXT CYCLE PLEASE THANK YOU RX has/will before cycle date aspirin 81 mg tablet,delayed release RxNorm: 870666 TAKE 1 TABLET BY MOUTH DAILY WITH FOOD 01/02/20 23 023 Inactive 01/01/2023 PROACTIVE REFILL REQUEST FOR NEXT CYCLE PLEASE THANK YOU RX has/will before cycle date acetaminophen 500 mg tablet RxNorm: 799802 Take 1 Tablet(s) Oral QHS every night at bedtime 10/29/19 23 023 Inactive d/c ibuprofen atorvastatin 20 mg tablet RxNorm: 783022 Take 1 Tablet(s) Oral QD 10/15/19 23 024 Inactive 10/13/2022 PROACTIVE REFILL REQUEST FOR NEXT CYCLE PLEASE THANK YOU RX has/will before cycle date losartan 50 mg tablet RxNorm: 408664 Take 1 Tablet(s) Oral QD 10/15/19 23 023 Inactive 10/13/2022 PROACTIVE REFILL REQUEST FOR NEXT CYCLE PLEASE THANK YOU RX has/will before cycle date ibuprofen 400 mg tablet RxNorm: 074116 Take 1-1/2 Tablet(s) Oral QD as needed (at least 6 hours from scheduled dose) 10/01/19 23 024 Inactive Vitamin D2 1,250 mcg (50,000 unit) capsule RxNorm: 4108583 TAKE ONCE CAPSULE ONCE MONTHLY 07/30/19 23 025 Inactive d/c once weekly, start once monthly cholecalciferol (vitamin D3) 1,250 mcg (50,000 unit) capsule RxNorm: 645006 TAKE 1 CAPSULE BY MOUTH WEEKLY ON Wednesday07/23/19 23 023 Inactive Shingrix (PF) 50 mcg/0.5 mL intramuscular suspension, kit RxNorm: 6863919 ADMINISTER 2-DOSE SERIES PER CDC GUIDELINES Take UAD per CDC guidelines 06/26/19 23 023 Inactive diclofenac 1 % topical gel RxNorm: 656822 apply 0.5g topically to left shoulder nightly 01/01/20 22 022 Inactive diclofenac 1 % topical gel RxNorm: 463275 Apply 0.5 Gram(s) Topical QHS every night at bedtime apply 0.5g topically to left shoulder nightly 01/01/20 22 022 Inactive atorvastatin 20 mg tablet RxNorm: 387906 Take 1 Tablet(s) Oral QD 10/22/19 22 022 Inactive 2ND REQUEST FOR REFILLS 10/21/21 NEED TODAY PLEASE- THANK YOU losartan 50 mg tablet RxNorm: 044498 Take 1 Tablet(s) Oral QD 10/22/19 22 022 Inactive 2ND REQUEST FOR REFILLS 10/21/21 NEED TODAY PLEASE- THANK YOU Vitamin D2 1,250 mcg (50,000 unit) capsule RxNorm: 6673310 Take 1 Capsule(s) Oral QW once a week TAKE ONCE CAPSULE ONCE WEEKLY 07/31/19 22 023 Inactive or whatever % is covered by insurance loperamide 2 mg capsule RxNorm: 058264 Take 1 Capsule(s) Oral Q2H every 2 hours as needed for diarrhea Give 2 tabs after first loose stool and then 1 tab after each loose stool. Not to exceed 8 tabs in 24 hours 06/18/19 22 No Stop Date Active Calcium Antacid 200 mg calcium (500 mg) chewable tablet RxNorm: 063295 Chew 2-4 Tablet(s) Oral as needed Take 2-4 tabs by mouth as needed between meals and at bedtime as needed for heartburn or upset stomach 06/18/19 No Stop Date Active Robitussin Cough-Chest Congestion DM 5 mg-100 mg/5 mL oral liquid RxNorm: 5356741 Take 5-10 Milliliter(s) Oral Q4H every four hours QID - Four Times Daily as needed Take 5-10ml by mouth every 4 hours as needed for cough or congestion. Not to exceed 6 doses in 24 hours 06/18/19 22 No Stop Date Active acetaminophen 325 mg capsule RxNorm: 687981 Take 1-2 Tablet(s) Oral Q4-6H every 4-6 hours as needed for pain and elevated temperature. Not to exceed 4000mg in 24 hours 06/18/19 22 No Stop Date Active aluminum-mag hydroxide-simethicone 200 mg-200 mg-20 mg/5 mL oral susp RxNorm: 281396 Take 5-10 Milliliter(s) Oral QD as needed for nausea one time daily between and at bedtime as needed for heartburn and/ or upset stomach 06/18/19 No Stop Date Active Milk of Magnesia 400 mg/5 mL oral suspension RxNorm: 383714 Take 15-30 Milliliter(s) Oral as needed Take 15-30ml by mouth daily (preferably at bedtime) as needed for constipation. Recommend 8 oz of water after each use. 06/18/19 No Stop Date Active citalopram 20 mg tablet RxNorm: 540623 Take 1 Tablet(s) Oral QD every day 06/18/19 22 023 Inactive losartan 50 mg tablet RxNorm: 992157 Give 1 Tablet(s) Oral QD 06/18/19 22 022 Inactive atorvastatin 20 mg tablet RxNorm: 249839 Take 1 Tablet(s) Oral QD 06/18/19 22 022 Inactive ibuprofen 600 mg tablet RxNorm: 163641 Take 1 Tablet(s) Oral QHS every night at bedtime 06/18/19 22 023 Inactive Aspirin Low Dose 81 mg tablet,delayed release RxNorm: 779922 Take 1 Tablet(s) Oral QD QD - Daily with food 06/18/19 22 023 Inactive ibuprofen 600 mg tablet RxNorm: 623195 Take 1 and 1/2 Tablet(s) Oral QD as needed Take at least 6 hours from scheduled dose 06/18/19 22 023 Inactive hydrochlorothiazide 25 mg tablet RxNorm: 685014 Take 1 Tablet(s) Oral QD 06/18/19 22 [...] non-cerebrovascular etiology ICD-10: G81.94 ICD-9: 342.92 09/22/2023 No note found Episode of recurrent major d epressive disorder, unspecified depression episode severity ICD-10: F33.9 ICD-9: 296.30 09/22/2023 No note found Hypertensive chronic kidney disease with stage 1 through stage 4 chronic kidney disease, or unspecified chronic kidney disease ICD-10: I12.9 ICD-9: 403.90 09/22/2023 No note found Hypercholesteremia ICD-10: E78.00 ICD-9: 272.0 09/22/2023 No note found PTSD (post-traumatic stress disorder) IC D-10: F43.10 ICD-9: 309.81 09/22/2023 No note found Stage 2 chronic kidney disease ICD-10: N 18.2 ICD-9: 585.2 09/22/2023 No note found Reason For Visit No Reason For Visit data Results Observation Observation Code Item Item Code Result Date S ervice Location Sodium (Na) SODIUM Sodium (Na) 2951-2 135 mmol/L 09/25/2023 Un known PDFReport PDFReport PDFReport 09/24/2023 Unknown Review of Systems No Review of Systems data Physical Exam No Physical Exam data Procedures Procedure Codes Date SYST BP GE 130 - 139MM HG CPT-4: 3075F 2023 DIAST BP 80-89 MM HG CPT-4: 3079F 09/22/2023 TOBACCO PATIENT SERVICES ASSISTANT NO CHARGE Patient counseled on the dangers of tobacco and urged to quit/today CPT-4: [id number] 09/22/2023 BEHAV CHNG SMOKING 3-[address]: 2 24319827 CPT-4: 63581 07/29/2022 BEHAV CHNG SMOKING 3-[address]: 2 16596790 CPT-4: 54063 01/28/2022 AAA Screening CPT-4: 35597 01/06/2022 BEHAV CHNG SMOKING 3-[address]: 2 81419850 CPT-4: 08233 12/31/2021 BEHAV CHNG SMOKING > [address]: 2 29354695 CPT-4: 83280 12/31/2021 BEHAV CHNG SMOKING 3-[address]: 2 87550816 CPT-4: 48074 11/26/2021 BEHAV CHNG SMOKING 3-[address]: 2 39851870 CPT-4: 96713 11/05/2021 BEHAV CHNG SMOKING 3-[address]: 2 54642076 CPT-4: 66329 09/24/2021 BEHAV CHNG SMOKING 3-[address]: 2 29657880 CPT-4: 17780 08/27/2021 BEHAV CHNG SMOKING 3-[address]: 2 84379977 CPT-4: 36757 07/30/2021 BEHAV CHNG SMOKING 3-[address]: 2 18561088 CPT-4: 11225 06/12/2021 Vital Signs Date Vital 09/22/2023 Blood Pressure 1: 130/88 Code: 8480-6 Heart Rate 1: 76 bpm Code: 8867-4 SpO2: 98% Temperature: 36.6 (C) / 97.9 (F) Functional Status Functional / Cognitive Codes [...] Encounter Performer Location Location Address Codes Date (60783) Home or Residence Visit Est Pt - Moderate Level, 40 mins Diagnosis: Episode of recurrent major depressive disorder, unspecified depression episode severity[ICD10: F33.9] Diagnosis: 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[ICD10: G81.94] Diagnosis: Hypercholesteremia[ ICD10: E78.00] Diagnosis: Hypertensive chronic kidney disease with stage 1 through stage 4 chronic kidney disease, or unspecified chronic kidney disease[ICD10: I12.9] Diagnosis: PTSD (post-traumatic stress disorder)[ICD10: F43.10] Diagnosis: Stage 2 chronic kidney disease[ICD10: N18.2] [address] [address] CPT-4: 29660 09/22/2023 Plan of Care Planned Activity Notes Codes Status Date Patient Education: Patient Medication Summary Completed 09/22/2023 Patient Education: Influenza Complet ed 09/22/2023 Patient Education: Smoking Cessation Completed 09/22/2023 Appointment: Татьяна Figueredo WPtel: [address] [place], [place] [phone] F/U 09/24/2021 Health Concerns Section Concern Status [...]
--- OUTSIDE RECORDS SUMMARY | 2025-03-13 16:50 | XMS_ITS | CCD ---
Author Organization Unknown Care Team Providers Care [employer] Secretary Name Role Phone Beto LOMELINitoCorie Primary Care Provider Jeannine vailable Unavailable Chronic Care Management Unavaila ble Summary Purpose DataExchange Insurance Providers Payer name Policy type / Coverage type Covered republican ID Effective Begin Date Effective End Date Ucare Commercial Insurance [id number] Unkn own Medicaid [place] Commercial Insurance [id number] Unk nown Family History Family History data not found Social History Social History Element Codes Description Effec tive Dates Marital status Unknown Single 07/28/2023 Living arrangements Unknown Assisted Living 07/[address]: 79099485 Current ever y day smoker 07/28/[address]: 998122121 No Alcohol Consum ption 07/28/2023 Sexually Active? [...] Unknown Yes 07/28/[address]: 65937002 Current ever y day smoker half pack- 1 pack/daily Started smoking at age 18 06/17/[address]: 377571983 No Alcohol Consumption Hx of consumption 06/17/2021 [...] D3 10 mcg (400 unit) tablet RxNorm: 129174 Take 1 Tablet(s) Oral QD 01/26/20 24 024 Inactive Vitamin D3 10 mcg (400 unit) tablet RxNorm: 412043 Take 1 Tablet(s) Oral QD 01/26/20 24 024 Inactive citalopram 20 mg tablet RxNorm: 386721 Take 1 Tablet(s) Oral QD 12/31/19 24 025 Inactive 12/31/2023 PROACTIVE REFILL REQUEST FOR NEXT CYCLE PLEASE THANK YOU RX has/will before cycle date aspirin 81 mg tablet,delayed release RxNorm: 795495 Take 1 Tablet(s) Oral QD WITH FOOD 12/31/19 24 024 Inactive 12/31/2023 PROACTIVE REFILL REQUEST FOR NEXT CYCLE PLEASE THANK YOU RX has/will before cycle date atorvastatin 20 mg tablet RxNorm: 502460 Take 1 Tablet(s) Oral QD 10/14/19 24 025 Inactive 10/14/2023 PROACTIVE REFILL REQUEST FOR NEXT CYCLE PLEASE THANK YOU RX has/will before cycle date. losartan 50 mg tablet RxNorm: 240773 Take 1 Tablet(s) Oral QD 10/14/19 24 024 Inactive 10/14/2023 PROACTIVE REFILL REQUEST FOR NEXT CYCLE PLEASE THANK YOU RX has/will before cycle date. acetaminophen 500 mg tablet RxNorm: 205749 Take 1 Tablet(s) Oral QHS every night at bedtime 08/17/19 24 024 Inactive 08/17/2023 PROACTIVE REFILL REQUEST FOR NEXT CYCLE PLEASE THANK YOU citalopram 20 mg tablet RxNorm: 867636 Take 1 Tablet(s) Oral QD 01/02/20 23 024 Inactive 01/01/2023 PROACTIVE REFILL REQUEST FOR NEXT CYCLE PLEASE THANK YOU RX has/will before cycle date aspirin 81 mg tablet,delayed release RxNorm: 511353 TAKE 1 TABLET BY MOUTH DAILY WITH FOOD 01/02/20 23 023 Inactive 01/01/2023 PROACTIVE REFILL REQUEST FOR NEXT CYCLE PLEASE THANK YOU RX has/will before cycle date acetaminophen 500 mg tablet RxNorm: 046539 Take 1 Tablet(s) Oral QHS every night at bedtime 10/29/19 23 023 Inactive d/c ibuprofen atorvastatin 20 mg tablet RxNorm: 034738 Take 1 Tablet(s) Oral QD 10/15/19 23 024 Inactive 10/13/2022 PROACTIVE REFILL REQUEST FOR NEXT CYCLE PLEASE THANK YOU RX has/will before cycle date losartan 50 mg tablet RxNorm: 597584 Take 1 Tablet(s) Oral QD 10/15/19 23 023 Inactive 10/13/2022 PROACTIVE REFILL REQUEST FOR NEXT CYCLE PLEASE THANK YOU RX has/will before cycle date ibuprofen 400 mg tablet RxNorm: 767104 Take 1-1/2 Tablet(s) Oral QD as needed (at least 6 hours from scheduled dose) 10/01/19 23 024 Inactive Vitamin D2 1,250 mcg (50,000 unit) capsule RxNorm: 2477669 TAKE ONCE CAPSULE ONCE MONTHLY 07/30/19 23 025 Inactive d/c once weekly, start once monthly cholecalciferol (vitamin D3) 1,250 mcg (50,000 unit) capsule RxNorm: 654609 TAKE 1 CAPSULE BY MOUTH WEEKLY ON Wednesday07/23/19 23 023 Inactive Shingrix (PF) 50 mcg/0.5 mL intramuscular suspension, kit RxNorm: 9251214 ADMINISTER 2-DOSE SERIES PER CDC GUIDELINES Take UAD per CDC guidelines 06/26/19 23 023 Inactive diclofenac 1 % topical gel RxNorm: 331457 apply 0.5g topically to left shoulder nightly 01/01/20 22 022 Inactive diclofenac 1 % topical gel RxNorm: 012777 Apply 0.5 Gram(s) Topical QHS every night at bedtime apply 0.5g topically to left shoulder nightly 01/01/20 22 022 Inactive atorvastatin 20 mg tablet RxNorm: 088424 Take 1 Tablet(s) Oral QD 10/22/19 22 022 Inactive 2ND REQUEST FOR REFILLS 10/21/21 NEED TODAY PLEASE- THANK YOU losartan 50 mg tablet RxNorm: 113321 Take 1 Tablet(s) Oral QD 10/22/19 22 022 Inactive 2ND REQUEST FOR REFILLS 10/21/21 NEED TODAY PLEASE- THANK YOU Vitamin D2 1,250 mcg (50,000 unit) capsule RxNorm: 7957085 Take 1 Capsule(s) Oral QW once a week TAKE ONCE CAPSULE ONCE WEEKLY 07/31/19 22 023 Inactive or whatever % is covered by insurance loperamide 2 mg capsule RxNorm: 789189 Take 1 Capsule(s) Oral Q2H every 2 hours as needed for diarrhea Give 2 tabs after first loose stool and then 1 tab after each loose stool. Not to exceed 8 tabs in 24 hours 06/18/19 22 No Stop Date Active Calcium Antacid 200 mg calcium (500 mg) chewable tablet RxNorm: 331271 Chew 2-4 Tablet(s) Oral as needed Take 2-4 tabs by mouth as needed between meals and at bedtime as needed for heartburn or upset stomach 06/18/19 22 No Stop Date Active Robitussin Cough-Chest Congestion DM 5 mg-100 mg/5 mL oral liquid RxNorm: 7491901 Take 5-10 Milliliter(s) Oral Q4H every four hours QID - Four Times Daily as needed Take 5-10ml by mouth every 4 hours as needed for cough or congestion. Not to exceed 6 doses in 24 hours 06/18/19 No Stop Date Active acetaminophen 325 mg capsule RxNorm: 162416 Take 1-2 Tablet(s) Oral Q4-6H every 4-6 hours as needed for pain and elevated temperature. Not to exceed 4000mg in 24 hours 06/18/19 22 No Stop Date Active aluminum-mag hydroxide-simethicone 200 mg-200 mg-20 mg/5 mL oral susp RxNorm: 723840 Take 5-10 Milliliter(s) Oral QD as needed for nausea one time daily between and at bedtime as needed for heartburn and/ or upset stomach 06/18/19 No Stop Date Active Milk of Magnesia 400 mg/5 mL oral suspension RxNorm: 845720 Take 15-30 Milliliter(s) Oral as needed Take 15-30ml by mouth daily (preferably at bedtime) as needed for constipation. Recommend 8 oz of water after each use. 06/18/19 22 No Stop Date Active citalopram 20 mg tablet RxNorm: 565856 Take 1 Tablet(s) Oral QD every day 06/18/19 22 023 Inactive losartan 50 mg tablet RxNorm: 547224 Give 1 Tablet(s) Oral QD 06/18/19 22 022 Inactive atorvastatin 20 mg tablet RxNorm: 061549 Take 1 Tablet(s) Oral QD 06/18/19 22 022 Inactive ibuprofen 600 mg tablet RxNorm: 725099 Take 1 Tablet(s) Oral QHS every night at bedtime 06/18/19 22 023 Inactive Aspirin Low Dose 81 mg tablet,delayed release RxNorm: 989721 Take 1 Tablet(s) Oral QD QD - Daily with food 06/18/19 22 023 Inactive ibuprofen 600 mg tablet RxNorm: 875511 Take 1 and 1/2 Tablet(s) Oral QD as needed Take at least 6 hours from scheduled dose 06/18/19 22 023 Inactive hydrochlorothiazide 25 mg tablet RxNorm: 389282 Take 1 Tablet(s) Oral QD 06/18/19 22 [...] CHNG SMOKING 3-[address]: 2 80914728 CPT-4: 48654 07/29/2022 BEHAV CHNG SMOKING 3-[address]: 2 95360396 CPT-4: 60896 01/28/2022 AAA Screening US CPT-4: 96421 01/06/2022 BEHAV CHNG SMOKING 3-[address]: 2 63005679 CPT-4: 85696 12/31/2021 BEHAV CHNG SMOKING > [address]: 2 06831208 CPT-4: 59781 12/31/2021 BEHAV CHNG SMOKING 3-[address]: 2 55038159 CPT-4: 04200 11/26/2021 BEHAV CHNG SMOKING 3-[address]: 2 37902063 CPT-4: 48201 11/05/2021 BEHAV CHNG SMOKING 3-[address]: 2 17963332 CPT-4: 21118 09/24/2021 BEHAV CHNG SMOKING 3-[address]: 2 89180426 CPT-4: 33487 08/27/2021 BEHAV CHNG SMOKING 3-[address]: 2 51715214 CPT-4: 98599 07/30/2021 BEHAV CHNG SMOKING 3-[address]: 2 77973844 CPT-4: 11624 06/12/2021 Functional Status Functional / Cognitive Codes [...]
--- OUTSIDE RECORDS SUMMARY | 2025-03-13 16:51 | XMS_ITS | CCD ---
Author Organization Unknown Care Team Providers Care Horseback Riding Instructor Name Role Phone Beto LOMELINitoCorie Primary Care Provider Jeannine vailable Unavailable Chronic Care Management Unavaila ble Summary Purpose DataExchange Insurance Providers Payer name Policy type / Coverage type Covered democrat ID Effective Begin Date Effective End Date U[employer] Commercial Insurance [id number] Unkn own Medicaid [place] Commercial Insurance [id number] Unk nown Family History Family History data not found Social History Social History Element Codes Description Effec tive Dates Marital status Unknown Single 07/28/2023 Living arrangements Unknown Assisted Living 07/[address]: 27043396 Current ever y day smoker 07/28/[address]: 656464641 No Alcohol Consum ption 07/28/2023 Sexually Active? [...] Unknown Yes 07/28/[address]: 08546088 Current ever y day smoker half pack- 1 pack/daily Started smoking at age 18 06/17/[address]: 677272183 No Alcohol Consumption Hx of consumption 06/17/2021 [...] ICD-10: J41.0 ICD-9: 491.0 Active 07/28/2023 09/27/2024 Vitamin D deficiency ICD-10: E55.9 ICD-9: [...] cough ICD-10: J41.0 ICD-9: 491.0 07/28/2023 Active Vitamin D deficiency ICD-10: E55.9 [...] Fill Instructions citalopram 20 mg tablet RxNorm: 970592 Take 1 Tablet(s) Oral QD 12/31/19 24 025 Inactive 12/31/2023 PROACTIVE REFILL REQUEST FOR NEXT CYCLE PLEASE THANK YOU RX has/will before cycle date aspirin 81 mg tablet,delayed release RxNorm: 787585 Take 1 Tablet(s) Oral QD WITH FOOD 12/31/19 24 024 Inactive 12/31/2023 PROACTIVE REFILL REQUEST FOR NEXT CYCLE PLEASE THANK YOU RX has/will before cycle date atorvastatin 20 mg tablet RxNorm: 783874 Take 1 Tablet(s) Oral QD 10/14/19 24 025 Inactive 10/14/2023 PROACTIVE REFILL REQUEST FOR NEXT CYCLE PLEASE THANK YOU RX has/will before cycle date. losartan 50 mg tablet RxNorm: 424600 Take 1 Tablet(s) Oral QD 10/14/19 24 024 Inactive 10/14/2023 PROACTIVE REFILL REQUEST FOR NEXT CYCLE PLEASE THANK YOU RX has/will before cycle date. acetaminophen 500 mg tablet RxNorm: 305904 Take 1 Tablet(s) Oral QHS every night at bedtime 08/17/19 24 024 Inactive 08/17/2023 PROACTIVE REFILL REQUEST FOR NEXT CYCLE PLEASE THANK YOU citalopram 20 mg tablet RxNorm: 692494 Take 1 Tablet(s) Oral QD 01/02/20 23 024 Inactive 01/01/2023 PROACTIVE REFILL REQUEST FOR NEXT CYCLE PLEASE THANK YOU RX has/will before cycle date aspirin 81 mg tablet,delayed release RxNorm: 633613 TAKE 1 TABLET BY MOUTH DAILY WITH FOOD 01/02/20 23 023 Inactive 01/01/2023 PROACTIVE REFILL REQUEST FOR NEXT CYCLE PLEASE THANK YOU RX has/will before cycle date acetaminophen 500 mg tablet RxNorm: 987765 Take 1 Tablet(s) Oral QHS every night at bedtime 10/29/19 23 023 Inactive d/c ibuprofen atorvastatin 20 mg tablet RxNorm: 512342 Take 1 Tablet(s) Oral QD 10/15/19 23 024 Inactive 10/13/2022 PROACTIVE REFILL REQUEST FOR NEXT CYCLE PLEASE THANK YOU RX has/will before cycle date losartan 50 mg tablet RxNorm: 886948 Take 1 Tablet(s) Oral QD 10/15/19 23 023 Inactive 10/13/2022 PROACTIVE REFILL REQUEST FOR NEXT CYCLE PLEASE THANK YOU RX has/will before cycle date ibuprofen 400 mg tablet RxNorm: 679008 Take 1-1/2 Tablet(s) Oral QD as needed (at least 6 hours from scheduled dose) 10/01/19 23 024 Inactive Vitamin D2 1,250 mcg (50,000 unit) capsule RxNorm: 1444288 TAKE ONCE CAPSULE ONCE MONTHLY 07/30/19 23 025 Inactive d/c once weekly, start once monthly cholecalciferol (vitamin D3) 1,250 mcg (50,000 unit) capsule RxNorm: 938143 TAKE 1 CAPSULE BY MOUTH WEEKLY ON Wednesday07/23/19 23 023 Inactive Shingrix (PF) 50 mcg/0.5 mL intramuscular suspension, kit RxNorm: 8068640 ADMINISTER 2-DOSE SERIES PER CDC GUIDELINES Take UAD per CDC guidelines 06/26/19 23 023 Inactive diclofenac 1 % topical gel RxNorm: 394669 apply 0.5g topically to left shoulder nightly 01/01/20 22 022 Inactive diclofenac 1 % topical gel RxNorm: 673604 Apply 0.5 Gram(s) Topical QHS every night at bedtime apply 0.5g topically to left shoulder nightly 01/01/20 22 022 Inactive atorvastatin 20 mg tablet RxNorm: 214414 Take 1 Tablet(s) Oral QD 10/22/19 22 022 Inactive 2ND REQUEST FOR REFILLS 10/21/21 NEED TODAY PLEASE- THANK YOU losartan 50 mg tablet RxNorm: 015937 Take 1 Tablet(s) Oral QD 10/22/19 22 022 Inactive 2ND REQUEST FOR REFILLS 10/21/21 NEED TODAY PLEASE- THANK YOU Vitamin D2 1,250 mcg (50,000 unit) capsule RxNorm: 9578642 Take 1 Capsule(s) Oral QW once a week TAKE ONCE CAPSULE ONCE WEEKLY 07/31/19 22 023 Inactive or whatever % is covered by insurance loperamide 2 mg capsule RxNorm: 266300 Take 1 Capsule(s) Oral Q2H every 2 hours as needed for diarrhea Give 2 tabs after first loose stool and then 1 tab after each loose stool. Not to exceed 8 tabs in 24 hours 06/18/19 22 No Stop Date Active Calcium Antacid 200 mg calcium (500 mg) chewable tablet RxNorm: 748977 Chew 2-4 Tablet(s) Oral as needed Take 2-4 tabs by mouth as needed between meals and at bedtime as needed for heartburn or upset stomach 06/18/19 22 No Stop Date Active Robitussin Cough-Chest Congestion DM 5 mg-100 mg/5 mL oral liquid RxNorm: 4998786 Take 5-10 Milliliter(s) Oral Q4H every four hours QID - Four Times Daily as needed Take 5-10ml by mouth every 4 hours as needed for cough or congestion. Not to exceed 6 doses in 24 hours 06/18/19 No Stop Date Active acetaminophen 325 mg capsule RxNorm: 196458 Take 1-2 Tablet(s) Oral Q4-6H every 4-6 hours as needed for pain and elevated temperature. Not to exceed 4000mg in 24 hours 06/18/19 No Stop Date Active aluminum-mag hydroxide-simethicone 200 mg-200 mg-20 mg/5 mL oral susp RxNorm: 971441 Take 5-10 Milliliter(s) Oral QD as needed for nausea one time daily between and at bedtime as needed for heartburn and/ or upset stomach 06/18/19 No Stop Date Active Milk of Magnesia 400 mg/5 mL oral suspension RxNorm: 795766 Take 15-30 Milliliter(s) Oral as needed Take 15-30ml by mouth daily (preferably at bedtime) as needed for constipation. Recommend 8 oz of water after each use. 06/18/19 No Stop Date Active citalopram 20 mg tablet RxNorm: 200373 Take 1 Tablet(s) Oral QD every day 06/18/19 22 023 Inactive losartan 50 mg tablet RxNorm: 418323 Give 1 Tablet(s) Oral QD 06/18/19 22 022 Inactive atorvastatin 20 mg tablet RxNorm: 315130 Take 1 Tablet(s) Oral QD 06/18/19 22 022 Inactive ibuprofen 600 mg tablet RxNorm: 973415 Take 1 Tablet(s) Oral QHS every night at bedtime 06/18/19 22 023 Inactive Aspirin Low Dose 81 mg tablet,delayed release RxNorm: 756551 Take 1 Tablet(s) Oral QD QD - Daily with food 06/18/19 22 023 Inactive ibuprofen 600 mg tablet RxNorm: 074488 Take 1 and 1/2 Tablet(s) Oral QD as needed Take at least 6 hours from scheduled dose 06/18/19 22 023 Inactive hydrochlorothiazide 25 mg tablet RxNorm: 517170 Take 1 Tablet(s) Oral QD 06/18/19 22 [...] CHNG SMOKING 3-[address]: 2 15622262 CPT-4: 66049 07/29/2022 BEHAV CHNG SMOKING 3-[address]: 2 23761183 CPT-4: 19534 01/28/2022 AAA Screening US CPT-4: 68110 01/06/2022 BEHAV CHNG SMOKING 3-[address]: 2 01899461 CPT-4: 73793 12/31/2021 BEHAV CHNG SMOKING > [address]: 2 67076951 CPT-4: 78000 12/31/2021 BEHAV CHNG SMOKING 3-[address]: 2 29601624 CPT-4: 23860 11/26/2021 BEHAV CHNG SMOKING 3-[address]: 2 91900898 CPT-4: 42032 11/05/2021 BEHAV CHNG SMOKING 3-[address]: 2 14710215 CPT-4: 54615 09/24/2021 BEHAV CHNG SMOKING 3-[address]: 2 72430553 CPT-4: 03645 08/27/2021 BEHAV CHNG SMOKING 3-[address]: 2 60900086 CPT-4: 40805 07/30/2021 BEHAV CHNG SMOKING 3-[address]: 2 11998936 CPT-4: 90909 06/12/2021 Functional Status Functional / Cognitive Codes [...]
--- OUTSIDE RECORDS SUMMARY | 2025-03-13 16:52 | XMS_ITS | CCD ---
Author Name Ayanna Carranza Address [address] [place] [address] Phone Organization [facility] Phone Care Team Providers Care Radio Interference Expert Name Role Phone Beto WHITE McKenzie Primary Care Provider Jeannine vailable Unavailable Chronic Care Management Unavaila ble Summary Purpose DataExchange Insurance Providers Payer name Policy type / Coverage type Covered libertarian ID Effective Begin Date Effective End Date Ucare Commercial Insurance [id number] Unkn own Medicaid [place] Commercial Insurance [id number] Unk nown Family History Family History data not found Social History Social History Element Codes Description Effec tive Dates Marital status Unknown Single 07/28/2023 Living arrangements Unknown Assisted Living 07/[address]: 88781077 Current ever y day smoker 07/28/[address]: 476883718 No Alcohol Consum ption 07/28/2023 Sexually Active? [...] Unknown Yes 07/28/[address]: 70208995 Current ever y day smoker half pack- 1 pack/daily Started smoking at age 18 06/17/[address]: 549776705 No Alcohol Consumption Hx of consumption 06/17/2021 [...] D3 10 mcg (400 unit) tablet RxNorm: 065690 Take 1 Tablet(s) Oral QD 01/26/20 24 024 Inactive Vitamin D3 10 mcg (400 unit) tablet RxNorm: 976311 Take 1 Tablet(s) Oral QD 01/26/20 24 024 Inactive citalopram 20 mg tablet RxNorm: 012290 Take 1 Tablet(s) Oral QD 12/31/19 24 025 Inactive 12/31/2023 PROACTIVE REFILL REQUEST FOR NEXT CYCLE PLEASE THANK YOU RX has/will before cycle date aspirin 81 mg tablet,delayed release RxNorm: 127524 Take 1 Tablet(s) Oral QD WITH FOOD 12/31/19 24 024 Inactive 12/31/2023 PROACTIVE REFILL REQUEST FOR NEXT CYCLE PLEASE THANK YOU RX has/will before cycle date atorvastatin 20 mg tablet RxNorm: 721252 Take 1 Tablet(s) Oral QD 10/14/19 24 025 Inactive 10/14/2023 PROACTIVE REFILL REQUEST FOR NEXT CYCLE PLEASE THANK YOU RX has/will before cycle date. losartan 50 mg tablet RxNorm: 868192 Take 1 Tablet(s) Oral QD 10/14/19 24 024 Inactive 10/14/2023 PROACTIVE REFILL REQUEST FOR NEXT CYCLE PLEASE THANK YOU RX has/will before cycle date. acetaminophen 500 mg tablet RxNorm: 186129 Take 1 Tablet(s) Oral QHS every night at bedtime 08/17/19 24 024 Inactive 08/17/2023 PROACTIVE REFILL REQUEST FOR NEXT CYCLE PLEASE THANK YOU citalopram 20 mg tablet RxNorm: 464919 Take 1 Tablet(s) Oral QD 01/02/20 23 024 Inactive 01/01/2023 PROACTIVE REFILL REQUEST FOR NEXT CYCLE PLEASE THANK YOU RX has/will before cycle date aspirin 81 mg tablet,delayed release RxNorm: 288449 TAKE 1 TABLET BY MOUTH DAILY WITH FOOD 01/02/20 23 023 Inactive 01/01/2023 PROACTIVE REFILL REQUEST FOR NEXT CYCLE PLEASE THANK YOU RX has/will before cycle date acetaminophen 500 mg tablet RxNorm: 175370 Take 1 Tablet(s) Oral QHS every night at bedtime 10/29/19 23 023 Inactive d/c ibuprofen atorvastatin 20 mg tablet RxNorm: 861614 Take 1 Tablet(s) Oral QD 10/15/19 23 024 Inactive 10/13/2022 PROACTIVE REFILL REQUEST FOR NEXT CYCLE PLEASE THANK YOU RX has/will before cycle date losartan 50 mg tablet RxNorm: 797884 Take 1 Tablet(s) Oral QD 10/15/19 23 023 Inactive 10/13/2022 PROACTIVE REFILL REQUEST FOR NEXT CYCLE PLEASE THANK YOU RX has/will before cycle date ibuprofen 400 mg tablet RxNorm: 068136 Take 1-1/2 Tablet(s) Oral QD as needed (at least 6 hours from scheduled dose) 10/01/19 23 024 Inactive Vitamin D2 1,250 mcg (50,000 unit) capsule RxNorm: 4759438 TAKE ONCE CAPSULE ONCE MONTHLY 07/30/19 23 025 Inactive d/c once weekly, start once monthly cholecalciferol (vitamin D3) 1,250 mcg (50,000 unit) capsule RxNorm: 408132 TAKE 1 CAPSULE BY MOUTH WEEKLY ON Wednesday07/23/19 23 023 Inactive Shingrix (PF) 50 mcg/0.5 mL intramuscular suspension, kit RxNorm: 8123845 ADMINISTER 2-DOSE SERIES PER CDC GUIDELINES Take UAD per CDC guidelines 06/26/19 23 023 Inactive diclofenac 1 % topical gel RxNorm: 878324 apply 0.5g topically to left shoulder nightly 01/01/20 22 022 Inactive diclofenac 1 % topical gel RxNorm: 763643 Apply 0.5 Gram(s) Topical QHS every night at bedtime apply 0.5g topically to left shoulder nightly 01/01/20 22 022 Inactive atorvastatin 20 mg tablet RxNorm: 296531 Take 1 Tablet(s) Oral QD 10/22/19 22 022 Inactive 2ND REQUEST FOR REFILLS 10/21/21 NEED TODAY PLEASE- THANK YOU losartan 50 mg tablet RxNorm: 199654 Take 1 Tablet(s) Oral QD 10/22/19 22 022 Inactive 2ND REQUEST FOR REFILLS 10/21/21 NEED TODAY PLEASE- THANK YOU Vitamin D2 1,250 mcg (50,000 unit) capsule RxNorm: 6806177 Take 1 Capsule(s) Oral QW once a week TAKE ONCE CAPSULE ONCE WEEKLY 07/31/19 023 Inactive or whatever % is covered by insurance loperamide 2 mg capsule RxNorm: 026800 Take 1 Capsule(s) Oral Q2H every 2 hours as needed for diarrhea Give 2 tabs after first loose stool and then 1 tab after each loose stool. Not to exceed 8 tabs in 24 hours 06/18/19 22 No Stop Date Active Calcium Antacid 200 mg calcium (500 mg) chewable tablet RxNorm: 578689 Chew 2-4 Tablet(s) Oral as needed Take 2-4 tabs by mouth as needed between meals and at bedtime as needed for heartburn or upset stomach 06/18/19 22 No Stop Date Active Robitussin Cough-Chest Congestion DM 5 mg-100 mg/5 mL oral liquid RxNorm: 3639318 Take 5-10 Milliliter(s) Oral Q4H every four hours QID - Four Times Daily as needed Take 5-10ml by mouth every 4 hours as needed for cough or congestion. Not to exceed 6 doses in 24 hours 06/18/19 22 No Stop Date Active acetaminophen 325 mg capsule RxNorm: 256964 Take 1-2 Tablet(s) Oral Q4-6H every 4-6 hours as needed for pain and elevated temperature. Not to exceed 4000mg in 24 hours 06/18/19 22 No Stop Date Active aluminum-mag hydroxide-simethicone 200 mg-200 mg-20 mg/5 mL oral susp RxNorm: 366387 Take 5-10 Milliliter(s) Oral QD as needed for nausea one time daily between and at bedtime as needed for heartburn and/ or upset stomach 06/18/19 22 No Stop Date Active Milk of Magnesia 400 mg/5 mL oral suspension RxNorm: 551616 Take 15-30 Milliliter(s) Oral as needed Take 15-30ml by mouth daily (preferably at bedtime) as needed for constipation. Recommend 8 oz of water after each use. 06/18/19 22 No Stop Date Active citalopram 20 mg tablet RxNorm: 095836 Take 1 Tablet(s) Oral QD every day 03/01/ 023 Inactive losartan 50 mg tablet RxNorm: 205658 Give 1 Tablet(s) Oral QD 06/18/19 22 022 Inactive atorvastatin 20 mg tablet RxNorm: 082617 Take 1 Tablet(s) Oral QD 06/18/19 22 022 Inactive ibuprofen 600 mg tablet RxNorm: 761979 Take 1 Tablet(s) Oral QHS every night at bedtime 06/18/19 023 Inactive Aspirin Low Dose 81 mg tablet,delayed release RxNorm: 658401 Take 1 Tablet(s) Oral QD QD - Daily with food 06/18/19 023 Inactive ibuprofen 600 mg tablet RxNorm: 841530 Take 1 and 1/2 Tablet(s) Oral QD as needed Take at least 6 hours from scheduled dose 06/18/19 Inactive hydrochlorothiazide 25 mg tablet RxNorm: 959036 Take 1 Tablet(s) Oral QD 06/18/19 Inactive [...] I12.9 ICD-9: 403.90 01/26/2024 No note found Reason For Visit No Reason For Visit data Review of Systems No Review of Systems data Physical Exam No Physical Exam data Procedures Procedure Codes Date BEHAV CHNG SMOKING 3-[address]: 2 46485975 CPT-4: 98121 07/29/2022 BEHAV CHNG SMOKING 3-[address]: 2 03197746 CPT-4: 98328 01/28/2022 AAA Screening US CPT-4: 06947 01/06/2022 BEHAV CHNG SMOKING 3-[address]: 2 12657231 CPT-4: 90262 12/31/2021 BEHAV CHNG SMOKING > [address]: 2 92364539 CPT-4: 12394 12/31/2021 BEHAV CHNG SMOKING 3-[address]: 2 09298170 CPT-4: 13738 11/26/2021 BEHAV CHNG SMOKING 3-[address]: 2 28549486 CPT-4: 23290 11/05/2021 BEHAV CHNG SMOKING 3-[address]: 2 86336743 CPT-4: 04906 09/24/2021 BEHAV CHNG SMOKING 3-[address]: 2 81942937 CPT-4: 76088 08/27/2021 BEHAV CHNG SMOKING 3-[address]: 2 32442130 CPT-4: 58923 07/30/2021 BEHAV CHNG SMOKING 3-[address]: 2 38659412 CPT-4: 26794 06/12/2021 Functional Status Functional / Cognitive Codes [...] Date Patient Education: Patient Medication Summary Completed 01/26/2024 Care Plan: CBC without Differential / Platelets [employer] Pending 01/26/2024 Care Plan: Basic Metabolic Panel (BMP) Pending 01/26/2024 Appointment: Татьяна Figueredo WPtel: [address] [place], [place] [id number] F/U 09/24/2021 Health Concerns Section Concern Status [...]
--- OUTSIDE RECORDS SUMMARY | 2025-03-13 16:53 | XMS_ITS | Clinical Summary ---
Author Organization [facility] Address [address] [place] [id number] Care Team Providers Care Booth Usher Name Role Phone [facility], [facility] Allergies No known active allergies Medications hydroCHLOROthiazide (HCTZ) 25 mg tabletIndications:Hypert ension, unspecified type TAKE 1 TABLET BY MOUTH DAILY 28 Tablet 12 09/19/19 22 Active losartan (COZAAR) 50 mg tabletIndications:Hypert ension, unspecified type Take 1 Tablet (50 mg) by mouth once daily. 30 Tablet 09/28/19 22 Active atorvastatin (LIPITOR) 20 mg tabletIndications:Pure hypercholesterolemia Take 1 Tablet (20 mg) by mouth once daily. 30 Tablet 09/28/19 22 Active aspirin (ECOTRIN) 81 mg enteric coated tabletIndications:Benign essential HTN TAKE 1 TABLET BY MOUTH DAILY WITH FOOD 28 Tablet 01/09/20 22 Active citalopram (CELEXA) 20 mg tabletIndications:PTSD (post-traumatic stress disorder) TAKE 1 TABLET BY MOUTH DAILY 28 Tablet 01/09/20 22 Active ibuprofen (ADVIL; MOTRIN) 600 mg tabletIndications:Pain TAKE 1 TABLET BY MOUTH EVERY NIGHT AT BEDTIME 28 Tablet 01/09/20 22 Active Active Problems Problem Noted Date Diagnosed Date Pure hypercholesterolemia 09/02/2012 Hypercalcemia 09/02/2012 Tobacco use disorder 09/02/2012 Back pain 08/12/2012 Overview (08/12/2012): 3 traumatic vertebral fractures Bifascicular bundle branch block 08/12/2012 Overview (08/12/2012): RBBB and L anterior fascicular block Tachycardia 08/11/2012 Unsteady gait 08/11/2012 PTSD (post-traumatic stress disorder) 08/11/2012 Essential hypertension 08/11/2012 TBI (traumatic brain injury) 12/03/2010 Multiple fractures 12/03/2010 H/O ETOH abuse 12/03/2010 Major depression, recurrent 12/03/2010 Prediabetes Immunizations Immunization Administration Dates Next Due Influenza Virus, Unspecified 04/19/2017 Influenza, IIV3 (Age >=3 years) 04/23/2012 Influenza, IIV4 01/16/2014 Pneumococcal Poly,23-Valent (Pneumovax) 04/04/20 19 Pneumococcal conj 13-Valent (Prevnar 13) 018 Tdap 11/22/2006 Tuberculin (PPD) 03/28/2018 Family History Medical History Relation Name Comments Good Health Brother Heart Disease Father at 50 OR Cancer Mother pancreas C A at 69 Cancer Sister 1 sister lung CA Cancer Sister 2 female organ CA Good Health Sister 3 2 of 4 are heal thy Cancer-prostate No Family History Diabetes No Family History Relation Name Status Comments Brother Father Mother Sister 1 Sister 2 Sister 3 Social History Tobacco Use Types Packs/Day Years Used Date Smoking Tobacco: Every Day Cigarettes 1 40 Smokeless Tobacco: Never Tobacco Cessation:Ready to Q uit: No; Counseling Given: Yes Alcohol Use Standard Drinks/Week Comments Not Currently 10 (1 standard drink = 0.6 oz pure alcohol) limited funds per gardian or he would drink more PHQ-2 Answer Date Recorded PHQ-2 TOTAL SCORE 0 06/12/2020 Social Connections Answer Date Recorded Frequency of Communication with Friends and Fami ly Not on file 04/19/2021 Financial Resource Strain Answer Date R ecorded Difficulty of Paying Living Expenses Not on file 04/19/2021 Difficulty of Paying Living Expenses Not on file 04/19/2021 Sex and Gender Information Value Date Recorded Sex Assigned at Not on file Legal 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 Gender Identity Not on file Sexual Orientation Not on file Occupation Industry Job Start Date Job End Date DISABLED Not on file Not on file Not on file Obstetrics History Last Filed Vital Signs Vital Sign Reading Time Taken Comments Blood Pressure 102/67 12/18/2020 2:59 PM CDT Pulse 86 12/18/2020 2:59 PM CDT Temperature 36.6 C (97.9 F) 09/13/2019 9:29 AM CDT Respiratory Rate 12 03/30/2018 8:06 AM DYE MACHINE OPERATOR Oxygen Saturation 95% 12/18/2020 2:59 PM CDT Inhaled Oxygen Concentration - - Weight 82.6 kg (182 lb 3.2 oz) 12/18/2020 2:59 P M CDT Height 174.8 cm (5' 8.82) 06/12/2020 9:37 AM CS T Body Mass Index 27.05 06/12/2020 9:37 AM 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 MACHINE 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 Plan of Treatment Health Maintenance Due Date Last Done Comments Low Dose CT (for lung CA) age 50-80 2002 Zoster (shingles) series for age 50+ (1 of 2) 2002 Tetanus booster 11/22/2016 11/22/2006 BMI (ht and wt on same day) for age 18+ 06/12/2021 06/12/2020, 09/13/2019, 04/04/2019, Additional history exists Fecal testing non-DNA (FIT,FOBT,iFOBT) for age 45-75 06/12/2021 06/12/2020, 07/25/2017, 11/29/2014 Depression screening for age 12+ 06/13/2021 06/13/2020, 06/12/2020, 06/12/2020, Additional history exists Medicare Wellness for age 65+ 06/13/2021 06/12/2020, 04/04/2019, 03/30/2018, Additional history exists Influenza Vaccine (#1) 2024 8, 01/16/2014, 04/23/2012 Lipids for age 45-75 06/12/2025 06/12/2020, 04/04/2019, 03/30/2018, Additional history exists RSV vaccine for adults or (1 - 1-dose 75+ series) 10/12/2027 Hepatitis C screening for age 18-79 Completed 04/04/2019 Pneumococcal series for age 50+ Completed 04/04/2019, 03/30/2018 Hepatitis B series for 19+ Aged Out N o longer eligible based on patient's age to complete this topic Goals Goal Patient Goal Type Associated Problems Recent Progress Patient-Stated? Author BLOOD PRESSURE - MAINTAINS BP less than 140/90 Blood Pressure Ye Boswell MD Procedures Procedure Name Priority Date/Time Associated Diagnosis Comments OCCULT BLOOD IFOBT STOOL Routine 06/12/2020 5:30 PM DYE MACHINE OPERATOR Screening for colon cancer LIPID PANEL W REFLEX MEASURED LDL Routine 06/12/2020 10:12 AM DYE MACHINE OPERATOR Pure hypercholesterolemia ANTI HCV Add On 04/04/2019 8:31 AM DYE MACHINE OPERATOR Encounter for hepatitis C screening test for low risk patient from Last 3 Months or Most Recently Relevant to Health Maintenance Results * (ABNORMAL) OCCULT BLOOD IFOBT STOOL (06/12/2020 5:30 PM DYE MACHINE OPERATOR) STOOL BLOOD ,IFOBT Positive(A ) Negative 06/13/2020 4:21 PM DYE MACHINE OPERATOR [facility] Stool STOOL SPECIMEN / Unknown Non-Blood / Unknown 06/12/2020 5:30 PM DYE MACHINE OPERATOR 06/13/2020 3:22 PM DYE MACHINE OPERATOR Loco Topete MD LABORATORY Final Result [facility] [address] [place] [address], * (ABNORMAL) LIPID PANEL W REFLEX MEASURED LDL (06/12/2020 10:12 AM DYE MACHINE OPERATOR) CHOLESTEROL,TOTAL 156 100 - 199 mg/dL 06/12/2020 6:09 PM DYE MACHINE OPERATOR [facility] TRIGLYCERIDES 126 <150 mg/dL 06/12/2020 6:09 PM DYE MACHINE OPERATOR [facility] HDL CHOLESTEROL 29(L) >40 mg/dL 6:09 PM DYE MACHINE OPERATOR [facility] NON-HDL CHOLESTEROL 127 <145 mg/dl 06/12/2020 6:09 PM DYE MACHINE OPERATOR [facility] CHOL/HDL RATIO 5.38(H) <4.50 06/12/2020 6:09 PM DYE MACHINE OPERATOR [facility] LDL CHOLESTEROL 102 <=130 mg/dL 06/12/2020 6:09 PM DYE MACHINE OPERATOR [facility] TR[facility] PROVIDER ORDERED STATUS RANDOM 06/12/2020 6:09 PM DYE MACHINE OPERATOR [facility] Blood BLOOD SPECIMEN / Unknown Venipuncture / Unknown 06/12/2020 10:12 AM DYE MACHINE OPERATOR 06/12/2020 10:12 AM DYE MACHINE OPERATOR us Loco Topete MD CHEMISTRY Final Result [facility] [address] [place] [address], * ANTI HCV (04/04/2019 8:31 AM DYE MACHINE OPERATOR) HEPATITIS C ANTIBODY Non-React damaris Non-React damaris 04/04/2019 3:39 PM DYE MACHINE OPERATOR [facility] TR[facility] LAB[facility]ORY Comment:Antibodies to HCV no t detected; does not exclude the possibility of exposure to HCV. Blood BLOOD SPECIMEN / Unknown Venipuncture / Unknown 04/04/2019 8:31 AM DYE MACHINE OPERATOR 04/04/2019 8:34 AM DYE MACHINE OPERATOR us Loco Topete MD SEND OUTS Final Result [facility] [address] [place] [address], from Last 3 Months or Most Recently Relevant to Health Maintenance Insurance MEDICAID MEDICARE [address] [place] [address] [employer] Care Teams Booth Usher Relationship Specialty Start Date End Date [facility], [place] [address] [place] [phone] 08/11/12
--- OUTSIDE RECORDS SUMMARY | 2025-03-13 16:54 | XMS_ITS | CCD ---
Author Organization Unknown Care Team Providers Care Independent Sales Representative Name Role Phone Beto NIEVESMoy Corie Primary Care Provider Jeannine vailable Unavailable Chronic Care Management Unavaila ble Summary Purpose DataExchange Insurance Providers Payer name Policy type / Coverage type Covered republican ID Effective Begin Date Effective End Date [employer] Commercial Insurance [id number] Unkn own Medicaid [place] Commercial Insurance [id number] Unk nown Family History Family History data not found Social History Social History Element Codes Description Effec tive Dates Caregiver Assessment Unknown Healthcare POA on fi le 07/19/2024 Marital status Unknown Single 07/28/2023 Living arrangements Unknown Assisted Living 07/[address]: 80211104 Current ever y day smoker 07/28/[address]: 744076321 No Alcohol Consum ption 07/28/2023 Sexually Active? [...] Unknown Yes 07/28/[address]: 45603768 Current ever y day smoker half pack- 1 pack/daily Started smoking at age 18 06/17/[address]: 909788266 No Alcohol Consumption Hx of consumption 06/17/2021 Allergies, Adverse Reactions, Alerts Substance Reaction Codes Entered Date Inactivated Date Status NO KNOWN ALLERGIES Unknown 04/25/2021 No Inactiv e Date Active * NO KNOWN FOOD ALLERGIES Unknown 06/12/2021 No Inactive Date Active * NO KNOWN ENVIRONMENTAL ALLERGIES Unknown 06/12/2021 No Inactive Date Active Past Medical History Illness Codes Condition Status Onset Date Resolved Date Hypercholesteremia ICD-10: E78.00 ICD-9: 272.0 Active 11/29/2024 Unknown Hypertensive chronic kidney disease with stage 1 through stage 4 chronic kidney disease, or unspecified chronic kidney disease ICD-10: I12.9 ICD-9: 403.90 Active 11/29/2024 Unknown Stage 2 chronic kidney disease ICD-10: N18.2 ICD-9: 585.2 Active 11/29/2024 Unknown Vitamin D deficiency ICD-10: E55.9 ICD-9: 268.9 Active 11/29/2024 Unknown ACP (advance care planning) SNOMED CT: 781648922 ICD-10: Z71.89 ICD-9: V65.49 Active 09/27/2024 Unknown 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 ICD-9: 303.93 Active 09/27/2024 Unknown Chronic left shoulder pain ICD-10: M25.5 12 ICD-9: 719.41 Active 09/27/2024 01/24/2025 Chronic tension-type headache, not intractable ICD-10: G44.229 ICD-9: 339.12 Active 09/27/2024 01/24/2025 COPD (chronic obstructive pulmonary disease) ICD-10: J44.9 ICD-9: 496 Active 09/27/2024 Unknown Encounter for preventive care SNOMED CT: 945957170 ICD-10: Z00.00 ICD-9: V70.0 Active 09/27/2024 Unknown [...] Unknown Screening for diabetes mellitus SNOMED CT: 143160103 ICD-10: Z13.1 ICD-9: V77.1 Resolved 09/27/2024 Unknown [...] Condition Codes Effective Dates Condition St atus Hypercholesteremia ICD-10: E78.00 ICD-9: 272.0 11/29/2024 Active Hypertensive chronic kidney disease with stage 1 through stage 4 chronic kidney disease, or unspecified chronic kidney disease ICD-10: I12.9 ICD-9: 403.90 11/29/2024 Active Stage 2 chronic kidney disease ICD-10: N 18.2 ICD-9: 585.2 11/29/2024 Active Vitamin D deficiency ICD-10: E55.9 ICD-9: 268.9 11/29/2024 Active ACP (advance care planning) SNOMED CT: 3 10492326 ICD-10: Z71.89 ICD-9: V65.49 09/27/2024 Active 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 ICD-9: 303.93 09/27/2024 Active Chronic left shoulder pain ICD-10: M25.5 12 ICD-9: 719.41 09/27/2024 Active Chronic tension-type headach e, not intractable ICD-10: G44.229 ICD-9: 339.12 09/27/2024 Active COPD (chronic obstructive pulmonary disease) ICD-10: J44.9 ICD-9: 496 09/27/2024 Active Encounter for preventive care SNOMED CT: 750302961 ICD-10: Z00.00 ICD-9: V70.0 09/27/2024 Active Episode [...] Screening for diabetes mellitus SNOMED C T: 864017285 ICD-10: Z13.1 ICD-9: V77.1 09/27/2024 Resolved Tobacco [...] D3 10 mcg (400 unit) tablet RxNorm: 161187 Take 1 Tablet(s) Oral QD 01/04/20 25 026 Active losartan 50 mg tablet RxNorm: 235769 Take 1 Tablet(s) Oral QD 10/13/19 25 026 Active 10/12/2024 PROACTIVE REFILL REQUEST FOR NEXT CYCLE PLEASE THANK YOU RX has/will before cycle date. atorvastatin 20 mg tablet RxNorm: 212254 Take 1 Tablet(s) Oral QD 10/13/19 25 026 Active 10/12/2024 PROACTIVE REFILL REQUEST FOR NEXT CYCLE PLEASE THANK YOU RX has/will before cycle date. acetaminophen 500 mg tablet RxNorm: 747031 Take 1 Tablet(s) Oral QHS every night at bedtime 08/16/19 25 026 Active 08/15/2024 PROACTIVE REFILL REQUEST FOR NEXT CYCLE PLEASE THANK YOU RX has/will before cycle date ibuprofen 200 mg tablet RxNorm: 111594 Take 1-2 Tablet(s) Oral Q4-6H every 4-6 hours as needed 07/20/19 25 No Stop Date Active diphenhydramine 12.5 mg/5 mL oral liquid RxNorm: 4978698 Take 5-10ml Milliliter(s) Oral Q8H every 8 hours as needed for cough/congestio n 07/20/19 25 No Stop Date Active Vitamin D3 10 mcg (400 unit) tablet RxNorm: 623122 Take 1 Tablet(s) Oral QD 01/26/20 24 024 Inactive Vitamin D3 10 mcg (400 unit) tablet RxNorm: 149168 Take 1 Tablet(s) Oral QD 01/26/20 24 024 Inactive citalopram 20 mg tablet RxNorm: 441816 Take 1 Tablet(s) Oral QD 12/31/19 24 025 Inactive 12/31/2023 PROACTIVE REFILL REQUEST FOR NEXT CYCLE PLEASE THANK YOU RX has/will before cycle date aspirin 81 mg tablet,delayed release RxNorm: 823324 Take 1 Tablet(s) Oral QD WITH FOOD 12/31/19 24 024 Inactive 12/31/2023 PROACTIVE REFILL REQUEST FOR NEXT CYCLE PLEASE THANK YOU RX has/will before cycle date losartan 50 mg tablet RxNorm: 858988 Take 1 Tablet(s) Oral QD 10/14/19 24 024 Inactive 10/14/2023 PROACTIVE REFILL REQUEST FOR NEXT CYCLE PLEASE THANK YOU RX has/will before cycle date. atorvastatin 20 mg tablet RxNorm: 156370 Take 1 Tablet(s) Oral QD 10/14/19 24 025 Inactive 10/14/2023 PROACTIVE REFILL REQUEST FOR NEXT CYCLE PLEASE THANK YOU RX has/will before cycle date. acetaminophen 500 mg tablet RxNorm: 778899 Take 1 Tablet(s) Oral QHS every night at bedtime 08/17/19 24 024 Inactive 08/17/2023 PROACTIVE REFILL REQUEST FOR NEXT CYCLE PLEASE THANK YOU citalopram 20 mg tablet RxNorm: 943093 Take 1 Tablet(s) Oral QD 01/02/20 23 024 Inactive 01/01/2023 PROACTIVE REFILL REQUEST FOR NEXT CYCLE PLEASE THANK YOU RX has/will before cycle date aspirin 81 mg tablet,delayed release RxNorm: 874379 TAKE 1 TABLET BY MOUTH DAILY WITH FOOD 01/02/20 23 023 Inactive 01/01/2023 PROACTIVE REFILL REQUEST FOR NEXT CYCLE PLEASE THANK YOU RX has/will before cycle date acetaminophen 500 mg tablet RxNorm: 464318 Take 1 Tablet(s) Oral QHS every night at bedtime 10/29/19 23 023 Inactive d/c ibuprofen atorvastatin 20 mg tablet RxNorm: 484020 Take 1 Tablet(s) Oral QD 10/15/19 23 024 Inactive 10/13/2022 PROACTIVE REFILL REQUEST FOR NEXT CYCLE PLEASE THANK YOU RX has/will before cycle date losartan 50 mg tablet RxNorm: 656169 Take 1 Tablet(s) Oral QD 10/15/19 23 023 Inactive 10/13/2022 PROACTIVE REFILL REQUEST FOR NEXT CYCLE PLEASE THANK YOU RX has/will before cycle date ibuprofen 400 mg tablet RxNorm: 298025 Take 1-1/2 Tablet(s) Oral QD as needed (at least 6 hours from scheduled dose) 10/01/19 23 024 Inactive Vitamin D2 1,250 mcg (50,000 unit) capsule RxNorm: 8654581 TAKE ONCE CAPSULE ONCE MONTHLY 07/30/19 23 025 Inactive d/c once weekly, start once monthly cholecalciferol (vitamin D3) 1,250 mcg (50,000 unit) capsule RxNorm: 432269 TAKE 1 CAPSULE BY MOUTH WEEKLY ON Wednesday07/23/19 23 023 Inactive Shingrix (PF) 50 mcg/0.5 mL intramuscular suspension, kit RxNorm: 8428962 ADMINISTER 2-DOSE SERIES PER CDC GUIDELINES Take UAD per CDC guidelines 06/26/19 023 Inactive diclofenac 1 % topical gel RxNorm: 892633 apply 0.5g topically to left shoulder nightly 01/01/20 22 022 Inactive diclofenac 1 % topical gel RxNorm: 250432 Apply 0.5 Gram(s) Topical QHS every night at bedtime apply 0.5g topically to left shoulder nightly 01/01/20 22 022 Inactive atorvastatin 20 mg tablet RxNorm: 180196 Take 1 Tablet(s) Oral QD 10/22/19 22 022 Inactive 2ND REQUEST FOR REFILLS 10/21/21 NEED TODAY PLEASE- THANK YOU losartan 50 mg tablet RxNorm: 306087 Take 1 Tablet(s) Oral QD 10/22/19 22 022 Inactive 2ND REQUEST FOR REFILLS 10/21/21 NEED TODAY PLEASE- THANK YOU Vitamin D2 1,250 mcg (50,000 unit) capsule RxNorm: 1703167 Take 1 Capsule(s) Oral QW once a week TAKE ONCE CAPSULE ONCE WEEKLY 07/31/19 22 023 Inactive or whatever % is covered by insurance loperamide 2 mg capsule RxNorm: 668667 Take 1 Capsule(s) Oral Q2H every 2 hours as needed for diarrhea Give 2 tabs after first loose stool and then 1 tab after each loose stool. Not to exceed 8 tabs in 24 hours 06/18/19 No Stop Date Active Calcium Antacid 200 mg calcium (500 mg) chewable tablet RxNorm: 063753 Chew 2-4 Tablet(s) Oral as needed Take 2-4 tabs by mouth as needed between meals and at bedtime as needed for heartburn or upset stomach 06/18/19 No Stop Date Active Robitussin Cough-Chest Congestion DM 5 mg-100 mg/5 mL oral liquid RxNorm: 0586004 Take 5-10 Milliliter(s) Oral Q4H every four hours QID - Four Times Daily as needed Take 5-10ml by mouth every 4 hours as needed for cough or congestion. Not to exceed 6 doses in 24 hours 06/18/19 No Stop Date Active acetaminophen 325 mg capsule RxNorm: 485220 Take 1-2 Tablet(s) Oral Q4-6H every 4-6 hours as needed for pain and elevated temperature. Not to exceed 4000mg in 24 hours 06/18/19 No Stop Date Active aluminum-mag hydroxide-simethicone 200 mg-200 mg-20 mg/5 mL oral susp RxNorm: 251970 Take 5-10 Milliliter(s) Oral QD as needed for nausea one time daily between and at bedtime as needed for heartburn and/ or upset stomach 06/18/19 No Stop Date Active Milk of Magnesia 400 mg/5 mL oral suspension RxNorm: 737709 Take 15-30 Milliliter(s) Oral as needed Take 15-30ml by mouth daily (preferably at bedtime) as needed for constipation. Recommend 8 oz of water after each use. 06/18/19 No Stop Date Active citalopram 20 mg tablet RxNorm: 770010 Take 1 Tablet(s) Oral QD every day 06/18/19 22 023 Inactive losartan 50 mg tablet RxNorm: 864523 Give 1 Tablet(s) Oral QD 06/18/19 22 022 Inactive atorvastatin 20 mg tablet RxNorm: 816425 Take 1 Tablet(s) Oral QD 06/18/19 22 022 Inactive ibuprofen 600 mg tablet RxNorm: 360530 Take 1 Tablet(s) Oral QHS every night at bedtime 06/18/19 22 023 Inactive Aspirin Low Dose 81 mg tablet,delayed release RxNorm: 699576 Take 1 Tablet(s) Oral QD QD - Daily with food 06/18/19 22 023 Inactive ibuprofen 600 mg tablet RxNorm: 167877 Take 1 and 1/2 Tablet(s) Oral QD as needed Take at least 6 hours from scheduled dose 06/18/19 22 023 Inactive hydrochlorothiazide 25 mg tablet RxNorm: 313251 Take 1 Tablet(s) Oral QD 06/18/19 22 [...] CHNG SMOKING 3-[address]: 2 39123214 CPT-4: 76616 07/29/2022 BEHAV CHNG SMOKING 3-[address]: 2 73769865 CPT-4: 98826 01/28/2022 AAA Screening US CPT-4: 62373 01/06/2022 BEHAV CHNG SMOKING 3-[address]: 2 66941802 CPT-4: 09073 12/31/2021 BEHAV CHNG SMOKING > [address]: 2 89127842 CPT-4: 08583 12/31/2021 BEHAV CHNG SMOKING 3-[address]: 2 35527431 CPT-4: 21287 11/26/2021 BEHAV CHNG SMOKING 3-[address]: 2 92347525 CPT-4: 39658 11/05/2021 BEHAV CHNG SMOKING 3-[address]: 2 74133276 CPT-4: 97577 09/24/2021 BEHAV CHNG SMOKING 3-[address]: 2 24586066 CPT-4: 73557 08/27/2021 BEHAV CHNG SMOKING 3-[address]: 2 42247921 CPT-4: 66373 07/30/2021 BEHAV CHNG SMOKING 3-[address]: 2 65339419 CPT-4: 04216 06/12/2021 Functional Status Functional / Cognitive Codes [...]
--- OUTSIDE RECORDS SUMMARY | 2025-03-13 16:55 | XMS_ITS | CCD ---
Author Name Ayanna Carranza Address [address] [place] [address] Phone Organization [facility] Phone Care Team Providers Care Plasterer Foreman Name Role Phone Beto WHITE Corie Primary Care Provider Jeannine vailable Unavailable Chronic Care Management Unavaila ble Summary Purpose DataExchange Insurance Providers Payer name Policy type / Coverage type Covered alliance party ID Effective Begin Date Effective End Date [employer] Commercial Insurance [id number] Unkn own Medicaid [place] Commercial Insurance [id number] Unk nown Family History Family History data not found Social History Social History Element Codes Description Effec tive Dates Caregiver Assessment Unknown Healthcare POA on fi le 07/19/2024 Marital status Unknown Single 07/28/2023 Living arrangements Unknown Assisted Living 07/[address]: 44556099 Current ever y day smoker 07/28/[address]: 340469195 No Alcohol Consum ption 07/28/2023 Sexually Active? 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 ICD-9: 303.93 Active 09/27/2024 Unknown Chronic left shoulder pain ICD-10: M25.5 12 ICD-9: 719.41 Active 09/27/2024 01/24/2025 Chronic tension-type headache, not intractable ICD-10: G44.229 ICD-9: 339.12 Active 09/27/2024 01/24/2025 COPD (chronic obstructive pulmonary disease) ICD-10: J44.9 ICD-9: 496 Active 09/27/2024 Unknown Encounter for preventive care SNOMED CT: 524224820 ICD-10: Z00.00 ICD-9: V70.0 Active 09/27/2024 Unknown [...] Unknown Screening for diabetes mellitus SNOMED CT: 753492922 ICD-10: Z13.1 ICD-9: V77.1 Resolved 09/27/2024 Unknown [...] ACP (advance care planning) SNOMED CT: 3 79035118 ICD-10: Z71.89 ICD-9: V65.49 09/27/2024 Active 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 ICD-9: 303.93 09/27/2024 Active Chronic left shoulder pain ICD-10: M25.5 12 ICD-9: 719.41 09/27/2024 Active Chronic tension-type headach e, not intractable ICD-10: G44.229 ICD-9: 339.12 09/27/2024 Active COPD (chronic obstructive pulmonary disease) ICD-10: J44.9 ICD-9: 496 09/27/2024 Active Encounter for preventive care SNOMED CT: 739007700 ICD-10: Z00.00 ICD-9: V70.0 09/27/2024 Active Episode [...] Screening for diabetes mellitus SNOMED C T: 529587065 ICD-10: Z13.1 ICD-9: V77.1 09/27/2024 Resolved Tobacco [...] Fill Instructions losartan 50 mg tablet RxNorm: 796944 Take 1 Tablet(s) Oral QD 10/13/19 25 026 Active 10/12/2024 PROACTIVE REFILL REQUEST FOR NEXT CYCLE PLEASE THANK YOU RX has/will before cycle date. atorvastatin 20 mg tablet RxNorm: 023123 Take 1 Tablet(s) Oral QD 10/13/19 25 026 Active 10/12/2024 PROACTIVE REFILL REQUEST FOR NEXT CYCLE PLEASE THANK YOU RX has/will before cycle date. acetaminophen 500 mg tablet RxNorm: 873162 Take 1 Tablet(s) Oral QHS every night at bedtime 08/16/19 25 026 Active 08/15/2024 PROACTIVE REFILL REQUEST FOR NEXT CYCLE PLEASE THANK YOU RX has/will before cycle date ibuprofen 200 mg tablet RxNorm: 099788 Take 1-2 Tablet(s) Oral Q4-6H every 4-6 hours as needed 07/20/19 25 No Stop Date Active diphenhydramine 12.5 mg/5 mL oral liquid RxNorm: 2693584 Take 5-10ml Milliliter(s) Oral Q8H every 8 hours as needed for cough/congestio n 07/20/19 25 No Stop Date Active Vitamin D3 10 mcg (400 unit) tablet RxNorm: 679950 Take 1 Tablet(s) Oral QD 01/26/20 24 024 Inactive Vitamin D3 10 mcg (400 unit) tablet RxNorm: 820339 Take 1 Tablet(s) Oral QD 01/26/20 24 024 Inactive citalopram 20 mg tablet RxNorm: 589343 Take 1 Tablet(s) Oral QD 12/31/19 24 025 Inactive 12/31/2023 PROACTIVE REFILL REQUEST FOR NEXT CYCLE PLEASE THANK YOU RX has/will before cycle date aspirin 81 mg tablet,delayed release RxNorm: 150643 Take 1 Tablet(s) Oral QD WITH FOOD 12/31/19 24 024 Inactive 12/31/2023 PROACTIVE REFILL REQUEST FOR NEXT CYCLE PLEASE THANK YOU RX has/will before cycle date losartan 50 mg tablet RxNorm: 065167 Take 1 Tablet(s) Oral QD 10/14/19 24 024 Inactive 10/14/2023 PROACTIVE REFILL REQUEST FOR NEXT CYCLE PLEASE THANK YOU RX has/will before cycle date. atorvastatin 20 mg tablet RxNorm: 955914 Take 1 Tablet(s) Oral QD 10/14/19 24 025 Inactive 10/14/2023 PROACTIVE REFILL REQUEST FOR NEXT CYCLE PLEASE THANK YOU RX has/will before cycle date. acetaminophen 500 mg tablet RxNorm: 982480 Take 1 Tablet(s) Oral QHS every night at bedtime 08/17/19 24 024 Inactive 08/17/2023 PROACTIVE REFILL REQUEST FOR NEXT CYCLE PLEASE THANK YOU citalopram 20 mg tablet RxNorm: 632284 Take 1 Tablet(s) Oral QD 01/02/20 23 024 Inactive 01/01/2023 PROACTIVE REFILL REQUEST FOR NEXT CYCLE PLEASE THANK YOU RX has/will before cycle date aspirin 81 mg tablet,delayed release RxNorm: 283065 TAKE 1 TABLET BY MOUTH DAILY WITH FOOD 01/02/20 23 023 Inactive 01/01/2023 PROACTIVE REFILL REQUEST FOR NEXT CYCLE PLEASE THANK YOU RX has/will before cycle date acetaminophen 500 mg tablet RxNorm: 017182 Take 1 Tablet(s) Oral QHS every night at bedtime 10/29/19 23 023 Inactive d/c ibuprofen atorvastatin 20 mg tablet RxNorm: 536173 Take 1 Tablet(s) Oral QD 10/15/19 23 024 Inactive 10/13/2022 PROACTIVE REFILL REQUEST FOR NEXT CYCLE PLEASE THANK YOU RX has/will before cycle date losartan 50 mg tablet RxNorm: 009906 Take 1 Tablet(s) Oral QD 10/15/19 23 023 Inactive 10/13/2022 PROACTIVE REFILL REQUEST FOR NEXT CYCLE PLEASE THANK YOU RX has/will before cycle date ibuprofen 400 mg tablet RxNorm: 576542 Take 1-1/2 Tablet(s) Oral QD as needed (at least 6 hours from scheduled dose) 10/01/19 23 024 Inactive Vitamin D2 1,250 mcg (50,000 unit) capsule RxNorm: 1816448 TAKE ONCE CAPSULE ONCE MONTHLY 07/30/19 23 025 Inactive d/c once weekly, start once monthly cholecalciferol (vitamin D3) 1,250 mcg (50,000 unit) capsule RxNorm: 220441 TAKE 1 CAPSULE BY MOUTH WEEKLY ON Wednesday07/23/19 23 023 Inactive Shingrix (PF) 50 mcg/0.5 mL intramuscular suspension, kit RxNorm: 4653818 ADMINISTER 2-DOSE SERIES PER CDC GUIDELINES Take UAD per CDC guidelines 06/26/19 23 023 Inactive diclofenac 1 % topical gel RxNorm: 174940 apply 0.5g topically to left shoulder nightly 01/01/20 22 022 Inactive diclofenac 1 % topical gel RxNorm: 954777 Apply 0.5 Gram(s) Topical QHS every night at bedtime apply 0.5g topically to left shoulder nightly 01/01/20 22 022 Inactive atorvastatin 20 mg tablet RxNorm: 860841 Take 1 Tablet(s) Oral QD 10/22/19 22 022 Inactive 2ND REQUEST FOR REFILLS 10/21/21 NEED TODAY PLEASE- THANK YOU losartan 50 mg tablet RxNorm: 071557 Take 1 Tablet(s) Oral QD 10/22/19 22 022 Inactive 2ND REQUEST FOR REFILLS 10/21/21 NEED TODAY PLEASE- THANK YOU Vitamin D2 1,250 mcg (50,000 unit) capsule RxNorm: 6977844 Take 1 Capsule(s) Oral QW once a week TAKE ONCE CAPSULE ONCE WEEKLY 07/31/19 22 023 Inactive or whatever % is covered by insurance loperamide 2 mg capsule RxNorm: 488579 Take 1 Capsule(s) Oral Q2H every 2 hours as needed for diarrhea Give 2 tabs after first loose stool and then 1 tab after each loose stool. Not to exceed 8 tabs in 24 hours 06/18/19 No Stop Date Active Calcium Antacid 200 mg calcium (500 mg) chewable tablet RxNorm: 949500 Chew 2-4 Tablet(s) Oral as needed Take 2-4 tabs by mouth as needed between meals and at bedtime as needed for heartburn or upset stomach 06/18/19 No Stop Date Active Robitussin Cough-Chest Congestion DM 5 mg-100 mg/5 mL oral liquid RxNorm: 3393444 Take 5-10 Milliliter(s) Oral Q4H every four hours QID - Four Times Daily as needed Take 5-10ml by mouth every 4 hours as needed for cough or congestion. Not to exceed 6 doses in 24 hours 06/18/19 No Stop Date Active acetaminophen 325 mg capsule RxNorm: 534273 Take 1-2 Tablet(s) Oral Q4-6H every 4-6 hours as needed for pain and elevated temperature. Not to exceed 4000mg in 24 hours 06/18/19 No Stop Date Active aluminum-mag hydroxide-simethicone 200 mg-200 mg-20 mg/5 mL oral susp RxNorm: 510523 Take 5-10 Milliliter(s) Oral QD as needed for nausea one time daily between and at bedtime as needed for heartburn and/ or upset stomach 06/18/19 No Stop Date Active Milk of Magnesia 400 mg/5 mL oral suspension RxNorm: 155693 Take 15-30 Milliliter(s) Oral as needed Take 15-30ml by mouth daily (preferably at bedtime) as needed for constipation. Recommend 8 oz of water after each use. 06/18/19 No Stop Date Active citalopram 20 mg tablet RxNorm: 514524 Take 1 Tablet(s) Oral QD every day 06/18/19 22 023 Inactive losartan 50 mg tablet RxNorm: 231879 Give 1 Tablet(s) Oral QD 06/18/19 22 022 Inactive atorvastatin 20 mg tablet RxNorm: 125132 Take 1 Tablet(s) Oral QD 06/18/19 22 022 Inactive ibuprofen 600 mg tablet RxNorm: 838786 Take 1 Tablet(s) Oral QHS every night at bedtime 06/18/19 22 023 Inactive Aspirin Low Dose 81 mg tablet,delayed release RxNorm: 216455 Take 1 Tablet(s) Oral QD QD - Daily with food 06/18/19 22 023 Inactive ibuprofen 600 mg tablet RxNorm: 415661 Take 1 and 1/2 Tablet(s) Oral QD as needed Take at least 6 hours from scheduled dose 06/18/19 22 023 Inactive hydrochlorothiazide 25 mg tablet RxNorm: 361564 Take 1 Tablet(s) Oral QD 06/18/19 22 [...] kidney disease ICD-10: I12.9 ICD-9: 403.90 11/29/2024 No note found Vitamin D deficiency ICD-10: E55.9 ICD-9: 268.9 11/29/2024 No note found Hypercholesteremia ICD-10: E78.00 ICD-9: 272.0 11/29/2024 No note found Stage 2 chronic kidney disease ICD-10: N 18.2 ICD-9: 585.2 11/29/2024 No note found Reason For Visit No Reason For Visit data Review of Systems No Review of Systems data Physical Exam No Physical Exam data Procedures Procedure Codes Date HG A1C LEVEL LT 7.0% CPT-4: 3044F 11/29/2024 SYST BP LT 130 MM HG CPT-4: 3074F 11/29/2024 DIAST BP 80-89 MM HG CPT-4: 3079F 11/29/2024 TOBACCO Education CPT-4: TOBACCO 11/29/2024 BEHAV CHNG SMOKING 3-[address]: 2 65822711 CPT-4: 03833 07/29/2022 BEHAV CHNG SMOKING 3-[address]: 2 99214735 CPT-4: 61078 01/28/2022 AAA Screening US CPT-4: 47973 01/06/2022 BEHAV CHNG SMOKING 3-[address]: 2 83562251 CPT-4: 56112 12/31/2021 BEHAV CHNG SMOKING > [address]: 2 88574118 CPT-4: 56611 12/31/2021 BEHAV CHNG SMOKING 3-[address]: 2 57028663 CPT-4: 32183 11/26/2021 BEHAV CHNG SMOKING 3-[address]: 2 70453701 CPT-4: 05962 11/05/2021 BEHAV CHNG SMOKING 3-[address]: 2 43027198 CPT-4: 33742 09/24/2021 BEHAV CHNG SMOKING 3-[address]: 2 13519225 CPT-4: 70333 08/27/2021 BEHAV CHNG SMOKING 3-[address]: 2 58019565 CPT-4: 81799 07/30/2021 BEHAV CHNG SMOKING 3-[address]: 2 49372209 CPT-4: 36964 06/12/2021 Vital Signs Date Vital 11/29/2024 Blood Pressure 1: 124/82 Code: 8480-6 BMI: NaN Code: 79918-3 Heart Rate 1: 86 bpm Code: 8867-4 Height: 5'9 Code: 8302-2 Respiratory Rate: 18 bpm Temperature: 36.4 (C) / 97.6 (F) Weight: 159 lbs 6 oz Code: 3141-9 Functional Status [...] Encounter Performer Location Location Address Codes Date (15713) Home Visit - Est Pt, moderate Diagnosis: Hypercholesteremia[ ICD10: E78.00] Diagnosis: Hypertensive chronic kidney disease with stage 1 through stage 4 chronic kidney disease, or unspecified chronic kidney disease[ICD10: I12.9] Diagnosis: Stage 2 chronic kidney disease[ICD10: N18.2] Diagnosis: Vitamin D deficiency[ICD10: E55.9] Corie Pérez [address] [address] CPT-4: 54318 11/29/2024 Plan of Care Planned Activity Notes Codes Status Date Patient Education: Patient Medication Summary Completed 11/29/2024 Patient Education: Influenza Complet ed 11/29/2024 Patient Education: Smoking Cessation Completed 11/29/2024 Appointment: Juliana Pérez WPtel: [phone] F/U 07/19/2024 Appointment: Татьяна Figueredo WPtel: [address] [place], [place] [phone] F/U 09/24/2021 Health Concerns Section Concern Status [...]
--- OUTSIDE RECORDS SUMMARY | 2025-03-13 16:56 | XMS_ITS | CCD ---
Author Name Aaynna Carranza Address [address] [facility] [address] [place] [address] Phone Organization [facility] Phone Care Team Providers Care Peanut Shaker Name Role Phone Beto WHITE Corie Primary Care Provider Jeannine vailable Unavailable Chronic Care Management Unavaila ble Summary Purpose DataExchange Insurance Providers Payer name Policy type / Coverage type Covered green party ID Effective Begin Date Effective End Date [employer] Commercial Insurance [id number] Unkn own [place] Commercial Insurance [id number] Unk nown Family History Family History data not found Social History Social History Element Codes Description Effec tive Dates Caregiver Assessment Unknown Healthcare POA on fi le 07/19/2024 Marital status Unknown Single 07/28/2023 Living arrangements Unknown Assisted Living 07/[address]: 30056040 Current ever y day smoker 07/28/[address]: 791060319 No Alcohol Consum ption 07/28/2023 Sexually Active? [...] Unknown Yes 07/28/[address]: 23449638 Current ever y day smoker half pack- 1 pack/daily Started smoking at age 18 06/17/[address]: 404280463 No Alcohol Consumption Hx of consumption 06/17/2021 [...] Date ACP (advance care planning) SNOMED CT: 527740084 ICD-10: Z71.89 ICD-9: V65.49 Active 09/27/2024 Unknown 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 ICD-9: 303.93 Active 09/27/2024 Unknown Chronic left shoulder pain ICD-10: M25.5 12 ICD-9: 719.41 Active 09/27/2024 01/24/2025 Chronic tension-type headache, not intractable ICD-10: G44.229 ICD-9: 339.12 Active 09/27/2024 01/24/2025 COPD (chronic obstructive pulmonary disease) ICD-10: J44.9 ICD-9: 496 Active 09/27/2024 Unknown Encounter for preventive care SNOMED CT: 019643447 ICD-10: Z00.00 ICD-9: V70.0 Active 09/27/2024 Unknown [...] 11/29/2024 Screening for diabetes mellitus SNOMED CT: 934582165 ICD-10: Z13.1 ICD-9: V77.1 Resolved 09/27/2024 Unknown [...] ACP (advance care planning) SNOMED CT: 3 82157952 ICD-10: Z71.89 ICD-9: V65.49 09/27/2024 Active 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 ICD-9: 303.93 09/27/2024 Active Chronic left shoulder pain ICD-10: M25.5 12 ICD-9: 719.41 09/27/2024 Active Chronic tension-type headach e, not intractable ICD-10: G44.229 ICD-9: 339.12 09/27/2024 Active COPD (chronic obstructive pulmonary disease) ICD-10: J44.9 ICD-9: 496 09/27/2024 Active Encounter for preventive care SNOMED CT: 889478456 ICD-10: Z00.00 ICD-9: V70.0 09/27/2024 Active Episode [...] Screening for diabetes mellitus SNOMED C T: 404509373 ICD-10: Z13.1 ICD-9: V77.1 09/27/2024 Resolved Tobacco [...] Fill Instructions acetaminophen 500 mg tablet RxNorm: 570763 Take 1 Tablet(s) Oral QHS every night at bedtime 08/16/19 25 026 Active 08/15/2024 PROACTIVE REFILL REQUEST FOR NEXT CYCLE PLEASE THANK YOU RX has/will before cycle date ibuprofen 200 mg tablet RxNorm: 047240 Take 1-2 Tablet(s) Oral Q4-6H every 4-6 hours as needed 07/20/19 25 No Stop Date Active diphenhydramine 12.5 mg/5 mL oral liquid RxNorm: 4002636 Take 5-10ml Milliliter(s) Oral Q8H every 8 hours as needed for cough/congestio n 07/20/19 25 No Stop Date Active Vitamin D3 10 mcg (400 unit) tablet RxNorm: 220283 Take 1 Tablet(s) Oral QD 01/26/20 24 024 Inactive Vitamin D3 10 mcg (400 unit) tablet RxNorm: 913642 Take 1 Tablet(s) Oral QD 01/26/20 24 024 Inactive citalopram 20 mg tablet RxNorm: 506100 Take 1 Tablet(s) Oral QD 12/31/19 24 025 Inactive 12/31/2023 PROACTIVE REFILL REQUEST FOR NEXT CYCLE PLEASE THANK YOU RX has/will before cycle date aspirin 81 mg tablet,delayed release RxNorm: 667385 Take 1 Tablet(s) Oral QD WITH FOOD 12/31/19 24 024 Inactive 12/31/2023 PROACTIVE REFILL REQUEST FOR NEXT CYCLE PLEASE THANK YOU RX has/will before cycle date atorvastatin 20 mg tablet RxNorm: 055946 Take 1 Tablet(s) Oral QD 10/14/19 24 025 Inactive 10/14/2023 PROACTIVE REFILL REQUEST FOR NEXT CYCLE PLEASE THANK YOU RX has/will before cycle date. losartan 50 mg tablet RxNorm: 704419 Take 1 Tablet(s) Oral QD 10/14/19 24 024 Inactive 10/14/2023 PROACTIVE REFILL REQUEST FOR NEXT CYCLE PLEASE THANK YOU RX has/will before cycle date. acetaminophen 500 mg tablet RxNorm: 359080 Take 1 Tablet(s) Oral QHS every night at bedtime 08/17/19 24 024 Inactive 08/17/2023 PROACTIVE REFILL REQUEST FOR NEXT CYCLE PLEASE THANK YOU citalopram 20 mg tablet RxNorm: 263691 Take 1 Tablet(s) Oral QD 01/02/20 23 024 Inactive 01/01/2023 PROACTIVE REFILL REQUEST FOR NEXT CYCLE PLEASE THANK YOU RX has/will before cycle date aspirin 81 mg tablet,delayed release RxNorm: 972956 TAKE 1 TABLET BY MOUTH DAILY WITH FOOD 01/02/20 23 023 Inactive 01/01/2023 PROACTIVE REFILL REQUEST FOR NEXT CYCLE PLEASE THANK YOU RX has/will before cycle date acetaminophen 500 mg tablet RxNorm: 692408 Take 1 Tablet(s) Oral QHS every night at bedtime 10/29/19 23 023 Inactive d/c ibuprofen atorvastatin 20 mg tablet RxNorm: 399924 Take 1 Tablet(s) Oral QD 10/15/19 23 024 Inactive 10/13/2022 PROACTIVE REFILL REQUEST FOR NEXT CYCLE PLEASE THANK YOU RX has/will before cycle date losartan 50 mg tablet RxNorm: 146682 Take 1 Tablet(s) Oral QD 10/15/19 23 023 Inactive 10/13/2022 PROACTIVE REFILL REQUEST FOR NEXT CYCLE PLEASE THANK YOU RX has/will before cycle date ibuprofen 400 mg tablet RxNorm: 871240 Take 1-1/2 Tablet(s) Oral QD as needed (at least 6 hours from scheduled dose) 10/01/19 23 024 Inactive Vitamin D2 1,250 mcg (50,000 unit) capsule RxNorm: 0652219 TAKE ONCE CAPSULE ONCE MONTHLY 07/30/19 23 025 Inactive d/c once weekly, start once monthly cholecalciferol (vitamin D3) 1,250 mcg (50,000 unit) capsule RxNorm: 672249 TAKE 1 CAPSULE BY MOUTH WEEKLY ON Wednesday07/23/19 23 023 Inactive Shingrix (PF) 50 mcg/0.5 mL intramuscular suspension, kit RxNorm: 7928498 ADMINISTER 2-DOSE SERIES PER CDC GUIDELINES Take UAD per CDC guidelines 06/26/19 23 023 Inactive diclofenac 1 % topical gel RxNorm: 816665 apply 0.5g topically to left shoulder nightly 01/01/20 22 022 Inactive diclofenac 1 % topical gel RxNorm: 971232 Apply 0.5 Gram(s) Topical QHS every night at bedtime apply 0.5g topically to left shoulder nightly 01/01/20 22 022 Inactive atorvastatin 20 mg tablet RxNorm: 071975 Take 1 Tablet(s) Oral QD 10/22/19 22 022 Inactive 2ND REQUEST FOR REFILLS 10/21/21 NEED TODAY PLEASE- THANK YOU losartan 50 mg tablet RxNorm: 862097 Take 1 Tablet(s) Oral QD 10/22/19 22 022 Inactive 2ND REQUEST FOR REFILLS 10/21/21 NEED TODAY PLEASE- THANK YOU Vitamin D2 1,250 mcg (50,000 unit) capsule RxNorm: 9460571 Take 1 Capsule(s) Oral QW once a week TAKE ONCE CAPSULE ONCE WEEKLY 07/31/19 22 023 Inactive or whatever % is covered by insurance loperamide 2 mg capsule RxNorm: 597155 Take 1 Capsule(s) Oral Q2H every 2 hours as needed for diarrhea Give 2 tabs after first loose stool and then 1 tab after each loose stool. Not to exceed 8 tabs in 24 hours 06/18/19 No Stop Date Active Calcium Antacid 200 mg calcium (500 mg) chewable tablet RxNorm: 345413 Chew 2-4 Tablet(s) Oral as needed Take 2-4 tabs by mouth as needed between meals and at bedtime as needed for heartburn or upset stomach 06/18/19 No Stop Date Active Robitussin Cough-Chest Congestion DM 5 mg-100 mg/5 mL oral liquid RxNorm: 7151515 Take 5-10 Milliliter(s) Oral Q4H every four hours QID - Four Times Daily as needed Take 5-10ml by mouth every 4 hours as needed for cough or congestion. Not to exceed 6 doses in 24 hours 06/18/19 22 No Stop Date Active acetaminophen 325 mg capsule RxNorm: 196722 Take 1-2 Tablet(s) Oral Q4-6H every 4-6 hours as needed for pain and elevated temperature. Not to exceed 4000mg in 24 hours 06/18/19 No Stop Date Active aluminum-mag hydroxide-simethicone 200 mg-200 mg-20 mg/5 mL oral susp RxNorm: 650346 Take 5-10 Milliliter(s) Oral QD as needed for nausea one time daily between and at bedtime as needed for heartburn and/ or upset stomach 06/18/19 No Stop Date Active Milk of Magnesia 400 mg/5 mL oral suspension RxNorm: 497425 Take 15-30 Milliliter(s) Oral as needed Take 15-30ml by mouth daily (preferably at bedtime) as needed for constipation. Recommend 8 oz of water after each use. 06/18/19 No Stop Date Active citalopram 20 mg tablet RxNorm: 564729 Take 1 Tablet(s) Oral QD every day 06/18/19 023 Inactive losartan 50 mg tablet RxNorm: 330888 Give 1 Tablet(s) Oral QD 06/18/19 22 022 Inactive atorvastatin 20 mg tablet RxNorm: 511515 Take 1 Tablet(s) Oral QD 06/18/19 22 022 Inactive ibuprofen 600 mg tablet RxNorm: 875996 Take 1 Tablet(s) Oral QHS every night at bedtime 06/18/19 22 023 Inactive Aspirin Low Dose 81 mg tablet,delayed release RxNorm: 298169 Take 1 Tablet(s) Oral QD QD - Daily with food 06/18/19 023 Inactive ibuprofen 600 mg tablet RxNorm: 124631 Take 1 and 1/2 Tablet(s) Oral QD as needed Take at least 6 hours from scheduled dose 06/18/19 023 Inactive hydrochlorothiazide 25 mg tablet RxNorm: 522682 Take 1 Tablet(s) Oral QD 06/18/19 22 [...] pain ICD-10: M25.5 12 ICD-9: 719.41 09/27/2024 No note found Senile purpura ICD-10: D69.2 ICD-9: 287.2 09/27/2024 No note found Hyponatremia ICD-10: E87.1 ICD-9: 276.1 09/27/2024 No note found ACP (advance care planning) SNOMED: 3050 04025 ICD-10: Z71.89 ICD-9: V65.49 09/27/2024 No note found Encounter for preventive care SNOMED: 30 8637427 ICD-10: Z00.00 ICD-9: V70.0 09/27/2024 No note found Smokers' cough ICD-10: J41.0 ICD-9: 491.0 09/27/2024 No note found Stage 2 chronic kidney disease ICD-10: N 18.2 ICD-9: 585.2 09/27/2024 No note found Episode of recurrent major d epressive disorder, unspecified depression episode severity ICD-10: F33.9 ICD-9: 296.30 09/27/2024 No note found Vitamin D deficiency ICD-10: E55.9 ICD-9: 268.9 09/27/2024 No note found Primary osteoarthritis of both knees ICD -10: M17.0 ICD-9: 715.16 09/27/2024 No note found Hemiparesis of left nondomin ant side due to non-cerebrovascular etiology ICD-10: G81.94 ICD-9: 342.92 09/27/2024 No note found PTSD (post-traumatic stress disorder) IC D-10: F43.10 ICD-9: 309.81 09/27/2024 No note found Chronic tension-type headach e, not intractable ICD-10: G44.229 ICD-9: 339.12 09/27/2024 No note found 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 ICD-9: 303.93 09/27/2024 No note found COPD (chronic obstructive pu lmonary disease) ICD-10: J44.9 ICD-9: 496 09/27/2024 No note found Hypertensive chronic kidney disease with stage 1 through stage 4 chronic kidney disease, or unspecified chronic kidney disease ICD-10: I12.9 ICD-9: 403.90 09/27/2024 No note found Hypercholesteremia ICD-10: E78.00 ICD-9: 272.0 09/27/2024 No note found Other chronic pain ICD-10: G89.29 09/27/2024 No note found Reason For Visit No Reason For Visit data Results Observation Observation Code Item Item Code Result Date S ervice Location [facility] [address]-9 n/a 09/29/2024 Unknown PHQ9 PHQ9 79234-5 0 09/29/2024 Unknown Review of Systems No Review of Systems data Physical Exam No Physical Exam data Procedures Procedure Codes Date SYST BP LT 130 MM HG CPT-4: 3074F 09/27/2024 DIAST BP 80-89 MM HG CPT-4: 3079F 09/27/2024 PT INELIG NEG SCRN DEPRES SNOMED CT: 428 748501235249 CPT-4: G8510 09/27/2024 TOBACCO Education CPT-4: TOBACCO 09/27/2024 BEHAV CHNG SMOKING 3-[address]: 2 47924481 CPT-4: 50971 07/29/2022 BEHAV CHNG SMOKING 3-[address]: 2 01305957 CPT-4: 10330 01/28/2022 AAA Screening US CPT-4: 74371 01/06/2022 BEHAV CHNG SMOKING 3-[address]: 2 44162113 CPT-4: 88708 12/31/2021 BEHAV CHNG SMOKING > [address]: 2 06673217 CPT-4: 55677 12/31/2021 BEHAV CHNG SMOKING 3-[address]: 2 68251240 CPT-4: 94588 11/26/2021 BEHAV CHNG SMOKING 3-[address]: 2 28596058 CPT-4: 59011 11/05/2021 BEHAV CHNG SMOKING 3-[address]: 2 10611750 CPT-4: 06361 09/24/2021 BEHAV CHNG SMOKING 3-[address]: 2 94637118 CPT-4: 15643 08/27/2021 BEHAV CHNG SMOKING 3-[address]: 2 88831092 CPT-4: 92758 07/30/2021 BEHAV CHNG SMOKING 3-[address]: 2 37801933 CPT-4: 32268 06/12/2021 Vital Signs Date Vital 09/27/2024 Blood Pressure 1: 121/81 Code: 8480-6 BMI: NaN Code: 90496-8 Heart Rate 1: 82 bpm Code: 8867-4 Height: 5'9 Code: 8302-2 Respiratory Rate: 17 bpm SpO2: 97% Temperature: 36.7 (C) / 98.0 (F) Weight: 156 lbs Code: 3141-9 Functional Status Functional / [...] Present Illness data Advance Directives Filename Date CARIN Kike Cristiankieranve 07/28/2023 Encounters Encounter Performer Location Location Address Codes Date (G0439) Medicare Annual Wellness Visit (AWV), Subsequent Diagnosis: Alcohol dependence in remission[ICD10: F10.21] Diagnosis: COPD (chronic obstructive pulmonary disease)[ICD10: J44.9] Diagnosis: Episode of recurrent major depressive disorder, unspecified depression episode severity[ICD10: F33.9] Diagnosis: 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[ICD10: G81.94] Diagnosis: Smokers' cough[ICD10: J41.0] Diagnosis: Senile purpura[ICD10: D69.2] Diagnosis: Chronic left shoulder pain[ICD10: M25.512] Diagnosis: Chronic tension-type headache, not intractable[ICD10: G44.229] Diagnosis: Hypercholesteremia[I CD10: E78.00] Diagnosis: Hypertensive chronic kidney disease with stage 1 through stage 4 chronic kidney disease, or unspecified chronic kidney disease[ICD10: I12.9] Diagnosis: Hyponatremia[ICD10: E87.1] Diagnosis: Primary osteoarthritis of both knees[ICD10: M17.0] Diagnosis: Stage 2 chronic kidney disease[ICD10: N18.2] Diagnosis: Vitamin D deficiency[ICD10: E55.9] Diagnosis: Other chronic pain[ICD10: G89.29] Diagnosis: PTSD (post-traumatic stress disorder)[ICD10: F43.10] Diagnosis: ACP (advance care planning)[SNOMED: 317429105] Diagnosis: Encounter for preventive care[SNOMED: 861643979] Corie Pérez [address] [address] CPT-4: G0439 Plan of Care Planned Activity Notes Codes Status Date Patient Education: Patient Medication Summary Completed 09/27/2024 Patient Education: Addiction and Substance Abuse Completed 09/27/2024 Patient Education: Influenza Complet ed 09/27/2024 Patient Education: Smoking Cessation Completed 09/27/2024 Patient Education: Exercise and Fitness Completed 09/27/2024 Appointment: Juliana Pérez WPtel: [address] [place], [place] [id number] F/U 07/19/2024 Appointment: Татьяна Figueredo WPtel: [address] [place], [place] [id number] F/U 09/24/2021 Health Concerns Section Concern Status [...]
--- NOTE | 2025-03-13 16:57 | CRLHL7_ITS ---
For Patients: As a result of the Cures Act, medical imaging exams and procedure reports are released immediately into your electronic medical record. You may view this report before your referring provider. If you have questions, please contact your health care provider. INDICATION: Hip injury, Pain, Fall TECHNIQUE: Pelvis radiograph, Hip radiograph 3 views left COMPARISON: None FINDINGS: Bone: There is a comminuted intertrochanteric fracture of the left proximal femur. Remote fracture deformity is suspected in the inferior left pubic ramus. Moderate diffuse osteopenia is present. Joint: The hip joints are unremarkable. The visualized sacroiliac joints are unremarkable in appearance. Soft tissue: Unremarkable. No radiopaque foreign bodies are seen. Moderate vascular calcifications are noted. IMPRESSION: 1. There is a comminuted intertrochanteric fracture of the left proximal femur. Dictated by Darin Gamble MD @ 03/13/2025 5:38:19 PM Dictated by: Darin Gamble MD @ 03/13/2025 17:38:23 (Electronically Signed)
--- NOTE | 2025-03-13 16:57 | CRLHL7_ITS ---
For Patients: As a result of the Cures Act, medical imaging exams and procedure reports are released immediately into your electronic medical record. You may view this report before your referring provider. If you have questions, please contact your health care provider. INDICATION: Hip injury, Pain, Fall TECHNIQUE: Chest radiograph 1 view COMPARISON: None FINDINGS: Mediastinum: The mediastinum is normal in appearance. The heart silhouette is normal in size and morphology. Lung: Mild pulmonary vascular congestion with minimal left basilar atelectasis is noted. No sign of pleural effusion seen. No pneumothorax is identified. Bone and Soft tissue: Fractures of the 2nd-6th ribs are noted and may be chronic. IMPRESSIONS: 1. Fractures of the 2nd-6th ribs are noted and may be chronic. Comparison with any prior radiographs or assessment with dedicated rib radiograph series may be helpful. 2. Mild pulmonary vascular congestion with minimal left basilar atelectasis is noted. Dictated by Darin Gamble MD @ 03/13/2025 5:37:31 PM Dictated by: Darin Gamble MD @ 03/13/2025 17:37:38 (Electronically Signed)
--- OUTSIDE RECORDS SUMMARY | 2025-03-13 16:57 | XMS_ITS | CCD ---
Author Organization Unknown Care Team Providers Care Research Archaeologist Name Role Phone Beto NIEVESMoy Corie Primary Care Provider Jeannine vailable Unavailable Chronic Care Management Unavaila ble Summary Purpose DataExchange Insurance Providers Payer name Policy type / Coverage type Covered democrat ID Effective Begin Date Effective End Date Ucare Commercial Insurance [id number] Unkn own [place] [id number] Unk nown Family History Family History data not found Social History Social History Element Codes Description Effec tive Dates Caregiver Assessment Unknown Healthcare POA on fi le 07/19/2024 Marital status Unknown Single 07/28/2023 Living arrangements Unknown Assisted Living 07/[address]: 18900758 Current ever y day smoker 07/28/[address]: 905176916 No Alcohol Consum ption 07/28/2023 Sexually Active? [...] Unknown Yes 07/28/[address]: 15399265 Current ever y day smoker half pack- 1 pack/daily Started smoking at age 18 06/17/[address]: 326297636 No Alcohol Consumption Hx of consumption 06/17/2021 [...] Unknown ACP (advance care planning) SNOMED CT: 390316891 ICD-10: Z71.89 ICD-9: V65.49 Active 09/27/2024 Unknown 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 ICD-9: 303.93 Active 09/27/2024 Unknown Chronic left shoulder pain ICD-10: M25.5 12 ICD-9: 719.41 Active 09/27/2024 01/24/2025 Chronic tension-type headache, not intractable ICD-10: G44.229 ICD-9: 339.12 Active 09/27/2024 01/24/2025 COPD (chronic obstructive pulmonary disease) ICD-10: J44.9 ICD-9: 496 Active 09/27/2024 Unknown Encounter for preventive care SNOMED CT: 609554792 ICD-10: Z00.00 ICD-9: V70.0 Active 09/27/2024 Unknown [...] Unknown Screening for diabetes mellitus SNOMED CT: 483493041 ICD-10: Z13.1 ICD-9: V77.1 Resolved 09/27/2024 Unknown [...] ACP (advance care planning) SNOMED CT: 3 18177636 ICD-10: Z71.89 ICD-9: V65.49 09/27/2024 Active 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 ICD-9: 303.93 09/27/2024 Active Chronic left shoulder pain ICD-10: M25.5 12 ICD-9: 719.41 09/27/2024 Active Chronic tension-type headach e, not intractable ICD-10: G44.229 ICD-9: 339.12 09/27/2024 Active COPD (chronic obstructive pulmonary disease) ICD-10: J44.9 ICD-9: 496 09/27/2024 Active Encounter for preventive care SNOMED CT: 875745956 ICD-10: Z00.00 ICD-9: V70.0 09/27/2024 Active Episode [...] Screening for diabetes mellitus SNOMED C T: 614838909 ICD-10: Z13.1 ICD-9: V77.1 09/27/2024 Resolved Tobacco [...] Instructions aspirin 81 mg tablet,delayed release RxNorm: 846752 Take 1 Tablet(s) Oral QD WITH FOOD 01/16/20 25 026 Active 01/15/2025 RX HAS REFILLS NEEDED PLEASE THANK YOU citalopram 20 mg tablet RxNorm: 958546 Take 1 Tablet(s) Oral QD 01/16/20 25 026 Active 01/15/2025 RX HAS REFILLS NEEDED PLEASE THANK YOU Vitamin D3 10 mcg (400 unit) tablet RxNorm: 450535 Take 1 Tablet(s) Oral QD 01/04/20 25 Active losartan 50 mg tablet RxNorm: 431102 Take 1 Tablet(s) Oral QD 10/13/19 25 026 Active 10/12/2024 PROACTIVE REFILL REQUEST FOR NEXT CYCLE PLEASE THANK YOU RX has/will before cycle date. atorvastatin 20 mg tablet RxNorm: 911218 Take 1 Tablet(s) Oral QD 10/13/19 25 026 Active 10/12/2024 PROACTIVE REFILL REQUEST FOR NEXT CYCLE PLEASE THANK YOU RX has/will before cycle date. acetaminophen 500 mg tablet RxNorm: 500660 Take 1 Tablet(s) Oral QHS every night at bedtime 08/16/19 25 026 Active 08/15/2024 PROACTIVE REFILL REQUEST FOR NEXT CYCLE PLEASE THANK YOU RX has/will before cycle date ibuprofen 200 mg tablet RxNorm: 414406 Take 1-2 Tablet(s) Oral Q4-6H every 4-6 hours as needed 07/20/19 25 No Stop Date Active diphenhydramine 12.5 mg/5 mL oral liquid RxNorm: 8848976 Take 5-10ml Milliliter(s) Oral Q8H every 8 hours as needed for cough/congestio n 07/20/19 25 No Stop Date Active Vitamin D3 10 mcg (400 unit) tablet RxNorm: 297271 Take 1 Tablet(s) Oral QD 01/26/20 24 024 Inactive Vitamin D3 10 mcg (400 unit) tablet RxNorm: 247008 Take 1 Tablet(s) Oral QD 01/26/20 24 024 Inactive citalopram 20 mg tablet RxNorm: 243673 Take 1 Tablet(s) Oral QD 12/31/19 24 025 Inactive 12/31/2023 PROACTIVE REFILL REQUEST FOR NEXT CYCLE PLEASE THANK YOU RX has/will before cycle date aspirin 81 mg tablet,delayed release RxNorm: 230533 Take 1 Tablet(s) Oral QD WITH FOOD 12/31/19 24 024 Inactive 12/31/2023 PROACTIVE REFILL REQUEST FOR NEXT CYCLE PLEASE THANK YOU RX has/will before cycle date losartan 50 mg tablet RxNorm: 579020 Take 1 Tablet(s) Oral QD 10/14/19 24 024 Inactive 10/14/2023 PROACTIVE REFILL REQUEST FOR NEXT CYCLE PLEASE THANK YOU RX has/will before cycle date. atorvastatin 20 mg tablet RxNorm: 061804 Take 1 Tablet(s) Oral QD 10/14/19 24 025 Inactive 10/14/2023 PROACTIVE REFILL REQUEST FOR NEXT CYCLE PLEASE THANK YOU RX has/will before cycle date. acetaminophen 500 mg tablet RxNorm: 343253 Take 1 Tablet(s) Oral QHS every night at bedtime 08/17/19 24 024 Inactive 08/17/2023 PROACTIVE REFILL REQUEST FOR NEXT CYCLE PLEASE THANK YOU citalopram 20 mg tablet RxNorm: 786679 Take 1 Tablet(s) Oral QD 01/02/20 23 024 Inactive 01/01/2023 PROACTIVE REFILL REQUEST FOR NEXT CYCLE PLEASE THANK YOU RX has/will before cycle date aspirin 81 mg tablet,delayed release RxNorm: 371258 TAKE 1 TABLET BY MOUTH DAILY WITH FOOD 01/02/20 23 023 Inactive 01/01/2023 PROACTIVE REFILL REQUEST FOR NEXT CYCLE PLEASE THANK YOU RX has/will before cycle date acetaminophen 500 mg tablet RxNorm: 248678 Take 1 Tablet(s) Oral QHS every night at bedtime 10/29/19 23 023 Inactive d/c ibuprofen atorvastatin 20 mg tablet RxNorm: 716284 Take 1 Tablet(s) Oral QD 10/15/19 23 024 Inactive 10/13/2022 PROACTIVE REFILL REQUEST FOR NEXT CYCLE PLEASE THANK YOU RX has/will before cycle date losartan 50 mg tablet RxNorm: 538638 Take 1 Tablet(s) Oral QD 10/15/19 23 023 Inactive 10/13/2022 PROACTIVE REFILL REQUEST FOR NEXT CYCLE PLEASE THANK YOU RX has/will before cycle date ibuprofen 400 mg tablet RxNorm: 633471 Take 1-1/2 Tablet(s) Oral QD as needed (at least 6 hours from scheduled dose) 10/01/19 23 024 Inactive Vitamin D2 1,250 mcg (50,000 unit) capsule RxNorm: 6671861 TAKE ONCE CAPSULE ONCE MONTHLY 07/30/19 23 025 Inactive d/c once weekly, start once monthly cholecalciferol (vitamin D3) 1,250 mcg (50,000 unit) capsule RxNorm: 833327 TAKE 1 CAPSULE BY MOUTH WEEKLY ON Wednesday07/23/19 23 023 Inactive Shingrix (PF) 50 mcg/0.5 mL intramuscular suspension, kit RxNorm: 7236124 ADMINISTER 2-DOSE SERIES PER CDC GUIDELINES Take UAD per CDC guidelines 06/26/19 23 023 Inactive diclofenac 1 % topical gel RxNorm: 638151 apply 0.5g topically to left shoulder nightly 01/01/20 22 022 Inactive diclofenac 1 % topical gel RxNorm: 338989 Apply 0.5 Gram(s) Topical QHS every night at bedtime apply 0.5g topically to left shoulder nightly 01/01/20 22 022 Inactive atorvastatin 20 mg tablet RxNorm: 851608 Take 1 Tablet(s) Oral QD 10/22/19 22 022 Inactive 2ND REQUEST FOR REFILLS 10/21/21 NEED TODAY PLEASE- THANK YOU losartan 50 mg tablet RxNorm: 669127 Take 1 Tablet(s) Oral QD 10/22/19 22 022 Inactive 2ND REQUEST FOR REFILLS 10/21/21 NEED TODAY PLEASE- THANK YOU Vitamin D2 1,250 mcg (50,000 unit) capsule RxNorm: 4780177 Take 1 Capsule(s) Oral QW once a week TAKE ONCE CAPSULE ONCE WEEKLY 07/31/19 22 023 Inactive or whatever % is covered by insurance loperamide 2 mg capsule RxNorm: 725470 Take 1 Capsule(s) Oral Q2H every 2 hours as needed for diarrhea Give 2 tabs after first loose stool and then 1 tab after each loose stool. Not to exceed 8 tabs in 24 hours 06/18/19 22 No Stop Date Active Calcium Antacid 200 mg calcium (500 mg) chewable tablet RxNorm: 457095 Chew 2-4 Tablet(s) Oral as needed Take 2-4 tabs by mouth as needed between meals and at bedtime as needed for heartburn or upset stomach 06/18/19 No Stop Date Active Robitussin Cough-Chest Congestion DM 5 mg-100 mg/5 mL oral liquid RxNorm: 5254451 Take 5-10 Milliliter(s) Oral Q4H every four hours QID - Four Times Daily as needed Take 5-10ml by mouth every 4 hours as needed for cough or congestion. Not to exceed 6 doses in 24 hours 06/18/19 No Stop Date Active acetaminophen 325 mg capsule RxNorm: 040952 Take 1-2 Tablet(s) Oral Q4-6H every 4-6 hours as needed for pain and elevated temperature. Not to exceed 4000mg in 24 hours 06/18/19 No Stop Date Active aluminum-mag hydroxide-simethicone 200 mg-200 mg-20 mg/5 mL oral susp RxNorm: 890880 Take 5-10 Milliliter(s) Oral QD as needed for nausea one time daily between and at bedtime as needed for heartburn and/ or upset stomach 06/18/19 No Stop Date Active Milk of Magnesia 400 mg/5 mL oral suspension RxNorm: 505999 Take 15-30 Milliliter(s) Oral as needed Take 15-30ml by mouth daily (preferably at bedtime) as needed for constipation. Recommend 8 oz of water after each use. 06/18/19 No Stop Date Active citalopram 20 mg tablet RxNorm: 200286 Take 1 Tablet(s) Oral QD every day 06/18/19 22 023 Inactive losartan 50 mg tablet RxNorm: 322325 Give 1 Tablet(s) Oral QD 06/18/19 22 022 Inactive atorvastatin 20 mg tablet RxNorm: 813170 Take 1 Tablet(s) Oral QD 06/18/19 22 022 Inactive ibuprofen 600 mg tablet RxNorm: 544453 Take 1 Tablet(s) Oral QHS every night at bedtime 06/18/19 22 023 Inactive Aspirin Low Dose 81 mg tablet,delayed release RxNorm: 353520 Take 1 Tablet(s) Oral QD QD - Daily with food 06/18/19 22 023 Inactive ibuprofen 600 mg tablet RxNorm: 058592 Take 1 and 1/2 Tablet(s) Oral QD as needed Take at least 6 hours from scheduled dose 06/18/19 22 023 Inactive hydrochlorothiazide 25 mg tablet RxNorm: 591810 Take 1 Tablet(s) Oral QD 06/18/19 22 [...] CHNG SMOKING 3-[address]: 2 27112942 CPT-4: 24663 07/29/2022 BEHAV CHNG SMOKING 3-[address]: 2 35168155 CPT-4: 79249 01/28/2022 AAA Screening US CPT-4: 65256 01/06/2022 BEHAV CHNG SMOKING 3-[address]: 2 17401921 CPT-4: 36232 12/31/2021 BEHAV CHNG SMOKING > [address]: 2 20170114 CPT-4: 99500 12/31/2021 BEHAV CHNG SMOKING 3-[address]: 2 08510787 CPT-4: 68514 11/26/2021 BEHAV CHNG SMOKING 3-[address]: 2 11065917 CPT-4: 18798 11/05/2021 BEHAV CHNG SMOKING 3-[address]: 2 91651522 CPT-4: 28633 09/24/2021 BEHAV CHNG SMOKING 3-[address]: 2 75892954 CPT-4: 29433 08/27/2021 BEHAV CHNG SMOKING 3-[address]: 2 29544134 CPT-4: 45693 07/30/2021 BEHAV CHNG SMOKING 3-[address]: 2 34034193 CPT-4: 03946 06/12/2021 Functional Status Functional / Cognitive Codes [...]
--- NOTE | 2025-03-13 16:58 | ED.GENADULT ---
HPI - General Adult General Chief complaint: Hip Injury/Pain Stated complaint: hip injury Time Seen by Provider: 03/13/25 16:55 History of Present Illness HPI narrative: This 74-year-old male comes in by ambulance after falling off of a chair onto his left hip. He states that he was unable to get up. He does not report any other injury. He states that he is otherwise in good health. He is not on any anticoagulants and states that he last ate at noon, about 5 hours prior to arrival. A trauma team activation was initiated and I saw him within a minute after arrival. I did speak with ambulance personnel regarding their encounter with him. They did established an IV and administer fentanyl 50 mcg and Versed 1 mg. This enabled them to more easily transfer him from his fallen position to the ambulance and here. Related Data Home Medications ?Medication ?Instructions ?Recorded ?Confirmed acetaminophen 500 mg tablet mg PO DAILY 03/13/25 aspirin 81 mg tablet,delayed 81 mg PO DAILY 03/13/25 03/13/25 release atorvastatin 20 mg tablet 20 mg PO DAILY 03/13/25 03/13/25 cholecalciferol (vitamin D3) 10 10 mcg PO DAILY 03/13/25 03/13/25 mcg (400 unit) tablet (Vitamin D3) citalopram 20 mg tablet 20 mg PO DAILY 03/13/25 03/13/25 losartan 50 mg tablet 50 mg PO DAILY 03/13/25 03/13/25 Allergies Allergy/AdvReac Type Severity Reaction Status Date / Time No Known Drug Allergies Allergy Verified 03/13/25 17:02 Review of Systems Status of ROS: Reports: 10 or more systems reviewed and unremarkable except as noted in History and below Narrative: Constitutional: No fevers, no weight gain or loss. Eyes: No discharge. No vision changes. HENT: No congestion, no sore throat, no ear pain. Cardiovascular: No chest pain, no palpitations. Respiratory: No shortness of breath, no wheezes, no cough. Gastrointestinal: No abdominal pain, no vomiting, no diarrhea. Genitourinary: No dysuria, no hematuria. Musculoskeletal: Left hip injury with inability to move his leg without pain. Skin: No rashes, no pruritis. Neurological: No dizziness, weakness, sensory change, speech change. Endo/Heme/Allergies: No bruising or bleeding. No polydipsia. Pysch: no suicidality, no anxiety, no insomnia. All other systems reviewed and are negative. Exam Narrative: Exam Narrative: Constitutional: Well-developed, well-nourished, no acute distress. HEENT: Normocephalic, atraumatic. Neck: Normal range of motion. Nontender. Supple. Heart: Regular. No murmurs. Normal rate. Intact distal pulses. Lungs: Clear to auscultation. No chest discomfort. No wheezes, rhonchi, or rales. Abdomen: Normal bowel sounds. Nontender. No rebound tenderness. Genitalia: Deferred. Back: No midline tenderness. Normal range of motion. Extremities: Left hip pain with left leg shortened and externally rotated. Pain is reproduced when log-rolling the leg. The Skin: Intact. No rash. Warm. No erythema or pallor. Neurologic: No altered sensation. No weakness. Alert and oriented. Psychiatric: No suicidality. No anxiety or depression. No insomnia. Nursing notes and vitals signs are reviewed. Const: Vital Signs, click to edit/add: Vital Signs - 24 hr 03/13/25 16:58 Temperature 97.7 F Pulse Rate [Pulse Oximeter] 84 Respiratory Rate 16 Blood Pressure [Le ft Upper Arm] 149/85 H Pulse Oximetry 87 L Oxygen Delivery Me thod Room Air Course Vital Signs Vital signs: Initial Vital Signs Temperature 97.7 F 03/13/25 16:58 Temperature Source Temporal Artery Scan 03/13/25 16:58 Pulse Rate 84 03/13/25 16:58 Respiratory Rate 16 03/13/25 16:58 Blood Pressure 149/85 H 03/13/25 16:58 Blood Pressure Mean 106 H 03/13/25 16:58 Blood Pressure Position Supine 03/13/25 16:58 Pulse Oximetry 87 L 03/13/25 16:58 Oxygen Delivery Method Room Air 03/13/25 16:58 Vital Signs Temperature 97.7 F 03/13/25 16:58 Pulse Rate 84 03/13/25 16:58 Respiratory Rate 16 03/13/25 16:58 Blood Pressure 149/85 H 03/13/25 16:58 Pulse Oximetry 87 L 03/13/25 16:58 Oxygen Delivery Method Room Air 03/13/25 16:58 Temperature 97.7 F 03/13/25 16:58 Pulse Rate 84 03/13/25 16:58 Respiratory Rate 16 03/13/25 16:58 Blood Pressure 149/85 H 03/13/25 16:58 Pulse Oximetry 87 L 03/13/25 16:58 Oxygen Delivery Method Room Air 03/13/25 16:58 Medical Decision Making MDM Narrative Medical decision making narrative: This patient comes in with an injury to his left hip. He arrives with his left leg shortened and externally rotated with strong suspicion for fracture in his hip. X-ray images do confirm an intra trochanteric hip fracture. The patient states that he last ate at noon and reports that he is not taking any anticoagulants. He does arrive with some borderline oximetry on room air. The patient is a smoker and chest x-ray shows signs of COPD. Radiology report is pending. I did speak with orthopedic physician's dental ceramist assistant adjunct instructor in economics who stated that surgery will likely happened tomorrow afternoon. I also spoke with the hospitalist on-call, Dr. Montoya, who will arrange for admission. Discharge Plan Discharge Clinical Impression: Hip fracture Patient Disposition: Admitted As Inpatient Condition: Unchanged
--- OUTSIDE RECORDS SUMMARY | 2025-03-13 16:59 | XMS_ITS | CCD ---
Author Organization Unknown Care Team Providers Care Coke Crusher Operator Name Role Phone Beto NIEVESMoy Corie Primary Care Provider Jeannine vailable Unavailable Chronic Care Management Unavaila ble Summary Purpose DataExchange Insurance Providers Payer name Policy type / Coverage type Covered green party ID Effective Begin Date Effective End Date Ucare Commercial Insurance [id number] Unkn own [place] [id number] Unk nown Family History Family History data not found Social History Social History Element Codes Description Effec tive Dates Caregiver Assessment Unknown Healthcare POA on fi le 07/19/2024 Marital status Unknown Single 07/28/2023 Living arrangements Unknown Assisted Living 07/[address]: 90103476 Current ever y day smoker 07/28/[address]: 027941207 No Alcohol Consum ption 07/28/2023 Sexually Active? [...] Unknown Yes 07/28/[address]: 77515585 Current ever y day smoker half pack- 1 pack/daily Started smoking at age 18 06/17/[address]: 896702359 No Alcohol Consumption Hx of consumption 06/17/2021 [...] 09/27/2024 Screening for diabetes mellitus SNOMED CT: 702177691 ICD-10: Z13.1 ICD-9: V77.1 Active 07/19/2024 09/27/2024 [...] Screening for diabetes mellitus SNOMED C T: 064350770 ICD-10: Z13.1 ICD-9: V77.1 07/19/2024 Active Vitamin [...] Fill Instructions acetaminophen 500 mg tablet RxNorm: 886171 Take 1 Tablet(s) Oral QHS every night at bedtime 08/16/19 25 026 Active 08/15/2024 PROACTIVE REFILL REQUEST FOR NEXT CYCLE PLEASE THANK YOU RX has/will before cycle date ibuprofen 200 mg tablet RxNorm: 479479 Take 1-2 Tablet(s) Oral Q4-6H every 4-6 hours as needed 07/20/19 25 No Stop Date Active diphenhydramine 12.5 mg/5 mL oral liquid RxNorm: 6522000 Take 5-10ml Milliliter(s) Oral Q8H every 8 hours as needed for cough/congestio n 07/20/19 25 No Stop Date Active Vitamin D3 10 mcg (400 unit) tablet RxNorm: 362504 Take 1 Tablet(s) Oral QD 01/26/20 24 024 Inactive Vitamin D3 10 mcg (400 unit) tablet RxNorm: 539427 Take 1 Tablet(s) Oral QD 01/26/20 24 024 Inactive citalopram 20 mg tablet RxNorm: 955107 Take 1 Tablet(s) Oral QD 12/31/19 24 025 Inactive 12/31/2023 PROACTIVE REFILL REQUEST FOR NEXT CYCLE PLEASE THANK YOU RX has/will before cycle date aspirin 81 mg tablet,delayed release RxNorm: 548922 Take 1 Tablet(s) Oral QD WITH FOOD 12/31/19 24 024 Inactive 12/31/2023 PROACTIVE REFILL REQUEST FOR NEXT CYCLE PLEASE THANK YOU RX has/will before cycle date atorvastatin 20 mg tablet RxNorm: 470640 Take 1 Tablet(s) Oral QD 10/14/19 24 025 Inactive 10/14/2023 PROACTIVE REFILL REQUEST FOR NEXT CYCLE PLEASE THANK YOU RX has/will before cycle date. losartan 50 mg tablet RxNorm: 249190 Take 1 Tablet(s) Oral QD 10/14/19 24 024 Inactive 10/14/2023 PROACTIVE REFILL REQUEST FOR NEXT CYCLE PLEASE THANK YOU RX has/will before cycle date. acetaminophen 500 mg tablet RxNorm: 950375 Take 1 Tablet(s) Oral QHS every night at bedtime 08/17/19 24 024 Inactive 08/17/2023 PROACTIVE REFILL REQUEST FOR NEXT CYCLE PLEASE THANK YOU citalopram 20 mg tablet RxNorm: 300337 Take 1 Tablet(s) Oral QD 01/02/20 23 024 Inactive 01/01/2023 PROACTIVE REFILL REQUEST FOR NEXT CYCLE PLEASE THANK YOU RX has/will before cycle date aspirin 81 mg tablet,delayed release RxNorm: 245504 TAKE 1 TABLET BY MOUTH DAILY WITH FOOD 01/02/20 23 023 Inactive 01/01/2023 PROACTIVE REFILL REQUEST FOR NEXT CYCLE PLEASE THANK YOU RX has/will before cycle date acetaminophen 500 mg tablet RxNorm: 347944 Take 1 Tablet(s) Oral QHS every night at bedtime 10/29/19 23 023 Inactive d/c ibuprofen atorvastatin 20 mg tablet RxNorm: 214565 Take 1 Tablet(s) Oral QD 10/15/19 23 024 Inactive 10/13/2022 PROACTIVE REFILL REQUEST FOR NEXT CYCLE PLEASE THANK YOU RX has/will before cycle date losartan 50 mg tablet RxNorm: 558589 Take 1 Tablet(s) Oral QD 10/15/19 23 023 Inactive 10/13/2022 PROACTIVE REFILL REQUEST FOR NEXT CYCLE PLEASE THANK YOU RX has/will before cycle date ibuprofen 400 mg tablet RxNorm: 686490 Take 1-1/2 Tablet(s) Oral QD as needed (at least 6 hours from scheduled dose) 10/01/19 23 024 Inactive Vitamin D2 1,250 mcg (50,000 unit) capsule RxNorm: 2791332 TAKE ONCE CAPSULE ONCE MONTHLY 07/30/19 23 025 Inactive d/c once weekly, start once monthly cholecalciferol (vitamin D3) 1,250 mcg (50,000 unit) capsule RxNorm: 776940 TAKE 1 CAPSULE BY MOUTH WEEKLY ON Wednesday07/23/19 23 023 Inactive Shingrix (PF) 50 mcg/0.5 mL intramuscular suspension, kit RxNorm: 8417194 ADMINISTER 2-DOSE SERIES PER CDC GUIDELINES Take UAD per CDC guidelines 06/26/19 23 023 Inactive diclofenac 1 % topical gel RxNorm: 332593 apply 0.5g topically to left shoulder nightly 01/01/20 22 022 Inactive diclofenac 1 % topical gel RxNorm: 433625 Apply 0.5 Gram(s) Topical QHS every night at bedtime apply 0.5g topically to left shoulder nightly 01/01/20 22 022 Inactive atorvastatin 20 mg tablet RxNorm: 478564 Take 1 Tablet(s) Oral QD 10/22/19 22 022 Inactive 2ND REQUEST FOR REFILLS 10/21/21 NEED TODAY PLEASE- THANK YOU losartan 50 mg tablet RxNorm: 714778 Take 1 Tablet(s) Oral QD 10/22/19 22 022 Inactive 2ND REQUEST FOR REFILLS 10/21/21 NEED TODAY PLEASE- THANK YOU Vitamin D2 1,250 mcg (50,000 unit) capsule RxNorm: 6511183 Take 1 Capsule(s) Oral QW once a week TAKE ONCE CAPSULE ONCE WEEKLY 07/31/19 22 023 Inactive or whatever % is covered by insurance loperamide 2 mg capsule RxNorm: 906330 Take 1 Capsule(s) Oral Q2H every 2 hours as needed for diarrhea Give 2 tabs after first loose stool and then 1 tab after each loose stool. Not to exceed 8 tabs in 24 hours 06/18/19 No Stop Date Active Calcium Antacid 200 mg calcium (500 mg) chewable tablet RxNorm: 823799 Chew 2-4 Tablet(s) Oral as needed Take 2-4 tabs by mouth as needed between meals and at bedtime as needed for heartburn or upset stomach 06/18/19 No Stop Date Active Robitussin Cough-Chest Congestion DM 5 mg-100 mg/5 mL oral liquid RxNorm: 1118816 Take 5-10 Milliliter(s) Oral Q4H every four hours QID - Four Times Daily as needed Take 5-10ml by mouth every 4 hours as needed for cough or congestion. Not to exceed 6 doses in 24 hours 06/18/19 No Stop Date Active acetaminophen 325 mg capsule RxNorm: 823386 Take 1-2 Tablet(s) Oral Q4-6H every 4-6 hours as needed for pain and elevated temperature. Not to exceed 4000mg in 24 hours 06/18/19 No Stop Date Active aluminum-mag hydroxide-simethicone 200 mg-200 mg-20 mg/5 mL oral susp RxNorm: 905395 Take 5-10 Milliliter(s) Oral QD as needed for nausea one time daily between and at bedtime as needed for heartburn and/ or upset stomach 06/18/19 No Stop Date Active Milk of Magnesia 400 mg/5 mL oral suspension RxNorm: 885155 Take 15-30 Milliliter(s) Oral as needed Take 15-30ml by mouth daily (preferably at bedtime) as needed for constipation. Recommend 8 oz of water after each use. 06/18/19 No Stop Date Active citalopram 20 mg tablet RxNorm: 962039 Take 1 Tablet(s) Oral QD every day 06/18/19 22 023 Inactive losartan 50 mg tablet RxNorm: 346827 Give 1 Tablet(s) Oral QD 06/18/19 22 022 Inactive atorvastatin 20 mg tablet RxNorm: 328242 Take 1 Tablet(s) Oral QD 06/18/19 22 022 Inactive ibuprofen 600 mg tablet RxNorm: 809384 Take 1 Tablet(s) Oral QHS every night at bedtime 06/18/19 22 023 Inactive Aspirin Low Dose 81 mg tablet,delayed release RxNorm: 288348 Take 1 Tablet(s) Oral QD QD - Daily with food 06/18/19 22 023 Inactive ibuprofen 600 mg tablet RxNorm: 197585 Take 1 and 1/2 Tablet(s) Oral QD as needed Take at least 6 hours from scheduled dose 06/18/19 22 023 Inactive hydrochlorothiazide 25 mg tablet RxNorm: 185408 Take 1 Tablet(s) Oral QD 06/18/19 22 [...] CHNG SMOKING 3-[address]: 2 33482568 CPT-4: 55188 07/29/2022 BEHAV CHNG SMOKING 3-[address]: 2 99961101 CPT-4: 04432 01/28/2022 AAA Screening CPT-4: 92211 01/06/2022 BEHAV CHNG SMOKING 3-[address]: 2 44089486 CPT-4: 08349 12/31/2021 BEHAV CHNG SMOKING > [address]: 2 12199814 CPT-4: 10981 12/31/2021 BEHAV CHNG SMOKING 3-[address]: 2 52232825 CPT-4: 56397 11/26/2021 BEHAV CHNG SMOKING 3-[address]: 2 14013474 CPT-4: 62090 11/05/2021 BEHAV CHNG SMOKING 3-[address]: 2 71344112 CPT-4: 82140 09/24/2021 BEHAV CHNG SMOKING 3-[address]: 2 52770110 CPT-4: 10554 08/27/2021 BEHAV CHNG SMOKING 3-[address]: 2 12822141 CPT-4: 58844 07/30/2021 BEHAV CHNG SMOKING 3-[address]: 2 30006473 CPT-4: 12047 06/12/2021 Functional Status Functional / Cognitive Codes [...]
--- OUTSIDE RECORDS SUMMARY | 2025-03-13 16:59 | XMS_ITS | CCD ---
Author Name Ayanna Carranza Address [address] [facility] [address] [place] [address] [facility] Phone Care Team Providers Care Supervisor Capacitor Processing Name Role Phone Beto WHITE McKenzie Primary Care Provider Jeannine vailable Unavailable Chronic Care Management Unavaila ble Summary Purpose DataExchange Insurance Providers Payer name Policy type / Coverage type Covered republican ID Effective Begin Date Effective End Date [employer] Commercial Insurance [id number] Unkn own Medicaid [place] Commercial Insurance [id number] Unk nown Family History Family History data not found Social History Social History Element Codes Description Effec tive Dates Marital status Unknown Single 07/28/2023 Living arrangements Unknown Assisted Living 07/[address]: 67112421 Current ever y day smoker 07/28/[address]: 150679198 No Alcohol Consum ption 07/28/2023 Sexually Active? [...] Unknown Yes 07/28/[address]: 89847123 Current ever y day smoker half pack- 1 pack/daily Started smoking at age 18 06/17/[address]: 648097433 No Alcohol Consumption Hx of consumption 06/17/2021 [...] ICD-10: G44.229 ICD-9: 339.12 Active 03/29/2024 07/19/2024 Hypertensive chronic kidney disease with stage 1 through stage 4 chronic kidney disease, or unspecified chronic kidney disease ICD-10: I12.9 ICD-9: 403.90 Active 03/29/2024 05/29/2024 Hyponatremia ICD-10: E87.1 ICD-9: 276.1 Active 03/29/2024 05/29/2024 Stage 2 chronic kidney disease ICD-10: N18.2 ICD-9: 585.2 Active 03/29/2024 05/29/2024 Episode of recurrent major depressive disorder, unspecified [...] intractable ICD-10: G44.229 ICD-9: 339.12 03/29/2024 Active Hypertensive chronic kidney disease with stage 1 through stage 4 chronic kidney disease, or unspecified chronic kidney disease ICD-10: I12.9 ICD-9: 403.90 03/29/2024 Active Hyponatremia ICD-10: E87.1 ICD-9: 276.1 03/29/2024 Active Stage 2 chronic kidney disease ICD-10: N 18.2 ICD-9: 585.2 03/29/2024 Active Episode of recurrent major depressive [...] D3 10 mcg (400 unit) tablet RxNorm: 002121 Take 1 Tablet(s) Oral QD 01/26/20 24 024 Inactive Vitamin D3 10 mcg (400 unit) tablet RxNorm: 222586 Take 1 Tablet(s) Oral QD 01/26/20 24 024 Inactive citalopram 20 mg tablet RxNorm: 782047 Take 1 Tablet(s) Oral QD 12/31/19 24 025 Inactive 12/31/2023 PROACTIVE REFILL REQUEST FOR NEXT CYCLE PLEASE THANK YOU RX has/will before cycle date aspirin 81 mg tablet,delayed release RxNorm: 457724 Take 1 Tablet(s) Oral QD WITH FOOD 12/31/19 24 024 Inactive 12/31/2023 PROACTIVE REFILL REQUEST FOR NEXT CYCLE PLEASE THANK YOU RX has/will before cycle date atorvastatin 20 mg tablet RxNorm: 432170 Take 1 Tablet(s) Oral QD 10/14/19 24 025 Inactive 10/14/2023 PROACTIVE REFILL REQUEST FOR NEXT CYCLE PLEASE THANK YOU RX has/will before cycle date. losartan 50 mg tablet RxNorm: 170017 Take 1 Tablet(s) Oral QD 10/14/19 24 024 Inactive 10/14/2023 PROACTIVE REFILL REQUEST FOR NEXT CYCLE PLEASE THANK YOU RX has/will before cycle date. acetaminophen 500 mg tablet RxNorm: 101760 Take 1 Tablet(s) Oral QHS every night at bedtime 08/17/19 24 024 Inactive 08/17/2023 PROACTIVE REFILL REQUEST FOR NEXT CYCLE PLEASE THANK YOU citalopram 20 mg tablet RxNorm: 799659 Take 1 Tablet(s) Oral QD 01/02/20 23 024 Inactive 01/01/2023 PROACTIVE REFILL REQUEST FOR NEXT CYCLE PLEASE THANK YOU RX has/will before cycle date aspirin 81 mg tablet,delayed release RxNorm: 367104 TAKE 1 TABLET BY MOUTH DAILY WITH FOOD 01/02/20 23 023 Inactive 01/01/2023 PROACTIVE REFILL REQUEST FOR NEXT CYCLE PLEASE THANK YOU RX has/will before cycle date acetaminophen 500 mg tablet RxNorm: 139060 Take 1 Tablet(s) Oral QHS every night at bedtime 10/29/19 23 023 Inactive d/c ibuprofen atorvastatin 20 mg tablet RxNorm: 240277 Take 1 Tablet(s) Oral QD 10/15/19 23 024 Inactive 10/13/2022 PROACTIVE REFILL REQUEST FOR NEXT CYCLE PLEASE THANK YOU RX has/will before cycle date losartan 50 mg tablet RxNorm: 521629 Take 1 Tablet(s) Oral QD 10/15/19 23 023 Inactive 10/13/2022 PROACTIVE REFILL REQUEST FOR NEXT CYCLE PLEASE THANK YOU RX has/will before cycle date ibuprofen 400 mg tablet RxNorm: 292222 Take 1-1/2 Tablet(s) Oral QD as needed (at least 6 hours from scheduled dose) 10/01/19 23 024 Inactive Vitamin D2 1,250 mcg (50,000 unit) capsule RxNorm: 4502676 TAKE ONCE CAPSULE ONCE MONTHLY 07/30/19 23 025 Inactive d/c once weekly, start once monthly cholecalciferol (vitamin D3) 1,250 mcg (50,000 unit) capsule RxNorm: 190374 TAKE 1 CAPSULE BY MOUTH WEEKLY ON Wednesday07/23/19 23 023 Inactive Shingrix (PF) 50 mcg/0.5 mL intramuscular suspension, kit RxNorm: 8934600 ADMINISTER 2-DOSE SERIES PER CDC GUIDELINES Take UAD per CDC guidelines 06/26/19 23 023 Inactive diclofenac 1 % topical gel RxNorm: 176952 apply 0.5g topically to left shoulder nightly 01/01/20 22 022 Inactive diclofenac 1 % topical gel RxNorm: 707185 Apply 0.5 Gram(s) Topical QHS every night at bedtime apply 0.5g topically to left shoulder nightly 01/01/20 22 022 Inactive atorvastatin 20 mg tablet RxNorm: 418633 Take 1 Tablet(s) Oral QD 10/22/19 22 022 Inactive 2ND REQUEST FOR REFILLS 10/21/21 NEED TODAY PLEASE- THANK YOU losartan 50 mg tablet RxNorm: 353211 Take 1 Tablet(s) Oral QD 10/22/19 22 022 Inactive 2ND REQUEST FOR REFILLS 10/21/21 NEED TODAY PLEASE- THANK YOU Vitamin D2 1,250 mcg (50,000 unit) capsule RxNorm: 1055742 Take 1 Capsule(s) Oral QW once a week TAKE ONCE CAPSULE ONCE WEEKLY 07/31/19 023 Inactive or whatever % is covered by insurance loperamide 2 mg capsule RxNorm: 369750 Take 1 Capsule(s) Oral Q2H every 2 hours as needed for diarrhea Give 2 tabs after first loose stool and then 1 tab after each loose stool. Not to exceed 8 tabs in 24 hours 06/18/19 22 No Stop Date Active Calcium Antacid 200 mg calcium (500 mg) chewable tablet RxNorm: 851294 Chew 2-4 Tablet(s) Oral as needed Take 2-4 tabs by mouth as needed between meals and at bedtime as needed for heartburn or upset stomach 06/18/19 22 No Stop Date Active Robitussin Cough-Chest Congestion DM 5 mg-100 mg/5 mL oral liquid RxNorm: 4378282 Take 5-10 Milliliter(s) Oral Q4H every four hours QID - Four Times Daily as needed Take 5-10ml by mouth every 4 hours as needed for cough or congestion. Not to exceed 6 doses in 24 hours 06/18/19 22 No Stop Date Active acetaminophen 325 mg capsule RxNorm: 747428 Take 1-2 Tablet(s) Oral Q4-6H every 4-6 hours as needed for pain and elevated temperature. Not to exceed 4000mg in 24 hours 06/18/19 22 No Stop Date Active aluminum-mag hydroxide-simethicone 200 mg-200 mg-20 mg/5 mL oral susp RxNorm: 157472 Take 5-10 Milliliter(s) Oral QD as needed for nausea one time daily between and at bedtime as needed for heartburn and/ or upset stomach 06/18/19 22 No Stop Date Active Milk of Magnesia 400 mg/5 mL oral suspension RxNorm: 541603 Take 15-30 Milliliter(s) Oral as needed Take 15-30ml by mouth daily (preferably at bedtime) as needed for constipation. Recommend 8 oz of water after each use. 06/18/19 22 No Stop Date Active citalopram 20 mg tablet RxNorm: 497083 Take 1 Tablet(s) Oral QD every day 03/01/ 023 Inactive losartan 50 mg tablet RxNorm: 885326 Give 1 Tablet(s) Oral QD 06/18/19 22 Inactive atorvastatin 20 mg tablet RxNorm: 608851 Take 1 Tablet(s) Oral QD 06/18/19 22 022 Inactive ibuprofen 600 mg tablet RxNorm: 719358 Take 1 Tablet(s) Oral QHS every night at bedtime 06/18/19 023 Inactive Aspirin Low Dose 81 mg tablet,delayed release RxNorm: 424638 Take 1 Tablet(s) Oral QD QD - Daily with food 06/18/19 22 023 Inactive ibuprofen 600 mg tablet RxNorm: 427086 Take 1 and 1/2 Tablet(s) Oral QD as needed Take at least 6 hours from scheduled dose 06/18/19 Inactive hydrochlorothiazide 25 mg tablet RxNorm: 531734 Take 1 Tablet(s) Oral QD 06/18/19 Inactive [...] chronic kidney disease ICD-10: I12.9 ICD-9: 403.90 03/29/2024 No note found Hyponatremia ICD-10: E87.1 ICD-9: 276.1 03/29/2024 No note found Stage 2 chronic kidney disease ICD-10: N 18.2 ICD-9: 585.2 03/29/2024 No note found Chronic tension-type headach e, not intractable ICD-10: G44.229 ICD-9: 339.12 03/29/2024 No note found Reason For Visit No Reason For Visit data Review of Systems No Review of Systems data Physical Exam No Physical Exam data Procedures Procedure Codes Date SYST BP LT 130 MM HG CPT-4: 3074F 03/29/2024 DIAST BP <80 MM HG CPT-4: 3078F 03/29/2024 BEHAV CHNG SMOKING 3-[address]: 2 89614618 CPT-4: 27817 07/29/2022 BEHAV CHNG SMOKING 3-[address]: 2 28571880 CPT-4: 42855 01/28/2022 AAA Screening CPT-4: 48972 01/06/2022 BEHAV CHNG SMOKING 3-[address]: 2 11307289 CPT-4: 04376 12/31/2021 BEHAV CHNG SMOKING > [address]: 2 06576868 CPT-4: 19517 12/31/2021 BEHAV CHNG SMOKING 3-[address]: 2 05477524 CPT-4: 82342 11/26/2021 BEHAV CHNG SMOKING 3-[address]: 2 38520602 CPT-4: 92025 11/05/2021 BEHAV CHNG SMOKING 3-[address]: 2 63998920 CPT-4: 43054 09/24/2021 BEHAV CHNG SMOKING 3-[address]: 2 45788945 CPT-4: 56065 08/27/2021 BEHAV CHNG SMOKING 3-[address]: 2 71900175 CPT-4: 46113 07/30/2021 BEHAV CHNG SMOKING 3-[address]: 2 70529438 CPT-4: 62725 06/12/2021 Vital Signs Date Vital 03/29/2024 Blood Pressure 1: 12 476 Code: 8480-6 Heart Rate 1: 75 bpm Code: 8867-4 SpO2: 98% Functional Status Functional / Cognitive Codes Status [...] Encounter Performer Location Location Address Codes Date ([address]84) Home or Residence Visit Est Pt - Moderate Level, 40 mins Diagnosis: Hypertensive chronic kidney disease with stage 1 through stage 4 chronic kidney disease, or unspecified chronic kidney disease[ICD10: I12.9] Diagnosis: Hyponatremia[ICD10: E87.1] Diagnosis: Stage 2 chronic kidney disease[ICD10: N18.2] Diagnosis: Chronic tension-type headache, not intractable[ICD10: G44.229] [address] [address] CPT-4: 54869 03/29/2024 Plan of Care Planned Activity Notes Codes Status Date Appointment: Татьяна Figueredo WPtel: [address] [place], [place] [phone] F/U 09/24/2021 Health Concerns Section Concern Status [...]
--- OUTSIDE RECORDS SUMMARY | 2025-03-13 17:00 | XMS_ITS | CCD ---
Author Name Ayanna Carranza Address [address] [facility] [address] [place] [address] Phone Organization [facility] Phone Care Team Providers Care Truck Rental Clerk Name Role Phone Beto WHITE McKenzie Primary Care Provider Jeannine vailable Unavailable Chronic Care Management Unavaila ble Summary Purpose DataExchange Insurance Providers Payer name Policy type / Coverage type Covered constitution party ID Effective Begin Date Effective End Date [employer] Commercial Insurance [id number] Unkn own Medicaid [place] Commercial Insurance [id number] Unk nown Family History Family History data not found Social History Social History Element Codes Description Effec tive Dates Marital status Unknown Single 07/28/2023 Living arrangements Unknown Assisted Living 07/[address]: 10130693 Current ever y day smoker 07/28/[address]: 911736037 No Alcohol Consum ption 07/28/2023 Sexually Active? [...] Unknown Yes 07/28/[address]: 55866506 Current ever y day smoker half pack- 1 pack/daily Started smoking at age 18 06/17/[address]: 555839201 No Alcohol Consumption Hx of consumption 06/17/2021 [...] Fill Instructions atorvastatin 20 mg tablet RxNorm: 821932 Take 1 Tablet(s) Oral QD 10/14/19 24 025 Inactive 10/14/2023 PROACTIVE REFILL REQUEST FOR NEXT CYCLE PLEASE THANK YOU RX has/will before cycle date. losartan 50 mg tablet RxNorm: 339879 Take 1 Tablet(s) Oral QD 10/14/19 24 024 Inactive 10/14/2023 PROACTIVE REFILL REQUEST FOR NEXT CYCLE PLEASE THANK YOU RX has/will before cycle date. acetaminophen 500 mg tablet RxNorm: 424292 Take 1 Tablet(s) Oral QHS every night at bedtime 08/17/19 24 024 Inactive 08/17/2023 PROACTIVE REFILL REQUEST FOR NEXT CYCLE PLEASE THANK YOU citalopram 20 mg tablet RxNorm: 898156 Take 1 Tablet(s) Oral QD 01/02/20 23 024 Inactive 01/01/2023 PROACTIVE REFILL REQUEST FOR NEXT CYCLE PLEASE THANK YOU RX has/will before cycle date aspirin 81 mg tablet,delayed release RxNorm: 317671 TAKE 1 TABLET BY MOUTH DAILY WITH FOOD 01/02/20 23 023 Inactive 01/01/2023 PROACTIVE REFILL REQUEST FOR NEXT CYCLE PLEASE THANK YOU RX has/will before cycle date acetaminophen 500 mg tablet RxNorm: 915889 Take 1 Tablet(s) Oral QHS every night at bedtime 10/29/19 23 023 Inactive d/c ibuprofen atorvastatin 20 mg tablet RxNorm: 877343 Take 1 Tablet(s) Oral QD 10/15/19 23 024 Inactive 10/13/2022 PROACTIVE REFILL REQUEST FOR NEXT CYCLE PLEASE THANK YOU RX has/will before cycle date losartan 50 mg tablet RxNorm: 267560 Take 1 Tablet(s) Oral QD 10/15/19 23 023 Inactive 10/13/2022 PROACTIVE REFILL REQUEST FOR NEXT CYCLE PLEASE THANK YOU RX has/will before cycle date ibuprofen 400 mg tablet RxNorm: 860181 Take 1-1/2 Tablet(s) Oral QD as needed (at least 6 hours from scheduled dose) 10/01/19 23 024 Inactive Vitamin D2 1,250 mcg (50,000 unit) capsule RxNorm: 2275799 TAKE ONCE CAPSULE ONCE MONTHLY 07/30/19 23 025 Inactive d/c once weekly, start once monthly cholecalciferol (vitamin D3) 1,250 mcg (50,000 unit) capsule RxNorm: 171836 TAKE 1 CAPSULE BY MOUTH WEEKLY ON Wednesday07/23/19 23 023 Inactive Shingrix (PF) 50 mcg/0.5 mL intramuscular suspension, kit RxNorm: 5950140 ADMINISTER 2-DOSE SERIES PER CDC GUIDELINES Take UAD per CDC guidelines 06/26/19 23 023 Inactive diclofenac 1 % topical gel RxNorm: 302232 apply 0.5g topically to left shoulder nightly 01/01/20 22 022 Inactive diclofenac 1 % topical gel RxNorm: 123663 Apply 0.5 Gram(s) Topical QHS every night at bedtime apply 0.5g topically to left shoulder nightly 01/01/20 22 022 Inactive atorvastatin 20 mg tablet RxNorm: 631134 Take 1 Tablet(s) Oral QD 10/22/19 22 022 Inactive 2ND REQUEST FOR REFILLS 10/21/21 NEED TODAY PLEASE- THANK YOU losartan 50 mg tablet RxNorm: 005510 Take 1 Tablet(s) Oral QD 10/22/19 22 022 Inactive 2ND REQUEST FOR REFILLS 10/21/21 NEED TODAY PLEASE- THANK YOU Vitamin D2 1,250 mcg (50,000 unit) capsule RxNorm: 7294728 Take 1 Capsule(s) Oral QW once a week TAKE ONCE CAPSULE ONCE WEEKLY 07/31/19 22 023 Inactive or whatever % is covered by insurance loperamide 2 mg capsule RxNorm: 567555 Take 1 Capsule(s) Oral Q2H every 2 hours as needed for diarrhea Give 2 tabs after first loose stool and then 1 tab after each loose stool. Not to exceed 8 tabs in 24 hours 06/18/19 No Stop Date Active Calcium Antacid 200 mg calcium (500 mg) chewable tablet RxNorm: 109666 Chew 2-4 Tablet(s) Oral as needed Take 2-4 tabs by mouth as needed between meals and at bedtime as needed for heartburn or upset stomach 06/18/19 No Stop Date Active Robitussin Cough-Chest Congestion DM 5 mg-100 mg/5 mL oral liquid RxNorm: 2145387 Take 5-10 Milliliter(s) Oral Q4H every four hours QID - Four Times Daily as needed Take 5-10ml by mouth every 4 hours as needed for cough or congestion. Not to exceed 6 doses in 24 hours 06/18/19 No Stop Date Active acetaminophen 325 mg capsule RxNorm: 964676 Take 1-2 Tablet(s) Oral Q4-6H every 4-6 hours as needed for pain and elevated temperature. Not to exceed 4000mg in 24 hours 06/18/19 No Stop Date Active aluminum-mag hydroxide-simethicone 200 mg-200 mg-20 mg/5 mL oral susp RxNorm: 965970 Take 5-10 Milliliter(s) Oral QD as needed for nausea one time daily between and at bedtime as needed for heartburn and/ or upset stomach 06/18/19 No Stop Date Active Milk of Magnesia 400 mg/5 mL oral suspension RxNorm: 772635 Take 15-30 Milliliter(s) Oral as needed Take 15-30ml by mouth daily (preferably at bedtime) as needed for constipation. Recommend 8 oz of water after each use. 06/18/19 No Stop Date Active citalopram 20 mg tablet RxNorm: 961040 Take 1 Tablet(s) Oral QD every day 06/18/19 22 023 Inactive losartan 50 mg tablet RxNorm: 196360 Give 1 Tablet(s) Oral QD 06/18/19 22 022 Inactive atorvastatin 20 mg tablet RxNorm: 294178 Take 1 Tablet(s) Oral QD 06/18/19 22 022 Inactive ibuprofen 600 mg tablet RxNorm: 447455 Take 1 Tablet(s) Oral QHS every night at bedtime 06/18/19 22 023 Inactive Aspirin Low Dose 81 mg tablet,delayed release RxNorm: 414610 Take 1 Tablet(s) Oral QD QD - Daily with food 06/18/19 22 023 Inactive ibuprofen 600 mg tablet RxNorm: 284630 Take 1 and 1/2 Tablet(s) Oral QD as needed Take at least 6 hours from scheduled dose 06/18/19 22 023 Inactive hydrochlorothiazide 25 mg tablet RxNorm: 100868 Take 1 Tablet(s) Oral QD 06/18/19 22 [...] data Assessments Condition Codes Effective Dates Notes Tobacco use disorder ICD-10: F17.200 ICD-9: 305.1 12/01/2023 No note found Primary osteoarthritis of both knees ICD -10: M17.0 ICD-9: 715.16 12/01/2023 No note found Chronic left shoulder pain ICD-10: M25.5 12 ICD-9: 719.41 12/01/2023 No note found Hemiparesis of left nondomin ant side due to non-cerebrovascular etiology ICD-10: G81.94 ICD-9: 342.92 12/01/2023 No note found Hyponatremia ICD-10: E87.1 ICD-9: 276.1 12/01/2023 No note found Chronic tension-type headach e, not intractable ICD-10: G44.229 ICD-9: 339.12 12/01/2023 No note found Reason For Visit No Reason For Visit data Review of Systems No Review of Systems data Physical Exam No Physical Exam data Procedures Procedure Codes Date SYST BP LT 130 MM HG CPT-4: 3074F 12/01/2023 DIAST BP <80 MM HG CPT-4: 3078F 12/01/2023 BEHAV CHNG SMOKING 3-[address]: 2 90237008 CPT-4: 51051 07/29/2022 BEHAV CHNG SMOKING 3-[address]: 2 77101186 CPT-4: 72805 01/28/2022 AAA Screening US CPT-4: 03484 01/06/2022 BEHAV CHNG SMOKING 3-[address]: 2 33383088 CPT-4: 47111 12/31/2021 BEHAV CHNG SMOKING > [address]: 2 18741447 CPT-4: 63476 12/31/2021 BEHAV CHNG SMOKING 3-[address]: 2 53464267 CPT-4: 32134 11/26/2021 BEHAV CHNG SMOKING 3-[address]: 2 92272614 CPT-4: 25630 11/05/2021 BEHAV CHNG SMOKING 3-[address]: 2 50991667 CPT-4: 95532 09/24/2021 BEHAV CHNG SMOKING 3-[address]: 2 80003354 CPT-4: 89512 08/27/2021 BEHAV CHNG SMOKING 3-[address]: 2 45836852 CPT-4: 11407 07/30/2021 BEHAV CHNG SMOKING 3-[address]: 2 17923628 CPT-4: 02004 06/12/2021 Vital Signs Date Vital 12/01/2023 Blood Pressure 1: 118/72 Code: 8480-6 BMI: NaN Code: 28928-1 Heart Rate 1: 86 bpm Code: 8867-4 Respiratory Rate: 17 bpm Temperature: 36.4 (C) / 97.5 (F) Weight: 155 lbs Code: 3141-9 Functional Status Functional / [...] Present Illness data Advance Directives Filename Date POLST Kike Freelove 07/28/2023 Encounters Encounter Performer Location Location Address Codes Date ([address]) Home or Residence Visit Est Pt - Moderate Level, 40 mins Diagnosis: Chronic left shoulder pain[ICD10: M25.512] Diagnosis: Chronic tension-type headache, not intractable[ICD10: G44.229] Diagnosis: 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
--- OUTSIDE RECORDS SUMMARY | 2025-03-13 17:01 | XMS_ITS | Patient Health Record ---
Author Organization [facility], [facility] Address [address] [place] [address] Support Name Relationship Address Phone Luis Jimenes Emergency Contact [employer] M[place]ás[address] [address] Kike Hui Guarantor Unknown [phone] Reason For Referral No Information Medications Medication SIG (Take, Route, Frequency, Duration) Notes Start Date End Date Status Losartan Potassium 100 MG TAKE 1 TABLET BY MOUTH DAILY; Duration: 28 Active hydroCHLOROthiazide 25 MG TAKE 1 TABLET BY MOUTH DAILY; Duration: 28 Active Ibuprofen 600 MG 1 tablet Orally Thre e times a day PRN Active Aspirin 81 MG TAKE 1 TABLET BY FORD TH DAILY; Duration: 31 Active Citalopram Hydrobromide 20 MG TAKE 1 and one half TABLET Orally daily; Duration: 28 Active amLODIPine Besylate 10 MG TAKE 1 TABLET BY MOUTH DAILY; Duration: 28 Active Ibuprofen 600 MG 1 tablet Orally Thre e times a day; Duration: 30 day(s) Active Problems Problem Type SNOMED Code ICD Code Onset Dates Problem Status W/U Status Risk Notes Problem Essential hypertension (02399844) Essential (primary) hypertension (I10) Active confirmed Problem Pure hypercholesterolemia (386299095) Pure hypercholesterolemia (E78.0) Active confirmed Problem Hypercalcemia (26260980) Hypercalcemia (E83.52) Active confirmed Problem Chronic alcoholism i n remission (347120922) Alcohol dependence, in remission (F10.21) Active confirmed Problem Tobacco user (846475702) Nicotine dependence, unspecified, uncomplicated (F17.200) Active confirmed Problem Recurrent major depression (74732429) Major depressive disorder, recurrent, unspecified (F33.9) Active confirmed Problem Post-traumatic stres s disorder (18274254) Post-traumatic stress disorder, unspecified (F43.10) Active confirmed Problem Bifascicular block (73262019) Bifascicular block (I45.2) Active confirmed Problem Hypotension (79727927) Hypotension, unspecified (I95.9) Active confirmed Problem Backache (792247987) Dorsalgia, unspecified (M54.9) Active confirmed Problem Tachycardia (7920065) Tachycardi a, unspecified (R00.0) Active confirmed Problem Abnormal gait (27599459) Unspecified abnormalities of gait and mobility (R26.9) Active confirmed Problem Abnormal weight loss (838940444) Abnormal weight loss (R63.4) Active confirmed Problem Finding relating to psychosocial functioning (986614905) Other specified problems related to psychosocial circumstances (Z65.8) Active confirmed Problem Family History of Cancer (616643185) Family history of malignant neoplasm of other organs or systems (Z80.8) Active confirmed Problem Family history of ischemic heart disease (985510032) Family history of ischemic heart disease and other diseases of the circulatory system (Z82.49) Active confirmed Problem Old healed fracture of bone (981935529) Personal history of (healed) traumatic fracture (Z87.81) Active confirmed Problem History of traumatic brain injury (81964748863717) Personal history of traumatic brain injury (Z87.820) Active confirmed Problem History of fall (542114443) History of falling (Z91.81) Active confirmed Plan Of Treatment No Information Insurance Providers Payer Name Payer Address Payer Phone Subscriber Number Group Number Insured Name Patient Relationship to Insured Coverage Start Date Coverage End Date [place] [address], [place] [id number] Kike Hui Self - patient is the insured 5 Medical (General) History Medical History History ICD Code hypertension hyperlipidemia alcohol abuse major depression, recurrent bifascicular bundle branch block tobacco use disorder traumatic brain injury multiple fractures including left clavic le unsteady gait PTSD hypercalcemia back pain. Surgical History Surgery Date(Month/Year) Not provided Hospitalization History Reason Date(Month/Year) Multiple traumas from fall d own 28 stairs--broken ribs, collarbone and vertebrae 09/12/10
--- OUTSIDE RECORDS SUMMARY | 2025-03-13 17:01 | XMS_ITS | CCD ---
Author Name Ayanna Carranza Address [address] [place] [address] Phone Organization [facility] Phone Care Team Providers Care Remedial Teacher Name Role Phone Beto WHITE McKenzie Primary Care Provider Jeannine vailable Unavailable Chronic Care Management Unavaila ble Summary Purpose DataExchange Insurance Providers Payer name Policy type / Coverage type Covered green party ID Effective Begin Date Effective End Date [employer] Commercial Insurance [id number] Unkn own Medicaid [place] Commercial Insurance [id number] Unk nown Family History Family History data not found Social History Social History Element Codes Description Effec tive Dates Marital status Unknown Single 07/28/2023 Living arrangements Unknown Assisted Living 07/[address]: 11098689 Current ever y day smoker 07/28/[address]: 860662466 No Alcohol Consum ption 07/28/2023 Sexually Active? [...] Unknown Yes 07/28/[address]: 10665961 Current ever y day smoker half pack- 1 pack/daily Started smoking at age 18 06/17/[address]: 724639982 No Alcohol Consumption Hx of consumption 06/17/2021 [...] Fill Instructions citalopram 20 mg tablet RxNorm: 255851 Take 1 Tablet(s) Oral QD 01/02/20 23 024 Inactive 01/01/2023 PROACTIVE REFILL REQUEST FOR NEXT CYCLE PLEASE THANK YOU RX has/will before cycle date aspirin 81 mg tablet,delayed release RxNorm: 556001 TAKE 1 TABLET BY MOUTH DAILY WITH FOOD 01/02/20 23 023 Inactive 01/01/2023 PROACTIVE REFILL REQUEST FOR NEXT CYCLE PLEASE THANK YOU RX has/will before cycle date acetaminophen 500 mg tablet RxNorm: 271876 Take 1 Tablet(s) Oral QHS every night at bedtime 10/29/19 23 023 Inactive d/c ibuprofen atorvastatin 20 mg tablet RxNorm: 671097 Take 1 Tablet(s) Oral QD 10/15/19 23 024 Inactive 10/13/2022 PROACTIVE REFILL REQUEST FOR NEXT CYCLE PLEASE THANK YOU RX has/will before cycle date losartan 50 mg tablet RxNorm: 720793 Take 1 Tablet(s) Oral QD 10/15/19 23 023 Inactive 10/13/2022 PROACTIVE REFILL REQUEST FOR NEXT CYCLE PLEASE THANK YOU RX has/will before cycle date ibuprofen 400 mg tablet RxNorm: 306361 Take 1-1/2 Tablet(s) Oral QD as needed (at least 6 hours from scheduled dose) 10/01/19 23 024 Inactive Vitamin D2 1,250 mcg (50,000 unit) capsule RxNorm: 3845774 TAKE ONCE CAPSULE ONCE MONTHLY 07/30/19 23 025 Inactive d/c once weekly, start once monthly cholecalciferol (vitamin D3) 1,250 mcg (50,000 unit) capsule RxNorm: 214287 TAKE 1 CAPSULE BY MOUTH WEEKLY ON Wednesday07/23/19 23 023 Inactive Shingrix (PF) 50 mcg/0.5 mL intramuscular suspension, kit RxNorm: 4861471 ADMINISTER 2-DOSE SERIES PER CDC GUIDELINES Take UAD per CDC guidelines 06/26/19 23 023 Inactive diclofenac 1 % topical gel RxNorm: 813961 apply 0.5g topically to left shoulder nightly 01/01/20 22 022 Inactive diclofenac 1 % topical gel RxNorm: 058236 Apply 0.5 Gram(s) Topical QHS every night at bedtime apply 0.5g topically to left shoulder nightly 01/01/20 22 022 Inactive atorvastatin 20 mg tablet RxNorm: 391730 Take 1 Tablet(s) Oral QD 10/22/19 22 022 Inactive 2ND REQUEST FOR REFILLS 10/21/21 NEED TODAY PLEASE- THANK YOU losartan 50 mg tablet RxNorm: 595151 Take 1 Tablet(s) Oral QD 10/22/19 22 022 Inactive 2ND REQUEST FOR REFILLS 10/21/21 NEED TODAY PLEASE- THANK YOU Vitamin D2 1,250 mcg (50,000 unit) capsule RxNorm: 6397710 Take 1 Capsule(s) Oral QW once a week TAKE ONCE CAPSULE ONCE WEEKLY 07/31/19 22 023 Inactive or whatever % is covered by insurance loperamide 2 mg capsule RxNorm: 511238 Take 1 Capsule(s) Oral Q2H every 2 hours as needed for diarrhea Give 2 tabs after first loose stool and then 1 tab after each loose stool. Not to exceed 8 tabs in 24 hours 06/18/19 22 No Stop Date Active Calcium Antacid 200 mg calcium (500 mg) chewable tablet RxNorm: 641173 Chew 2-4 Tablet(s) Oral as needed Take 2-4 tabs by mouth as needed between meals and at bedtime as needed for heartburn or upset stomach 06/18/19 22 No Stop Date Active Robitussin Cough-Chest Congestion DM 5 mg-100 mg/5 mL oral liquid RxNorm: 0830025 Take 5-10 Milliliter(s) Oral Q4H every four hours QID - Four Times Daily as needed Take 5-10ml by mouth every 4 hours as needed for cough or congestion. Not to exceed 6 doses in 24 hours 06/18/19 22 No Stop Date Active acetaminophen 325 mg capsule RxNorm: 214773 Take 1-2 Tablet(s) Oral Q4-6H every 4-6 hours as needed for pain and elevated temperature. Not to exceed 4000mg in 24 hours 06/18/19 22 No Stop Date Active aluminum-mag hydroxide-simethicone 200 mg-200 mg-20 mg/5 mL oral susp RxNorm: 458964 Take 5-10 Milliliter(s) Oral QD as needed for nausea one time daily between and at bedtime as needed for heartburn and/ or upset stomach 06/18/19 No Stop Date Active Milk of Magnesia 400 mg/5 mL oral suspension RxNorm: 609721 Take 15-30 Milliliter(s) Oral as needed Take 15-30ml by mouth daily (preferably at bedtime) as needed for constipation. Recommend 8 oz of water after each use. 06/18/19 No Stop Date Active citalopram 20 mg tablet RxNorm: 512788 Take 1 Tablet(s) Oral QD every day 06/18/19 22 023 Inactive losartan 50 mg tablet RxNorm: 819681 Give 1 Tablet(s) Oral QD 06/18/19 22 022 Inactive atorvastatin 20 mg tablet RxNorm: 856771 Take 1 Tablet(s) Oral QD 06/18/19 22 022 Inactive ibuprofen 600 mg tablet RxNorm: 690582 Take 1 Tablet(s) Oral QHS every night at bedtime 06/18/19 023 Inactive Aspirin Low Dose 81 mg tablet,delayed release RxNorm: 286094 Take 1 Tablet(s) Oral QD QD - Daily with food 06/18/19 22 023 Inactive ibuprofen 600 mg tablet RxNorm: 394182 Take 1 and 1/2 Tablet(s) Oral QD as needed Take at least 6 hours from scheduled dose 06/18/19 22 023 Inactive hydrochlorothiazide 25 mg tablet RxNorm: 334735 Take 1 Tablet(s) Oral QD 06/18/19 22 [...] not intractable ICD-10: G44.229 ICD-9: 339.12 07/28/2023 No note found Encounter for screening, unspecified ICD -10: Z13.9 ICD-9: V82.9 07/28/2023 No note found Hypercholesteremia ICD-10: E78.00 ICD-9: 272.0 07/28/2023 No note found Tobacco use disorder ICD-10: F17.200 ICD-9: 305.1 07/28/2023 No note found ACP (advance care planning) ICD-10: Z71. 89 ICD-9: V65.49 07/28/2023 No note found Primary osteoarthritis of both knees ICD -10: M17.0 ICD-9: 715.16 07/28/2023 No note found Senile purpura ICD-10: D69.2 ICD-9: 287.2 07/28/2023 No note found Encounter for screening for depression I CD-10: Z13.31 ICD-9: V79.0 07/28/2023 No note found Smokers' cough ICD-10: J41.0 ICD-9: 491.0 07/28/2023 No note found Stage 2 chronic kidney disease ICD-10: N 18.2 ICD-9: 585.2 07/28/2023 No note found Encounter for screening exam ination for other mental health and behavioral disorders ICD-10: Z13.39 ICD-9: V79.8 07/28/2023 No note found Adult general medical exam ICD-10: Z00.0 0 ICD-9: V70.9 07/28/2023 No note found Chronic left shoulder pain ICD-10: M25.5 12 ICD-9: 719.41 07/28/2023 No note found 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 ICD-9: 303.93 07/28/2023 No note found Other chronic pain ICD-10: G89.29 07/28/2023 No note found Hypertensive chronic kidney disease with stage 1 through stage 4 chronic kidney disease, or unspecified chronic kidney disease ICD-10: I12.9 ICD-9: 403.90 07/28/2023 No note found PTSD (post-traumatic stress disorder) IC D-10: F43.10 ICD-9: 309.81 07/28/2023 No note found Hemiparesis of left nondomin ant side due to non-cerebrovascular etiology ICD-10: G81.94 ICD-9: 342.92 07/28/2023 No note found COPD (chronic obstructive pu lmonary disease) ICD-10: J44.9 ICD-9: 496 07/28/2023 No note found Episode of recurrent major d epressive disorder, unspecified depression episode severity ICD-10: F33.9 ICD-9: 296.30 07/28/2023 No note found Vitamin D deficiency ICD-10: E55.9 ICD-9: 268.9 07/28/2023 No note found Reason For Visit No Reason For Visit data Results Observation Observation Code Item Item Code Result Date Service Location Vitamin D, 25-Hydroxy [id number] Vitamin D, 25-Hydroxy 47575-9 55 ng/mL 08/19/19 24 Unknown CBC with Differential / Platelets CBCDIFF Baso (Absolute) 0.04 x10E3/uL 08/19/19 24 Unknown CBC with Differential / Platelets [facility]CDIFF Basos 0.70 % 08/19/19 24 Unknown CBC with Differential / Platelets CBCDIFF Eos 2.6 % 08/19/19 24 Unknown CBC with Differential / Platelets CBCDIFF Eos (Absolute) 0.15 x10E3/uL 08/19/19 24 Unknown CBC with Differential / Platelets CBCDIFF Hematocrit 4544-3 48.1 % 08/19/19 24 Unknown CBC with Differential / Platelets CBCDIFF Hemoglobin 718-7 15.4 g/dL 08/19/19 24 Unknown CBC with Differential / Platelets [facility] LYMPHOCYTES 23.1 % 08/19/19 24 Unknown CBC with Differential / Platelets CB[facility]IFF Lymphocytes (Absolute) 1.32 x10E3/uL 08/19/19 24 Unknown CBC with Differential / Platelets CBCDIFF MCH 31.4 pg 08/19/19 24 Unknown CBC with Differential / Platelets CBCDIFF MCHC 32.0 g/dL 08/19/19 24 Unknown CBC with Differential / Platelets CBCDIFF MCV 787-2 98.2 % 08/19/19 24 Unknown CBC with Differential / Platelets CBCDIFF Monocytes 6.8 % 08/19/19 24 Unknown CBC with Differential / Platelets CBCDIFF Monocytes (Absolute) 0.39 x10E3/uL 08/19/19 24 Unknown CBC with Differential / Platelets CBCDIFF MPV 67282-0 9.5 fL 08/19/19 24 Unknown CBC with Differential / Platelets CBCDIFF Neutrophils 66.60 % 08/19/19 24 Unknown CBC with Differential / Platelets CBCDIFF Neutrophils (Absolute) 3.81 x10E3/uL 08/19/19 24 Unknown CBC with Differential / Platelets CBCDIFF Platelets 777-3 306 x10E3/uL 08/19/19 24 Unknown CBC with Differential / Platelets CBCDIFF RBC 4.90 x10^6/UL 08/19/19 24 Unknown CBC with Differential / Platelets CBCDIFF RDW 13.3 %binding 08/19/19 24 Unknown CBC with Differential / Platelets CBCDIFF WBC 6690-2 5.72 x10E3/uL 08/19/19 24 Unknown Vitamin B12 VITAB12 Vitamin B12 2132-9 286 pg/mL 24 Unknown T[place] 90378-8 1.48 uIU/mL 08/19/19 24 Unknown Hemoglobin A1c HEMOGLOBA Hemoglobin A1c 83813-4 5.3 %A1c 08/19/19 24 Unknown Complete Metabolic Panel (CMP) CMP A/G Ratio 1.4 08/19/19 24 Unknown Complete Metabolic Panel (CMP) CMP Albumin 1751-7 4.3 g/dL 08/19/19 24 Unknown Complete Metabolic Panel (CMP) CMP Alkaline Phosphatase 90 U/L 08/19/19 24 Unknown Complete Metabolic Panel (CMP) CMP ALT (SGPT) 11 U/L 08/19/19 24 Unknown Complete Metabolic Panel (CMP) CMP AST (SGOT) 22.0 U/L 08/19/19 24 Unknown Complete Metabolic Panel (CMP) CMP BILIRUBIN, TOTAL 1975-2 0.6 mg/dL 08/19/19 24 Unknown Complete Metabolic Panel (CMP) CMP Blood Urea Nitrogen (BUN) 13 mg/dL 08/19/19 24 Unknown Complete Metabolic Panel (CMP) CMP BUN/CREATININE RATIO 14.61 ratio 08/19/19 24 Unknown Complete Metabolic Panel (CMP) CMP Calcium (Ca) 01491-6 10.3 mg/dL 08/19/19 24 Unknown Complete Metabolic Panel (CMP) CMP Carbon Dioxide (ECO2) 29 mmol/L 08/19/19 24 Unknown Complete Metabolic Panel (CMP) CMP Chloride (Cl) 2075-0 97 mmol/L 08/19/19 24 Unknown Complete Metabolic Panel (CMP) CMP Creatinine 2160-0 0.89 mg/dL 08/19/19 24 Unknown Complete Metabolic Panel (CMP) CMP eGFR 92.19 mL/min/1.7 3m2 08/19/19 24 Unknown Complete Metabolic Panel (CMP) CMP Globulin, Total 3.0 08/19/19 24 Unknown Complete Metabolic Panel (CMP) CMP Glucose 80 mg/dL 08/19/19 24 Unknown Complete Metabolic Panel (CMP) CMP Potassium (K) 2823-3 5.0 mmol/L 08/19/19 24 Unknown Complete Metabolic Panel (CMP) CMP PROTEIN, TOTAL 2885-2 7.3 g/dL 08/19/19 24 Unknown Complete Metabolic Panel (CMP) CMP Sodium (Na) 2951-2 129 mmol/L 08/19/19 24 Unknown Lipid Panel (LP) LIPIDPAN CHOLESTEROL, TOTAL 03667-6 153 mg/dL 08/19/19 24 Unknown Lipid Panel (LP) LIPIDPAN HDL CHOLESTEROL 2085-9 38.9 mg /dL 08/19/19 24 Unknown Lipid Panel (LP) LIPIDPAN LDL CHOLESTEROL CALCULATED 97725-9 99 08/19/19 24 Unknown Lipid Panel (LP) LIPIDPAN TRIGLYCERIDES 2571-8 77 mg/dL 08/19/19 24 Unknown Lipid Panel (LP) LIPIDPAN VLDL Cholestero l Calculated 15 08/19/19 24 Unknown PDFReport PDFReport PDFReport 08/18/19 24 Unknown Review of Systems No Review of Systems data Physical Exam No Physical Exam data Procedures Procedure Codes Date Medicare Annual Wellness Vis it (AWV), Subsequent SNOMED CT: [id number] CPT-4: G0439 07/28/2023 SYST BP LT 130 MM HG CPT-4: 3074F 07/28/2023 DIAST BP 80-89 MM HG CPT-4: 3079F 07/28/2023 PT INELIG NEG SCRN DEPRES SNOMED CT: 428 [id number] CPT-4: G8510 07/28/2023 TOBACCO SECOND VP HR ASSESSMENT NO CHARGE CPT-4: G0436 2023 BEHAV CHNG SMOKING 3-[address]: 2 92773609 CPT-4: 04625 07/29/2022 BEHAV CHNG SMOKING 3-[address]: 2 76543378 CPT-4: 12433 01/28/2022 AAA Screening US CPT-4: 75051 01/06/2022 BEHAV CHNG SMOKING 3-[address]: 2 44780827 CPT-4: 20787 12/31/2021 BEHAV CHNG SMOKING > [address]: 2 79194902 CPT-4: 02200 12/31/2021 BEHAV CHNG SMOKING 3-[address]: 2 76789853 CPT-4: 85257 11/26/2021 BEHAV CHNG SMOKING 3-[address]: 2 22507945 CPT-4: 87205 11/05/2021 BEHAV CHNG SMOKING 3-[address]: 2 82482044 CPT-4: 98713 09/24/2021 BEHAV CHNG SMOKING 3-[address]: 2 01185853 CPT-4: 23066 08/27/2021 BEHAV CHNG SMOKING 3-[address]: 2 47290341 CPT-4: 65130 07/30/2021 BEHAV CHNG SMOKING 3-[address]: 2 87193024 CPT-4: 01816 06/12/2021 Vital Signs Date Vital 07/28/2023 Blood Pressure 1: 128/82 Code: 8480-6 BMI: NaN Code: 27417-9 Heart Rate 1: 66 bpm Code: 8867-4 Height: 5'10 Code: 8302-2 SpO2: 95% Temperature: 36.3 (C) / 97.4 (F) Weight: 162 lbs Code: 3141-9 Functional Status Functional / [...] Advance Directives Filename Date DAVIDSON Hui 07/28/2023 Plan of Care Planned Activity Notes Codes Status Date Patient Education: Patient Medication Summary Completed 07/28/2023 Patient Education: Influenza Complet ed 07/28/2023 Patient Education: Smoking Cessation Completed 07/28/2023 Patient Education: Exercise and Fitness Completed 07/28/2023 Patient Education: Fall Prevention C ompleted 07/28/2023 Appointment: Ттаьяна Figueredo WPtel: [address] [place], [place] [phone] F/U 09/24/2021 Health Concerns Section Concern Status [...]
[2025-03-13] MEDS: ONDANSETRON 2 MG/ML inj 4 MG IVP (18:00)
[2025-03-13 19:07] LABS: HCO3 VBG 28 mmol/L (21-28); PCO2 VBG 49 mmHG (40-50); PO2 VBG < 30.1 mmHG (25-47); pH VBG 7.358 (7.32-7.43)
[2025-03-13 19:08] LABS: Hematocrit* 46.3 % (37.0-53.0); Hemoglobin* 15.0 gm/dL (13.5-17.5); Immature Granulocytes Pct Auto 0.2 %; Mean Corpuscular HGB Conc 32 gm/dL (32-36); Mean Corpuscular Hemoglobin 31 pg (26-34); Mean Corpuscular Volume 94 fL (80-100); RDW Coefficient of Variation % 13.1 % (11.5-15.5); Red Blood Count* 4.92 m/uL (4.30-5.90); White Blood Count* 11.23 K/uL (4.50-11.00)
[2025-03-13 19:17] LABS: Immature Granulocytes Abs Auto 0.00 K/uL (0.00-0.30); Lymphocytes Absolute Auto 0.90 K/uL (0.90-2.90); Slide Review Reflex No
[2025-03-13] MEDS: LACTATED RINGERS 1000 ML 1,000 ML 500 ML IV (19:29)
[2025-03-13 19:31] LABS: Albumin* 4.2 g/dL (3.3-5.0); Chloride* 94 mmol/L (96-114); Sodium* 130 mmol/L (135-149)
[2025-03-13 19:32] LABS: Potassium* 4.2 mmol/L (3.6-5.1)
[2025-03-13 19:33] LABS: INR 0.89 (0.91-1.10); Prothrombin Time 12.8 Seconds
[2025-03-13 19:34] LABS: Alanine Aminotransferase* 16 U/L (4-50); Anion Gap 10 mEq/L (7-15); Aspartate Amino Transferase* 29 U/L (12-35); Blood Urea Nitrogen* 21 mg/dL (7-30); Carbon Dioxide* 26 mmol/L (20-32); Creatinine* 0.9 mg/dL (0.5-1.5); Est. Creatinine Clearance* 66.77; Estimated Glomerular Filt Rate 91 ml/min; Total Protein* 7.5 g/dL (6.0-8.3)
[2025-03-13 19:35] LABS: Alkaline Phosphatase* 94 U/L (40-150); Bilirubin Direct* 0.3 mg/dL (0.0-0.5); Bilirubin Total* 0.4 mg/dL (0.1-1.5); Calcium* 9.7 mg/dL (8.4-10.6); Glucose* 110 mg/dL (60-115)
[2025-03-13 19:44] LABS: NT Pro B Type NatriureticPept* 85 pg/mL (See Note)
[2025-03-13] MEDS: SODIUM CHLORIDE 0.9 % (FLUSH) 10 ML SYRINGE 5 ML IVF (21:17)
--- NOTE | 2025-03-13 22:32 | PM.IMHP1 ---
Assessment and Plan Assessment and plan (1) Fracture, intertrochanteric, left femur: Problem comment: Plan ORIF tomorrow Status: Acute (2) Osteoporosis: Problem comment: Fragility fracture of left femur February 2025 meets the definition of a osteoporotic fragility fracture Status: Acute (3) Tobacco use disorder, continuous: Problem comment: Nicotine patch, encourage abstinence Status: Acute (4) Unsteady gait: Problem comment: Assess after surgery. May need rehab stay prior to returning to [place] Status: Acute (5) COPD (chronic obstructive pulmonary disease): Problem comment: No formal diagnosis in the past according to the patient. Clinically appears suspicious. Status: Suspected (6) Hypertension: Problem comment: Monitor and manage blood pressure medicines in light of hip fracture and surgery Status: Acute Plan Patient is admitted to the hospital for management of hip fracture and other chronic medical problems. Total Time Spent Total Time Spent: Total time spent today is 80 minutes in reviewing outside records, coordination of care, discussion with patient and other providers ongoing management of hip fracture and medical problems Hospitalist- H&P: HPI History of Present Illness Date Seen: 03/13/25 Chief complaint: hip injury Narrative: Kike Hui is a 74 year old male resident of [facility] presents to the emergency room after injuring his left hip falling out of a chair. Patient reports he was sitting in a chair any started to slip out of the chair and fell to the floor. It was a tile floor. When this occurred he had fairly severe pain in his left hip and was unable to move. He was brought to the emergency room for evaluation. There he was found to have a comminuted left intertrochanteric femur fracture. He reports he is otherwise feeling well. Did not have any other injuries. He did not hit his head. he did not pass out. No recent illness. Past medical history is notable for severe trauma from falling down a flight of stairs in 2010. He reports he was in a coma for a couple months at [facility] and then transferred to [facility] for rehab. He had a left sub arachnoid hemorrhage, left scapula and clavicle fractures, spinal fractures. During that time he had a gastrostomy feeding tube and a tracheostomy. It sounds like since that time he has been somewhat disabled, walking with a walker. Review of Systems Narrative: Patient reports he has been doing well recently except for the fall today [facility] Medical History (Updated 03/13/25 @ 22:48 by Louis Montoya MD) COPD (chronic obstructive pulmonary disease) ?J44.9 - Chronic obstructive pulmonary disease, unspecified (ICD-10) History of gastrostomy tube placement Hyperlipidemia ?E78.5 - Hyperlipidemia, unspecified (ICD-10) Hypertension ?I10 - Essential (primary) hypertension (ICD-10) Depression ?F32.A - Depression, unspecified (ICD-10) TBI (traumatic brain injury) ?S06.9XAA - Unspecified intracranial injury with loss of consciousness status unknown, initial encounter (ICD-10) PTSD (post-traumatic stress disorder) ?F43.10 - Post-traumatic stress disorder, unspecified (ICD-10) Unsteady gait ?R26.81 - Unsteadiness on feet (ICD-10) Bifascicular bundle branch block ?I45.2 - Bifascicular block (ICD-10) Tobacco use disorder, continuous ?F17.209 - Nicotine dependence, unspecified, with unspecified nicotine-induced disorders (ICD-10) Alcohol use disorder in remission ?F10.91 - Alcohol use, unspecified, in remission (ICD-10) Osteoporosis ?M81.0 - Age-related osteoporosis without current pathological fracture (ICD-10) Fracture, intertrochanteric, left femur ?S72.142A - Displaced intertrochanteric fracture of left femur, initial encounter for closed fracture (ICD-10) Surgical History (Updated 03/13/25 @ 22:42 by Louis Montoya MD) History of tracheostomy ?Z98.890 - Other specified postprocedural states (ICD-10) Family History (Updated 03/13/25 @ 22:43 by Louis Montoya MD) Mother Pancreatic cancer Sister Lung cancer Father Heart disease Social History (Updated 03/13/25 @ 22:44 by Louis Montoya MD) Narrative: He is resident of [facility]. He normally walks independently with a walker. He smokes a pack cigarettes a day. Previous history of alcohol use disorder. His sister, Gertrude, of [place] would be healthcare power of civil litigation attorney. Code status is full. What is your current living situation?: I presently have a place to live Problems where you live: no known problems Problems where you live details: N/A In the past 12 months, utilities in danger of being shut off: no In past 12 months, lack of transportation kept you from medical appts, meetings, work, or getting things needed for daily living: no In the past 12 mos, have been you worried that your food would run out before you had money to buy more?: never true In the past 12 mos, the food you bought just didn't last and you didn't have money to buy more?: never true Highest level of school completed/degree received: high school graduate Smoking Status: Current every day smoker How often do you have a drink containing alcohol: never AUDIT-C Alcohol total score: 0 Non-prescribed substance use: denies use How often does anyone, including family, friends and others, physically hurt you: never How often does anyone, including family, friends and others, insult or talk down to you: never How often does anyone, including family, friends and others, threaten you with harm: never How often does anyone, including family, friends and others, scream or curse at you: never Meds Home Medications and Allergies Home Medications ?Medication ?Instructions ?Recorded ?Confirmed ?Type acetaminophen 500 mg tablet mg PO DAILY 03/13/25 History aspirin 81 mg tablet,delayed 81 mg PO DAILY 03/13/25 03/13/25 History release atorvastatin 20 mg tablet 20 mg PO DAILY 03/13/25 03/13/25 History cholecalciferol (vitamin D3) 10 10 mcg PO DAILY 03/13/25 03/13/25 History mcg (400 unit) tablet (Vitamin D3) citalopram 20 mg tablet 20 mg PO DAILY 03/13/25 03/13/25 History losartan 50 mg tablet 50 mg PO DAILY 03/13/25 03/13/25 History Allergies Allergy/AdvReac Type Severity Reaction Status Date / Time No Known Drug Allergies Allergy Verified 03/13/25 17:02 Exam Narrative: Exam Narrative: He is alert and oriented and gives his own history. He does not recall significant parts of his medical history but is otherwise able to answer questions appropriately. He appears in mild discomfort from his hip fracture. Speech is normal. There is no facial asymmetry. Eyes normal. Oropharynx with dry mucous membranes. Neck is supple without mass or adenopathy. Respirations are clear to auscultation. He has diminished breath sounds without wheezing. Cardiovascular: S1, S2, regular rate and rhythm. Abdomen: Bowel sounds active. Abdomen is soft without tenderness. Upper extremities without apparent trauma. He moves his upper extremities well. Left lower extremity is externally rotated and shortened. He has intact but diminished pedal pulses bilaterally. Intact motion in his feet intact sensation in his feet. No edema Const: Vital Signs, click to edit/add: Vital Signs - 24 hr 03/13/25 16:58 03/13/25 17:01 03/13/25 17:02 Temperature 97.7 F Pulse Rate 85 88 Pulse Rate [Pulse Oximeter] 84 Respiratory Rate 16 Blood Pressure 182/96 H Blood Pressure [Le ft Upper Arm] 149/85 H Blood Pressure [Ri ght Arm] Pulse Oximetry 87 L 91 92 Oxygen Delivery Me thod Room Air Oxygen Flow Rate 03/13/25 17:12 03/13/25 17:15 03/13/25 17:22 Temperature Pulse Rate 80 84 82 Pulse Rate [Pulse Oximeter] Respiratory Rate Blood Pressure 175/88 H 167/88 H Blood Pressure [Le ft Upper Arm] Blood Pressure [Ri ght Arm] Pulse Oximetry 92 92 91 Oxygen Delivery Me thod Oxygen Flow Rate 03/13/25 17:30 03/13/25 17:32 03/13/25 17:42 Temperature Pulse Rate 86 86 84 Pulse Rate [Pulse Oximeter] Respiratory Rate Blood Pressure 177/96 H 177/96 H Blood Pressure [Le ft Upper Arm] Blood Pressure [Ri ght Arm] Pulse Oximetry 89 91 92 Oxygen Delivery Me thod Oxygen Flow Rate 03/13/25 17:45 03/13/25 17:51 03/13/25 18:00 Temperature Pulse Rate 86 87 91 Pulse Rate [Pulse Oximeter] Respiratory Rate Blood Pressure 174/89 H Blood Pressure [Le ft Upper Arm] Blood Pressure [Ri ght Arm] Pulse Oximetry 92 92 Oxygen Delivery Me thod Oxygen Flow Rate 03/13/25 18:02 03/13/25 18:10 03/13/25 21:15 Temperature 97.8 F 98.1 F Pulse Rate Pulse Rate [Pulse Oximeter] 110 H 107 H Respiratory Rate 20 16 Blood Pressure 173/87 H Blood Pressure [Le ft Upper Arm] Blood Pressure [Ri ght Arm] 178/92 H 121/82 Pulse Oximetry 96 70 L Oxygen Delivery Me thod Room Air Room Air Oxygen Flow Rate 03/13/25 21:25 03/13/25 21:47 03/13/25 21:47 Temperature Pulse Rate Pulse Rate [Pulse Oximeter] Respiratory Rate 16 17 17 Blood Pressure Blood Pressure [Le ft Upper Arm] Blood Pressure [Ri ght Arm] Pulse Oximetry 89 88 Oxygen Delivery Me thod Nasal Cannula Nasal Cannula Oxygen Flow Rate 4.5 4.5 Documenting provider has reviewed patient's vital signs: yes Hospitalist - H&P: Result Labs Labs: Short CBC 03/13/25 Range/Units 19:00 WBC 11.23 H (4.50-11.00) K/uL Hgb 15.0 (13.5-17.5) gm/dL Hct 46.3 (37.0-53.0) % Plt Count 250 (140-440) K/uL BMP 03/13/25 03/13/25 03/13/25 19:00 19:00 19:00 Sodium 130 L Cancelled Potassium 4.2 Cancelled Chloride 94 L Carbon Dioxide BUN Creatinine Glucose Calcium 03/13/25 03/13/25 03/13/25 19:00 19:00 19:00 Sodium Potassium Chloride Cancelled Carbon Dioxide 26 Cancelled BUN 21 Cancelled Creatinine 0.9 Glucose Calcium 03/13/25 03/13/25 03/13/25 19:00 19:00 19:00 Sodium Potassium Chloride Carbon Dioxide BUN Creatinine Cancelled Glucose 110 Cancelled Calcium 9.7 Cancelled Cardiac Enzymes 03/13/25 03/13/25 Range/Units 19:00 19:00 Troponin I < 0.01 Cancelled (0.01-0.04) ng/mL Liver Function 03/13/25 Range/Units 19:00 Total Bilirubin 0.4 (0.1-1.5) mg/dL Direct Bilirubin 0.3 (0.0-0.5) mg/dL AST 29 (12-35) U/L ALT 16 (4-50) U/L Alkaline Phosphatase 94 (40-150) U/L Albumin 4.2 (3.3-5.0) g/dL Imaging Chest x-ray: Radiologist's impression: INDICATION: Hip injury, Pain, Fall TECHNIQUE: Chest radiograph 1 view COMPARISON: None FINDINGS: Mediastinum: The mediastinum is normal in appearance. The heart silhouette is normal in size and morphology. Lung: Mild pulmonary vascular congestion with minimal left basilar atelectasis is noted. No sign of pleural effusion seen. No pneumothorax is identified. Bone and Soft tissue: Fractures of the 2nd-6th ribs are noted and may be chronic. IMPRESSIONS: 1. Fractures of the 2nd-6th ribs are noted and may be chronic. Comparison with any prior radiographs or assessment with dedicated rib radiograph series may be helpful. 2. Mild pulmonary vascular congestion with minimal left basilar atelectasis is noted. Left hip x-ray: Radiologist's impression: INDICATION: Hip injury, Pain, Fall TECHNIQUE: Pelvis radiograph, Hip radiograph 3 views left COMPARISON: None FINDINGS: Bone: There is a comminuted intertrochanteric fracture of the left proximal femur. Remote fracture deformity is suspected in the inferior left pubic ramus. Moderate diffuse osteopenia is present. Joint: The hip joints are unremarkable. The visualized sacroiliac joints are unremarkable in appearance. Soft tissue: Unremarkable. No radiopaque foreign bodies are seen. Moderate vascular calcifications are noted. IMPRESSION: 1. There is a comminuted intertrochanteric fracture of the left proximal femur.
--- NOTE | 2025-03-13 23:41 | W.PM.CROSSCO ---
Subjective Subjective Time Seen by Provider: 23:41 Date Seen: 03/13/25 Principal diagnosis: Left intertrochanteric hip fracture Interval history: 74-year-old male admitted to the hospital with a hip fracture that occurred earlier today. He was doing fairly well relatively normal vital signs during the day. This evening he became hypoxic and tachycardic. He was not dyspneic. He had received opioid pain medicines as well as a fluid bolus. Clinically I thought he was dry/volume depleted on admission due to his hip fracture blood loss. On evaluation I noted some left basilar crackles but not otherwise abnormal breath sounds. Not really wheezing. Earlier today chest x-ray was unremarkable. Troponin and proBNP were normal. Chest CTA is ordered Objective Objective Data Details: For he is alert and appears in no distress. O2 sats in the upper 80s on 2 L per nasal cannula. Respirations are unlabored with diminished breath sounds but no wheezing or marked prolonged expiratory phase. He does have basilar crackles at his left base predominantly. Cardiovascular: S1, S2, regular rate and rhythm. Assessment and Plan Assessment and plan (1) Hypoxia: Problem comment: check CTA Status: Acute (2) Tachycardia: Problem comment: Check CTA Status: Acute Plan New onset tachycardia and hypoxia in a hip fracture patient. Obtain chest CTA and check troponin. Total Time Spent Total Time Spent: Total time spent tonight, after initial evaluation, is 20 minutes from 7811-6309 a.m.
[2025-03-14] VITALS (21 sets, daily range): BP systolic 77–129; BP diastolic 53–77; PULSE 70–108; RESP 10–18; TEMP 36.4–37; O2SAT 87–96
--- NOTE | 2025-03-14 | CRLHL7_ITS ---
For Patients: As a result of the Century Cures Act, medical imaging exams and procedure reports are released immediately into your electronic medical record. You may view this report before your referring provider. If you have questions, please contact your health care provider. INDICATION: Hypoxia, tachycardia, hip fracture. TECHNIQUE: CT chest PE was acquired with 100 cc Omnipaque 350 IV contrast. COMPARISON: None. FINDINGS: Heart and vasculature: Contrast opacification of the pulmonary arterial tree is adequate. No sign of pulmonary embolism. Heart size is normal. Thoracic aorta and pulmonary artery are normal in caliber. Coronary artery and thoracic aorta atherosclerotic calcification. No pericardial effusion. Lungs and pleura: Moderate to severe centrilobular and paraseptal emphysema. Dense crescentic consolidative opacity within the right lower lobe base. No pleural effusion. Dependent atelectasis scarring/fibrotic changes within the left lower lobe base. No pneumothorax. Bibasilar bronchial wall thickening. 1 cm left upper lobe pulmonary nodule (5/59) Lymph nodes/mediastinum: No mediastinal, hilar, or axillary adenopathy. Chest wall: No masses. Upper abdomen: Small hiatal hernia. Too small to characterize hypodense lesion within the liver. Bilateral renal cysts. Bones: Chronic left clavicle and left upper ribcage posttraumatic deformity/changes. Mild age-indeterminate T7, T11, T12, and L1 compression fractures. IMPRESSION: 1. No pulmonary embolism. 2. Dense crescentic consolidative opacity within the right lower lobe base, could represent atelectasis; however, pneumonia and/or fibrotic changes could also appear similar. Background moderate to severe centrilobular emphysema as well as findings compatible with bronchitis. 3. Age-indeterminate mild compression deformities of T7, T11, T12, and L1. 4. 1 cm left upper lobe pulmonary nodule. Recommend short interval follow-up chest CT in 3 months since malignancy cannot be excluded. Please note that all CT scans at this facility use dose modulation, iterative reconstruction, and/or weight-based dosing when appropriate to reduce radiation dose to as low as reasonably achievable. Dictated by Hollis Calhoun MD @ 03/14/2025 1:43:09 AM (Electronically Signed)
[2025-03-14] MEDS: LACTATED RINGERS 1000 ML 1,000 ML 75 ML IV (01:42)
[2025-03-14] MEDS: cefTRIAXone 1 GM in 0.9 % SODIUM CHLORIDE Mini-bag 100 ML IVPB (02:06)
[2025-03-14] MEDS: AZITHROMYCIN 250 MG TABLET 500 MG PO ×2 (02:09→20:45)
[2025-03-14] MEDS: ACETAMINOPHEN 325 MG TABLET 650 MG PO ×2 (02:15→06:57)
[2025-03-14 02:24] LABS: Procalcitonin* 0.05 ng/mL (<0.50)
[2025-03-14 06:23] LABS: HCO3 VBG 29 mmol/L (21-28); PCO2 VBG 54 mmHG (40-50); PO2 VBG 36.9 mmHG (25-47); pH VBG 7.335 (7.32-7.43)
[2025-03-14 06:26] LABS: Hematocrit* 40.3 % (37.0-53.0); Hemoglobin* 13.2 gm/dL (13.5-17.5); Immature Granulocytes Abs Auto 0.05 K/uL (0.00-0.30); Immature Granulocytes Pct Auto 0.5 %; Mean Corpuscular HGB Conc 33 gm/dL (32-36); Mean Corpuscular Hemoglobin 31 pg (26-34); Mean Corpuscular Volume 94 fL (80-100); RDW Coefficient of Variation % 13.2 % (11.5-15.5); Red Blood Count* 4.30 m/uL (4.30-5.90); White Blood Count* 9.42 K/uL (4.50-11.00)
[2025-03-14 06:29] LABS: Lymphocytes Absolute Auto 1.50 K/uL (0.90-2.90); Slide Review Reflex No
[2025-03-14 06:42] LABS: Chloride* 98 mmol/L (96-114); Sodium* 130 mmol/L (135-149)
[2025-03-14 06:43] LABS: Potassium* 4.3 mmol/L (3.6-5.1)
[2025-03-14 06:45] LABS: Anion Gap 4 mEq/L (7-15); Blood Urea Nitrogen* 18 mg/dL (7-30); Carbon Dioxide* 28 mmol/L (20-32); Creatinine* 0.8 mg/dL (0.5-1.5); Est. Creatinine Clearance* 66.77; Estimated Glomerular Filt Rate 94 ml/min
[2025-03-14 06:46] LABS: Calcium* 9.4 mg/dL (8.4-10.6); Glucose* 104 mg/dL (60-115)
[2025-03-14] MEDS: METHYLPREDNISOLONE SOD SUCC 62.5 MG/ML (125) 125 MG IVP (10:52)
[2025-03-14] MEDS: NICOTINE 7 MG PATCH 1 PATCH TRANSDERMA (10:52)
--- NOTE | 2025-03-14 11:08 | PC.SOCIAL ---
Addendum entered by DESEAN Shaw 03/14/25 16:10: Pt's [facility] Cash On Delivery Clerk is Nimo (phone [phone]). Original Note: Social work: Assisted in clarifying pt's guardian status. Pt is currently under guardianship with [employer] and contact information has been updated. Called [facility] and requested packet of information be sent. Received faxed face sheet and medications. [facility] nurse, Ginette, states there is nothing else the hospital would need from his [facility] chart.
--- NOTE | 2025-03-14 12:37 | PM.ORCN ---
History of Present Illness HPI Date Seen: 03/14/25 Consult date: 03/13/25 Chief complaint: hip injury Narrative: Mr. Cristian Araujo is a 74-year-old male. Resident at [facility]. Presented [place] ED on 03/13/2025 after a fall out of a chair landing on his left hip. Difficulty with mobilization. Significant pain. The visit in the ED included x-rays which revealed a left basicervical/intertrochanteric femur fracture. He was admitted overnight to the hospitalist team. He does have numerous medical comorbidities including what appears to be in acute pneumonia on top of COPD and tobacco use. From a fracture standpoint, Orthopedics was consulted to consider surgical fixation. He previously ambulated with a walker for assistance for the last number of years. [facility] Medical History COPD (chronic obstructive pulmonary disease) ?J44.9 - Chronic obstructive pulmonary disease, unspecified (ICD-10) History of gastrostomy tube placement Hyperlipidemia ?E78.5 - Hyperlipidemia, unspecified (ICD-10) Hypertension ?I10 - Essential (primary) hypertension (ICD-10) Depression ?F32.A - Depression, unspecified (ICD-10) TBI (traumatic brain injury) ?S06.9XAA - Unspecified intracranial injury with loss of consciousness status unknown, initial encounter (ICD-10) PTSD (post-traumatic stress disorder) ?F43.10 - Post-traumatic stress disorder, unspecified (ICD-10) Unsteady gait ?R26.81 - Unsteadiness on feet (ICD-10) Bifascicular bundle branch block ?I45.2 - Bifascicular block (ICD-10) Tobacco use disorder, continuous ?F17.209 - Nicotine dependence, unspecified, with unspecified nicotine-induced disorders (ICD-10) Alcohol use disorder in remission ?F10.91 - Alcohol use, unspecified, in remission (ICD-10) Osteoporosis ?M81.0 - Age-related osteoporosis without current pathological fracture (ICD-10) Fracture, intertrochanteric, left femur ?S72.142A - Displaced intertrochanteric fracture of left femur, initial encounter for closed fracture (ICD-10) Surgical History History of tracheostomy ?Z98.890 - Other specified postprocedural states (ICD-10) Family History Mother Pancreatic cancer Sister Lung cancer Father Heart disease Social History Narrative: He is resident of [facility]. He normally walks independently with a walker. He smokes a pack cigarettes a day. Previous history of alcohol use disorder. His sister, Gertrude, elmer Lopez would be healthcare power of document review attorney. Code status is full. What is your current living situation?: I presently have a place to live Problems where you live: no known problems Problems where you live details: N/A In the past 12 months, utilities in danger of being shut off: no In past 12 months, lack of transportation kept you from medical appts, meetings, work, or getting things needed for daily living: no In the past 12 mos, have been you worried that your food would run out before you had money to buy more?: never true In the past 12 mos, the food you bought just didn't last and you didn't have money to buy more?: never true Highest level of school completed/degree received: high school graduate Smoking Status: Current every day smoker How often do you have a drink containing alcohol: never AUDIT-C Alcohol total score: 0 Non-prescribed substance use: denies use How often does anyone, including family, friends and others, physically hurt you: never How often does anyone, including family, friends and others, insult or talk down to you: never How often does anyone, including family, friends and others, threaten you with harm: never How often does anyone, including family, friends and others, scream or curse at you: never Meds Home Medications and Allergies Home Medications ?Medication ?Instructions ?Recorded ?Confirmed ?Type acetaminophen 500 mg tablet 500 mg PO HS 03/13/25 03/14/25 History aspirin 81 mg tablet,delayed 81 mg PO DAILY 03/13/25 03/13/25 History release atorvastatin 20 mg tablet 20 mg PO DAILY 03/13/25 03/13/25 History cholecalciferol (vitamin D3) 10 10 mcg PO DAILY 03/13/25 03/13/25 History mcg (400 unit) tablet (Vitamin D3) citalopram 20 mg tablet 20 mg PO DAILY 03/13/25 03/13/25 History losartan 50 mg tablet 50 mg PO DAILY 03/13/25 03/13/25 History diclofenac sodium 1 % topical gel 0.5 g topical HS 03/14/25 03/14/25 History Allergies Allergy/AdvReac Type Severity Reaction Status Date / Time No Known Drug Allergies Allergy Verified 03/13/25 17:02 Ortho Exam Narrative Exam Narrative: He is alert and oriented x3. No acute distress. Nonlabored breathing. Has oxygen mask laying on his chest. His oxygen saturations are approximately 85% while here on room air. Generalized grayish color to his skin. Exam left hip shows no lacerations, abrasions, or effusions. No ecchymosis. Painful but the left hip with any range of motion of the hip or knee. 5/5 motor strength with ankle plantar dorsiflexion otherwise. 2+ DP and PT pulse. Const Vital Signs, click to edit/add: Vital Signs - 24 hr 03/13/25 16:58 03/13/25 17:01 03/13/25 17:02 Temperature 97.7 F Pulse Rate 85 88 Pulse Rate [Pulse Oximeter] 84 Respiratory Rate 16 Blood Pressure 182/96 H Blood Pressure [Left Upper Arm] 149/85 H Blood Pressure [Right Arm] Pulse Oximetry 87 L 91 92 Oxygen Delivery Method Room Air Oxygen Flow Rate 03/13/25 17:12 03/13/25 17:15 03/13/25 17:22 Temperature Pulse Rate 80 84 82 Pulse Rate [Pulse Oximeter] Respiratory Rate Blood Pressure 175/88 H 167/88 H Blood Pressure [Left Upper Arm] Blood Pressure [Right Arm] Pulse Oximetry 92 92 91 Oxygen Delivery Method Oxygen Flow Rate 03/13/25 17:30 03/13/25 17:32 03/13/25 17:42 Temperature Pulse Rate 86 86 84 Pulse Rate [Pulse Oximeter] Respiratory Rate Blood Pressure 177/96 H 177/96 H Blood Pressure [Left Upper Arm] Blood Pressure [Right Arm] Pulse Oximetry 89 91 92 Oxygen Delivery Method Oxygen Flow Rate 03/13/25 17:45 03/13/25 17:51 03/13/25 18:00 Temperature Pulse Rate 86 87 91 Pulse Rate [Pulse Oximeter] Respiratory Rate Blood Pressure 174/89 H Blood Pressure [Left Upper Arm] Blood Pressure [Right Arm] Pulse Oximetry 92 92 Oxygen Delivery Method Oxygen Flow Rate 03/13/25 18:02 03/13/25 18:10 03/13/25 21:15 Temperature 97.8 F 98.1 F Pulse Rate Pulse Rate [Pulse Oximeter] 110 H 107 H Respiratory Rate 20 16 Blood Pressure 173/87 H Blood Pressure [Left Upper Arm] Blood Pressure [Right Arm] 178/92 H 121/82 Pulse Oximetry 96 70 L Oxygen Delivery Method Room Air Room Air Oxygen Flow Rate 03/13/25 21:25 03/13/25 21:47 03/13/25 21:47 Temperature Pulse Rate Pulse Rate [Pulse Oximeter] Respiratory Rate 16 17 17 Blood Pressure Blood Pressure [Left Upper Arm] Blood Pressure [Right Arm] Pulse Oximetry 89 88 Oxygen Delivery Method Nasal Cannula Nasal Cannula Oxygen Flow Rate 4.5 4.5 03/13/25 22:53 03/13/25 23:23 03/14/25 02:11 Temperature 98.1 F Pulse Rate Pulse Rate [Pulse Oximeter] 110 H 103 H Respiratory Rate 18 17 Blood Pressure Blood Pressure [Left Upper Arm] Blood Pressure [Right Arm] 138/82 119/75 Pulse Oximetry 89 89 91 Oxygen Delivery Method Nasal Cannula Nasal Cannula Room Air Oxygen Flow Rate 5 5 03/14/25 08:30 03/14/25 08:30 03/14/25 08:30 Temperature 98 F Pulse Rate Pulse Rate [Pulse Oximeter] 92 Respiratory Rate 18 18 Blood Pressure Blood Pressure [Left Upper Arm] Blood Pressure [Right Arm] 126/70 Pulse Oximetry 87 L 87 L Oxygen Delivery Method OxyMask OxyMask Oxygen Flow Rate 2 2 03/14/25 11:00 Temperature 98.0 F Pulse Rate Pulse Rate [Pulse Oximeter] 90 Respiratory Rate 18 Blood Pressure Blood Pressure [Left Upper Arm] Blood Pressure [Right Arm] 129/68 Pulse Oximetry 88 Oxygen Delivery Method OxyMask Oxygen Flow Rate 2 Results Labs Labs: Laboratory Results - last 48 hr 03/13/25 03/13/25 03/13/25 19:00 19:00 19:00 WBC 11.23 H RBC 4.92 Hgb 15.0 Hct 46.3 MCV 94 MCH 31 MCHC 32 RDW Coeff of Alphonse 13.1 Plt Count 250 Neut % (Auto) 85.4 H Lymph % (Auto) 8.4 L [place] % (Auto) 4.5 Eos % (Auto) 1.2 Baso % (Auto) 0.3 Neut # (Auto) 9.60 H Lymph # (Auto) 0.90 [place] # (Auto) 0.50 Eos # (Auto) 0.10 Baso # (Auto) 0.00 Abs Immat Gran (auto) 0.00 Imm/Tot Granulo (auto) 0.2 INR 0.89 L VBG pH 7.358 VBG pCO2 49 VBG pO2 < 30.1 VBG HCO3 28 Sodium 130 L Cancelled Potassium 4.2 Cancelled Chloride 94 L Carbon Dioxide Anion Gap BUN Creatinine Estimated Creat Clear Estimated GFR Glucose Calcium Magnesium Total Bilirubin Direct Bilirubin AST ALT Alkaline Phosphatase Troponin I NT-Pro-B Natriuret Pep Total Protein Albumin Procalcitonin Lab Acknowledgement 03/13/25 03/13/25 03/13/25 19:00 19:00 19:00 WBC RBC Hgb Hct MCV MCH MCHC RDW Coeff of Alphonse Plt Count Neut % (Auto) Lymph % (Auto) [place] % (Auto) Eos % (Auto) Baso % (Auto) Neut # (Auto) Lymph # (Auto) [place] # (Auto) Eos # (Auto) Baso # (Auto) Abs Immat Gran (auto) Imm/Tot Granulo (auto) INR VBG pH VBG pCO2 VBG pO2 VBG HCO3 Sodium Potassium Chloride Cancelled Carbon Dioxide 26 Cancelled Anion Gap 10 Cancelled BUN 21 Creatinine Estimated Creat Clear Estimated GFR Glucose Calcium Magnesium Total Bilirubin Direct Bilirubin AST ALT Alkaline Phosphatase Troponin I NT-Pro-B Natriuret Pep Total Protein Albumin Procalcitonin Lab Acknowledgement 03/13/25 03/13/25 03/13/25 19:00 19:00 19:00 WBC RBC Hgb Hct MCV MCH MCHC RDW Coeff of Alphonse Plt Count Neut % (Auto) Lymph % (Auto) [place] % (Auto) Eos % (Auto) Baso % (Auto) Neut # (Auto) Lymph # (Auto) [place] # (Auto) Eos # (Auto) Baso # (Auto) Abs Immat Gran (auto) Imm/Tot Granulo (auto) INR VBG pH VBG pCO2 VBG pO2 VBG HCO3 Sodium Potassium Chloride Carbon Dioxide Anion Gap BUN Cancelled Creatinine 0.9 Cancelled Estimated Creat Clear 66.77 Cancelled Estimated GFR 91 Glucose Calcium Magnesium Total Bilirubin Direct Bilirubin AST ALT Alkaline Phosphatase Troponin I NT-Pro-B Natriuret Pep Total Protein Albumin Procalcitonin Lab Acknowledgement 03/13/25 03/13/25 03/13/25 19:00 19:00 19:00 WBC RBC Hgb Hct MCV MCH MCHC RDW Coeff of Alphonse Plt Count Neut % (Auto) Lymph % (Auto) [place] % (Auto) Eos % (Auto) Baso % (Auto) Neut # (Auto) Lymph # (Auto) [place] # (Auto) Eos # (Auto) Baso # (Auto) Abs Immat Gran (auto) Imm/Tot Granulo (auto) INR VBG pH VBG pCO2 VBG pO2 VBG HCO3 Sodium Potassium Chloride Carbon Dioxide Anion Gap BUN Creatinine Estimated Creat Clear Estimated GFR Cancelled Glucose 110 Cancelled Calcium 9.7 Cancelled Magnesium 1.8 Total Bilirubin 0.4 Direct Bilirubin 0.3 AST 29 ALT 16 Alkaline Phosphatase 94 Troponin I < 0.01 NT-Pro-B Natriuret Pep Total Protein Albumin Procalcitonin Lab Acknowledgement 03/13/25 03/13/25 03/14/25 19:00 23:50 01:55 WBC RBC Hgb Hct MCV MCH MCHC RDW Coeff of Alphonse Plt Count Neut % (Auto) Lymph % (Auto) [place] % (Auto) Eos % (Auto) Baso % (Auto) Neut # (Auto) Lymph # (Auto) [place] # (Auto) Eos # (Auto) Baso # (Auto) Abs Immat Gran (auto) Imm/Tot Granulo (auto) INR VBG pH VBG pCO2 VBG pO2 VBG HCO3 Sodium Potassium Chloride Carbon Dioxide Anion Gap BUN Creatinine Estimated Creat Clear Estimated GFR Glucose Calcium Magnesium Total Bilirubin Direct Bilirubin AST ALT Alkaline Phosphatase Troponin I Cancelled < 0.01 NT-Pro-B Natriuret Pep 85 Total Protein 7.5 Albumin 4.2 Procalcitonin 0.05 Lab Acknowledgement Test Added 03/14/25 06:06 WBC 9.42 RBC 4.30 Hgb 13.2 L Hct 40.3 MCV 94 MCH 31 MCHC 33 RDW Coeff of Alphonse 13.2 Plt Count 240 Neut % (Auto) 75.0 H Lymph % (Auto) 15.4 L [place] % (Auto) 8.6 Eos % (Auto) 0.3 Baso % (Auto) 0.2 Neut # (Auto) 7.10 H Lymph # (Auto) 1.50 [place] # (Auto) 0.80 Eos # (Auto) 0.03 Baso # (Auto) 0.02 Abs Immat Gran (auto) 0.05 Imm/Tot Granulo (auto) 0.5 INR VBG pH 7.335 VBG pCO2 54 H VBG pO2 36.9 VBG HCO3 29 H Sodium 130 L Potassium 4.3 Chloride 98 Carbon Dioxide 28 Anion Gap 4 L BUN 18 Creatinine 0.8 Estimated Creat Clear 66.77 Estimated GFR 94 Glucose 104 Calcium 9.4 Magnesium Total Bilirubin Direct Bilirubin AST ALT Alkaline Phosphatase Troponin I NT-Pro-B Natriuret Pep Total Protein Albumin Procalcitonin Lab Acknowledgement Diagnostic results Additional Comments: AP pelvis, AP and cross-table lateral views of the left hip reviewed from [facility] on 03/13/2025. These were ordered by different provider and reviewed by me. This demonstrates left intertrochanteric femur fracture with varus, external rotation, and shortening changes. The joint spaces otherwise well preserved. Comminution is noted. The greater trochanteric piece appears to be a separate fragment displaced more posteriorly. Assessment and Plan Assessment and plan (1) Hypoxia: Problem comment: - mild, noted 03/13 - likely 2/2 PNA + possible COPD exacerbation; abx initiated 03/13 Status: Acute Total time spent: Total time spent is greater than 50% in coordination of care (as documented) at patient's floor/unit and/or counseling patient: (2) Tachycardia: Problem comment: - noted 03/13, resolved 03/14 Status: Acute Total time spent: Total time spent is greater than 50% in coordination of care (as documented) at patient's floor/unit and/or counseling patient: (3) Fracture, intertrochanteric, left femur: Problem comment: - OR with Dr. Giordano 03/14 Status: Acute (4) Tobacco use disorder, continuous: Problem comment: - Nicotine patch, encourage abstinence Status: Acute (5) Osteoporosis: Problem comment: Fragility fracture of left femur February 2025 meets the definition of a osteoporotic fragility fracture Status: Acute (6) COPD (chronic obstructive pulmonary disease): Problem comment: - no formal diagnosis in the past, + emphysema on imaging and wheezing on 03/14 exam - given 125mg Solumedrol 03/14, start oral Prednisone 03/15 Status: Suspected (7) Right lower lobe pneumonia: Problem comment: - 03/13 imaging, Ceftriaxone and Azithromycin (03/13) Status: Acute Plan Regarding left hip fracture, I do think surgery is indicated. This be for left femur intramedullary nail fixation of the intertrochanteric fracture. I discussed with him the pros and cons of ongoing nonoperative management versus surgical intervention. He states understanding. This includes local risks (e.g. Infection, wound healing issues, persistent pain, nonunion) as well as systemic risks (e.g. VTE, [place], stroke). Indeed he would like to proceed with surgery. Therefore, the patient does have a guardian. We were able to communicate with this guardian (Karma) on the phone. She was also able to approve the decision for surgical fixation of this left intertrochanteric femur fracture after hearing the pros and cons. I was also able to coordinate care with the hospitalist team and anesthesia team. A few relevant findings include chronic history of COPD and acute right lower lobe pneumonia. However, the pneumonia is not likely to drastically improved in short time and therefore proceed with surgery is still indicated after coordination of care with the various medical teams. Anticipate that if he would stop his tobacco use this would help his recovery significantly. His osteoporosis is noteworthy and confirmed based on this intertrochanteric fracture.
--- NOTE | 2025-03-14 12:50 | P.ANES_ITS ---
Anesthesia Charges Start Date/Time Anesthesia Start Date: 03/14/25 Anesthesia Start Time: 13:50 Stop Date/Time Anesthesia Stop Date: 03/14/25 Anesthesia Stop Time: 16:18 Summary Extremes of Age - Over 70 or under 1: MDA Coding CPT Codes CPT Codes: ANESTH SURGERY OF FEMUR - 64622 ([id number]) P4 - PT W/SEV SYS DIS THREAT LIFE, QK - SCOOPING MACHINE TENDER 2-4 CNCRNT ANES PROC, QX - SAILBOAT CAPTAIN SVC W/ MD MED DIRECTION Additional Codes: Summary - Extremes of Age - Over 70 or under 1: MDA ([id number])
--- NOTE | 2025-03-14 12:50 | W.ANESCHARGE ---
Anesthesia Charges Start Date/Time Anesthesia Start Date: 03/14/25 Anesthesia Start Time: 13:50 Stop Date/Time Anesthesia Stop Date: 03/14/25 Anesthesia Stop Time: 16:18 Summary Extremes of Age - Over 70 or under 1: MDA Coding CPT Codes CPT Codes: ANESTH SURGERY OF FEMUR - 16948 ([id number]) P4 - PT W/SEV SYS DIS THREAT LIFE, QK - STILL CLEANER TUBE 2-4 CNCRNT ANES PROC, QX - APPRENTICE STYLIST SVC W/ MD MED DIRECTION Additional Codes: Summary - Extremes of Age - Over 70 or under 1: MDA ([id number])
--- NOTE | 2025-03-14 13:45 | XR_ITS ---
Patient: [facility] Facility:?[facility] Patient ID:?[id number] Site Patient ID:?[id number]. Site :?[id number] Study:?XRay-Extremity Left FEMUR RODDING-03/14/2025 3:57:50 PM Ordering Physician:Dasia Díaz Final Report: Indication: Intraoperative left femur Technique: Intraoperative images left femur. Comparison: Left hip radiograph 03/13/2025 Findings: Intraoperative images of reduction internal fixation left femoral neck fracture available. Hardware appears in good position. Impression: Intraoperative images left femur open reduction internal fixation. Dictated by Hollis Hylton MD @ 03/19/2025 8:09:18 AM (Electronic Signature)
--- NOTE | 2025-03-14 13:53 | P.IMPN_ITS ---
Assessment and Plan Assessment and plan (1) Fracture, intertrochanteric, left femur: Problem comment: - OR with Dr. Giordano 03/14 Status: Acute (2) Right lower lobe pneumonia: Problem comment: - 03/13 imaging, Ceftriaxone and Azithromycin (03/13) Status: Acute (3) Hypoxia: Problem comment: - mild, noted 03/13 - likely 2/2 PNA + possible COPD exacerbation; abx initiated 03/13 Status: Acute (4) Tachycardia: Problem comment: - noted 03/13, resolved 03/14 Status: Acute (5) COPD (chronic obstructive pulmonary disease): Problem comment: - no formal diagnosis in the past, + emphysema on imaging and wheezing on 03/14 exam - given 125mg Solumedrol 03/14, start oral Prednisone 03/15 Status: Suspected (6) Tobacco use disorder, continuous: Problem comment: - Nicotine patch, encourage abstinence Status: Acute Plan - per above - plan of care and Full code status confirmed with Karma Lindsey, Guardian ([phone]) Subjective Date Seen: 03/14/25 Interval history: Kike was admitted to the hospital on 03/13/25 after a mechanical fall at home ([place]); slid from his chair to the floor. In the ER, imaging revealed a comminuted L intertrochanteric fracture. Overnight, he was noted to have hypoxia and tachycardia; improved with supplemental oxygen. Troponin and BNP within normal limits. Imaging revealed a RLL consolidation and background severe lobular emphysema. This morning, Kike is intermittently wearing supplemental oxygen, declines chest pain or dyspnea. He is planning to have surgery with Dr. Giordano today. Exam Narrative: Exam Narrative: GEN: Alert and laying comfortably in bed HEENT: EOMIs bilaterally, no scleral icterus CV: RRR, No concerning murmurs R: Wheezing in bilateral apices, air movement adequate. No tachypnea at rest Ext: wwp, no concerning edema. L foot is externally rotated, + peripheral pulses and sensation Skin: No concerning skin lesions or rashes on exposed skin Neuro: No focal deficits on limited exam Psych: Appropriate Const: Vital Signs, click to edit/add: Vital Signs - 24 hr 03/13/25 16:58 03/13/25 17:01 03/13/25 17:02 Temperature 97.7 F Pulse Rate 85 88 Pulse Rate [Pulse Oximeter] 84 Respiratory Rate 16 Blood Pressure 182/96 H Blood Pressure [Le ft Upper Arm] 149/85 H Blood Pressure [Ri ght Arm] Pulse Oximetry 87 L 91 92 Oxygen Delivery Me thod Room Air Oxygen Flow Rate 03/13/25 17:12 03/13/25 17:15 03/13/25 17:22 Temperature Pulse Rate 80 84 82 Pulse Rate [Pulse Oximeter] Respiratory Rate Blood Pressure 175/88 H 167/88 H Blood Pressure [Le ft Upper Arm] Blood Pressure [Ri ght Arm] Pulse Oximetry 92 92 91 Oxygen Delivery Me thod Oxygen Flow Rate 03/13/25 17:30 03/13/25 17:32 03/13/25 17:42 Temperature Pulse Rate 86 86 84 Pulse Rate [Pulse Oximeter] Respiratory Rate Blood Pressure 177/96 H 177/96 H Blood Pressure [Le ft Upper Arm] Blood Pressure [Ri ght Arm] Pulse Oximetry 89 91 92 Oxygen Delivery Me thod Oxygen Flow Rate 03/13/25 17:45 03/13/25 17:51 03/13/25 18:00 Temperature Pulse Rate 86 87 91 Pulse Rate [Pulse Oximeter] Respiratory Rate Blood Pressure 174/89 H Blood Pressure [Le ft Upper Arm] Blood Pressure [Ri ght Arm] Pulse Oximetry 92 92 Oxygen Delivery Me thod Oxygen Flow Rate 03/13/25 18:02 03/13/25 18:10 03/13/25 21:15 Temperature 97.8 F 98.1 F Pulse Rate Pulse Rate [Pulse Oximeter] 110 H 107 H Respiratory Rate 20 16 Blood Pressure 173/87 H Blood Pressure [Le ft Upper Arm] Blood Pressure [Ri ght Arm] 178/92 H 121/82 Pulse Oximetry 96 70 L Oxygen Delivery Me thod Room Air Room Air Oxygen Flow Rate 03/13/25 21:25 03/13/25 21:47 03/13/25 21:47 Temperature Pulse Rate Pulse Rate [Pulse Oximeter] Respiratory Rate 16 17 17 Blood Pressure Blood Pressure [Le ft Upper Arm] Blood Pressure [Ri ght Arm] Pulse Oximetry 89 88 Oxygen Delivery Me thod Nasal Cannula Nasal Cannula Oxygen Flow Rate 4.5 4.5 03/13/25 22:53 03/13/25 23:23 03/14/25 02:11 Temperature 98.1 F Pulse Rate Pulse Rate [Pulse Oximeter] 110 H 103 H Respiratory Rate 18 17 Blood Pressure Blood Pressure [Le ft Upper Arm] Blood Pressure [Ri ght Arm] 138/82 119/75 Pulse Oximetry 89 89 91 Oxygen Delivery Me thod Nasal Cannula Nasal Cannula Room Air Oxygen Flow Rate 5 5 03/14/25 08:30 03/14/25 08:30 03/14/25 08:30 Temperature 98 F Pulse Rate Pulse Rate [Pulse Oximeter] 92 Respiratory Rate 18 18 Blood Pressure Blood Pressure [Le ft Upper Arm] Blood Pressure [Ri ght Arm] 126/70 Pulse Oximetry 87 L 87 L Oxygen Delivery Me thod OxyMask OxyMask Oxygen Flow Rate 2 2 03/14/25 11:00 Temperature 98.0 F Pulse Rate Pulse Rate [Pulse Oximeter] 90 Respiratory Rate 18 Blood Pressure Blood Pressure [Le ft Upper Arm] Blood Pressure [Ri ght Arm] 129/68 Pulse Oximetry 88 Oxygen Delivery Me thod OxyMask Oxygen Flow Rate 2 Labs Labs: Laboratory Results - last 24 hr 03/13/25 03/13/25 03/13/25 19:00 19:00 19:00 WBC 11.23 H RBC 4.92 Hgb 15.0 Hct 46.3 MCV 94 MCH 31 MCHC 32 RDW Coeff of Alphonse 13.1 Plt Count 250 Neut % (Auto) 85.4 H Lymph % (Auto) 8.4 L [place] % (Auto) 4.5 Eos % (Auto) 1.2 Baso % (Auto) 0.3 Neut # (Auto) 9.60 H Lymph # (Auto) 0.90 [place] # (Auto) 0.50 Eos # (Auto) 0.10 Baso # (Auto) 0.00 Abs Immat Gran (auto) 0.00 Imm/Tot Granulo (auto) 0.2 INR 0.89 L VBG pH 7.358 VBG pCO2 49 VBG pO2 < 30.1 VBG HCO3 28 Sodium 130 L Cancelled Potassium 4.2 Cancelled Chloride 94 L Carbon Dioxide Anion Gap BUN Creatinine Estimated Creat Clear Estimated GFR Glucose Calcium Magnesium Total Bilirubin Direct Bilirubin AST ALT Alkaline Phosphatase Troponin I NT-Pro-B Natriuret Pep Total Protein Albumin Procalcitonin Lab Acknowledgement 03/13/25 03/13/25 03/13/25 19:00 19:00 19:00 WBC RBC Hgb Hct MCV MCH MCHC RDW Coeff of Alphonse Plt Count Neut % (Auto) Lymph % (Auto) [place] % (Auto) Eos % (Auto) Baso % (Auto) Neut # (Auto) Lymph # (Auto) [place] # (Auto) Eos # (Auto) Baso # (Auto) Abs Immat Gran (auto) Imm/Tot Granulo (auto) INR VBG pH VBG pCO2 VBG pO2 VBG HCO3 Sodium Potassium Chloride Cancelled Carbon Dioxide 26 Cancelled Anion Gap 10 Cancelled BUN 21 Creatinine Estimated Creat Clear Estimated GFR Glucose Calcium Magnesium Total Bilirubin Direct Bilirubin AST ALT Alkaline Phosphatase Troponin I NT-Pro-B Natriuret Pep Total Protein Albumin Procalcitonin Lab Acknowledgement 03/13/25 03/13/25 03/13/25 19:00 19:00 19:00 WBC RBC Hgb Hct MCV MCH MCHC RDW Coeff of Alphonse Plt Count Neut % (Auto) Lymph % (Auto) [place] % (Auto) Eos % (Auto) Baso % (Auto) Neut # (Auto) Lymph # (Auto) [place] # (Auto) Eos # (Auto) Baso # (Auto) Abs Immat Gran (auto) Imm/Tot Granulo (auto) INR VBG pH VBG pCO2 VBG pO2 VBG HCO3 Sodium Potassium Chloride Carbon Dioxide Anion Gap BUN Cancelled Creatinine 0.9 Cancelled Estimated Creat Clear 66.77 Cancelled Estimated GFR 91 Glucose Calcium Magnesium Total Bilirubin Direct Bilirubin AST ALT Alkaline Phosphatase Troponin I NT-Pro-B Natriuret Pep Total Protein Albumin Procalcitonin Lab Acknowledgement 03/13/25 03/13/25 03/13/25 19:00 19:00 19:00 WBC RBC Hgb Hct MCV MCH MCHC RDW Coeff of Alphonse Plt Count Neut % (Auto) Lymph % (Auto) [place] % (Auto) Eos % (Auto) Baso % (Auto) Neut # (Auto) Lymph # (Auto) [place] # (Auto) Eos # (Auto) Baso # (Auto) Abs Immat Gran (auto) Imm/Tot Granulo (auto) INR VBG pH VBG pCO2 VBG pO2 VBG HCO3 Sodium Potassium Chloride Carbon Dioxide Anion Gap BUN Creatinine Estimated Creat Clear Estimated GFR Cancelled Glucose 110 Cancelled Calcium 9.7 Cancelled Magnesium 1.8 Total Bilirubin 0.4 Direct Bilirubin 0.3 AST 29 ALT 16 Alkaline Phosphatase 94 Troponin I < 0.01 NT-Pro-B Natriuret Pep Total Protein Albumin Procalcitonin Lab Acknowledgement 03/13/25 03/13/25 03/14/25 19:00 23:50 01:55 WBC RBC Hgb Hct MCV MCH MCHC RDW Coeff of Alphonse Plt Count Neut % (Auto) Lymph % (Auto) [place] % (Auto) Eos % (Auto) Baso % (Auto) Neut # (Auto) Lymph # (Auto) [place] # (Auto) Eos # (Auto) Baso # (Auto) Abs Immat Gran (auto) Imm/Tot Granulo (auto) INR VBG pH VBG pCO2 VBG pO2 VBG HCO3 Sodium Potassium Chloride Carbon Dioxide Anion Gap BUN Creatinine Estimated Creat Clear Estimated GFR Glucose Calcium Magnesium Total Bilirubin Direct Bilirubin AST ALT Alkaline Phosphatase Troponin I Cancelled < 0.01 NT-Pro-B Natriuret Pep 85 Total Protein 7.5 Albumin 4.2 Procalcitonin 0.05 Lab Acknowledgement Test Added 03/14/25 06:06 WBC 9.42 RBC 4.30 Hgb 13.2 L Hct 40.3 MCV 94 MCH 31 MCHC 33 RDW Coeff of Alphonse 13.2 Plt Count 240 Neut % (Auto) 75.0 H Lymph % (Auto) 15.4 L [place] % (Auto) 8.6 Eos % (Auto) 0.3 Baso % (Auto) 0.2 Neut # (Auto) 7.10 H Lymph # (Auto) 1.50 [place] # (Auto) 0.80 Eos # (Auto) 0.03 Baso # (Auto) 0.02 Abs Immat Gran (auto) 0.05 Imm/Tot Granulo (auto) 0.5 INR VBG pH 7.335 VBG pCO2 54 H VBG pO2 36.9 VBG HCO3 29 H Sodium 130 L Potassium 4.3 Chloride 98 Carbon Dioxide 28 Anion Gap 4 L BUN 18 Creatinine 0.8 Estimated Creat Clear 66.77 Estimated GFR 94 Glucose 104 Calcium 9.4 Magnesium Total Bilirubin Direct Bilirubin AST ALT Alkaline Phosphatase Troponin I NT-Pro-B Natriuret Pep Total Protein Albumin Procalcitonin Lab Acknowledgement
--- NOTE | 2025-03-14 14:38 | W.PM.NB ---
Nerve Block Nerve Block Time Seen by Provider: 14:05 Date Seen: 03/14/25 Type of block requested by surgeon for post-operative analgesia: EMMANUEL/LFCN Side: left Time out performed: Yes Verification of patient name: Yes Verification of date of : Yes Site marking: site marked Name of person performing procedure: Edouard Continuous monitoring Was continuous monitoring of O2 sat, B/P, solid waste division supervisor, recorded every 15 minutes?: Yes Procedure Checklist: sterile prep, needles and gloves Ultrasound guided. Images saved: Yes Medications given in 5ml increments after negative aspiration: Ropivicaine %: 0.5 mL: 30 Needle gauge: 20 Precedex (mcg): 25 Patient tolerated procedure well: Yes Additional comments: Needle noted below psoas tendon needle noted adjacent to LFCN Block Charges Block Charge (with Pro Fee): Other Periph Nerve Block Use of Ultrasound Machine for Block: Yes- US Guidance/pain block
--- NOTE | 2025-03-14 16:18 | PM.ORPRC ---
Procedure Note Date of procedure: 03/14/25 Procedure: PREOPERATIVE DIAGNOSES: 1. Left femur intertrochanteric fracture, closed, acute POSTOPERATIVE DIAGNOSES: 1. Left femur intertrochanteric fracture, closed, acute NAME OF OPERATION: 1. Left femur intertrochanteric fracture fixation with intramedullary nail Intraoperative fluoroscopy interpreted by Arjun Giordano M.D. for intraoperative evaluation of fracture reduction and implant positioning. Fluoroscopy time was 124.6 seconds. SURGEON: Arjun Giordano MD CYLINDER MACHINE OPERATOR: Alli Hercules PA-C. Of note, an content assistant was critical for this case to aide in patient positioning, extremity positioning, tissue retraction, instrument manipulation, and closure. ANESTHESIA: Spinal EBL: 300 ml IMPLANTS: Synthes long TFN 12 mm x 380 mm with 115 mm lag screw and 1 distal 5.0 mm interlocking screws COMPLICATIONS: None evident INDICATIONS: The patient is a pleasant, 74-year-old male who unfortunately sustained a recent fall. They landed on their left hip and were unable to bear weight. They experienced significant pain which prompted a visit to [facility]. X-rays were obtained and revealed a proximal femur fracture on the left consistent with a pertrochanteric (i.e. intertrochanteric / subtrochanteric) femur fracture. Given these findings, along with the desire to help with pain control and improved mobility / mobilization, surgery was recommended. FINDINGS: Intertrochanteric left femur fracture with displacement, shortening, and varus angulation. PROCEDURE: Following a thorough discussion of risks, benefits, and alternatives, consent was obtained and the left hip was marked. After obtaining proper medical evaluation determining the patient was optimized prior to surgery, they were brought to the operating room and placed supine on the operating table. Induction of anesthesia undertaken. 1 g IV Ancef was administered within 1 hr of incision preoperatively. Proper time-out was performed identifying proper patient, site, and procedure. The operative extremity was prepped & draped in the appropriate sterile fashion using ChloraPrep after the patient was positioned on the [place] table with the head in neutral alignment all bone prominences well padded. C-arm fluoroscopic imaging was utilized to obtain AP and lateral views of the operative hip. This indeed confirm proper reduction of the proximal femur fracture. 10 blade skin incision was made proximal to the greater trochanteric tip. Sharp incision through skin and gluteal fascia allowed palpation of the greater trochanteric tip. A sharp awl was utilized and placed against the greater trochanteric tip. This was confirmed on C-arm and both in AP and lateral planes to be in appropriate starting position. Aiming down the canal. Once breaching the cortex, the ball-tip guidewire was passed the length of the femur. Once confirming via palpable scrape and visual C-Arm imagining that the guide wire with intraosseous, the depth gauge was used. The proper nail length was selected. The opening / proximal reamer was used followed by diaphyseal reamers up to 13.5mm. The IMN was then opened and inserted and passed the length of the canal without difficulty. The triple trocar was then applied to the lateral femur, 10 blade incision through the skin and ITB band along the trocars allowed them to be advanced to the lateral cortex. This was confirmed fluoroscopically to be in appropriate position. The guide pin was then placed and confirmed on AP and lateral views with the goal of center center position. The length was measured as noted above and the reamer used followed by screw application. Reduction of the fracture was monitored during insertion. The proximal nail locking screw was tightened down, and released so as to allow some compression through the fracture site with the mechanism on the nail. We then tightened down that locking screw. At this stage, C-arm confirmed proper screw/lag screw position. We then turned our attention to the distal interlocking screws. Perfect belkofski technique was utilized, and the 10 blade skin incision allowed the drill bit to be placed, and confirmed on C-arm fluoroscopic imaging to be within the oblong hole. This was measured and the screw placed with good security of the screw. Again C-arm images were obtained to confirm position within the nail and the nail to be within the bone. At this stage, the wounds were thoroughly irrigated normal saline; closure was performed with #0 Vicryl for the deep gluteal fascia, and IT band. 2-0 Vicryl and 4-0 Monocryl was utilized for subcutaneous and subcuticular closure, respectively. The patient was awoken from anesthesia and transferred to the PACU in stable condition. PLAN: 1. Weight bear as tolerated operative lower extremity. 2. Encouraged ice. 3. Oxycodone for pain as needed. 4. Anticipate the need for intermediate facility transfer once medically stabilized 5. 23 hr perioperative antibiotics. 6. Xarelto for DVT prophylaxis along with Casper rainey and BRENNAs.
--- NOTE | 2025-03-14 16:31 | P.ANES_ITS ---
Anesthesia Charges Start Date/Time Anesthesia Start Date: 03/14/25 Anesthesia Start Time: 13:50 Stop Date/Time Anesthesia Stop Date: 03/14/25 Anesthesia Stop Time: 16:18 Summary Extremes of Age - Over 70 or under 1: NURSE SITTER Coding CPT Codes CPT Codes: ANESTH SURGERY OF FEMUR - 58954 ([id number]) P4 - PT W/SEV SYS DIS THREAT LIFE, QK - BLACK LEATHER BUFFER 2-4 CNCRNT ANES PROC, QX - NURSE SITTER SVC W/ MD MED DIRECTION Additional Codes: Summary - Extremes of Age - Over 70 or under 1: NURSE SITTER ([id number])
--- NOTE | 2025-03-14 16:31 | W.ANESCHARGE ---
Anesthesia Charges Start Date/Time Anesthesia Start Date: 03/14/25 Anesthesia Start Time: 13:50 Stop Date/Time Anesthesia Stop Date: 03/14/25 Anesthesia Stop Time: 16:18 Summary Extremes of Age - Over 70 or under 1: SEO ENGINEER Coding CPT Codes CPT Codes: ANESTH SURGERY OF FEMUR - 95000 ([id number]) P4 - PT W/SEV SYS DIS THREAT LIFE, QK - SWEAT BAND SEPARATOR 2-4 CNCRNT ANES PROC, QX - SEO ENGINEER SVC W/ MD MED DIRECTION Additional Codes: Summary - Extremes of Age - Over 70 or under 1: SEO ENGINEER ([id number])
[2025-03-14] MEDS: IPRAT-ALBUT 0.5-2.5 MG/3 ML NEB 1 NEB IH ×2 (19:01→20:45)
[2025-03-14] MEDS: SENNOSIDES 1 TAB TABLET 2 TAB PO (20:45)
[2025-03-14] MEDS: SODIUM CHLORIDE 0.9 % (FLUSH) 10 ML SYRINGE 5 ML IVF (20:45)
[2025-03-14] MEDS: CEFAZOLIN 2 GM in 0.9 % SODIUM CHLORIDE Mini-bag 100 ML IVPB (20:45)
[2025-03-15] VITALS (7 sets, daily range): BP systolic 108–141; BP diastolic 57–68; PULSE 73–102; RESP 14–22; TEMP 36.5–37.1; O2SAT 88–92
[2025-03-15] MEDS: cefTRIAXone 1 GM in 0.9 % SODIUM CHLORIDE Mini-bag 100 ML IVPB (02:19)
[2025-03-15] MEDS: CEFAZOLIN 2 GM in 0.9 % SODIUM CHLORIDE Mini-bag 100 ML IVPB (04:33)
[2025-03-15 06:17] LABS: Hematocrit* 32.4 % (37.0-53.0); Hemoglobin* 10.7 gm/dL (13.5-17.5); Immature Granulocytes Pct Auto 0.3 %; Lymphocytes Absolute Auto 0.70 K/uL (0.90-2.90); Mean Corpuscular HGB Conc 33 gm/dL (32-36); Mean Corpuscular Hemoglobin 31 pg (26-34); Mean Corpuscular Volume 95 fL (80-100); RDW Coefficient of Variation % 13.4 % (11.5-15.5); Red Blood Count* 3.43 m/uL (4.30-5.90); White Blood Count* 14.81 K/uL (4.50-11.00)
[2025-03-15 06:24] LABS: Immature Granulocytes Abs Auto 0.00 K/uL (0.00-0.30); Slide Review Reflex No
[2025-03-15 06:34] LABS: Chloride* 97 mmol/L (96-114); Potassium* 4.6 mmol/L (3.6-5.1); Sodium* 131 mmol/L (135-149)
[2025-03-15 06:37] LABS: Anion Gap 6 mEq/L (7-15); Blood Urea Nitrogen* 24 mg/dL (7-30); Carbon Dioxide* 28 mmol/L (20-32); Creatinine* 0.8 mg/dL (0.5-1.5); Est. Creatinine Clearance* 66.77; Estimated Glomerular Filt Rate 94 ml/min
[2025-03-15 06:38] LABS: Calcium* 9.1 mg/dL (8.4-10.6); Glucose* 121 mg/dL (60-115)
--- NOTE | 2025-03-15 07:19 | PC.NURSE ---
End of shift: Pt alert and oriented. Pt noncompliant with O2 via NC, reminded throughout shift. O2 sats remained above 88% with 2L NC. Pt tachy, 90s-low 100s, otherwise VSS. Denied pain. Pt bedrest throughout shift. Felder patent and draining. Refused SCD and Casper socks, educated. Pt refused repositioning. Bruise noted on left hand, pt denies pain and stated the fall caused it. Pt in bed, appears to be resting, call light within reach.
--- NOTE | 2025-03-15 07:22 | P.IMPN_ITS ---
Assessment and Plan Assessment and plan (1) Fracture, intertrochanteric, left femur: Problem comment: - Day 1 s/p Left intertrochanteric fracture fixation with intramedullary nail (Dr. Giordano, 03/14/25) Status: Acute (2) Hypoxia: Problem comment: - mild, noted 03/13 - likely 2/2 PNA + possible COPD exacerbation; abx initiated 03/13 - also on nebs and Prednisone given emphysema history Status: Acute (3) Right lower lobe pneumonia: Problem comment: - 03/13 imaging, Ceftriaxone and Azithromycin (03/13) Status: Acute (4) ABLA (acute blood loss anemia): Problem comment: - likely 2/2 fracture and subsequent surgery - baseline Hgb 14-15, POD #1 Hgb is 10.7 - no evidence of further bleeding, continue to follow Hgb Status: Acute (5) Tobacco use disorder, continuous: Problem comment: - Nicotine patch, encourage abstinence Status: Acute (6) COPD (chronic obstructive pulmonary disease): Problem comment: - no formal diagnosis in the past, + emphysema on imaging and wheezing on 03/14 exam - given 125mg Solumedrol 03/14, start oral Prednisone 03/15, also on nebs Status: Suspected (7) Osteoporosis: Problem comment: Fragility fracture of left femur February 2025 meets the definition of a osteoporotic fragility fracture Status: Acute (8) Tachycardia: Problem comment: - noted 03/13, RESOLVED 03/14 pm Status: Acute Plan - per above Subjective Date Seen: 03/15/25 Interval history: Kike was admitted to the hospital on 03/13/25 after a mechanical fall at home ([place]); slid from his chair to the floor. Found to have a comminuted L intertrochanteric fracture on imaging. Since admission: - 03/13 evening: + hypoxia and tachycardia; improved with supplemental oxygen. Normal troponin and BNP, + RLL consolidation and background severe lobular emphysema on CT chest - on Ceftriaxone and Azithromycin - 03/14: to OR with Dr. Giordano for L femur fixation with intramedullary nail - 03/15: POD #1, Hgb 10.7 (from 13.2 on 03/14), starting therapies Kike has no concerns for the hospitalist team today. He lives at [facility] locally, will likely require SNF upon discharge. Exam Narrative: Exam Narrative: GEN: Alert and answering questions appropriately, laying comfortably in bed HEENT: Poor dentition, EOMIs bilaterally, no scleral icterus CV: RRR, No concerning murmurs R: Decreased bibasilar air movement wheezing from yesterday's exam has improved Ext: wwp, no concerning edema Neuro: No focal deficits, no resting tremor Psych: Appropriate Const: Vital Signs, click to edit/add: Vital Signs - 24 hr 03/14/25 08:30 03/14/25 08:30 03/14/25 08:30 Temperature 98 F Pulse Rate Pulse Rate [Pulse Oximeter] 92 Respiratory Rate 18 18 Blood Pressure Blood Pressure [Ri ght Arm] 126/70 Pulse Oximetry 87 L 87 L Oxygen Delivery Me thod OxyMask OxyMask Oxygen Flow Rate 2 2 03/14/25 11:00 03/14/25 16:13 03/14/25 16:20 Temperature 98.0 F 97.7 F Pulse Rate 70 71 Pulse Rate [Pulse Oximeter] 90 Respiratory Rate 18 10 L 11 L Blood Pressure 77/53 L 102/60 Blood Pressure [Ri ght Arm] 129/68 Pulse Oximetry 88 93 95 Oxygen Delivery Me thod OxyMask OxyMask Oxygen Flow Rate 2 6 03/14/25 16:25 03/14/25 16:30 03/14/25 16:35 Temperature Pulse Rate 72 71 79 Pulse Rate [Pulse Oximeter] Respiratory Rate 10 L 12 11 L Blood Pressure 94/53 L 87/55 L 110/55 L Blood Pressure [Ri ght Arm] Pulse Oximetry 96 95 94 Oxygen Delivery Me thod Oxygen Flow Rate 03/14/25 16:40 03/14/25 16:50 03/14/25 17:00 Temperature 97.5 F L 97.5 F L Pulse Rate 90 Pulse Rate [Pulse Oximeter] 88 96 Respiratory Rate 12 14 14 Blood Pressure 112/60 Blood Pressure [Ri ght Arm] 110/64 113/77 Pulse Oximetry 91 88 88 Oxygen Delivery Me thod Nasal Cannula Nasal Cannula Oxygen Flow Rate 2 2 03/14/25 17:15 03/14/25 17:30 03/14/25 17:45 Temperature Pulse Rate Pulse Rate [Pulse Oximeter] 90 92 95 Respiratory Rate 14 14 14 Blood Pressure Blood Pressure [Ri ght Arm] 121/74 115/76 110/65 Pulse Oximetry 88 88 89 Oxygen Delivery Me thod Nasal Cannula Nasal Cannula Nasal Cannula Oxygen Flow Rate 2 2 2 03/14/25 18:15 03/14/25 18:45 03/14/25 19:30 Temperature 97.8 F Pulse Rate Pulse Rate [Pulse Oximeter] 101 H 108 H Respiratory Rate 14 14 Blood Pressure Blood Pressure [Ri ght Arm] 102/61 102/66 104/61 Pulse Oximetry 89 Oxygen Delivery Me thod Nasal Cannula Oxygen Flow Rate 2 03/14/25 19:51 03/14/25 21:10 03/14/25 21:51 Temperature 98.2 F 98.6 F 98.3 F Pulse Rate Pulse Rate [Pulse Oximeter] 105 H 108 H 102 H Respiratory Rate 18 18 16 Blood Pressure Blood Pressure [[place]ace[place] Arm] 107/68 109/64 106/70 Pulse Oximetry 88 90 89 Oxygen Delivery Me thod Nasal Cannula Nasal Cannula Nasal Cannula Oxygen Flow Rate 2 2 2 03/14/25 23:08 03/15/25 00:00 03/15/25 00:00 Temperature 98.6 F Pulse Rate Pulse Rate [Pulse Oximeter] 100 100 Respiratory Rate 16 16 Blood Pressure Blood Pressure [[place] Arm] 108/55 L Pulse Oximetry 88 88 Oxygen Delivery Me thod Nasal Cannula Nasal Cannula Oxygen Flow Rate 2 2 03/15/25 03:08 Temperature 98.7 F Pulse Rate Pulse Rate [Pulse Oximeter] 93 Respiratory Rate 18 Blood Pressure Blood Pressure [[place] Arm] 117/58 L Pulse Oximetry 88 Oxygen Delivery Me thod Nasal Cannula Oxygen Flow Rate 2 Labs Labs: Laboratory Results - last 24 hr 03/15/25 05:37 WBC 14.81 H RBC 3.43 L Hgb 10.7 L Hct 32.4 L MCV 95 MCH 31 MCHC 33 RDW Coeff of Alphonse 13.4 Plt Count 224 Neut % (Auto) 88.0 H Lymph % (Auto) 4.7 L [place] % (Auto) 6.8 Eos % (Auto) 0.0 Baso % (Auto) 0.2 Neut # (Auto) 13.00 H Lymph # (Auto) 0.70 L [place] # (Auto) 1.00 H Eos # (Auto) 0.00 Baso # (Auto) 0.00 Abs Immat Gran (auto) 0.00 Imm/Tot Granulo (auto) 0.3 Sodium 131 L Potassium 4.6 Chloride 97 Carbon Dioxide 28 Anion Gap 6 L BUN 24 Creatinine 0.8 Estimated Creat Clear 66.77 Estimated GFR 94 Glucose 121 H Calcium 9.1
[2025-03-15] MEDS: ACETAMINOPHEN 325 MG TABLET 650 MG PO (07:47)
--- NOTE | 2025-03-15 08:44 | PM.ORPN ---
Subjective Subjective Time Seen by Provider: 08:30 Date Seen: 03/15/25 Principal diagnosis: Day 1 s/p Left intertrochanteric fracture fixation with intramedullary nail Interval history: Kike is resting in his bed this morning. He reports he was unable to sleep last and has significant left hip pain currently, however he appears comfortable and is able to converse without signs of pain/discomfort. Left hip pain worsens with movement. Pain is managed with Oxycodone and Tylenol PRN. Patient states he is refusing to weightbear and is stating he will not work with therapy. Denies chest pain, SOB, fever, chills, numbness/tingling distally, nausea and vomiting. Patient has history of COPD and is a smoker. He is wearing supplemental oxygen this morning. Patient resides at [facility]. Ortho Exam Narrative Exam Narrative: Incision/Dressing: Dressings appear clean and dry. No drainage present. Mepilex intact x3. Left hip appears moderately swollen but supple with no obvious erythema, fluctuance or excessive warmth. No ecchymosis or erythematous streaking. Warmth around the wound is appropriate. Ice is being utilized as needed. CMS: Intact distally with 2+ Dorsalis pedis and Posterior Tibial pulses. 5/5 motor strength dorsal and plantar flexion. Confirmed sensation distally. Calf: Bilateral calves are supple, with no swelling, pain, tenderness, erythema, discoloration or coolness to the touch. Constitutional: Patient is alert and oriented x3. Patient is in no acute distress and converses without labored breathing. Patient is able to make decisions and demonstrates good insight. Patient is pleasant and cooperative. Affect is full range and appropriate for the circumstances. Const Vital Signs, click to edit/add: Vital Signs - 24 hr 03/14/25 11:00 03/14/25 16:13 03/14/25 16:20 Temperature 98.0 F 97.7 F Pulse Rate 70 71 Pulse Rate [Pulse Oximeter] 90 Respiratory Rate 18 10 L 11 L Blood Pressure 77/53 L 102/60 Blood Pressure [Right Arm] 129/68 Pulse Oximetry 88 93 95 Oxygen Delivery Method OxyMask OxyMask Oxygen Flow Rate 2 6 03/14/25 16:25 03/14/25 16:30 03/14/25 16:35 Temperature Pulse Rate 72 71 79 Pulse Rate [Pulse Oximeter] Respiratory Rate 10 L 12 11 L Blood Pressure 94/53 L 87/55 L 110/55 L Blood Pressure [Right Arm] Pulse Oximetry 96 95 94 Oxygen Delivery Method Oxygen Flow Rate 03/14/25 16:40 03/14/25 16:50 03/14/25 17:00 Temperature 97.5 F L 97.5 F L Pulse Rate 90 Pulse Rate [Pulse Oximeter] 88 96 Respiratory Rate 12 14 14 Blood Pressure 112/60 Blood Pressure [Right Arm] 110/64 113/77 Pulse Oximetry 91 88 88 Oxygen Delivery Method Nasal Cannula Nasal Cannula Oxygen Flow Rate 2 2 03/14/25 17:15 03/14/25 17:30 03/14/25 17:45 Temperature Pulse Rate Pulse Rate [Pulse Oximeter] 90 92 95 Respiratory Rate 14 14 14 Blood Pressure Blood Pressure [Right Arm] 121/74 115/76 110/65 Pulse Oximetry 88 88 89 Oxygen Delivery Method Nasal Cannula Nasal Cannula Nasal Cannula Oxygen Flow Rate 2 2 2 03/14/25 18:15 03/14/25 18:45 03/14/25 19:30 Temperature 97.8 F Pulse Rate Pulse Rate [Pulse Oximeter] 101 H 108 H Respiratory Rate 14 14 Blood Pressure Blood Pressure [Right Arm] 102/61 102/66 104/61 Pulse Oximetry 89 Oxygen Delivery Method Nasal Cannula Oxygen Flow Rate 2 03/14/25 19:51 03/14/25 21:10 03/14/25 21:51 Temperature 98.2 F 98.6 F 98.3 F Pulse Rate Pulse Rate [Pulse Oximeter] 105 H 108 H 102 H Respiratory Rate 18 18 16 Blood Pressure Blood Pressure [Right Arm] 107/68 109/64 106/70 Pulse Oximetry 88 90 89 Oxygen Delivery Method Nasal Cannula Nasal Cannula Nasal Cannula Oxygen Flow Rate 2 2 2 03/14/25 23:08 03/15/25 00:00 03/15/25 00:00 Temperature 98.6 F Pulse Rate Pulse Rate [Pulse Oximeter] 100 100 Respiratory Rate 16 16 Blood Pressure Blood Pressure [Right Arm] 108/55 L Pulse Oximetry 88 88 Oxygen Delivery Method Nasal Cannula Nasal Cannula Oxygen Flow Rate 2 2 03/15/25 03:08 03/15/25 07:40 03/15/25 07:40 Temperature 98.7 F 97.8 F Pulse Rate Pulse Rate [Pulse Oximeter] 93 88 88 Respiratory Rate 18 14 14 Blood Pressure Blood Pressure [Right Arm] 117/58 L 120/67 Pulse Oximetry 88 88 Oxygen Delivery Method Nasal Cannula Nasal Cannula Oxygen Flow Rate 2 105 03/15/25 07:40 Temperature Pulse Rate Pulse Rate [Pulse Oximeter] Respiratory Rate 14 Blood Pressure Blood Pressure [Right Arm] Pulse Oximetry 88 Oxygen Delivery Method Nasal Cannula Oxygen Flow Rate 1.5 Assessment and Plan Assessment and plan (1) Fracture, intertrochanteric, left femur: Problem details: Day 1 s/p Left intertrochanteric fracture fixation with intramedullary nail (Dr. Giordano, 03/14/25) Status: Acute Assessment and Plan: - Complete 23 hour perioperative antibiotics. - PT/OT consults for education and assistance. - Weight bear as tolerated with a walker for assistance. - Prescribed analgesics as needed. Patient is content with current narcotic medications. Minimize narcotic pain medication use; wean off and discontinue as soon as possible. - DVT prophylaxis: Xarelto 10 mg once daily. Also, dania stockings, frequent ambulation and ankle pumps when sedentary. - Social consult for discharge planning. Anticipate patient will require SNF placement. - Mepilex dressings will remain in place x 7-10 days. Dressings are waterproof. May shower. - Patient will follow-up with Alli Hercules PA-C in 2 weeks for wound check and clinic evaluation. In two weeks, if Kike is still residing at a SNF, the nursing staff at this facility may perform the wound check and notify our [facility] with any concerns. - Return to clinic in [address] Giordano. - Phone Orthopedics with any questions or concerns. [phone]
[2025-03-15] MEDS: ATORVASTATIN CALCIUM 10 MG TABLET 20 MG PO (08:52)
[2025-03-15] MEDS: RIVAROXABAN 10 MG TABLET PO (08:52)
[2025-03-15] MEDS: CITALOPRAM HYDROBROMIDE 20 MG TABLET PO (08:52)
[2025-03-15] MEDS: SENNOSIDES 1 TAB TABLET 2 TAB PO ×2 (08:52→20:33)
[2025-03-15] MEDS: LOSARTAN POTASSIUM 50 MG TABLET PO (08:52)
[2025-03-15] MEDS: SODIUM CHLORIDE 0.9 % (FLUSH) 10 ML SYRINGE 5 ML IVF ×2 (08:53→20:33)
[2025-03-15] MEDS: IPRAT-ALBUT 0.5-2.5 MG/3 ML NEB 1 NEB IH ×4 (08:53→20:32)
[2025-03-15] MEDS: NICOTINE 7 MG PATCH 1 PATCH TRANSDERMA (10:49)
[2025-03-15] MEDS: ACETAMINOPHEN 325 MG TABLET 975 MG PO ×2 (14:53→20:33)
--- NOTE | 2025-03-15 18:10 | PC.NURSE ---
End of Shift: Patient pleasant and cooperative, alert and oriented. Patient is vitally stable, lungs course, BS WNL, IV SL and intact. Patient is currently on 1L NC with sats at 88%, patient has been up to 2.5 Liters. Patient has rated left hip pain at most 8/10, tylenol given twice and 5mg of oxy given x3. Dressing x3 on left extremity/hip C/D/I. Patient is 2 assist with walker and unsteady, patient pivots to chair. Felder was removed, tip intact. Patient has urinated by urinal. Patient drinks coffee but declines eating food, his dinner is stored in the kitchenette.
[2025-03-15] MEDS: AZITHROMYCIN 250 MG TABLET 500 MG PO (20:33)
[2025-03-16 00:13] VITALS: RESP 18; O2SAT 92
[2025-03-16] MEDS: cefTRIAXone 1 GM in 0.9 % SODIUM CHLORIDE Mini-bag 100 ML IVPB (02:30)
[2025-03-16 02:31] VITALS: BP 111/66; PULSE 74; RESP 20; TEMP 36.7; O2SAT 94
[2025-03-16 06:25] LABS: Hematocrit* 30.8 % (37.0-53.0); Hemoglobin* 9.9 gm/dL (13.5-17.5); Immature Granulocytes Pct Auto 0.3 %; Mean Corpuscular HGB Conc 32 gm/dL (32-36); Mean Corpuscular Hemoglobin 31 pg (26-34); Mean Corpuscular Volume 95 fL (80-100); RDW Coefficient of Variation % 13.9 % (11.5-15.5); Red Blood Count* 3.23 m/uL (4.30-5.90); White Blood Count* 11.43 K/uL (4.50-11.00)
[2025-03-16 06:41] LABS: Immature Granulocytes Abs Auto 0.00 K/uL (0.00-0.30); Lymphocytes Absolute Auto 1.70 K/uL (0.90-2.90); Slide Review Reflex No
--- NOTE | 2025-03-16 06:46 | PC.NURSE ---
Pt alert and oriented. Pt?s dressing is dry and intact. Pt had complaints of pain ranging from 3-8; see EMAR for?intervention. Pt slept throughout most of the night.?
[2025-03-16 06:56] LABS: Chloride* 96 mmol/L (96-114); Sodium* 132 mmol/L (135-149)
[2025-03-16 06:57] LABS: Potassium* 4.8 mmol/L (3.6-5.1)
[2025-03-16 06:59] LABS: Blood Urea Nitrogen* 25 mg/dL (7-30); Creatinine* 0.7 mg/dL (0.5-1.5); Est. Creatinine Clearance* 66.77; Estimated Glomerular Filt Rate 98 ml/min
[2025-03-16 07:00] LABS: Anion Gap 4 mEq/L (7-15); Calcium* 9.3 mg/dL (8.4-10.6); Carbon Dioxide* 32 mmol/L (20-32); Glucose* 98 mg/dL (60-115)
[2025-03-16 07:34] VITALS: BP 128/70; PULSE 72; RESP 14; TEMP 36.6; O2SAT 89
[2025-03-16] MEDS: ACETAMINOPHEN 325 MG TABLET 975 MG PO ×2 (07:40→13:14)
[2025-03-16] MEDS: SENNOSIDES 1 TAB TABLET 2 TAB PO (09:33)
[2025-03-16] MEDS: IPRAT-ALBUT 0.5-2.5 MG/3 ML NEB 1 NEB IH ×2 (09:33→13:14)
[2025-03-16] MEDS: LOSARTAN POTASSIUM 50 MG TABLET PO (09:34)
[2025-03-16] MEDS: CITALOPRAM HYDROBROMIDE 20 MG TABLET PO (09:34)
[2025-03-16] MEDS: RIVAROXABAN 10 MG TABLET PO (09:34)
[2025-03-16] MEDS: ATORVASTATIN CALCIUM 10 MG TABLET 20 MG PO (09:34)
[2025-03-16] MEDS: SODIUM CHLORIDE 0.9 % (FLUSH) 10 ML SYRINGE 5 ML IVF (09:35)
[2025-03-16] MEDS: NICOTINE 7 MG PATCH 1 PATCH TRANSDERMA (10:45)
[2025-03-16 10:55] VITALS: BP 126/63; PULSE 81; RESP 14; TEMP 36.7; O2SAT 88
--- NOTE | 2025-03-16 11:37 | PM.ORPN ---
Subjective Subjective Date Seen: 03/16/25 Principal diagnosis: Day 2 s/p Left intertrochanteric fracture fixation with intramedullary nail Interval history: Patient reports doing okay. No acute events over night. Reluctant to move due to pain. Pain managed with scheduled and PRN medications, ice. DVT prophylaxis: Rivaroxaban, SCDs, walking. Denies fevers, chills, aches, N/V, CP, SOB/LOPEZ. 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 States he likely does not have pneumonia since he had the vaccine for pneumonia 2 years ago. Ortho Exam Narrative Exam Narrative: -Patient appears comfortable in bed; no apparent acute distress. Patient just got back to bed from the recliner -Alert and oriented times 3 -Operative hip moderately swollen; soft tissues supple; no obvious erythema. No significant ecchymosis. Warmth appropriate -Surgical dressings clean, dry, intact; no obvious drainage, no erythematous streaking peripheral to the bandage -Bilateral calves soft and supple; no significant swelling, edema, tenderness, erythema, discoloration, warmth, or palpable cords -2+ DP/PT pulses, intact dermatomes and myotomes distally (5/5 strength). Const Vital Signs, click to edit/add: Vital Signs - 24 hr 03/15/25 15:00 03/15/25 15:00 03/15/25 15:00 Temperature 97.9 F Pulse Rate [Pulse Oximeter] 93 93 Respiratory Rate 16 16 16 Blood Pressure [Left Arm] 141/65 H Blood Pressure [Right Arm] Pulse Oximetry 88 88 Oxygen Delivery Method Nasal Cannula Nasal Cannula Oxygen Flow Rate 1 1 03/15/25 20:15 03/15/25 23:20 03/16/25 00:13 Temperature 97.7 F 97.8 F Pulse Rate [Pulse Oximeter] 88 73 Respiratory Rate 22 18 18 Blood Pressure [Left Arm] Blood Pressure [Right Arm] 113/68 108/57 L Pulse Oximetry 90 92 92 Oxygen Delivery Method Nasal Cannula Nasal Cannula Nasal Cannula Oxygen Flow Rate 1 1 1 03/16/25 02:31 03/16/25 07:34 03/16/25 07:34 Temperature 98.0 F 97.8 F Pulse Rate [Pulse Oximeter] 74 72 72 Respiratory Rate 20 14 14 Blood Pressure [Left Arm] Blood Pressure [Right Arm] 111/66 128/70 Pulse Oximetry 94 89 Oxygen Delivery Method Nasal Cannula Nasal Cannula Oxygen Flow Rate 1 1 03/16/25 07:34 03/16/25 10:55 Temperature 98.1 F Pulse Rate [Pulse Oximeter] 81 Respiratory Rate 14 14 Blood Pressure [Left Arm] Blood Pressure [Right Arm] 126/63 Pulse Oximetry 89 88 Oxygen Delivery Method Nasal Cannula Nasal Cannula Oxygen Flow Rate 1 1 Assessment and Plan Assessment and plan (1) Fracture, intertrochanteric, left femur: Problem details: - Day 2 s/p Left intertrochanteric fracture fixation with intramedullary nail (Dr. Giordano, 03/14/25) Status: Acute (2) Hypoxia: Problem details: - mild, noted 03/13 - likely 2/2 PNA + possible COPD exacerbation; abx initiated 03/13 - also on nebs and Prednisone given emphysema history Status: Acute (3) Right lower lobe pneumonia: Problem details: - 03/13 imaging, Ceftriaxone and Azithromycin (03/13) Status: Acute (4) ABLA (acute blood loss anemia): Problem details: - likely 2/2 fracture and subsequent surgery - baseline Hgb 14-15, POD #1 Hgb is 10.7 - no evidence of further bleeding, continue to follow Hgb Status: Acute (5) Tobacco use disorder, continuous: Problem details: - Nicotine patch, encourage abstinence Status: Acute (6) COPD (chronic obstructive pulmonary disease): Problem details: - no formal diagnosis in the past, + emphysema on imaging and wheezing on 03/14 exam - given 125mg Solumedrol 03/14, start oral Prednisone 03/15, also on nebs Status: Suspected (7) Osteoporosis: Problem details: Fragility fracture of left femur February 2025 meets the definition of a osteoporotic fragility fracture Status: Acute (8) Tachycardia: Problem details: - noted 03/13, RESOLVED 03/14 pm Status: Acute Plan - PT/OT consult for education and assistance - he is strongly encouraged to move with therapies and nursing staff. - Social work consult for discharge planning - will need SNF, likely 03/19/2025 - Prescribed analgesics as needed - DVT prophylaxis: Rivaroxaban for 30 days, walking, and SCDs - Anticipation is for discharge to SNF once bed is found. - Discharge medications are ordered; unfortunately, these will have to be prescribed again because of change in pharmacy once SNF is located. Let Orthopedics know once final pharmacy is identified.
--- NOTE | 2025-03-16 11:55 | PM.IMPN1 ---
Assessment and Plan Assessment and plan (1) Fracture, intertrochanteric, left femur: Problem comment: - Day 2 s/p Left intertrochanteric fracture fixation with intramedullary nail (Dr. Giordano, 03/14/25) - mechanical fall at home ([facility]) Status: Acute (2) Hypoxia: Problem comment: - mild, noted 03/13 - likely 2/2 PNA + possible COPD exacerbation; abx initiated 03/13 - also on nebs and Prednisone given emphysema history - 03/16: improving Status: Acute (3) Right lower lobe pneumonia: Problem comment: - 03/13 imaging, Ceftriaxone and Azithromycin (03/13) Status: Acute (4) ABLA (acute blood loss anemia): Problem comment: - likely 2/2 fracture and subsequent surgery - baseline Hgb 14-15 --> 10.7 --> 9.9 on 03/16 - no evidence of further bleeding, asymptomatic, continue to follow Status: Acute (5) Tobacco use disorder, continuous: Problem comment: - Nicotine patch, encourage abstinence Status: Acute (6) COPD (chronic obstructive pulmonary disease): Problem comment: - no formal diagnosis in the past, + emphysema on imaging and wheezing on 03/14 exam - given 125mg Solumedrol 03/14, 3 day course of oral Prednisone 03/15, also on nebs Status: Suspected (7) Osteoporosis: Problem comment: Fragility fracture of left femur February 2025 meets the definition of a osteoporotic fragility fracture Status: Acute (8) Tachycardia: Problem comment: - noted 03/13, RESOLVED 03/14 pm Status: Acute Plan - per above (continue to treat CAP, therapies, await SNF placement) Subjective Date Seen: 03/16/25 Interval history: Kike was admitted to the hospital on 03/13/25 after a mechanical fall at home ([place]); slid from his chair to the floor. Found to have a comminuted L intertrochanteric fracture on imaging. Since admission: - 03/13 evening: + hypoxia and tachycardia; improved with supplemental oxygen. Normal troponin and BNP, + RLL consolidation and background severe lobular emphysema on CT chest - on Ceftriaxone and Azithromycin for CAP - 03/14: OR with Dr. Giordano for L femur fixation with intramedullary nail - 03/15: POD #1, Hgb 10.7 (from 13.2 on 03/14), started therapies (hesitant to move much 2/2 pain) - 03/16: POD #2, Hgb 9.9. Supplemental oxygen needs have decreased Kike has no concerns for the hospitalist team this morning. Lives at [facility] living locally, will require TCU stay upon discharge. Exam Narrative: Exam Narrative: GEN: Alert and answering questions appropriately, laying comfortably in bed HEENT: EOMIs bilaterally, no scleral icterus CV: RRR, No concerning murmurs R: Bibasilar rhonchi, no significant wheezing Ext: wwp, no concerning edema Neuro: No focal deficits, no resting tremor Psych: Appropriate Const: Vital Signs, click to edit/add: Vital Signs - 24 hr 03/15/25 15:00 03/15/25 15:00 03/15/25 15:00 Temperature 97.9 F Pulse Rate [Pulse Oximeter] 93 93 Respiratory Rate 16 16 16 Blood Pressure [Le ft Arm] 141/65 H Blood Pressure [Ri ght Arm] Pulse Oximetry 88 88 Oxygen Delivery Me thod Nasal Cannula Nasal Cannula Oxygen Flow Rate 1 1 03/15/25 20:15 03/15/25 23:20 03/16/25 00:13 Temperature 97.7 F 97.8 F Pulse Rate [Pulse Oximeter] 88 73 Respiratory Rate 22 18 18 Blood Pressure [Le ft Arm] Blood Pressure [Ri ght Arm] 113/68 108/57 L Pulse Oximetry 90 92 92 Oxygen Delivery Me thod Nasal Cannula Nasal Cannula Nasal Cannula Oxygen Flow Rate 1 1 1 03/16/25 02:31 03/16/25 07:34 03/16/25 07:34 Temperature 98.0 F 97.8 F Pulse Rate [Pulse Oximeter] 74 72 72 Respiratory Rate 20 14 14 Blood Pressure [Le ft Arm] Blood Pressure [Ri ght Arm] 111/66 128/70 Pulse Oximetry 94 89 Oxygen Delivery Me thod Nasal Cannula Nasal Cannula Oxygen Flow Rate 1 1 03/16/25 07:34 03/16/25 10:55 Temperature 98.1 F Pulse Rate [Pulse Oximeter] 81 Respiratory Rate 14 14 Blood Pressure [Le ft Arm] Blood Pressure [Ri ght Arm] 126/63 Pulse Oximetry 89 88 Oxygen Delivery Me thod Nasal Cannula Nasal Cannula Oxygen Flow Rate 1 1 Labs Labs: Laboratory Results - last 24 hr 11/28/25 06:10 WBC 11.43 H RBC 3.23 L Hgb 9.9 L Hct 30.8 L MCV 95 MCH 31 MCHC 32 RDW Coeff of Alphonse 13.9 Plt Count 234 Neut % (Auto) 77.3 H Lymph % (Auto) 14.6 L [place] % (Auto) 7.7 Eos % (Auto) 0.0 Baso % (Auto) 0.1 Neut # (Auto) 8.80 H Lymph # (Auto) 1.70 [place] # (Auto) 0.90 Eos # (Auto) 0.00 Baso # (Auto) 0.00 Abs Immat Gran (auto) 0.00 Imm/Tot Granulo (auto) 0.3 Sodium 132 L Potassium 4.8 Chloride 96 Carbon Dioxide 32 Anion Gap 4 L BUN 25 Creatinine 0.7 Estimated Creat Clear 66.77 Estimated GFR 98 Glucose 98 Calcium 9.3
[2025-03-16] MEDS: OMEPRAZOLE 20 MG CAPSULE DR PO (13:14)
[2025-03-16] MEDS: LIDOCAINE 5% PATCH 1 PATCH TRANSDERMA (13:16)
--- NOTE | 2025-03-16 14:01 | P.DS_ITS ---
DS: Providers Provider Date Seen: 03/16/25 Date of admission: 03/13/25 18:34 Primary care physician: Not a Local Provider Admitting Clinician: Louis Montoya MD Consults: 03/14/25 17:01 Consult to Occupational Therapy [CONS] Routine Comment: Reason(s) for OT Consult:: Evaluate and Treat Any Restrictions?:: See Comment Comment: evaluate and treat Consult to Physical Therapy [CONS] Routine Comment: Reason(s) for PT Consult:: Evaluate and Treat Any Restrictions?:: Wt Bearing as Tolerated Attending Physician on discharge: Carole Gonzales MD Date of Discharge: 03/16/25 DS: Diagnosis Discharge Diagnosis (1) Fracture, intertrochanteric, left femur: Status: Acute Problem details: - Day 2 s/p Left intertrochanteric fracture fixation with intramedullary nail (Dr. Giordano, 03/14/25) - mechanical fall at home ([facility] [place]) (2) Hypoxia: Status: Acute Problem details: - mild, noted 03/13 - likely 2/2 PNA + possible COPD exacerbation; abx initiated 03/13 - also on nebs and Prednisone given emphysema history - 03/16: improving (3) Right lower lobe pneumonia: Status: Acute Problem details: - 03/13 imaging, Ceftriaxone and Azithromycin (03/13) (4) ABLA (acute blood loss anemia): Status: Acute Problem details: - likely 2/2 fracture and subsequent surgery - baseline Hgb 14-15 --> 10.7 --> 9.9 on 03/16 - no evidence of further bleeding, asymptomatic, continue to follow (5) Tobacco use disorder, continuous: Status: Acute Problem details: - Nicotine patch, encourage abstinence (6) COPD (chronic obstructive pulmonary disease): Status: Suspected Problem details: - no formal diagnosis in the past, + emphysema on imaging and wheezing on 03/14 exam - given 125mg Solumedrol 03/14, 3 day course of oral Prednisone 03/15, also on nebs (7) Osteoporosis: Status: Acute Problem details: Fragility fracture of left femur February 2025 meets the definition of a osteoporotic fragility fracture (8) Tachycardia: Status: Acute Problem details: - noted 03/13, RESOLVED 03/14 pm DS: Summary Hospital Course Hospital Course: Kike was admitted to the hospital on 03/13/25 after a mechanical fall at home ([place]); slid from his chair to the floor. Found to have a comminuted L intertrochanteric fracture on imaging. During stay: - 03/13 evening: + hypoxia and tachycardia; improved with supplemental oxygen. Normal troponin and BNP, + RLL consolidation and background severe lobular emphysema on CT chest - on Ceftriaxone and Azithromycin for CAP - 03/14: OR with Dr. Giordano for L femur fixation with intramedullary nail - 03/15: POD #1, Hgb 10.7 (from 13.2 on 03/14), started therapies (hesitant to move much 2/2 pain) - 03/16: POD #2, Hgb 9.9. Supplemental oxygen needs have decreased Lives at [facility] locally, will require TCU stay upon discharge; accepted at [facility] in [place] for discharge 03/16/25, will finish course of Azithromcyin upon discharge, wean supplemental oxygen as able. Repeat Hgb next week and f/u with Ortho as scheduled. Status at Discharge Functional status at discharge: uses cane/walker Overall status at discharge: patient is progressing back to baseline Time Spent with Patient Time attestation: Total time spent providing and/or coordinating discharge services: Time spent: Greater than 30 minutes Specific discharge activities: med rec, MDT planning Exam Narrative: Exam Narrative: GEN: Alert and answering questions appropriately, laying comfortably in bed HEENT: EOMIs bilaterally, no scleral icterus CV: RRR, No concerning murmurs R: Bibasilar rhonchi, no significant wheezing Ext: wwp, no concerning edema Neuro: No focal deficits, no resting tremor Psych: Appropriate Const: Vital Signs, click to edit/add: Vital Signs - 24 hr 03/15/25 15:00 03/15/25 15:00 03/15/25 15:00 Temperature 97.9 F Pulse Rate [Pulse Oximeter] 93 93 Respiratory Rate 16 16 16 Blood Pressure [Le ft Arm] 141/65 H Blood Pressure [Ri ght Arm] Pulse Oximetry 88 88 Oxygen Delivery Me thod Nasal Cannula Nasal Cannula Oxygen Flow Rate 1 1 03/15/25 20:15 03/15/25 23:20 03/16/25 00:13 Temperature 97.7 F 97.8 F Pulse Rate [Pulse Oximeter] 88 73 Respiratory Rate 22 18 18 Blood Pressure [Le ft Arm] Blood Pressure [Ri ght Arm] 113/68 108/57 L Pulse Oximetry 90 92 92 Oxygen Delivery Me thod Nasal Cannula Nasal Cannula Nasal Cannula Oxygen Flow Rate 1 1 1 03/16/25 02:31 03/16/25 07:34 03/16/25 07:34 Temperature 98.0 F 97.8 F Pulse Rate [Pulse Oximeter] 74 72 72 Respiratory Rate 20 14 14 Blood Pressure [Le ft Arm] Blood Pressure [Ri ght Arm] 111/66 128/70 Pulse Oximetry 94 89 Oxygen Delivery Me thod Nasal Cannula Nasal Cannula Oxygen Flow Rate 1 1 03/16/25 07:34 03/16/25 10:55 Temperature 98.1 F Pulse Rate [Pulse Oximeter] 81 Respiratory Rate 14 14 Blood Pressure [Le ft Arm] Blood Pressure [Ri ght Arm] 126/63 Pulse Oximetry 89 88 Oxygen Delivery Me thod Nasal Cannula Nasal Cannula Oxygen Flow Rate 1 1 DS: Data Data Completed and Pending Labs on day of discharge: Labs from last 24 hours 03/16/25 06:10 WBC 11.43 H RBC 3.23 L Hgb 9.9 L Hct 30.8 L MCV 95 MCH 31 MCHC 32 RDW Coeff of Alphonse 13.9 Plt Count 234 Neut % (Auto) 77.3 H Lymph % (Auto) 14.6 L [place] % (Auto) 7.7 Eos % (Auto) 0.0 Baso % (Auto) 0.1 Neut # (Auto) 8.80 H Lymph # (Auto) 1.70 [place] # (Auto) 0.90 Eos # (Auto) 0.00 Baso # (Auto) 0.00 Abs Immat Gran (auto) 0.00 Imm/Tot Granulo (auto) 0.3 Sodium 132 L Potassium 4.8 Chloride 96 Carbon Dioxide 32 Anion Gap 4 L BUN 25 Creatinine 0.7 Estimated Creat Clear 66.77 Estimated GFR 98 Glucose 98 Calcium 9.3 Discharge Plan Discharge Disposition: [facility] Date of Admission: 03/13/25 18:34 Attending Provider on Discharge: Carole Gonzales Primary Care Provider: Provider,Not a Local Discharge Medications: New sennosides-docusate sodium [Senna-S] 8.6-50 mg tablet 1 - 4 tab-cap PO BID PRN (Reason: constipation) Qty: 60 0RF Rx Instructions: Hold medication if experiencing loose stools. acetaminophen 500 mg capsule 500 - 1,000 mg PO Q6H MDD 4000mg PRNQty: 100 0RF oxycodone 5 mg tablet 2.5 - 5 mg PO Q4-6H MDD 6 PRN (Reason: pain) Qty: 30 0RF Rx Instructions: Take as needed for postop pain: 2.5mg mild pain, 5mg moderate-severe pain; wean as tolerated. rivaroxaban 10 mg tablet 10 mg PO DAILY Qty: 30 0RF Rx Instructions: Medication for deep vein clot prevention post surgery. Complete this medication before starting Aspirin. albuterol sulfate 2.5 mg /3 mL (0.083 %) Solution For Nebulization 2.5 mg NEB Q4H PRNQty: 75 0RF azithromycin 250 mg Tablet 250 mg PO HS Qty: 3 0RF Taper: Z-SILVERIO 250 mg Q24H for 3 Days and 0 Hour Rx Instructions: 3 more days to complete 5 day course sennosides [Senna Lax] 8.6 mg Tablet 17.2 mg PO BID Qty: 60 0RF Rx Instructions: hold for loose stools acetaminophen 325 mg Tablet 975 mg PO Q6H PRNQty: 100 0RF Rx Instructions: consider giving scheduled for the first week postop ipratropium-albuterol 0.5 mg-3 mg(2.5 mg base)/3 mL Solution For Nebulization 3 ml inhalation QID PRN (Reason: shortness of breath or wheezing) Qty: 90 0RF lidocaine 5 % Adhesive Patch,Medicated 1 patch transdermal Q24H Qty: 15 0RF nicotine 7 mg/24 hr Patch 24 Hour 1 patch transdermal Q24H Qty: 7 0RF Xarelto 10 mg Tablet 10 mg PO DAILY Qty: 27 0RF oxycodone 5 mg tablet 5 - 10 mg PO Q4H PRN (Reason: pain) Qty: 30 0RF Rx Instructions: 1 tab for pain rated 4-6/10, 2 tabs for pain rated 7+/10 Continued losartan 50 mg tablet 50 mg PO DAILY atorvastatin 20 mg tablet 20 mg PO DAILY citalopram 20 mg tablet 20 mg PO DAILY cholecalciferol (vitamin D3) [Vitamin D3] 10 mcg (400 unit) tablet 10 mcg PO DAILY diclofenac sodium 1 % gel 0.5 g TOPICAL HS Rx Instructions: LEFT SHOULDER Held aspirin 81 mg tablet,delayed release (DR/EC) 81 mg PO DAILY Hold Instructions: hold until Ortho f/u Discontinued acetaminophen 500 mg tablet 500 mg PO HS Discharge Orders: Discharge Order (Routine); Ordered 03/16/25 Ordered By: Carole Gonzales Consulting provider completed their portion of the discharge: Yes Additional Instructions: Your surgery was on Wednesday 03/14 (use this date to make followup appointments below). Schedule Tylenol and use Lidocaine patch for primary pain control. Oxycodone every 4 hours as needed for pain not controlled by the above medications. Activity Level: Activity as Tolerated and Weight Bearing as Tolerated Activity Detail: Wound: ? Remove surgical dressings after 1 week. Remove dressings sooner if integrity is in question. ? No immersing bandages/wounds in water; showering okay; light scrub with your hand and body soap, rinse, dab dry ? Sutures are under the skin, will dissolve; allow surgical glue to come off naturally; do not scrub the wound or apply ointments/lotions ? Call our office with any redness that streaks, excessive drainage from the wound, or wound gapping. Ice/Elevate: ? Ice as needed for swelling and discomfort; elevate extremity frequently above the heart. Motion/Exercise: ? Weight bear as tolerated operative extremity (walker/cane for ambulation assistance as needed) ? Per PT/OT. ? Straight leg raises daily: 1-2 sets of 10 reps Pain Medications: ? Oral narcotic as prescribed. Wean as tolerated. Additional acetaminophen and ibuprofen as needed. Blood Clot Prevention (DVT): ? Medication: 30 days of Xarelto Driving: ? Do not drive while taking narcotic pain medication ? Anticipate 4-6 weeks no driving if operative leg is driving leg Dental: ? No elective dental work for 3 months post-op. If there is an urgent/emergent dental need, contact our office for an antibiotic prescription. Smoking/Alcohol: ? Do not smoke; do no drink alcohol especially when taking postoperative oral narcotic medication Seek Care from you Primary Care Provider if you experience the following issues in the postoperative phase and beyond: ? Bacterial infections such as: pneumonia, bacterial skin infection (cellulitis), UTI, high fever, chills unrelated to the operative body part - call your primary care physician urgently for treatment in hopes to protect your health and the metal implant. Referrals: ? PT, OT per patient preference - evaluate & treat total hip arthroplasty protocol, anterior approach (gait training, ROM, ADLs) Vaccines: ? No vaccines until 4-6 weeks postop Follow-up with orthopedics: ? PA-C 1-2 weeks postop, orthopedic surgeon 6 weeks postop If there are any acute concerns regarding your surgery, please call our orthopedic clinic ([phone]) Discharge Diet: Regular Follow Up Appointments: Provider,Not a Local [Primary Care Provider, Family Practice] Forms: [employer] Info Instructions Admit to: SNF Discharge Potential: Good Length of Stay: 30-90 days Can use facility standing orders?: Yes Code Status: Full Code TEDs: N/A Rehab Potential: Fair Therapy: Physical Therapy and Occupational Therapy Therapy Orders: Evaluate and Treat and Gait Training Oxygen: Yes Oxygen Delivery Method: Nasal Cannula Oxygen Flow Rate: 1L at rest, 2L with activity - d/c when able to maintain >88% on RA Urinary Catheter: No Glucose Checks: n/a Next INR: n/a Lab Orders: CBC on 03/19/25 (discharge Hgb 9.9) Orders are good >30 days: Yes Signature: Carole Gonzales MD
--- NOTE | 2025-03-16 14:17 | PC.NURSE ---
Nurse to Nurse given to BEKAH [facility]
--- NOTE | 2025-03-16 15:40 | PC.NURSE ---
Discharge: Patient pleasant and cooperative. Patient vitally stable, lungs course, BS WNL, IV removed, catheter intact. Patient on 1 L nasal cannula with sats 88% or above. Patient reports left hip pain at most 11/26, tylenol given twice and oxy 5mg given x3. Left hip dressing C/D/I. Patient tolerating regular diet and urinating by urinal. Lo conde used for transfers, patient was up to chair once today. [facility] at 1441. A second report was given to Mona and susanne.
--- NOTE | 2025-03-16 16:11 | PC.SOCIAL ---
Addendum entered by FARIBA Mccollum 03/16/25 16:25: Discharge planning: [employer] worker also left a message with pt's case fitter with [facility] letting her know that the pt discharged to [facility] today for short-term rehab. Social work to follow-up as needed. Addendum entered by FARIBA Mccollum 03/16/25 16:19: Discharge planning: [employer] maintenance worker also left a message with the staff at [facility] letting them know that the pt discharged to [facility] today. Social work to follow-up as needed. Original Note: Discharge planning: Pt was discharged to [facility] today with the blessing of his guardian, Karma Lindsey from [facility] [employer]. Pt was transport via non-emergent EMS due to needing oxygen. Pt should qualify for insurance payment for this transport due to needing oxygen at all times. Pre-admission screening was completed and secure emailed to Reji Rao with [facility] [employer]. [id number]. Discharge orders were also secure emailed to Reji Rao with [facility] [employer]. Social work to follow-up as needed.
== END 2025-03-16 14:41 | DRG 480 ==
LOC: ED 17:40 → MEDSURG 17:59
PROVIDERS: Orthopaedic Surgery Sports Medicine; Admitting Provider Family Medicine; Emergency Provider Emergency Medicine Emergency Medical Services; Visit Provider Family Medicine
PROC: 0QS706Z Reposition Left Upper Femur with Intramedullary Internal Fixation Device, Open Approach (ICD-10-PCS; CPT 27245; principal; 2025-03-14 13:45)
DX: M80.852A Other osteoporosis with current pathological fracture, left femur, initial encounter for fracture (principal); J18.9 Pneumonia, unspecified organism; D62 Acute posthemorrhagic anemia; J43.9 Emphysema, unspecified; G89.18 Other acute postprocedural pain; R26.81 Unsteadiness on feet; R09.02 Hypoxemia; R00.0 Tachycardia, unspecified; W07.XXXA Fall from chair, initial encounter; Y92.099 Unspecified place in other non-institutional residence as the place of occurrence of the external cause; I45.10 Unspecified right bundle-branch block; F17.200 Nicotine dependence, unspecified, uncomplicated; I10 Essential (primary) hypertension; F10.91 Alcohol use, unspecified, in remission; E78.5 Hyperlipidemia, unspecified
CPT/HCPCS: 01230; 36415; 51701; 64450; 71045; 71275; 73502; 73552; 76942; 80048; 80076; 82803; 83735; 83880; 84145; 84484; 85025; 85610; 87081; 93005; 94640; 94761; 97110; 97163; 97166; 97530; 97535; 99100; 99285; 99291; A9270; C1713; G0390; J0690; J0696; J1100; J1171; J2250; J2270; J2371; J2405; J2704; J2795; J2919; J3490; J7030; J7120; J7512; Q9967; S4990

== ENCOUNTER 2025-03-16 14:35 | Outpatient (CLI) | payer OTHER, SELFPAY | END 2025-03-16 14:36 | disposition home or self-care (01) | LOC: AMB 03-19 19:03 | PROVIDERS: Visit Provider Emergency Medicine Emergency Medical Services | DX: M25.559 Pain in unspecified hip (principal) | CPT/HCPCS: A0425; A0428 ==